=== PATIENT | male | born 1950 | race Caucasian/White ===

== ENCOUNTER 2019-07-31 14:29 | Inpatient (IN) | payer MEDICARE ==
--- NOTE | 2019-07-31 15:10 | ED ---
General Adult HPI - General Chief complaint: Shortness of Breath Stated complaint: Diff Breathing Source: patient Mode of arrival: wheelchair Limitations: no limitations - History of Present Illness Initial comments: patient is 69-year-old morbidly obese male with history of diabetes and prostate cancer presenting to emergency Department with chief complaint of shortness of breath. Patient reports intermittent shortness of breath for approximately one month but states it has significantly increased over the past 2 weeks. Patient reports dyspnea on exertion. Patient reports the SOB is also increased when laying flat. Patient does use a BiPAP for sleep apnea. Patient denies any chest pain but does report chest tightness. Patient denies history of asthma or COPD. Patient smoked for 8 years approximately 30 years ago. Patient does report a mild, intermittent productive cough. Patient denies night sweats fevers or chills. Patient denies lightheadedness, dizziness, nausea, vomiting, back pain, abdominal pain. Patient is unaware of any recent weight gain. Pat faviola wears compression stockings daily and denies recent changes in lower extremity edema. - Related Data Home Medications Medication Instructions Recorded Confirmed Allopurinol [Zyloprim] 300 mg PO DAILY 07/31/19 07/31/19 Aspirin EC [Ecotrin Low Dose] 81 mg PO DAILY 07/31/19 07/31/19 Enalapril [Vasotec] 20 mg PO BID 07/31/19 07/31/19 Ergocalciferol (Vitamin D2) 50,000 unit PO Q7D 07/31/19 07/31/19 [Vitamin D2] Ferrous Sulfate [Feosol] 325 mg PO DAILY 07/31/19 07/31/19 Hydrochlorothiazide [Hydrodiuril] 25 mg PO DAILY 07/31/19 07/31/19 Indomethacin [Indocin ER] 75 mg PO BID 07/31/19 07/31/19 Levothyroxine Sodium [Synthroid] 350 mcg PO DAILY 07/31/19 07/31/19 PARoxetine [Paxil] 20 mg PO DAILY 07/31/19 07/31/19 Simvastatin [Zocor] 40 mg PO HS 07/31/19 07/31/19 metFORMIN HCL [metFORMIN HCL ER 500 mg PO BID 07/31/19 07/31/19 Osmotic] Allergies Allergy/AdvReac Type Severity Reaction Status Date / Time No Known Allergies Allergy Verified 09/04/19 16:04 Review of Systems ROS Statement: Those systems with pertinent positive or pertinent negative responses have been documented in the HPI. ROS Other: All systems not noted in ROS Statement are negative. Past Medical History Past Medical History: Cancer, Prostate Disorder, Thyroid Disorder History of Any Multi-Drug Resistant Organisms: None Reported Past Surgical History: Orthopedic Surgery Additional Past Surgical History / Comment(s): betty knee partial replacement, thyroidectomy Past Psychological History: Panic Disorder Smoking Status: Former smoker Past Alcohol Use History: None Reported Past Drug Use History: None Reported General Exam Limitations: no limitations Course Vital Signs 07/31/19 07/31/19 07/31/19 14:31 14:39 14:45 Temperature 97.3 F L Pulse Rate 113 H 100 Respiratory 24 24 24 Rate Blood Pressure 178/82 161/98 O2 Sat by Pulse 92 L 96 Oximetry 07/31/19 15:50 Temperature Pulse Rate 100 Respiratory 20 Rate Blood Pressure 161/98 O2 Sat by Pulse 95 Oximetry EKG Findings - EKG Comments: EKG Findings:: A. fib with SVT. Ventricular rate 92, DE interval unknown, QRS duration 102, QT/QTC 396/496, P-r-t aces * 52 30 Medical Decision Making - Medical Decision Making Patient is 69-year-old male presenting to emergency room with a chief complaint of shortness of breath. Patient reports intermittent shortness of breath or past month that has been exacerbated over the past 2 weeks. Patient reports increased dyspnea on exertion. Patient denies any chest pain or chest tightn ess. Patient reports a mild intermittent cough with clear sputum production. Patient denies night sweats or chills. Patient was worked up for shortness of breath and chest pain. CBC, CMP unremarkable. Troponins are within normal limits. D-dimer is elevated. CTA is negative for a PE but patient does appear to have cardiomegaly along with bilateral pleural effusions. Mild loculation noted on the left lung base. It is my suspect the pleural effusion is secondary to heart failure which is causing the dyspnea on exertion. Patient was given Lasix. Patient will be admitted for further medical management. Case discussed with Dr. Bowman. Admitting physician is Dr. Nicholas. Cardiology consulted. - Lab Data Result diagrams: 07/31/19 15:40 07/31/19 15:40 Lab Results 09/04/19 09/04/19 09/04/19 Range/Units 15:40 15:40 15:40 WBC 7.0 (3.8-10.6) k/uL RBC 4.97 (4.30-5.90) m/uL Hgb 13.8 (13.0-17.5) gm/dL Hct 43.5 (39.0-53.0) % MCV 87.5 (80.0-100.0) fL MCH 27.8 (25.0-35.0) pg MCHC 31.8 (31.0-37.0) g/dL RDW 17.0 H (11.5-15.5) % Plt Count 156 (150-450) k/uL Neutrophils % 81 % Lymphocytes % 11 % Monocytes % 4 % Eosinophils % 2 % Basophils % 1 % Neutrophils # 5.6 (1.3-7.7) k/uL Lymphocytes # 0.8 L (1.0-4.8) k/uL Monocytes # 0.3 (0-1.0) k/uL Eosinophils # 0.2 (0-0.7) k/uL Basophils # 0.0 (0-0.2) k/uL Hypochromasia Slight Anisocytosis Slight PT 12.4 H (9.0-12.0) sec INR 1.2 H (<1.2) APTT 26.2 (22.0-30.0) sec D-Dimer 1.92 H (<0.60) mg/L FEU Sodium 138 (137-145) mmol/L Potassium 4.8 (3.5-5.1) mmol/L Chloride 100 (98-107) mmol/L Carbon Dioxide 28 (22-30) mmol/L Anion Gap 10 mmol/L BUN 23 H (9-20) mg/dL Creatinine 0.87 (0.66-1.25) mg/dL Est GFR (CKD-EPI)AfAm >90 (>60 ml/min/1.73 sqM) Est GFR (CKD-EPI)NonAf 87 (>60 ml/min/1.73 sqM) Glucose 142 H (74-99) mg/dL Calcium 9.4 (8.4-10.2) mg/dL Total Bilirubin 0.5 (0.2-1.3) mg/dL AST 36 (17-59) U/L ALT 62 (21-72) U/L Alkaline Phosphatase 64 (38-126) U/L Troponin I (0.000-0.034) ng/mL NT-Pro-B Natriuret Pep pg/mL Total Protein 6.7 (6.3-8.2) g/dL Albumin 4.2 (3.5-5.0) g/dL 07/31/19 07/31/19 Range/Units 15:40 15:40 WBC (3.8-10.6) k/uL RBC (4.30-5.90) m/uL Hgb (13.0-17.5) gm/dL Hct (39.0-53.0) % MCV (80.0-100.0) fL MCH (25.0-35.0) pg MCHC (31.0-37.0) g/dL RDW (11.5-15.5) % Plt Count (150-450) k/uL Neutrophils % % Lymphocytes % % Monocytes % % Eosinophils % % Basophils % % Neutrophils # (1.3-7.7) k/uL Lymphocytes # (1.0-4.8) k/uL Monocytes # (0-1.0) k/uL Eosinophils # (0-0.7) k/uL Basophils # (0-0.2) k/uL Hypochromasia Anisocytosis PT (9.0-12.0) sec INR (<1.2) APTT (22.0-30.0) sec D-Dimer (<0.60) mg/L FEU Sodium (137-145) mmol/L Potassium (3.5-5.1) mmol/L Chloride (98-107) mmol/L Carbon Dioxide (22-30) mmol/L Anion Gap mmol/L BUN (9-20) mg/dL Creatinine (0.66-1.25) mg/dL Est GFR (CKD-EPI)AfAm (>60 ml/min/1.73 sqM) Est GFR (CKD-EPI)NonAf (>60 ml/min/1.73 sqM) Glucose (74-99) mg/dL Calcium (8.4-10.2) mg/dL Total Bilirubin (0.2-1.3) mg/dL AST (17-59) U/L ALT (21-72) U/L Alkaline Phosphatase (38-126) U/L Troponin I 0.012 (0.000-0.034) ng/mL NT-Pro-B Natriuret Pep 1620 pg/mL Total Protein (6.3-8.2) g/dL Albumin (3.5-5.0) g/dL Disposition Clinical Impression: Shortness of breath, Dyspnea on exertion Disposition: ADMITTED IP TO THIS [facility] Condition: Stable Is patient prescribed a controlled substance at d/c from ED?: No Time of Disposition: 19:01
--- NOTE | 2019-07-31 15:47 | XR ---
EXAMINATION TYPE: XR chest 2V DATE OF EXAM: 07/31/2019 COMPARISON: NONE HISTORY: Difficulty breathing TECHNIQUE: Frontal and lateral views of the chest are obtained. FINDINGS: Exam is markedly suboptimal secondary to patient body habitus. There is a mildly enlarged cardiomediastinal silhouette and mild pulmonary vascular congestion with suspected trace pleural effu sions. Bilateral hilar enlargement is seen. IMPRESSION: Markedly limited exam secondary to patient body habitus. Prominence of the perihilar bassam ons bilaterally are seen, left greater than right. Central pulmonary vascular congestion is the leadi ng differential diagnosis mild pulmonary vascular congestion throughout. This could also be attributa ble to hilar adenopathy or pulmonary arterial hypertension. Trace pleural effusions are also suspecte d.
[2019-07-31 15:48] LABS: Anisocytosis Slight; Basophils % (A) 1 %; Eosinophils # (A) 0.2 k/uL (0-0.7); Eosinophils % (A) 2 %; HCT 43.5 % (39.0-53.0); HGB 13.8 gm/dL (13.0-17.5); Hypochromasia Slight; Lymphocytes # (A) 0.8 k/uL (1.0-4.8); Lymphocytes % (A) 11 %; MCH 27.8 pg (25.0-35.0); MCHC 31.8 g/dL (31.0-37.0); MCV 87.5 fL (80.0-100.0); Mean Platelet Volume 6.7; Monocytes # (A) 0.3 k/uL (0-1.0); Monocytes % (A) 4 %; Neutrophils # (A) 5.6 k/uL (1.3-7.7); Neutrophils % (A) 81 %; Platelet Count 156 k/uL (150-450); RBC 4.97 m/uL (4.30-5.90)
[2019-07-31 15:59] LABS: ALT 62 U/L (21-72); AST 36 U/L (17-59); African American GFR (CKD) >90 (>60 ml/min/1.73 sqM); Albumin 4.2 g/dL (3.5-5.0); Alkaline Phosphatase 64 U/L (38-126); Anion Gap 10 mmol/L; Blood Urea Nitrogen 23 mg/dL (9-20); Calcium 9.4 mg/dL (8.4-10.2); Carbon Dioxide 28 mmol/L (22-30); Chloride 100 mmol/L (98-107); Glucose 142 mg/dL (74-99); Potassium 4.8 mmol/L (3.5-5.1); Sodium 138 mmol/L (137-145); Total Bilirubin 0.5 mg/dL (0.2-1.3); Total Protein 6.7 g/dL (6.3-8.2)
[2019-07-31 16:06] LABS: INR 1.2 (<1.2); Prothrombin Time 12.4 sec (9.0-12.0)
[2019-07-31 16:07] LABS: Partial Thromboplastin Time 26.2 sec (22.0-30.0)
[2019-07-31 16:19] LABS: D-Dimer 1.92 mg/L FEU (<0.60)
--- NOTE | 2019-07-31 17:05 | CT ---
EXAMINATION TYPE: CT chest angio for PE DATE OF EXAM: 07/31/2019 COMPARISON: None HISTORY: SOB x1 week CT DLP: 1499.8 mGycm Automated exposure control for dose reduction was used. CONTRAST: CT Chest for pulmonary embolism performed with with IV Contrast, patient injected with 100 mL of Isov ue 370. FINDINGS: There are 3-D post processed images. There are bilateral pleural effusions. Heart is enlarged. There is no pericardial effusion. There is basilar pulmonary atelectasis. Exam is limited by patient's size. I see no filling defects in the pul monary arteries. There are no hilar masses. There is no mediastinal adenopathy. There is hypertrophic spurring in the thoracic spine. I see no focal bone destruction. IMPRESSION: No evidence of pulmonary embolism. Bilateral pleural effusions and cardiomegaly probably due to congestive heart failure. There is some loculation of pleural fluid on the left side.
[2019-07-31] MEDS ORDERED: NALOXONE 0.4 MG/ML 1 ML VIAL IV PRN (18:33)
[2019-07-31] MEDS ORDERED: KETOROLAC 30 MG/ML 1 ML VIAL IVP PRN (18:33)
[2019-07-31] MEDS ORDERED: MORPHINE SULFATE 4 MG/ML SYRINGE IV PRN (18:33)
[2019-07-31] MEDS ORDERED: ACETAMINOPHEN TAB 325 MG TAB PO PRN (18:33)
[2019-07-31] MEDS ORDERED: IBUPROFEN 400 MG TAB PO PRN (18:33)
[2019-07-31] MEDS ORDERED: FUROSEMIDE 10 MG/ML 2 ML VIAL IV STA (18:40)
[2019-08-01 02:10] VITALS: BMI 69.3
[2019-08-01 06:02] LABS: Glucose,Whole Blood 114 mg/dL (75-99)
[2019-08-01 06:30] LABS: Anisocytosis Slight; Basophils % (A) 1 %; Eosinophils # (A) 0.2 k/uL (0-0.7); Eosinophils % (A) 4 %; HCT 40.1 % (39.0-53.0); HGB 12.3 gm/dL (13.0-17.5); Hypochromasia Slight; Lymphocytes # (A) 1.1 k/uL (1.0-4.8); Lymphocytes % (A) 18 %; MCH 27.4 pg (25.0-35.0); MCHC 30.8 g/dL (31.0-37.0); MCV 88.8 fL (80.0-100.0); Mean Platelet Volume 7.2; Monocytes # (A) 0.4 k/uL (0-1.0); Monocytes % (A) 7 %; Neutrophils # (A) 4.2 k/uL (1.3-7.7); Neutrophils % (A) 70 %; Platelet Count 158 k/uL (150-450); RBC 4.51 m/uL (4.30-5.90); RDW 17.6 % (11.5-15.5)
[2019-08-01 06:55] LABS: Potassium 4.4 mmol/L (3.5-5.1)
[2019-08-01] MEDS ORDERED: HEPARIN SODIUM,PORCINE 5,000 UNIT/ML 1 ML VIAL IV PRN (09:02)
[2019-08-01] MEDS ORDERED: HEPARIN SODIUM,PORCINE 5,000 UNIT/ML 1 ML VIAL IV ONE (09:02)
[2019-08-01] MEDS ORDERED: HEPARIN SOD,PORK IN 0.45% NACL 25,000 UNIT in 0.45% NACL 1 250ML.BAG IV SCH (09:15)
[2019-08-01 09:20] LABS: Anisocytosis Slight; Basophils % (A) 1 %; Eosinophils # (A) 0.2 k/uL (0-0.7); Eosinophils % (A) 4 %; HCT 39.9 % (39.0-53.0); HGB 12.7 gm/dL (13.0-17.5); Hypochromasia Slight; Lymphocytes # (A) 0.8 k/uL (1.0-4.8); Lymphocytes % (A) 16 %; MCH 27.9 pg (25.0-35.0); MCHC 31.8 g/dL (31.0-37.0); MCV 87.9 fL (80.0-100.0); Mean Platelet Volume 7.1; Monocytes # (A) 0.3 k/uL (0-1.0); Monocytes % (A) 6 %; Neutrophils # (A) 3.8 k/uL (1.3-7.7); Neutrophils % (A) 73 %; Platelet Count 136 k/uL (150-450); RBC 4.54 m/uL (4.30-5.90); RDW 16.8 % (11.5-15.5); WBC 5.2 k/uL (3.8-10.6)
[2019-08-01 09:29] LABS: INR 1.3 (<1.2); Partial Thromboplastin Time 27.3 sec (22.0-30.0); Prothrombin Time 13.1 sec (9.0-12.0)
--- NOTE | 2019-08-01 10:41 | P.CRDCN ---
History of Present Illness Consult date: 08/01/19 Requesting physician: Aftab Nicholas Reason for Consult (text): CHF Chief complaint: Shortness of breath History of present illness: This is a 69-year-old gentleman with history of morbid obesity, diabetes, hypertension, hyperlipidemia, history of thyroid cancer with prior thyroidectomy, prostate cancer, sleep apnea with consistent BiPAP use, who presents to hospital with symptoms of progressively worsening shortness of breath. According to the patient, he's been dealing with an upper respiratory infection for the past 2-3 weeks, productive sputum of lebron color, in spite of his cold improving, patient continued to feel quite short of breath. He does have bilateral peripheral edema but states that he has not noticed more swelling than his usual. He quit smoking approximately 30 years ago. He denies any fever or chills at home. Chest x-ray on presentation here showed central pulmonary vascular congestion and trace pleural effusions. CTA of the chest did not reveal any evidence of pulmonary embolism, it did show bilateral pleural effusions and cardiomegaly. Some loculated pleural fluid on the left side. EKG on presentation here showed atrial fibrillation with moderately rapid ventricular response, occasional PVC. According to the patient, he has no prior documented history of atrial fibrillation. Blood pressure 116/80 with a heart rate in the 90s, 94% on BiPAP. White blood cell count 5.2, hemoglobin 12.7, platelet count 136. Sodium 139, potassium 4.4, BUN 25 and creatinine 1.0. D- dimer 1.9. Troponin 0.012, 0.0-4, 0.033. BNP level 1620. Past Medical History Past Medical History: Cancer, Diabetes Mellitus, Hyperlipidemia, Hypertension, Prostate Disorder, Rheumatoid Arthritis (RA), Thyroid Disorder Additional Past Medical History / Comment(s): thyroid and prostate CA History of Any Multi-Drug Resistant Organisms: None Reported Past Surgical History: Orthopedic Surgery Additional Past Surgical History / Comment(s): betty knee partial replacement, thyroidectomy Smoking Status: Former smoker - Past Family History Father Family Medical History: Hyperlipidemia Additional Family Medical History / Comment(s): parkinsons Medications and Allergies Home Medications Medication Instructions Recorded Confirmed Type Allopurinol [Zyloprim] 300 mg PO DAILY 07/31/19 07/31/19 History Aspirin EC [Ecotrin Low Dose] 81 mg PO DAILY 07/31/19 07/31/19 History Enalapril [Vasotec] 20 mg PO BID 07/31/19 07/31/19 History Ergocalciferol (Vitamin D2) 50,000 unit PO Q7D 07/31/19 07/31/19 History [Vitamin D2] Ferrous Sulfate [Feosol] 325 mg PO DAILY 07/31/19 07/31/19 History Hydrochlorothiazide [Hydrodiuril] 25 mg PO DAILY 07/31/19 07/31/19 History Indomethacin [Indocin ER] 75 mg PO BID 07/31/19 07/31/19 History Levothyroxine Sodium [Synthroid] 350 mcg PO DAILY 07/31/19 07/31/19 History PARoxetine [Paxil] 20 mg PO DAILY 07/31/19 07/31/19 History Simvastatin [Zocor] 40 mg PO HS 07/31/19 07/31/19 History metFORMIN HCL [metFORMIN HCL ER 500 mg PO BID 07/31/19 07/31/19 History Osmotic] Allergies Allergy/AdvReac Type Severity Reaction Status Date / Time No Known Allergies Allergy Verified 07/31/19 16:04 Physical Exam Vitals: Vital Signs Temp Pulse Pulse Resp BP BP Pulse Ox 08/01/19 04:00 98.2 F 95 20 116/85 94 L 08/01/19 02:30 160/90 08/01/19 02:06 98.8 F 95 23 150/100 94 L 07/31/19 23:00 82 20 139/97 96 07/31/19 20:21 90 19 152/82 97 07/31/19 15:50 100 20 161/98 95 07/31/19 14:45 100 24 161/98 96 07/31/19 14:39 24 07/31/19 14:31 97.3 F L 113 H 24 178/82 92 L Intake and Output 07/31/19 08/01/19 08/01/19 22:59 06:59 14:59 Intake Total 400 Balance 400 Intake: Oral 400 Other: Weight 190.6 kg PHYSICAL EXAMINATION: GENERAL: 69-year-old gentleman in no acute distress at the time of my examination HEENT: Head is atraumatic, normocephalic. Pupils equal, round. Sclera anic teric. Conjunctiva are clear. Mucous membranes of the mouth are moist. Neck is supple. Unable to assess for elevated jugular venous pressure. no carotid bruit is heard. HEART EXAMINATION: [Heart S1, S2 normal. No murmur or gallop heard.] CHEST EXAMINATION: Lungs reveal diminished air entry to bilateral bases ABDOMEN: [ Soft, obese , nontender. Bowel sounds are heard. No organomegaly note d]. EXTREMITIES:[ 2+ peripheral pulses with trace to 1+ evidence of peripheral edema and no calf tenderness noted]. NEUROLOGIC [patient is awake, alert and oriented 3 .] . Results 08/01/19 09:07 08/01/19 06:02 Cardiac Enzymes 07/31/19 07/31/19 07/31/19 Range/Units 15:40 15:40 23:06 AST 36 (17-59) U/L Troponin I 0.012 0.024 (0.000-0.034) ng/mL 08/01/19 Range/Units 03:21 AST (17-59) U/L Troponin I 0.033 (0.000-0.034) ng/mL Coagulation 07/31/19 08/01/19 Range/Units 15:40 09:07 PT 12.4 H 13.1 H (9.0-12.0) sec APTT 26.2 27.3 (22.0-30.0) sec CBC 07/31/19 08/01/19 08/01/19 Range/Units 15:40 06:02 09:07 WBC 7.0 6.0 5.2 (3.8-10.6) k/uL RBC 4.97 4.51 4.54 (4.30-5.90) m/uL Hgb 13.8 12.3 L 12.7 L (13.0-17.5) gm/dL Hct 43.5 40.1 39.9 (39.0-53.0) % Plt Count 156 158 136 L (150-450) k/uL Comprehensive Metabolic Panel 07/31/19 08/01/19 Range/Units 15:40 06:02 Sodium 138 139 (137-145) mmol/L Potassium 4.8 4.4 (3.5-5.1) mmol/L Chloride 100 100 (98-107) mmol/L Carbon Dioxide 28 32 H (22-30) mmol/L BUN 23 H 25 H (9-20) mg/dL Creatinine 0.87 1.05 (0.66-1.25) mg/dL Glucose 142 H 105 H (74-99) mg/dL Calcium 9.4 9.0 (8.4-10.2) mg/dL AST 36 (17-59) U/L ALT 62 (21-72) U/L Alkaline Phosphatase 64 (38-126) U/L Total Protein 6.7 (6.3-8.2) g/dL Albumin 4.2 (3.5-5.0) g/dL Current Medications Generic Name Dose Route Start Last Admin Trade Name Freq PRN Reason Stop Dose Admin Acetaminophen 650 mg 07/31/19 18:33 Tylenol Tab PO Q6HR PRN Mild Pain or Fever > 100.5 Heparin Sodium (Porcine) 0 unit 08/01/19 09:02 Heparin IV PER PROTOCOL PRN Low PTT Protocol Heparin Sodium/Sodium Chloride 250 mls @ 10.007 mls/hr 08/01/19 09:15 25,000 unit/ Sodium Chloride IV .Q24H NASRIN Protocol 5.25 UNITS/KG/HR Ibuprofen 400 mg 07/31/19 18:33 Motrin PO Q6HR PRN Mild Pain or Fever > 100.5 Ketorolac Tromethamine 30 mg 07/31/19 18:33 Toradol IVP 08/04/19 18:34 ONCE PRN Moderate Pain Morphine Sulfate 4 mg 07/31/19 18:33 Morphine Sulfate (Inj) IV Q4HR PRN Severe Pain Naloxone HCl 0.2 mg 07/31/19 18:33 Narcan IV Q2M PRN Opioid Reversal Intake and Output 07/31/19 08/01/19 08/01/19 22:59 06:59 14:59 Intake Total 400 Balance 400 Intake: Oral 400 Other: Weight 190.6 kg 08/01/19 09:07 08/01/19 06:02 EKG Interpretations (text) EKG shows atrial fibrillation with moderately rapid ventricular response Assessment and Plan Plan: Assessment and plan #1 congestive cardiac failure, LV function unknown #2 recent upper respiratory infection #3 diabetes #4 atrial fibrillation with moderately rapid ventricular response, appears to be of new onset for the patient. #5 hypertension #6 hyperlipidemia #7 obstructive sleep apnea #8 history of thyroid cancer with prior thyroidectomy, on Synthroid #9 prostate cancer Plan We will obtain an echocardiogram with Doppler study. Discontinue heparin and start the patient on Eliquis. Start the patient on IV Lasix, monitor the intake and output along with daily weights and daily lytes BUN and creatinine. Discontinue Motrin. Resume the statin, and Vasotec, and initiate a low-dose beta alicia. Further recommendations to follow. DNP note has been reviewed, I agree with a documented findings and plan of care. Patient was seen and examined.
[2019-08-01] MEDS: METOPROLOL SUCCINATE (ER) 25 MG TAB.ER.24H PO SCH (11:13)
[2019-08-01] MEDS: FUROSEMIDE 10 MG/ML 4 ML VIAL IV SCH ×2 (11:13→23:01)
[2019-08-01] MEDS: LISINOPRIL 20 MG TAB PO SCH ×2 (11:13→23:01)
[2019-08-01] MEDS: ASPIRIN 81 MG PO SCH (11:13)
[2019-08-01] MEDS: APIXABAN 5 MG TAB PO SCH ×2 (11:13→23:00)
[2019-08-01 11:52] LABS: Glucose,Whole Blood 129 mg/dL (75-99)
[2019-08-01 16:41] LABS: Glucose,Whole Blood 104 mg/dL (75-99)
[2019-08-01 20:50] LABS: Glucose,Whole Blood 136 mg/dL (75-99)
[2019-08-01] MEDS ORDERED: APIXABAN 5 MG TAB PO SCH (21:00)
[2019-08-01] MEDS: ATORVASTATIN 20 MG TAB PO SCH (23:00)
[2019-08-02 05:57] LABS: Glucose,Whole Blood 131 mg/dL (75-99)
[2019-08-02 06:45] LABS: Anisocytosis Slight; Basophils % (A) 1 %; Eosinophils # (A) 0.3 k/uL (0-0.7); Eosinophils % (A) 4 %; HCT 40.6 % (39.0-53.0); HGB 12.7 gm/dL (13.0-17.5); Hypochromasia Slight; Lymphocytes % (A) 17 %; MCH 27.5 pg (25.0-35.0); MCHC 31.3 g/dL (31.0-37.0); MCV 87.8 fL (80.0-100.0); Mean Platelet Volume 7.2; Monocytes # (A) 0.4 k/uL (0-1.0); Monocytes % (A) 7 %; Neutrophils # (A) 4.2 k/uL (1.3-7.7); Neutrophils % (A) 70 %; Platelet Count 144 k/uL (150-450); RBC 4.63 m/uL (4.30-5.90); RDW 16.8 % (11.5-15.5)
[2019-08-02] MEDS: FUROSEMIDE 10 MG/ML 4 ML VIAL IV SCH ×2 (08:50→21:02)
[2019-08-02] MEDS: ASPIRIN 81 MG PO SCH (08:51)
[2019-08-02] MEDS: LISINOPRIL 20 MG TAB PO SCH ×2 (08:51→21:02)
[2019-08-02] MEDS: APIXABAN 5 MG TAB PO SCH ×2 (08:52→21:02)
[2019-08-02] MEDS: METOPROLOL SUCCINATE (ER) 25 MG TAB.ER.24H PO SCH (08:52)
[2019-08-02] MEDS ORDERED: IPRATROPIUM-ALBUTEROL 3 ML NEB INHALATION PRN (09:45)
[2019-08-02] MEDS ORDERED: LEVOTHYROXINE SODIUM 350 MCG PO SCH (09:45)
--- NOTE | 2019-08-02 09:57 | P.HPIM ---
History of Present Illness H&P Date: 08/01/19 This is a 69-year-old gentleman history of obstructive sleep apnea -uses BiPAP cancer, diabetes mellitus, hyperlipidemia, hypertension, rheumatoid arthritis, thyroid cancer with prior thyroidectomy, prostate disorder, former nicotine dependence, panic disorder and multiple other medical issues presented to the ER with shortness of breath 1 month, worsening over the last 2 weeks with occasional productive cough-lebron colored sputum. Shortness of breath increases upon exertion and laying flat. Denies increase in his ongoing extremity edema. Reports recent upper respiratory infection, went to an urgent care 1 week ago and placed on antibiotics for sinus infection. Last seen in PCPs office 1 year ago. Denies prior history of COPD. Denies chest pain, palpitations. Denies lightheadedness dizziness or focal deficits. Denies syncope. Denies fever or chills. Denies night sweats. Denies nausea vomiting, diarrhea, abdominal pain. Denies recent weight gain. Chest x-ray reporting prominent perihilar regions left greater than right, central pulmonary vascular congestion, mild pulmonary vascular congestion throughout, possible hilar adenopathy versus pulmonary arterial hypertension. Trace pleural effusions. EKG reporting A. fib with PVCs, possible inferior/anterior infarct -age undetermined. Denies prior history of atrial fibrillation. Troponins 0.012, 0.024, 0.033. INR 1.2, d-dimer 1.92. CTA reported no evidence of PE, bibasilar atelectasis, bilateral pleural effusions, loculation of left sided pleural fluid, cardiomegaly. On admission, afebrile, hypertensive 178/82, heart rate 113, maintaining O2 sats of 92% on room air. Received Lasix IV push. Cardiology consulted. Review of Systems ROS Statement: Those systems with pertinent positive or pertinent negative responses have been documented in the HPI. ROS Other: All systems not noted in ROS Statement are negative. Past Medical History Past Medical History: Cancer, Diabetes Mellitus, Hyperlipidemia, Hypertension, Prostate Disorder, Rheumatoid Arthritis (RA), Thyroid Disorder Additional Past Medical History / Comment(s): thyroid and prostate CA History of Any Multi-Drug Resistant Organisms: None Reported Past Surgical History: Orthopedic Surgery Additional Past Surgical History / Comment(s): betty knee partial replacement, thyroidectomy Smoking Status: Former smoker - Past Family History Father Family Medical History: Hyperlipidemia Additional Family Medical History / Comment(s): parkinsons Medications and Allergies Home Medications Medication Instructions Recorded Confirmed Type Allopurinol [Zyloprim] 300 mg PO DAILY 07/31/19 07/31/19 History Aspirin EC [Ecotrin Low Dose] 81 mg PO DAILY 07/31/19 07/31/19 History Enalapril [Vasotec] 20 mg PO BID 07/31/19 07/31/19 History Ergocalciferol (Vitamin D2) 50,000 unit PO Q7D 07/31/19 07/31/19 History [Vitamin D2] Ferrous Sulfate [Feosol] 325 mg PO DAILY 07/31/19 07/31/19 History Hydrochlorothiazide [Hydrodiuril] 25 mg PO DAILY 07/31/19 07/31/19 History Indomethacin [Indocin ER] 75 mg PO BID 07/31/19 07/31/19 History Levothyroxine Sodium [Synthroid] 350 mcg PO DAILY 07/31/19 07/31/19 History PARoxetine [Paxil] 20 mg PO DAILY 07/31/19 07/31/19 History Simvastatin [Zocor] 40 mg PO HS 07/31/19 07/31/19 History metFORMIN HCL [metFORMIN HCL ER 500 mg PO BID 07/31/19 07/31/19 History Osmotic] Allergies Allergy/AdvReac Type Severity Reaction Status Date / Time No Known Allergies Allergy Verified 07/31/19 16:04 Physical Exam Vitals: Vital Signs Temp Pulse Pulse Resp BP BP Pulse Ox 08/01/19 08:00 98.5 F 65 20 116/64 96 08/01/19 04:00 98.2 F 95 20 116/85 94 L 08/01/19 02:30 160/90 08/01/19 02:06 98.8 F 95 23 150/100 94 L 07/31/19 23:00 82 20 139/97 96 07/31/19 20:21 90 19 152/82 97 07/31/19 15:50 100 20 161/98 95 07/31/19 14:45 100 24 161/98 96 07/31/19 14:39 24 07/31/19 14:31 97.3 F L 113 H 24 178/82 92 L Intake and Output 07/31/19 08/01/19 08/01/19 22:59 06:59 14:59 Intake Total 400 Balance 400 Intake: Oral 400 Other: Weight 190.6 kg PHYSICAL EXAM: VITAL SIGNS: As above GENERAL: Sitting up in bed, no acute distress, respiratory effort mildly increased HEENT: Conjunctivae normal. eyes normal. NECK: Supple, short neck-unable to assess for JVD. No thyroid enlargement. No LNs CARDIOVASCULAR: S1, S2 regular.. No murmur RESPIRATION: Breath sounds diminished in the bases. No rhonchi or crackles. No bronchial breathing. ABDOMEN: Obese, Soft, nontender . No guarding. no masses palpable. No ascites, No hepatosplenomegaly.Bowel sounds heard. LEGS: Positive edema, nontender, PSYCHIATRY: Alert and oriented X3, mood and affect normal. NERVOUS SYSTEM: Cranial N 2-12 grossly normal. Moves all 4 limbs. Diffuse weakness, No focal deficits. Strength and sensation grossly intact.. Skin: no lesions, no rash Lymphatic system. No LN neck axilla or groin. Results CBC & Chem 7: 08/02/19 06:22 08/01/19 06:02 Labs: Abnormal Lab Results - Last 24 Hours (Table) 07/31/19 07/31/19 07/31/19 Range/Units 15:40 15:40 15:40 Hgb (13.0-17.5) gm/dL MCHC (31.0-37.0) g/dL RDW 17.0 H (11.5-15.5) % Plt Count (150-450) k/uL Lymphocytes # 0.8 L (1.0-4.8) k/uL PT 12.4 H (9.0-12.0) sec INR 1.2 H (<1.2) D-Dimer 1.92 H (<0.60) mg/L FEU Carbon Dioxide (22-30) mmol/L BUN 23 H (9-20) mg/dL Glucose 142 H (74-99) mg/dL POC Glucose (mg/dL) (75-99) mg/dL 08/01/19 08/01/19 08/01/19 Range/Units 06:00 06:02 06:02 Hgb 12.3 L (13.0-17.5) gm/dL MCHC 30.8 L (31.0-37.0) g/dL RDW 17.6 H (11.5-15.5) % Plt Count (150-450) k/uL Lymphocytes # (1.0-4.8) k/uL PT (9.0-12.0) sec INR (<1.2) D-Dimer (<0.60) mg/L FEU Carbon Dioxide 32 H (22-30) mmol/L BUN 25 H (9-20) mg/dL Glucose 105 H (74-99) mg/dL POC Glucose (mg/dL) 114 H (75-99) mg/dL 08/01/19 08/01/19 08/01/19 Range/Units 09:07 09:07 11:44 Hgb 12.7 L (13.0-17.5) gm/dL MCHC (31.0-37.0) g/dL RDW 16.8 H (11.5-15.5) % Plt Count 136 L (150-450) k/uL Lymphocytes # 0.8 L (1.0-4.8) k/uL PT 13.1 H (9.0-12.0) sec INR 1.3 H (<1.2) D-Dimer (<0.60) mg/L FEU Carbon Dioxide (22-30) mmol/L BUN (9-20) mg/dL Glucose (74-99) mg/dL POC Glucose (mg/dL) 129 H (75-99) mg/dL Thrombosis Risk Factor Assmnt - Choose All That Apply Each Factor Represents 1 point: Heart failure (<1month), Obesity (BMI >25) Each Risk Factor Represents 2 Points: Age 61-74 years Thrombosis Risk Factor Assessment Total Risk Factor Score: 4 Thrombosis Risk Factor Assessment Level: Moderate Risk Assessment and Plan Assessment: -Dyspnea, multifactorial, acute CHF, EF currently unknown -Acute hypoxic respiratory failure secondary to the above -Bilateral pleural effusions, loculation of pleural fluid on the left side -Atelectasis, bibasilar -Obstructive sleep apnea wears BiPAP at home -New onset with atrial fibrillation -Diabetes mellitus -Hypertension -Hyperlipidemia -History of panic disorder -History of thyroid cancer, thyroidectomy -Prostate disorder -Morbid Obesity, BMI 67.9 Plan: Continue on current medication regime ,monitoring and symptomatic treatment. Cardiology consulted. Echo ordered. Currently maintained on heparin drip. Continue on scheduled IV push Lasix with strict I&O's, beta alicia. Home meds have been reviewed and resumed accordingly. Prognosis guarded given multiple complex medical issues. The impression and plan of care has been dictated as directed. : I performed a history and examination of this patient, discussed the same with the dictator. I agree with the dictator's note ,documented as a scribe. Any additional findings or plans will be noted. Time taken: 35 minutes
[2019-08-02] MEDS: PANTOPRAZOLE 40 MG/10 ML VIAL IVP SCH (10:48)
[2019-08-02 10:53] LABS: Calcium 9.3 mg/dL (8.4-10.2); Potassium 4.4 mmol/L (3.5-5.1)
[2019-08-02] MEDS: PARoxetine 20 MG TAB PO SCH (10:56)
[2019-08-02] MEDS: LEVOTHYROXINE 100 MCG TAB PO SCH (10:56)
[2019-08-02] MEDS: LEVOTHYROXINE 125 MCG TAB PO SCH (10:56)
[2019-08-02] MEDS: metFORMIN 500 MG TAB PO SCH ×2 (10:56→21:02)
[2019-08-02] MEDS: FERROUS SULFATE 325 MG TAB PO SCH (10:56)
[2019-08-02] MEDS: ALLOPURINOL 300 MG TAB PO SCH (10:56)
[2019-08-02] MEDS: IPRATROPIUM-ALBUTEROL 3 ML NEB INHALATION SCH ×3 (11:51→19:24)
[2019-08-02 11:53] LABS: Glucose,Whole Blood 127 mg/dL (75-99)
[2019-08-02] MEDS ORDERED: PNEUMOCOCCAL VACC-PNEUMOVAX 23 25 MCG/0.5 ML VIAL IM ONE (13:07)
[2019-08-02] MEDS: INSULIN ASPART (NovoLOG) 100 UNIT/ML VIAL SQ SCH ×3 (13:08→21:02)
--- NOTE | 2019-08-02 15:51 | P.PN ---
Subjective Progress Note Date: 08/02/19 This is a 69-year-old gentleman with history of morbid obesity, diabetes, hypertension, hyperlipidemia, history of thyroid cancer with prior thyroidectomy, prostate cancer, sleep apnea with consistent BiPAP use, who presents to hospital with symptoms of progressively worsening shortness of breat h. According to the patient, he's been dealing with an upper respiratory infection for the past 2-3 weeks, productive sputum of lebron color, in spite of his cold improving, patient continued to feel quite short of breath. He does have bilateral peripheral edema but states that he has not noticed more swelling than his usual. He quit smoking approximately 30 years ago. He denies any fever or chills at home. Chest x-ray on presentation here showed central pulmonary vascular congestion and trace pleural effusions. CTA of the chest did not reveal any evidence of pulmonary embolism, it did show bilateral pleural effusions and cardiomegaly. Some loculated pleural fluid on the left side. EKG on presentation here showed atrial fibrillation with moderately rapid ventricular response, occasional PVC. According to the patient, he has no prior documented history of atrial fibrillation. Blood pressure 116/80 with a heart rate in the 90s, 94% on BiPAP. White blood cell count 5.2, hemoglobin 12.7, platelet count 136. Sodium 139, potassium 4.4, BUN 25 and creatinine 1.0. D- dimer 1.9. Troponin 0.012, 0.0-4, 0.033. BNP level 1620. 08/02/2019 Patient seen and examined this morning, breathing overall is improving. Continues to have peripheral edema however significantly improved as well. Blood pressure 134/60 with a heart rate in the 80s, 97% on 2 L of oxygen. Blood cell count 6.0, hemoglobin 12.7, platelet count 144. Sodium 139, potassium 4.4, BUN 30 and creatinine 1.1. Objective - Vital Signs Vital signs: Vital Signs Temp 98.1 F 08/02/19 14:59 Pulse 82 08/02/19 14:59 Resp 18 08/02/19 14:59 BP 134/62 08/02/19 14:59 Pulse Ox 97 08/02/19 14:59 Intake & Output 08/01/19 08/02/19 08/02/19 18:59 06:59 18:59 Intake Total 220 240 Output Total 650 1345 860 Balance -430 -1345 -769 Weight 190.8 kg Intake: IV 20 Invasive Line 2 20 Oral 200 240 Output: Urine 650 4809 860 Other: # Voids 2 - Exam PHYSICAL EXAMINATION: GENERAL: 69-year-old gentleman in no acute distress at the time of my examination HEENT: Head is atraumatic, normocephalic. Pupils equal, round. Sclera anicter ic. Conjunctiva are clear. Mucous membranes of the mouth are moist. Neck is supple. Unable to assess for elevated jugular venous pressure. no carotid bruit is heard. HEART EXAMINATION: [Heart S1, S2 normal. No murmur or gallop heard.] CHEST EXAMINATION: Lungs reveal diminished air entry to bilateral bases ABDOMEN: [ Soft, obese , nontender. Bowel sounds are heard. No organomegaly noted]. EXTREMITIES:[ 2+ peripheral pulses with trace to 1+ evidence of peripheral edema and no calf tenderness noted]. NEUROLOGIC [patient is awake, alert and oriented 3 .] . - Labs CBC & Chem 7: 08/02/19 06:22 08/02/19 06:22 Labs: Abnormal Lab Results - Last 24 Hours (Table) 08/01/19 08/01/19 08/02/19 Range/Units 16:39 20:48 05:55 Hgb (13.0-17.5) gm/dL RDW (11.5-15.5) % Plt Count (150-450) k/uL Chloride (98-107) mmol/L Carbon Dioxide (22-30) mmol/L BUN (9-20) mg/dL Glucose (74-99) mg/dL POC Glucose (mg/dL) 104 H 136 H 131 H (75-99) mg/dL 08/02/19 08/02/19 08/02/19 Range/Units 06:22 06:22 11:51 Hgb 12.7 L (13.0-17.5) gm/dL RDW 16.8 H (11.5-15.5) % Plt Count 144 L (150-450) k/uL Chloride 97 L (98-107) mmol/L Carbon Dioxide 32 H (22-30) mmol/L BUN 30 H (9-20) mg/dL Glucose 117 H (74-99) mg/dL POC Glucose (mg/dL) 127 H (75-99) mg/dL Assessment and Plan Plan: Assessment and plan #1 congestive cardiac failure, LV function unknown #2 recent upper respiratory infection #3 diabetes #4 atrial fibrillation with moderately rapid ventricular response, appears to be of new onset for the patient. #5 hypertension #6 hyperlipidemia #7 obstructive sleep apnea #8 history of thyroid cancer with prior thyroidectomy, on Synthroid #9 prostate cancer Plan Echocardiogram with Doppler study remains pending. We will continue the patient on his current dose of IV Lasix. Continue to monitor his intake and output along with daily weights and daily lytes BUN and creatinine. DNP note has been reviewed, I agree with a documented findings and plan of care. Patient was seen and examined.
--- NOTE | 2019-08-02 16:20 | P.PN ---
Subjective Progress Note Date: 08/02/19 This is a 69-year-old gentleman history of obstructive sleep apnea -uses BiPAP cancer, diabetes mellitus, hyperlipidemia, hypertension, rheumatoid arthritis, thyroid cancer with prior thyroidectomy, prostate disorder, former nicotine dependence, panic disorder and multiple other medical issues presented to the ER with shortness of breath 1 month, worsening over the last 2 weeks with occasional productive cough-lebron colored sputum. Shortness of breath increases upon exertion and laying flat. Denies increase in his ongoing extremity edema. Reports recent upper respiratory infection, went to an urgent care 1 week ago and placed on antibiotics for sinus infection. Last seen in PCPs office 1 year ago. Denies prior history of COPD. Denies chest pain, palpitations. Denies lightheadedness dizziness or focal deficits. Denies syncope. Denies fever or chills. Denies night sweats. Denies nausea vomiting, diarrhea, abdominal pain. Denies recent weight gain. Chest x-ray reporting prominent perihilar regions left greater than right, central pulmonary vascular congestion, mild pulmonary vascular congestion throughout, possible hilar adenopathy versus pulmonary arterial hypertension. Trace pleural effusions. EKG reporting A. fib with PVCs, possible inferior/anterior infarct -age undetermined. Denies prior history of atrial fibrillation. Troponins 0.012, 0.024, 0.033. INR 1.2, d-dimer 1.92. CTA reported no evidence of PE, bibasilar atelectasis, bilateral pleural effusions, loculation of left sided pleural fluid, cardiomegaly. On admission, afebrile, hypertensive 178/82, heart rate 113, maintaining O2 sats of 92% on room air. Received Lasix IV push. Cardiology consulted. 08/02/2019 Anticoagulated on Eliquis. Diuresing well on Lasix IV push with 24- hour I&O reflecting a negative fluid balance. BMP pending. Maintaining O2 sats in the 90s on 2 L nasal cannula. Telemetry atrial fibrillation with controlled ventricular rate, on Toprol. Continues on Zestril with blood pressure improved. Afebrile, normal WBC. Denies chest pain, palpitations or increased shortness of breath. Echo pending. Objective - Vital Signs Vital signs: Vital Signs Temp 97.3 F L 08/02/19 08:34 Pulse 79 08/02/19 09:18 Resp 16 08/02/19 09:18 BP 115/69 08/02/19 08:40 Pulse Ox 98 08/02/19 09:22 Intake & Output 08/01/19 08/02/19 08/02/19 18:59 06:59 18:59 Intake Total 220 240 Output Total 650 1345 Balance -430 -1345 240 Weight 190.8 kg Intake: IV 20 Invasive Line 2 20 Oral 200 240 Output: Urine 650 1345 - Exam VITAL SIGNS: As above GENERAL: Sitting up in bed, no acute distress, respiratory effort mildly increased HEENT: Conjunctivae normal. eyes normal. NECK: Supple, short neck-unable to assess for JVD. No thyroid enlargement. No LNs CARDIOVASCULAR: S1, S2 regular.. No murmur RESPIRATION: Breath sounds diminished in the bases. No rhonchi or crackles. No wheezing. ABDOMEN: Obese, Soft, nontender . No guarding. no masses palpable. No ascites, No hepatosplenomegaly.Bowel sounds heard. LEGS: Positive edema, nontender, PSYCHIATRY: Alert and oriented X3, mood and affect normal. NERVOUS SYSTEM: Cranial N 2-12 grossly normal. Moves all 4 limbs. Diffuse weakness, No focal deficits. Strength and sensation grossly intact.. Skin: no lesions, no rash Lymphatic system. No LN neck axilla or groin. - Labs CBC & Chem 7: 08/02/19 06:22 08/02/19 06:22 Labs: Abnormal Lab Results - Last 24 Hours (Table) 08/01/19 08/01/19 08/01/19 Range/Units 11:44 16:39 20:48 Hgb (13.0-17.5) gm/dL RDW (11.5-15.5) % Plt Count (150-450) k/uL POC Glucose (mg/dL) 129 H 104 H 136 H (75-99) mg/dL 08/02/19 08/02/19 Range/Units 05:55 06:22 Hgb 12.7 L (13.0-17.5) gm/dL RDW 16.8 H (11.5-15.5) % Plt Count 144 L (150-450) k/uL POC Glucose (mg/dL) 131 H (75-99) mg/dL Assessment and Plan Assessment: -Dyspnea, multifactorial, acute CHF, echo pending. -Acute hypoxic respiratory failure secondary to the above -Bilateral pleural effusions, loculation of pleural fluid on the left side -Atelectasis, bibasilar -Obstructive sleep apnea wears BiPAP at home -New onset with atrial fibrillation -Diabetes mellitus -Hypertension -Hyperlipidemia -History of panic disorder -History of thyroid cancer, thyroidectomy -Prostate disorder -Morbid Obesity, BMI 67.9 Plan: Continue on current medication regime ,monitoring and symptomatic treatment. Pulmonary consulted. Echo pending. Anticoagulated on Eliquis. Continue diuresing on IV push Lasix, close monitoring of renal function, BMP pending/repeat labs ordered for a.m. continue on nebulized bronchodilators. GI and DVT prophylaxis in place. Increase ambulation as tolerated. The impression and plan of care has been dictated as directed. : I performed a history and examination of this patient, discussed the same with the dictator. I agree with the dictator's note ,documented as a scribe. Any additional findings or plans will be noted. Time taken: 35 minutes
[2019-08-02 17:03] LABS: Glucose,Whole Blood 127 mg/dL (75-99)
[2019-08-02 17:46] LABS: Hemoglobin A1C 6.1 % (4.0-6.0)
--- NOTE | 2019-08-02 18:32 | P.CNPUL ---
History of Present Illness Consult date: 08/02/19 Reason for consult: dyspnea Chief complaint: Shortness of breath History of present illness: A 69-year-old morbidly obese male patient with known history of obstructive sleep apnea was demented on a BiPAP at a pressure of 20/50 cm of water in addition to history of diabetes and hypertension and hyperlipidemia and chronic atrial fibrillation, who presented to the hospital because of worsening shortness of breath. He denied having any chest pain. He was having more limitation basis capacity above and beyond his baseline. Note that the patient already has some chronic shortness of breath at baseline. His BMI is 67.9. He denies having any pleurisy. No sputum production. No hemoptysis. CT angiogram was done and showed no evidence of any pulmonary embolism and there was bilateral pleural effusion. There was some loculated pleural fluid on the left lung base which is a benign finding. The patient was subjected to diuretics. The patient is currently receiving IV Lasix. He has diuresed significantly over the past 24 hours and clinically is feeling better. Is still on 2 L about 2 by nasal cannula and his pulse ox is 97%. He has previous history of prostate cancer and he also has history of thyroid cancer with a previous thyroidectomy. No smoking. Review of Systems Constitutional: Reports daytime sleepiness, Reports weight gain Eyes: denies as per HPI, denies blurred vision, denies bulging eye, denies decreased vision, denies diplopia, denies discharge, denies dry eye, denies irritation, denies itching, denies pain, denies photophobia, denies loss of peripheral vision, denies loss of vision, denies tunnel vision/blind spots Ears: deny: decreased hearing, ear discharge, earache, tinnitus Ears, nose, mouth and throat: Reports as per HPI Breasts: absent: as per HPI, gynecomastia Cardiovascular: Reports decreased exercise tolerance, Reports dyspnea on exertion, Reports leg edema, Reports orthopnea, Reports shortness of breath Respiratory: Reports dyspnea, Reports sleep apnea, Reports snoring Gastrointestinal: Denies abdominal pain, Denies diarrhea, Denies nausea, Denies vomiting Genitourinary: Reports as per HPI Musculoskeletal: Reports as per HPI, Reports limitation of motion Musculoskeletal: bilateral: ankle swelling, absent: ankle pain, ankle stiffness Integumentary: Denies pruritus, Denies rash Neurological: Reports weakness Psychiatric: Reports as per HPI Endocrine: Reports as per HPI, Reports fatigue Hematologic/Lymphatic: Reports as per HPI Allergic/Immunologic: Reports as per HPI Past Medical History Past Medical History: Cancer, Diabetes Mellitus, Hyperlipidemia, Hypertension, Prostate Disorder, Rheumatoid Arthritis (RA), Thyroid Disorder Additional Past Medical History / Comment(s): Thyroid cancer with a previous thyroidectomy, prostate cancer, morbid obesity with a BMI of 67.9, obstructive sleep apnea, hypertension, hyperlipidemia, diabetes mellitus, History of Any Multi-Drug Resistant Organisms: None Reported Past Surgical History: Orthopedic Surgery Additional Past Surgical History / Comment(s): betty knee partial replacement, thyroidectomy Smoking Status: Former smoker - Past Family History Father Family Medical History: Hyperlipidemia Additional Family Medical History / Comment(s): parkinsons Medications and Allergies Home Medications Medication Instructions Recorded Confirmed Type Allopurinol [Zyloprim] 300 mg PO DAILY 07/31/19 07/31/19 History Aspirin EC [Ecotrin Low Dose] 81 mg PO DAILY 07/31/19 07/31/19 History Enalapril [Vasotec] 20 mg PO BID 07/31/19 07/31/19 History Ergocalciferol (Vitamin D2) 50,000 unit PO Q7D 07/31/19 07/31/19 History [Vitamin D2] Ferrous Sulfate [Feosol] 325 mg PO DAILY 07/31/19 07/31/19 History Hydrochlorothiazide [Hydrodiuril] 25 mg PO DAILY 07/31/19 07/31/19 History Indomethacin [Indocin ER] 75 mg PO BID 07/31/19 07/31/19 History Levothyroxine Sodium [Synthroid] 350 mcg PO DAILY 07/31/19 07/31/19 History PARoxetine [Paxil] 20 mg PO DAILY 07/31/19 07/31/19 History Simvastatin [Zocor] 40 mg PO HS 07/31/19 07/31/19 History metFORMIN HCL [metFORMIN HCL ER 500 mg PO BID 07/31/19 07/31/19 History Osmotic] Allergies Allergy/AdvReac Type Severity Reaction Status Date / Time No Known Allergies Allergy Verified 07/31/19 16:04 Physical Exam Vitals: Vital Signs Temp Pulse Pulse Resp BP BP Pulse Ox 08/02/19 16:00 84 08/02/19 15:52 82 08/02/19 15:50 82 18 08/02/19 14:59 98.1 F 82 18 134/62 97 08/02/19 12:08 84 08/02/19 12:00 97.5 F L 84 80 18 118/70 96 08/02/19 09:22 98 08/02/19 09:18 79 16 08/02/19 08:40 115/69 08/02/19 08:34 97.3 F L 79 16 98 08/02/19 04:00 98.3 F 80 20 118/76 98 08/02/19 00:00 97.2 F L 69 18 151/95 94 L 08/01/19 20:00 98.2 F 91 18 132/99 96 Intake and Output 08/02/19 08/02/19 08/02/19 06:59 14:59 22:59 Intake Total 240 Output Total 1220 860 Balance -1220 -620 Intake: Oral 240 Output: Urine 1220 860 Other: # Voids 2 Weight 190.8 kg Gen. appearance morbidly obese, comfortable lying acute distress. BMI of 67.9 Head exam was generally normal. There was no scleral icterus or corneal arcus. Mucous membranes were moist. Neck was supple and without jugular venous distension, thyromegaly, or carotid bruits. Carotids were easily palpable bilaterally. There was no adenopathy. The patient is a Mallampati class IV with significant crowding of posterior oropharynx. Lungs sounds are diminished in lung bases bilaterally. No crackles or wheezes. Overall lung sounds are quite diminished due to his morbid obesity. Heart sounds are distant, regular, positive stress and there is no significant murmurs appreciated. Abdomen is morbidly obese and orders cannot be accurately palpated. There is no direct tenderness amount tensile guarding. Extremities revealed +1 pitting edema and there is no cyanosis or clubbing. Neurologically the patient is awake and alert and there is no focal neurological deficit. Cranial nerves are grossly intact. Examination of the skin revealed no evidence of significant rashes, suspicious appearing nevi or other concerning lesions. Psychiatric examination reveals no anxiety or depression. Results - Laboratory Findings CBC and BMP: 08/02/19 06:22 08/02/19 06:22 PT/INR, D-dimer PT 13.1 sec (9.0-12.0) H 08/01/19 09:07 INR 1.3 (<1.2) H 08/01/19 09:07 D-Dimer 1.92 mg/L FEU (<0.60) H 07/31/19 15:40 Abnormal lab findings: Abnormal Labs 07/31/19 07/31/19 07/31/19 15:40 15:40 15:40 Hgb MCHC RDW 17.0 H Plt Count Lymphocytes # 0.8 L PT 12.4 H INR 1.2 H D-Dimer 1.92 H Chloride Carbon Dioxide BUN 23 H Glucose 142 H POC Glucose (mg/dL) Hemoglobin A1c 08/01/19 08/01/19 08/01/19 06:00 06:02 06:02 Hgb 12.3 L MCHC 30.8 L RDW 17.6 H Plt Count Lymphocytes # PT INR D-Dimer Chloride Carbon Dioxide 32 H BUN 25 H Glucose 105 H POC Glucose (mg/dL) 114 H Hemoglobin A1c 08/01/19 08/01/19 08/01/19 09:07 09:07 11:44 Hgb 12.7 L MCHC RDW 16.8 H Plt Count 136 L Lymphocytes # 0.8 L PT 13.1 H INR 1.3 H D-Dimer Chloride Carbon Dioxide BUN Glucose POC Glucose (mg/dL) 129 H Hemoglobin A1c 08/01/19 08/01/19 08/02/19 16:39 20:48 05:55 Hgb MCHC RDW Plt Count Lymphocytes # PT INR D-Dimer Chloride Carbon Dioxide BUN Glucose POC Glucose (mg/dL) 104 H 136 H 131 H Hemoglobin A1c 08/02/19 08/02/19 08/02/19 06:22 06:22 06:22 Hgb 12.7 L MCHC RDW 16.8 H Plt Count 144 L Lymphocytes # PT INR D-Dimer Chloride 97 L Carbon Dioxide 32 H BUN 30 H Glucose 117 H POC Glucose (mg/dL) Hemoglobin A1c 6.1 H 08/02/19 08/02/19 11:51 17:02 Hgb MCHC RDW Plt Count Lymphocytes # PT INR D-Dimer Chloride Carbon Dioxide BUN Glucose POC Glucose (mg/dL) 127 H 127 H Hemoglobin A1c - Diagnostic Findings CT scan - chest: image reviewed Assessment and Plan Plan: 1 acute on chronic dyspnea. The patient shortness of breath is multifactorial and recurrent decompensating fact that is probably related to CHF/fluid overload. CT angiogram of the chest shows no evidence of any pulmonary embolism or pneumonia. There is bilateral pleural effusion with a small loculated pocket in left lung base. This is consistent with CHF/fluid overload. It is possible that the patient developed atrial fibrillation which is of a new onset and currently attributed to his decompensated heart failure also. 2 morbid obesity BMI of 67.9 3 obstructive sleep apnea maintained on a BiPAP at a pressure of 20/15 cm of water utilizing a nose pillow 4 acute hypoxic respiratory failure secondary to above 5 new onset atrial fibrillation 6 diabetes mellitus 7 hypertension 8 hyperlipidemia 9 history of thyroid cancer with previous thyroidectomy 10 history of prostate cancer Plan Continue IV Lasix 40 mg every 12 hours. The patient has diuresed adequately. Awaiting results of the echocardiogram. Long-term and to coagulation has been i nitiated with Eliquis. Continue DuoNeb nebulized treatments around the clock. Metoprolol for rate control at a dose of 25 mg twice a day. Outpatient medications of been ordered resume. Continue BiPAP at the same pressure of 20/15 cm of water. We'll continue to follow.
[2019-08-02 20:39] LABS: Glucose,Whole Blood 123 mg/dL (75-99)
[2019-08-02] MEDS: ATORVASTATIN 20 MG TAB PO SCH (21:02)
[2019-08-03 06:28] LABS: Glucose,Whole Blood 168 mg/dL (75-99)
[2019-08-03 06:43] LABS: Anisocytosis Slight; Basophils # (A) 0.1 k/uL (0-0.2); Basophils % (A) 1 %; Eosinophils # (A) 0.3 k/uL (0-0.7); Eosinophils % (A) 4 %; HCT 41.8 % (39.0-53.0); HGB 12.9 gm/dL (13.0-17.5); Hypochromasia Slight; Lymphocytes % (A) 14 %; MCH 27.3 pg (25.0-35.0); MCHC 30.9 g/dL (31.0-37.0); MCV 88.2 fL (80.0-100.0); Mean Platelet Volume 6.7; Monocytes # (A) 0.4 k/uL (0-1.0); Monocytes % (A) 6 %; Neutrophils # (A) 5.6 k/uL (1.3-7.7); Neutrophils % (A) 75 %; Platelet Count 155 k/uL (150-450); RBC 4.74 m/uL (4.30-5.90); RDW 16.7 % (11.5-15.5); WBC 7.5 k/uL (3.8-10.6)
[2019-08-03] MEDS: LEVOTHYROXINE 125 MCG TAB PO SCH (06:49)
[2019-08-03] MEDS: LEVOTHYROXINE 100 MCG TAB PO SCH (06:50)
[2019-08-03] MEDS: INSULIN ASPART (NovoLOG) 100 UNIT/ML VIAL SQ SCH ×4 (06:50→21:43)
[2019-08-03 07:37] LABS: Calcium 9.2 mg/dL (8.4-10.2)
[2019-08-03] MEDS: IPRATROPIUM-ALBUTEROL 3 ML NEB INHALATION SCH ×4 (08:29→19:41)
[2019-08-03] MEDS: FERROUS SULFATE 325 MG TAB PO SCH (10:09)
[2019-08-03] MEDS: ASPIRIN 81 MG PO SCH (10:09)
[2019-08-03] MEDS: ALLOPURINOL 300 MG TAB PO SCH (10:09)
[2019-08-03] MEDS: FUROSEMIDE 10 MG/ML 4 ML VIAL IV SCH ×2 (10:09→20:20)
[2019-08-03] MEDS: APIXABAN 5 MG TAB PO SCH ×2 (10:09→20:20)
[2019-08-03] MEDS: LISINOPRIL 20 MG TAB PO SCH ×2 (10:09→20:20)
[2019-08-03] MEDS: METOPROLOL SUCCINATE (ER) 25 MG TAB.ER.24H PO SCH (10:10)
[2019-08-03] MEDS: metFORMIN 500 MG TAB PO SCH ×2 (10:10→20:20)
[2019-08-03] MEDS: PARoxetine 20 MG TAB PO SCH (10:10)
[2019-08-03] MEDS: PANTOPRAZOLE 40 MG/10 ML VIAL IVP SCH (10:10)
[2019-08-03 12:06] LABS: Glucose,Whole Blood 132 mg/dL (75-99)
--- NOTE | 2019-08-03 13:03 | P.PN ---
Subjective Progress Note Date: 08/03/19 This is a 69-year-old gentleman with history of morbid obesity, diabetes, hypertension, hyperlipidemia, history of thyroid cancer with prior thyroidectomy, prostate cancer, sleep apnea with consistent BiPAP use, who presents to hospital with symptoms of progressively worsening shortness of breat h. According to the patient, he's been dealing with an upper respiratory infection for the past 2-3 weeks, productive sputum of lebron color, in spite of his cold improving, patient continued to feel quite short of breath. He does have bilateral peripheral edema but states that he has not noticed more swelling than his usual. He quit smoking approximately 30 years ago. He denies any fever or chills at home. Chest x-ray on presentation here showed central pulmonary vascular congestion and trace pleural effusions. CTA of the chest did not reveal any evidence of pulmonary embolism, it did show bilateral pleural effusions and cardiomegaly. Some loculated pleural fluid on the left side. EKG on presentation here showed atrial fibrillation with moderately rapid ventricular response, occasional PVC. According to the patient, he has no prior documented history of atrial fibrillation. Blood pressure 116/80 with a heart rate in the 90s, 94% on BiPAP. White blood cell count 5.2, hemoglobin 12.7, platelet count 136. Sodium 139, potassium 4.4, BUN 25 and creatinine 1.0. D- dimer 1.9. Troponin 0.012, 0.0-4, 0.033. BNP level 1620. 08/02/2019 Patient seen and examined this morning, breathing overall is improving. Continues to have peripheral edema however significantly improved as well. Blood pressure 134/60 with a heart rate in the 80s, 97% on 2 L of oxygen. Blood cell count 6.0, hemoglobin 12.7, platelet count 144. Sodium 139, potassium 4.4, BUN 30 and creatinine 1.1. 08/03/2019 Patient seen and examined today, continues to do well, echo showed normal left ventricular systolic function. In atrial fibrillation and his rate is under adequate control. We will stop his aspirin today, continue IV Lasix for 24 hours. Blood pressure 126/76 heart rate in the 80s, 94% on room air. Hemoglobin 12.9, sodium 139, potassium 4.0, BUN 33 and creatinine 1.1. We will get a repeat chest x-ray today. Objective - Vital Signs Vital signs: Vital Signs Temp 97.8 F 08/03/19 08:00 Pulse 80 08/03/19 12:52 Resp 16 08/03/19 12:00 BP 126/76 08/03/19 12:00 Pulse Ox 94 L 08/03/19 12:00 Intake & Output 08/02/19 08/03/19 08/03/19 18:59 06:59 18:59 Intake Total 720 480 240 Output Total 860 1335 Balance -140 -855 240 Weight 185.8 kg Intake: Oral 720 480 240 Output: Urine 860 1335 Other: # Voids 2 - Exam PHYSICAL EXAMINATION: GENERAL: 69-year-old gentleman in no acute distress at the time of my examination HEENT: Head is atraumatic, normocephalic. Pupils equal, round. Sclera anicteric. Conjunctiva are clear. Mucous membranes of the mouth are moist. Neck is supple. Unable to assess for elevated jugular venous pressure. no carotid bruit is heard. HEART EXAMINATION: [Heart S1, S2 normal. No murmur or gallop heard.] CHEST EXAMINATION: Lungs reveal improvement in air entry to bilateral bases ABDOMEN: [ Soft, obese , nontender. Bowel sounds are heard. No organomegaly noted]. EXTREMITIES:[ 2+ peripheral pulses with trace evidence of peripheral edema and no calf tenderness noted]. NEUROLOGIC [patient is awake, alert and oriented 3 .] . - Labs CBC & Chem 7: 08/03/19 05:59 08/03/19 05:59 Labs: Abnormal Lab Results - Last 24 Hours (Table) 08/02/19 08/02/19 08/02/19 Range/Units 06:22 17:02 20:38 Hgb (13.0-17.5) gm/dL MCHC (31.0-37.0) g/dL RDW (11.5-15.5) % Chloride (98-107) mmol/L BUN (9-20) mg/dL Glucose (74-99) mg/dL POC Glucose (mg/dL) 127 H 123 H (75-99) mg/dL Hemoglobin A1c 6.1 H (4.0-6.0) % 08/03/19 08/03/19 08/03/19 Range/Units 05:59 05:59 06:26 Hgb 12.9 L (13.0-17.5) gm/dL MCHC 30.9 L (31.0-37.0) g/dL RDW 16.7 H (11.5-15.5) % Chloride 96 L (98-107) mmol/L BUN 33 H (9-20) mg/dL Glucose 154 H (74-99) mg/dL POC Glucose (mg/dL) 168 H (75-99) mg/dL Hemoglobin A1c (4.0-6.0) % 08/03/19 Range/Units 12:05 Hgb (13.0-17.5) gm/dL MCHC (31.0-37.0) g/dL RDW (11.5-15.5) % Chloride (98-107) mmol/L BUN (9-20) mg/dL Glucose (74-99) mg/dL POC Glucose (mg/dL) 132 H (75-99) mg/dL Hemoglobin A1c (4.0-6.0) % Assessment and Plan Plan: Assessment and plan #1 congestive cardiac failure, LV function unknown #2 recent upper respiratory infection #3 diabetes #4 atrial fibrillation with moderately rapid ventricular response, appears to be of new onset for the patient. #5 hypertension #6 hyperlipidemia #7 obstructive sleep apnea #8 history of thyroid cancer with prior thyroidectomy, on Synthroid #9 prostate cancer Plan Echo cardiac gram was reviewed which revealed a normal left ventricular systolic function. We will continue current dose of IV Lasix for 24 hours, repeat a [facility] st x-ray today. DNP note has been reviewed, I agree with a documented findings and plan of care. Patient was seen and examined.
--- NOTE | 2019-08-03 13:45 | P.PN ---
Subjective Progress Note Date: 08/03/19 Principal diagnosis: Acute on chronic dyspnea multifactorial secondary to fluid volume overload/congestive heart failure with bilateral pleural effusion. A 69-year-old morbidly obese male patient with known history of obstructive sleep apnea was demented on a BiPAP at a pressure of 20/50 cm of water in addition to history of diabetes and hypertension and hyperlipidemia and chronic atrial fibrillation, who presented to the hospital because of worsening shortness of breath. He denied having any chest pain. He was having more limitation basis capacity above and beyond his baseline. Note that the patient already has some chronic shortness of breath at baseline. His BMI is 67.9. He denies having any pleurisy. No sputum production. No hemoptysis. CT angiogram was done and showed no evidence of any pulmonary embolism and there was bilateral pleural effusion. There was some loculated pleural fluid on the left lung base which is a benign finding. The patient was subjected to diuretics. The patient is currently receiving IV Lasix. He has diuresed significantly over the past 24 hours and clinically is feeling better. Is still on 2 L about 2 by nasal cannula and his pulse ox is 97%. He has previous history of prostate cancer and he also has history of thyroid cancer with a previous thyroidectomy. No smoking. The patient was seen today 08/03/2019 in follow-up on the selective care unit. He is currently sitting up in a chair at the bedside. Awake and alert in no acute distress. He is currently maintaining O2 saturations in the 90s on room air at rest. Afebrile. White count 7.5. Hemoglobin 12.9. Creatinine 1.13. Remains in a negative balance. Down 5 kg. Continues on Lasix 40 mg IV every 12 hours. He is on bronchodilators. Objective - Vital Signs Vital signs: Vital Signs Temp 97.8 F 08/03/19 08:00 Pulse 80 08/03/19 12:52 Resp 16 08/03/19 12:00 BP 126/76 08/03/19 12:00 Pulse Ox 94 L 08/03/19 12:00 Intake & Output 08/02/19 08/03/19 08/03/19 18:59 06:59 18:59 Intake Total 720 480 240 Output Total 860 1335 Balance -140 -855 240 Weight 185.8 kg Intake: Oral 720 480 240 Output: Urine 860 1335 Other: # Voids 2 - Exam Gen. appearance morbidly obese, comfortable no acute distress. BMI of 46.1 Head exam was generally normal. There was no scleral icterus or corneal arcus. Mucous membranes were moist. Neck was supple and without jugular venous distension, thyromegaly, or carotid bruits. Carotids were easily palpable bilaterally. There was no adenopathy. The patient is a Mallampati class IV with significant crowding of posterior oropharynx. Lungs sounds are diminished in lung bases bilaterally. No crackles or wheezes. Overall lung sounds are quite diminished due to his morbid obesity. Heart sounds are distant, regular, positive stress and there is no significant murmurs appreciated. Abdomen is morbidly obese and orders cannot be accurately palpated. There is no direct tenderness amount tensile guarding. Extremities revealed +1 pitting edema and there is no cyanosis or clubbing. Neurologically the patient is awake and alert and there is no focal neurological deficit. Cranial nerves are grossly intact. Examination of the skin revealed no evidence of significant rashes, suspicious appearing nevi or other concerning lesions. Psychiatric examination reveals no anxiety or depression. - Labs CBC & Chem 7: 08/03/19 05:59 08/03/19 05:59 Labs: Abnormal Lab Results - Last 24 Hours (Table) 08/02/19 08/02/19 08/02/19 Range/Units 06:22 17:02 20:38 Hgb (13.0-17.5) gm/dL MCHC (31.0-37.0) g/dL RDW (11.5-15.5) % Chloride (98-107) mmol/L BUN (9-20) mg/dL Glucose (74-99) mg/dL POC Glucose (mg/dL) 127 H 123 H (75-99) mg/dL Hemoglobin A1c 6.1 H (4.0-6.0) % 08/03/19 08/03/19 08/03/19 Range/Units 05:59 05:59 06:26 Hgb 12.9 L (13.0-17.5) gm/dL MCHC 30.9 L (31.0-37.0) g/dL RDW 16.7 H (11.5-15.5) % Chloride 96 L (98-107) mmol/L BUN 33 H (9-20) mg/dL Glucose 154 H (74-99) mg/dL POC Glucose (mg/dL) 168 H (75-99) mg/dL Hemoglobin A1c (4.0-6.0) % 08/03/19 Range/Units 12:05 Hgb (13.0-17.5) gm/dL MCHC (31.0-37.0) g/dL RDW (11.5-15.5) % Chloride (98-107) mmol/L BUN (9-20) mg/dL Glucose (74-99) mg/dL POC Glucose (mg/dL) 132 H (75-99) mg/dL Hemoglobin A1c (4.0-6.0) % Assessment and Plan Assessment: Impression 1 acute on chronic dyspnea. The patient shortness of breath is multifactorial and recurrent decompensating fact that is probably related to CHF/fluid overload. CT angiogram of the chest shows no evidence of any pulmonary embolism or pneumonia. There is bilateral pleural effusion with a small loculated pocket in left lung base. This is consistent with CHF/fluid overload. It is possible that the patient developed atrial fibrillation which is of a new onset and currently attributed to his decompensated heart failure also. 2 morbid obesity BMI of 67.9 3 obstructive sleep apnea maintained on a BiPAP at a pressure of 20/15 cm of water utilizing a nose pillow 4 acute hypoxic respiratory failure secondary to above 5 new onset atrial fibrillation 6 diabetes mellitus 7 hypertension 8 hyperlipidemia 9 history of thyroid cancer with previous thyroidectomy 10 history of prostate cancer Plan: The patient was seen and evaluated by Dr. Stanton. He is improved today as compared to yesterday. He has lost approximately 8 pounds. He is maintaining good O2 saturations in the 90s on room air. We'll continue with the current treatment plan. We will increase his activity as tolerated. We'll continue to follow. I, the cosigning physician, performed a history & physical examination of the patient. Lungs sounds crackles in the posterior bases. Maintaining good O2 saturations in the 90s on room air. I discussed the assessment and plan of care with my nurse practitioner, Andreina Aguila. I attest to the above note as dictated by her.
--- NOTE | 2019-08-03 13:58 | XR ---
EXAMINATION TYPE: XR chest 2V DATE OF EXAM: 08/03/2019 COMPARISON: 07/31/2019 INDICATION: CHF TECHNIQUE: Frontal and lateral views of the chest are obtained. FINDINGS: The heart size is moderately enlarged. The pulmonary vasculature is normal. Posterior lung infiltrate is stable.. Left perihilar infiltrate is increasing over the interval. Rig ht perihilar infiltrate is not identified at this time. IMPRESSION: 1. Clinical correlation recommended for left perihilar infiltrate. 2. Moderate cardiomegaly
[2019-08-03 16:51] LABS: Glucose,Whole Blood 180 mg/dL (75-99)
[2019-08-03] MEDS: ATORVASTATIN 20 MG TAB PO SCH (20:20)
--- NOTE | 2019-08-03 20:58 | PN ---
PROGRESS NOTE DATE OF SERVICE: 08/03/2019 I am covering for Dr. Nicholas. This 69-year-old gentleman admitted with CHF acute exacerbation is being closely monitored. Patient is on IV diuretics. The patient also has acute hypoxic respiratory failure. Patient also has bilateral pleural effusion with some loculation fluid on the left side also. Otherwise, the patient being closely monitored. Multiple consultants following the patient including Cardiology and pulmonology. PAST MEDICAL HISTORY: Reviewed. REVIEW OF SYSTEMS: CARDIOVASCULAR SYSTEM: No angina or palpitations. RESPIRATIONS: As mentioned earlier. GI: As mentioned earlier. GENITOURINARY: No dysuria. CENTRAL NERVOUS SYSTEM: No numbness or weakness. CURRENT MEDICATIONS ARE: Reviewed and include: 1. Tylenol 650 q.6h p.r.n. 2. DuoNeb q.i.d. and p.r.n. 3. Zyloprim 300 mg p.o. daily. 4. Eliquis 5 mg p.o. b.i.d. 5. Lipitor 20 mg q.h.s. 6. Iron sulfate 320 mg p.o. daily. 7. Lasix 40 mg IV b.i.d. 8. NovoLog scale. 9. Toradol 30 mg IV. 10.Synthroid 50 mcg p.o. daily. 11.Synthroid 100 mcg p.o. daily. 12.Zestril 40 mg p.o. b.i.d. 13.Glucophage 500 mg p.o. b.i.d. 14.Toprol-XL 25 mg p.o. daily. 15.Narcan. 16.Protonix 40 mg daily. 17.Paxil 20 mg p.o. daily. PHYSICAL EXAM: Patient is alert, oriented x3. Pulse is 114, blood pressure 126/76, respirations 16, temperature normal, pulse ox 94% on room air. HEENT: Conjunctivae normal. NECK: No JVD. CARDIOVASCULAR: S1, S2 muffled. RESPIRATORY: Breath sounds diminished in the bases. Bilateral scattered rhonchi and crackles. ABDOMEN: Soft, nontender. No mass palpable. LEGS: No edema. No swelling. NERVOUS SYSTEM: Higher functions as mentioned earlier, moves all four limbs. No focal deficits. LYMPHATICS: No lymph nodes palpable in the neck, axillae or groin. SKIN: No ulcer, no rashes and no bleeding. JOINTS: No active deforming arthropathy. LABS: WBC 7.2, hemoglobin 12.9, sodium 138, potassium 4, glucose 154. ASSESSMENT: 1. Congestive heart failure, acute exacerbation with acute hypoxic respiratory failure. Ejection fraction unknown. 2. Bilateral pleural effusion with loculation in the left side. 3. Bibasilar atelectasis. 4. Obstructive sleep apnea on BiPAP. 5. Anemia, normocytic, multifactorial. 6. History of diabetes. 7. Hypertension. 8. Hyperlipidemia. 9. History of rheumatoid arthritis. 10.History of thyroid cancer with thyroidectomy. 11.History of prostate cancer. 12.Morbid obesity BMI of 66.1. 13.History of degenerative joint disease. 14.History of panic disorder. 15.Remote history of nicotine dependence. 16.FULL CODE. RECOMMENDATIONS AND DISCUSSION: In this 69-year-old gentleman who presented with multiple complex medical issues, we will monitor the patient closely. Continue the current management. Symptomatic treatment. Continue with diuretics. Otherwise continue the rest of medications. Bronchodilators also being recommended. I would recommend closely monitor the intake/output chart. Fluid restriction 20 mL per 24 hours. Continue to monitor. Further recommendations to follow. Prognosis guarded. MMODL / IJN: [id number] /
[2019-08-03 21:37] LABS: Glucose,Whole Blood 163 mg/dL (75-99)
[2019-08-04] MEDS ORDERED: KETOROLAC 30 MG/ML 1 ML VIAL IVP PRN (04:30)
[2019-08-04 06:20] LABS: Glucose,Whole Blood 133 mg/dL (75-99)
[2019-08-04] MEDS: INSULIN ASPART (NovoLOG) 100 UNIT/ML VIAL SQ SCH ×4 (06:38→22:04)
[2019-08-04] MEDS: LEVOTHYROXINE 125 MCG TAB PO SCH (06:39)
[2019-08-04] MEDS: PANTOPRAZOLE 40 MG TABLET PO SCH (06:39)
[2019-08-04] MEDS: LEVOTHYROXINE 100 MCG TAB PO SCH (06:39)
[2019-08-04 06:59] LABS: Anisocytosis Slight; Basophils % (A) 0 %; Eosinophils # (A) 0.3 k/uL (0-0.7); Eosinophils % (A) 4 %; HCT 41.8 % (39.0-53.0); HGB 12.8 gm/dL (13.0-17.5); Hypochromasia Slight; Lymphocytes # (A) 0.8 k/uL (1.0-4.8); Lymphocytes % (A) 9 %; MCH 26.9 pg (25.0-35.0); MCHC 30.7 g/dL (31.0-37.0); MCV 87.4 fL (80.0-100.0); Mean Platelet Volume 6.7; Monocytes # (A) 0.5 k/uL (0-1.0); Monocytes % (A) 6 %; Neutrophils % (A) 80 %; Platelet Count 175 k/uL (150-450); RBC 4.78 m/uL (4.30-5.90); RDW 16.8 % (11.5-15.5); WBC 8.7 k/uL (3.8-10.6)
[2019-08-04] MEDS: IPRATROPIUM-ALBUTEROL 3 ML NEB INHALATION SCH ×4 (07:49→20:33)
[2019-08-04] MEDS: FUROSEMIDE 10 MG/ML 4 ML VIAL IV SCH (10:47)
[2019-08-04] MEDS: FERROUS SULFATE 325 MG TAB PO SCH (10:47)
[2019-08-04] MEDS: LISINOPRIL 20 MG TAB PO SCH ×2 (10:47→22:06)
[2019-08-04] MEDS: ALLOPURINOL 300 MG TAB PO SCH (10:47)
[2019-08-04] MEDS: metFORMIN 500 MG TAB PO SCH ×2 (10:47→22:06)
[2019-08-04] MEDS: APIXABAN 5 MG TAB PO SCH ×2 (10:47→22:06)
[2019-08-04] MEDS: METOPROLOL SUCCINATE (ER) 25 MG TAB.ER.24H PO SCH (10:47)
[2019-08-04] MEDS: PARoxetine 20 MG TAB PO SCH (10:48)
[2019-08-04 11:59] LABS: Glucose,Whole Blood 131 mg/dL (75-99)
--- NOTE | 2019-08-04 12:58 | P.PN ---
Subjective Progress Note Date: 08/04/19 A 69-year-old morbidly obese male patient with known history of obstructive sleep apnea was demented on a BiPAP at a pressure of 20/15 cm of water in addition to history of diabetes and hypertension and hyperlipidemia and chronic atrial fibrillation, who presented to the hospital because of worsening tigre rtness of breath. He denied having any chest pain. He was having more limitation basis capacity above and beyond his baseline. Note that the patient already has some chronic shortness of breath at baseline. His BMI is 67.9. He denies having any pleurisy. No sputum production. No hemoptysis. CT angiogram was done and showed no evidence of any pulmonary embolism and there was bilateral pleural effusion. There was some loculated pleural fluid on the left lung base which is a benign finding. The patient was subjected to diuretics. The patient is currently receiving IV Lasix. He has diuresed significantly over the past 24 hours and clinically is feeling better. Is still on 2 L about 2 by nasal cannula and his pulse ox is 97%. He has previous history of prostate cancer and he also has history of thyroid cancer with a previous thyroidectomy. No smoking. The patient was seen today 08/03/2019 in follow-up on the selective care unit. He is currently sitting up in a chair at the bedside. Awake and alert in no acute distress. He is currently maintaining O2 saturations in the 90s on room air at rest. Afebrile. White count 7.5. Hemoglobin 12.9. Creatinine 1.13. Remains in a negative balance. Down 5 kg. Continues on Lasix 40 mg IV every 12 hours. He is on bronchodilators. On 08/04/2019, the patient is still diuresing well. On room air oxygen and maintained a pulse is above 90% however he desaturated activity. Lower extremity edema is also improving. Echo shows a preserved LV function. He remains in atrial fibrillation. He was started on long-term anticoagulation. He is currently on Eliquis. No other new complaints otherwise for now. He is utilizing a bedside BiPAP with a set at a pressure of 20/15 cm of water. No chest pain. No cough. No sputum production. No hemoptysis. Objective - Vital Signs Vital signs: Vital Signs Temp 98.8 F 08/04/19 08:00 Pulse 88 08/04/19 11:37 Resp 18 08/04/19 11:13 BP 121/89 08/04/19 11:13 Pulse Ox 93 L 08/04/19 11:13 Intake & Output 08/03/19 08/04/19 08/04/19 18:59 06:59 18:59 Intake Total 480 360 Output Total 1655 Balance 480 -1655 360 Weight 190.1 kg Intake: Oral 480 360 Output: Urine 1655 Other: Voiding Method Urinal # Voids 2 1 - Exam Gen. appearance morbidly obese, comfortable no acute distress. BMI of 46.1 Head exam was generally normal. There was no scleral icterus or corneal arcus. Mucous membranes were moist. Neck was supple and without jugular venous distension, thyromegaly, or carotid bruits. Carotids were easily palpable bilaterally. There was no adenopathy. The patient is a Mallampati class IV with significant crowding of posterior oropharynx. Lungs sounds are diminished in lung bases bilaterally. No crackles or wheezes. Overall lung sounds are quite diminished due to his morbid obesity. Heart sounds are distant, regular, positive stress and there is no significant murmurs appreciated. Abdomen is morbidly obese and orders cannot be accurately palpated. There is no direct tenderness amount tensile guarding. Extremities revealed +1 pitting edema and there is no cyanosis or clubbing. Neurologically the patient is awake and alert and there is no focal neurological deficit. Cranial nerves are grossly intact. Examination of the skin revealed no evidence of significant rashes, suspicious appearing nevi or other concerning lesions. Psychiatric examination reveals no anxiety or depression. - Labs CBC & Chem 7: 08/04/19 06:11 08/03/19 05:59 Labs: Abnormal Lab Results - Last 24 Hours (Table) 08/03/19 08/03/19 08/04/19 Range/Units 16:50 21:35 06:11 Hgb 12.8 L (13.0-17.5) gm/dL MCHC 30.7 L (31.0-37.0) g/dL RDW 16.8 H (11.5-15.5) % Lymphocytes # 0.8 L (1.0-4.8) k/uL POC Glucose (mg/dL) 180 H 163 H (75-99) mg/dL 08/04/19 08/04/19 Range/Units 06:19 11:57 Hgb (13.0-17.5) gm/dL MCHC (31.0-37.0) g/dL RDW (11.5-15.5) % Lymphocytes # (1.0-4.8) k/uL POC Glucose (mg/dL) 133 H 131 H (75-99) mg/dL Assessment and Plan Plan: 1 acute on chronic dyspnea. The patient shortness of breath is multifactorial and recurrent decompensating fact that is probably related to CHF/fluid overload. CT angiogram of the chest shows no evidence of any pulmonary embolism or pneumonia. There is bilateral pleural effusion with a small loculated pocket in left lung base. This is consistent with CHF/fluid overload. It is possible that the patient developed atrial fibrillation which is of a new onset and currently attributed to his decompensated heart failure also. 2 morbid obesity BMI of 67.9 3 obstructive sleep apnea maintained on a BiPAP at a pressure of 20/15 cm of water utilizing a nose pillow 4 acute hypoxic respiratory failure secondary to above 5 new onset atrial fibrillation 6 diabetes mellitus 7 hypertension 8 hyperlipidemia 9 history of thyroid cancer with previous thyroidectomy 10 history of prostate cancer Plan Continue same treatment. Continue diuresis. Even with this patient oxygenation at rest and with activity. Arrange home O2 if he continues to show desaturation. Will take care of him on outpatient basis regarding his BiPAP as the patient would benefit from anywhere machine and new or mask interface. In terms of his cardiac issue, the patient on long-term and to coagulation. The patient is also having a good rate control with a preserved LV function.
--- NOTE | 2019-08-04 13:35 | P.PN ---
Subjective Progress Note Date: 08/04/19 This is a 69-year-old gentleman with history of morbid obesity, diabetes, hypertension, hyperlipidemia, history of thyroid cancer with prior thyroidectomy, prostate cancer, sleep apnea with consistent BiPAP use, who presents to hospital with symptoms of progressively worsening shortness of breat h. According to the patient, he's been dealing with an upper respiratory infection for the past 2-3 weeks, productive sputum of [place] color, in spite of his cold improving, patient continued to feel quite short of breath. He does have bilateral peripheral edema but states that he has not noticed more swelling than his usual. He quit smoking approximately 30 years ago. He denies any fever or chills at home. Chest x-ray on presentation here showed central pulmonary vascular congestion and trace pleural effusions. CTA of the chest did not reveal any evidence of pulmonary embolism, it did show bilateral pleural effusions and cardiomegaly. Some loculated pleural fluid on the left side. EKG on presentation here showed atrial fibrillation with moderately rapid ventricular response, occasional PVC. According to the patient, he has no prior documented history of atrial fibrillation. Blood pressure 116/80 with a heart rate in the 90s, 94% on BiPAP. White blood cell count 5.2, hemoglobin 12.7, platelet count 136. Sodium 139, potassium 4.4, BUN 25 and creatinine 1.0. D- dimer 1.9. Troponin 0.012, 0.0-4, 0.033. BNP level 1620. 08/02/2019 Patient seen and examined this morning, breathing overall is improving. Continues to have peripheral edema however significantly improved as well. Blood pressure 134/60 with a heart rate in the 80s, 97% on 2 L of oxygen. Blood cell count 6.0, hemoglobin 12.7, platelet count 144. Sodium 139, potassium 4.4, BUN 30 and creatinine 1.1. 08/03/2019 Patient seen and examined today, continues to do well, echo showed normal left ventricular systolic function. In atrial fibrillation and his rate is under adequate control. We will stop his aspirin today, continue IV Lasix for 24 hours. Blood pressure 126/76 heart rate in the 80s, 94% on room air. Hemoglobin 12.9, sodium 139, potassium 4.0, BUN 33 and creatinine 1.1. We will get a repeat chest x-ray today. 08/04/2019 Patient seen and examined this morning, continues to diurese well. Continues to be in atrial fibrillation with a controlled ventricular response. His repeat chest x-ray of yesterday did show significant improvement. Patient overall feels well, breathing is stable, lower extremity edema improving. Objective - Vital Signs Vital signs: Vital Signs Temp 98.8 F 08/04/19 08:00 Pulse 88 08/04/19 11:37 Resp 18 08/04/19 11:13 BP 121/89 08/04/19 11:13 Pulse Ox 93 L 08/04/19 11:13 Intake & Output 08/03/19 08/04/19 08/04/19 18:59 06:59 18:59 Intake Total 480 360 Output Total 1655 Balance 480 -1655 360 Weight 190.1 kg Intake: Oral 480 360 Output: Urine 1655 Other: Voiding Method Urinal # Voids 2 1 - Exam PHYSICAL EXAMINATION: GENERAL: 69-year-old gentleman in no acute distress at the time of my examination HEENT: Head is atraumatic, normocephalic. Pupils equal, round. Sclera anicteric. Conjunctiva are clear. Mucous membranes of the mouth are moist. Neck is supple. Unable to assess for elevated jugular venous pressure. no carotid bruit is heard. HEART EXAMINATION: [Heart S1, S2 normal. No murmur or gallop heard.] CHEST EXAMINATION: Lungs reveal improvement in air entry to bilateral bases ABDOMEN: [ Soft, obese , nontender. Bowel sounds are heard. No organomegaly noted]. EXTREMITIES:[ 2+ peripheral pulses with trace evidence of peripheral edema and no calf tenderness noted]. NEUROLOGIC [patient is awake, alert and oriented 3 .] . - Labs CBC & Chem 7: 08/04/19 06:11 08/03/19 05:59 Labs: Abnormal Lab Results - Last 24 Hours (Table) 08/03/19 08/03/19 08/04/19 Range/Units 16:50 21:35 06:11 Hgb 12.8 L (13.0-17.5) gm/dL MCHC 30.7 L (31.0-37.0) g/dL RDW 16.8 H (11.5-15.5) % Lymphocytes # 0.8 L (1.0-4.8) k/uL POC Glucose (mg/dL) 180 H 163 H (75-99) mg/dL 08/04/19 08/04/19 Range/Units 06:19 11:57 Hgb (13.0-17.5) gm/dL MCHC (31.0-37.0) g/dL RDW (11.5-15.5) % Lymphocytes # (1.0-4.8) k/uL POC Glucose (mg/dL) 133 H 131 H (75-99) mg/dL Assessment and Plan Plan: Assessment and plan #1 congestive cardiac failure, LV function unknown #2 recent upper respiratory infection #3 diabetes #4 atrial fibrillation with moderately rapid ventricular response, appears to be of new onset for the patient. #5 hypertension #6 hyperlipidemia #7 obstructive sleep apnea #8 history of thyroid cancer with prior thyroidectomy, on Synthroid #9 prostate cancer Plan We will continue current dose of IV Lasix. Plan for possible discharge home in 24-48 hours if stable. DNP note has been reviewed, I agree with a documented findings and plan of care. Patient was seen and examined.
[2019-08-04 16:47] LABS: Glucose,Whole Blood 129 mg/dL (75-99)
[2019-08-04] MEDS: FUROSEMIDE 40 MG TAB PO SCH (17:09)
--- NOTE | 2019-08-04 20:21 | PN ---
PROGRESS NOTE DATE OF SERVICE: 08/04/2019 I am covering for Dr. Nicholas. This 69-year-old gentleman who was admitted with CHF acute exacerbation is closely monitored at this time. The 2D echo reports are not available yet. No chest pain. No palpitations. No fever. EXAM: Alert and oriented x3. Pulse is 71, blood pressure 127/70, respiration 16, temperature 97.2, pulse ox 100 percent on 2 L. HEENT: Conjunctivae normal. Oral mucosa moist. NECK: No jugular venous distention. No lymph node enlargement. CARDIOVASCULAR: S1, S2. RESPIRATORY: Diminished breath sounds at the bases. Bilateral scattered rhonchi, no crackles. ABDOMEN: Soft, nontender. LEGS: No swelling. NERVOUS SYSTEM: No focal deficits. LAB STUDIES: Hemoglobin 12.8. Otherwise, glucose 113. ASSESSMENT: 1. Congestive heart failure acute exacerbation with acute hypoxic respiratory failure present on admission. Ejection fraction unknown. 2. Bilateral pleural effusion with loculation on the left side. 3. Bibasilar atelectasis. 4. Obstructive sleep apnea on BiPAP. 5. Anemia normocytic, multifactorial. 6. History of diabetes mellitus type 2. 7. Hypertension. 8. Hyperlipidemia. 9. History of rheumatoid arthritis. 10.History of thyroid cancer with thyroidectomy. 11.History of prostate cancer. 12.Morbid obesity with BMI of 66.1. 13.History of degenerative joint disease. 14.History of panic disorder. 15.History of nicotine dependence. 16.FULL CODE. RECOMMENDATIONS AND DISCUSSION: I recommend to continue current medications, continue to monitor, continue symptomatic treatment. Otherwise, at this time we will monitor the patient closely. Other than that, I would recommend continue with diuretics. Dr. Nicholas will follow. MMODL / IJN: [id number] / [facility]
[2019-08-04 21:20] LABS: Glucose,Whole Blood 131 mg/dL (75-99)
[2019-08-04] MEDS: ATORVASTATIN 20 MG TAB PO SCH (22:07)
[2019-08-05 00:36] VITALS: TEMP 97
[2019-08-05 06:29] LABS: Glucose,Whole Blood 114 mg/dL (75-99)
[2019-08-05] MEDS: INSULIN ASPART (NovoLOG) 100 UNIT/ML VIAL SQ SCH ×2 (06:39→12:53)
[2019-08-05] MEDS: LEVOTHYROXINE 100 MCG TAB PO SCH (06:42)
[2019-08-05] MEDS: PANTOPRAZOLE 40 MG TABLET PO SCH (06:43)
[2019-08-05] MEDS: LEVOTHYROXINE 125 MCG TAB PO SCH (06:43)
[2019-08-05] MEDS: IPRATROPIUM-ALBUTEROL 3 ML NEB INHALATION SCH ×3 (07:49→15:30)
[2019-08-05] MEDS: PARoxetine 20 MG TAB PO SCH (09:08)
[2019-08-05] MEDS: metFORMIN 500 MG TAB PO SCH (09:08)
[2019-08-05] MEDS: METOPROLOL SUCCINATE (ER) 25 MG TAB.ER.24H PO SCH (09:08)
[2019-08-05] MEDS: FERROUS SULFATE 325 MG TAB PO SCH (09:08)
[2019-08-05] MEDS: FUROSEMIDE 40 MG TAB PO SCH (09:08)
[2019-08-05] MEDS: LISINOPRIL 20 MG TAB PO SCH (09:08)
[2019-08-05] MEDS: ALLOPURINOL 300 MG TAB PO SCH (09:08)
[2019-08-05] MEDS: APIXABAN 5 MG TAB PO SCH (09:08)
[2019-08-05 09:13] VITALS: RESP 16
[2019-08-05 12:19] LABS: Glucose,Whole Blood 101 mg/dL (75-99)
[2019-08-05 12:50] LABS: Calcium 9.4 mg/dL (8.4-10.2); Potassium 4.4 mmol/L (3.5-5.1)
[2019-08-05 12:58] VITALS: BP 123/70
--- NOTE | 2019-08-05 13:21 | P.PN ---
Subjective Progress Note Date: 08/05/19 This is a 69-year-old gentleman with history of morbid obesity, diabetes, hypertension, hyperlipidemia, history of thyroid cancer with prior thyroidectomy, prostate cancer, sleep apnea with consistent BiPAP use, who presents to hospital with symptoms of progressively worsening shortness of breat h. According to the patient, he's been dealing with an upper respiratory infection for the past 2-3 weeks, productive sputum of [place] color, in spite of his cold improving, patient continued to feel quite short of breath. He does have bilateral peripheral edema but states that he has not noticed more swelling than his usual. He quit smoking approximately 30 years ago. He denies any fever or chills at home. Chest x-ray on presentation here showed central pulmonary vascular congestion and trace pleural effusions. CTA of the chest did not reveal any evidence of pulmonary embolism, it did show bilateral pleural effusions and cardiomegaly. Some loculated pleural fluid on the left side. EKG on presentation here showed atrial fibrillation with moderately rapid ventricular response, occasional PVC. According to the patient, he has no prior documented history of atrial fibrillation. Blood pressure 116/80 with a heart rate in the 90s, 94% on BiPAP. White blood cell count 5.2, hemoglobin 12.7, platelet count 136. Sodium 139, potassium 4.4, BUN 25 and creatinine 1.0. D- dimer 1.9. Troponin 0.012, 0.0-4, 0.033. BNP level 1620. 08/02/2019 Patient seen and examined this morning, breathing overall is improving. Continues to have peripheral edema however significantly improved as well. Blood pressure 134/60 with a heart rate in the 80s, 97% on 2 L of oxygen. Blood cell count 6.0, hemoglobin 12.7, platelet count 144. Sodium 139, potassium 4.4, BUN 30 and creatinine 1.1. 08/03/2019 Patient seen and examined today, continues to do well, echo showed normal left ventricular systolic function. In atrial fibrillation and his rate is under adequate control. We will stop his aspirin today, continue IV Lasix for 24 hours. Blood pressure 126/76 heart rate in the 80s, 94% on room air. Hemoglobin 12.9, sodium 139, potassium 4.0, BUN 33 and creatinine 1.1. We will get a repeat chest x-ray today. 08/04/2019 Patient seen and examined this morning, continues to diurese well. Continues to be in atrial fibrillation with a controlled ventricular response. His repeat chest x-ray of yesterday did show significant improvement. Patient overall feels well, breathing is stable, lower extremity edema improving. 08/05/2019 Shunt seen and examined this morning, he feels well, didn't sleep so well through the night last night but his breathing is stable. He is currently on oral diuretics. Hemodynamically stable Objective - Vital Signs Vital signs: Vital Signs Temp 97 F L 08/05/19 00:00 Pulse 81 08/05/19 12:28 Resp 16 08/05/19 12:00 BP 123/70 08/05/19 12:00 Pulse Ox 98 08/05/19 12:28 Intake & Output 08/04/19 08/05/19 08/05/19 18:59 06:59 18:59 Intake Total 1080 Balance 1080 Weight 185.4 kg Intake: Oral 1080 Other: Voiding Method Urinal Urinal # Voids 1 1 - Exam PHYSICAL EXAMINATION: GENERAL: 69-year-old gentleman in no acute distress at the time of my examination HEENT: Head is atraumatic, normocephalic. Pupils equal, round. Sclera anicteric. Conjunctiva are clear. Mucous membranes of the mouth are moist. Neck is supple. Unable to assess for elevated jugular venous pressure. no carotid bruit is heard. HEART EXAMINATION: [Heart S1, S2 normal. No murmur or gallop heard.] CHEST EXAMINATION: Lungs reveal improvement in air entry to bilateral bases ABDOMEN: [ Soft, obese , nontender. Bowel sounds are heard. No organomegaly noted]. EXTREMITIES:[ 2+ peripheral pulses with trace evidence of peripheral edema and no calf tenderness noted]. NEUROLOGIC [patient is awake, alert and oriented 3 .] . - Labs CBC & Chem 7: 08/04/19 06:11 08/05/19 12:02 Labs: Abnormal Lab Results - Last 24 Hours (Table) 08/04/19 08/04/19 08/05/19 Range/Units 16:45 20:56 06:10 Sodium (137-145) mmol/L Chloride (98-107) mmol/L BUN (9-20) mg/dL Glucose (74-99) mg/dL POC Glucose (mg/dL) 129 H 131 H 114 H (75-99) mg/dL 08/05/19 08/05/19 Range/Units 12:02 12:04 Sodium 136 L (137-145) mmol/L Chloride 93 L (98-107) mmol/L BUN 33 H (9-20) mg/dL Glucose 106 H (74-99) mg/dL POC Glucose (mg/dL) 101 H (75-99) mg/dL Assessment and Plan Plan: Assessment and plan #1 congestive cardiac failure, LV function unknown #2 recent upper respiratory infection #3 diabetes #4 atrial fibrillation with moderately rapid ventricular response, appears to be of new onset for the patient. #5 hypertension #6 hyperlipidemia #7 obstructive sleep apnea #8 history of thyroid cancer with prior thyroidectomy, on Synthroid #9 prostate cancer Plan From cardiology's perspective, patient may be able to be discharged home today, we'll make him a follow-up appointment in the office post discharge. DNP note has been reviewed, I agree with a documented findings and plan of care. Patient was seen and examined.
--- NOTE | 2019-08-05 14:13 | P.PN ---
Subjective Progress Note Date: 08/05/19 Principal diagnosis: Acute on chronic dyspnea related to CHF/fluid overload A 69-year-old morbidly obese male patient with known history of obstructive sleep apnea was demented on a BiPAP at a pressure of 20/15 cm of water in addition to history of diabetes and hypertension and hyperlipidemia and chronic atrial fibrillation, who presented to the hospital because of worsening sh ortness of breath. He denied having any chest pain. He was having more limitation basis capacity above and beyond his baseline. Note that the patient already has some chronic shortness of breath at baseline. His BMI is 67.9. He denies having any pleurisy. No sputum production. No hemoptysis. CT angiogram was done and showed no evidence of any pulmonary embolism and there was bilateral pleural effusion. There was some loculated pleural fluid on the left lung base which is a benign finding. The patient was subjected to diuretics. The patient is currently receiving IV Lasix. He has diuresed significantly over the past 24 hours and clinically is feeling better. Is still on 2 L about 2 by nasal cannula and his pulse ox is 97%. He has previous history of prostate cancer and he also has history of thyroid cancer with a previous thyroidectomy. No smoking. The patient was seen today 08/03/2019 in follow-up on the selective care unit. He is currently sitting up in a chair at the bedside. Awake and alert in no acute distress. He is currently maintaining O2 saturations in the 90s on room air at rest. Afebrile. White count 7.5. Hemoglobin 12.9. Creatinine 1.13. Remains in a negative balance. Down 5 kg. Continues on Lasix 40 mg IV every 12 hours. He is on bronchodilators. On 08/04/2019, the patient is still diuresing well. On room air oxygen and maintained a pulse is above 90% however he desaturated activity. Lower extremity edema is also improving. Echo shows a preserved LV function. He remains in atrial fibrillation. He was started on long-term anticoagulation. He is currently on Eliquis. No other new complaints otherwise for now. He is utilizing a bedside BiPAP with a set at a pressure of 20/15 cm of water. No chest pain. No cough. No sputum production. No hemoptysis. On 08/05/2019 patient seen in follow-up on selective care unit, he states his breathing much improved since admission. Lung sounds are clear diminished at the bases. Complaints of chest pain, patient has been diuresed, his fluid volume status has improved, although patient still has significant lower extremity edema. He is down 5.2 kg since admission. His labs have been reviewed, showing serum sodium of 136, potassium is 4.4, chloride is 93, BUN of 33, creatinine is 1.10. No new chest x-rays today. he is wearing his CPAP unit from home. No chest pain, no palpitations, no fever. 2-D echo results pending. Objective - Vital Signs Vital signs: Vital Signs Temp 97 F L 08/05/19 00:00 Pulse 81 08/05/19 12:28 Resp 16 08/05/19 12:00 BP 123/70 08/05/19 12:00 Pulse Ox 98 08/05/19 12:28 Intake & Output 08/04/19 08/05/19 08/05/19 18:59 06:59 18:59 Intake Total 1080 Output Total 455 Balance 1080 -455 Weight 185.4 kg Intake: Oral 1080 Output: Urine 455 Other: Voiding Method Urinal Urinal # Voids 1 1 1 - Exam GENERAL EXAM: Alert, pleasant, morbidly obese 69-year-old white male on 2 L of oxygen comfortable in no apparent distress. HEAD: Normocephalic/atraumatic. EYES: Normal reaction of pupils, equal size. Conjunctiva pink, sclera white. NOSE: Clear with pink turbinates. THROAT: No erythema or exudates. NECK: No masses, no JVD, no thyroid enlargement, no adenopathy. CHEST: No chest wall deformity. Symmetrical expansion. LUNGS: Equal air entry with no crackles, wheeze, rhonchi or dullness. CVS: Regular rate and rhythm, normal S1 and S2, no gallops, no murmurs, no rubs ABDOMEN: Soft, nontender. No hepatosplenomegaly, normal bowel sounds, no guarding or rigidity. EXTREMITIES: No clubbing, 2+ lower extremity edema no cyanosis, 2+ pulses and upper and lower extremities. MUSCULOSKELETAL: Muscle strength and tone normal. SPINE: No scoliosis or deformity SKIN: No rashes CENTRAL NERVOUS SYSTEM: Alert and oriented -3. No focal deficits, tone is normal in all 4 extremities. PSYCHIATRIC: Alert and oriented -3. Appropriate affect. Intact judgment and insight. - Labs CBC & Chem 7: 08/04/19 06:11 08/05/19 12:02 Labs: Abnormal Lab Results - Last 24 Hours (Table) 08/04/19 08/04/19 08/05/19 Range/Units 16:45 20:56 06:10 Sodium (137-145) mmol/L Chloride (98-107) mmol/L BUN (9-20) mg/dL Glucose (74-99) mg/dL POC Glucose (mg/dL) 129 H 131 H 114 H (75-99) mg/dL 08/05/19 08/05/19 Range/Units 12:02 12:04 Sodium 136 L (137-145) mmol/L Chloride 93 L (98-107) mmol/L BUN 33 H (9-20) mg/dL Glucose 106 H (74-99) mg/dL POC Glucose (mg/dL) 101 H (75-99) mg/dL Assessment and Plan Plan: 1 acute on chronic dyspnea. The patient shortness of breath is multifactorial and recurrent decompensating fact that is probably related to CHF/fluid overload. CT angiogram of the chest shows no evidence of any pulmonary embolism or pneumonia. There is bilateral pleural effusion with a small loculated pocket in left lung base. This is consistent with CHF/fluid overload. It is possible that the patient developed atrial fibrillation which is of a new onset and currently attributed to his decompensated heart failure also. 2 morbid obesity BMI of 67.9 3 obstructive sleep apnea maintained on a BiPAP at a pressure of 20/15 cm of water utilizing a nose pillow 4 acute hypoxic respiratory failure secondary to above 5 new onset atrial fibrillation 6 diabetes mellitus 7 hypertension 8 hyperlipidemia 9 history of thyroid cancer with previous thyroidectomy 10 history of prostate cancer Plan: Continue diuretics, oral anticoagulation, See inhibitors, and beta blockers, cardiology is following, patient is breathing easier, obtain home oxygen assessment, patient may need home oxygen at 2 L if his pulse ox goes below 88% with ambulation. Oral he is doing better, breathing is stable, improving, no complaints of chest pain, no fever chills, vital signs are stable, from pulmonary perspective patient could be considered for discharge home, 2-D echo results are pending. Patient will need outpatient follow-up with Dr. Stanton, for polysomnography, and a new CPAP device and a new mask. I performed a history & physical examination of the patient and discussed their management with my nurse practitioner, Kim Hdz. I reviewed the nurse practitioner's note and agree with the documented findings and plan of care. Lung sounds are positive for clear diminished at the bases. The findings and the impression was discussed with the patient. I attest to the documentation by the nurse practitioner. Time with Patient: Less than 30
[2019-08-05 15:45] VITALS: PULSE 88
--- NOTE | 2019-08-05 22:59 | P.DS ---
Providers Date of admission: 08/03/19 14:41 Expected date of discharge: 08/05/19 Attending physician: Aftab Nicholas Consults: 07/31/19 18:33 Consult Physician Stat Consulting Provider: Phil Alexander Consult Reason/Comments: Shortness of breath, heart failure. Do you want consulting provider notified?: Yes 08/02/19 09:44 Consult Physician Routine Consulting Provider: Esme Stanton Consult Reason/Comments: Hypoxia, CHF, bilateral pleural effusions, loculated left-sided pleural flu Do you want consulting provider notified?: Yes Primary care physician: Aftab Nicholas - Discharge Diagnosis(es) (1) Shortness of breath Status: Acute (2) Heart failure with acute decompensation, type unknown Patient 69-year-old white male admitted to the hospital with decompensation and bilateral lungs which is deemed multifactoral including obstructive sleep apnea in new onset atrial fibrillation with pleural effusion and component of congestive heart failure. His seen by pulmonary as well as cardiology. He was initially diuresed placed on medical management including anticoagulation and was deemed cleared for discharge. Patient was adamant about going home. He'll be discharged with the following medications in plan intact for follow-ups. Status: Acute (3) Chronic intermittent hypoxia with obstructive sleep apnea Status: Acute (4) Morbid obesity Status: Acute (5) New onset atrial fibrillation Status: Acute (6) Diabetes 1.5, managed as type 2 Status: Acute Patient Condition at Discharge: Stable Plan - Discharge Summary Discharge Rx Participant: Yes New Discharge Prescriptions: New Apixaban [Eliquis] 5 mg PO BID #60 tab Furosemide [Lasix] 40 mg PO BID@0900,1600 #60 tab Metoprolol Succinate (ER) [Toprol XL] 25 mg PO DAILY #30 tab.er.24h Continue Ergocalciferol (Vitamin D2) [Vitamin D2] 50,000 unit PO Q7D PARoxetine [Paxil] 20 mg PO DAILY Hydrochlorothiazide [Hydrodiuril] 25 mg PO DAILY Ferrous Sulfate [Feosol] 325 mg PO DAILY Enalapril [Vasotec] 20 mg PO BID Allopurinol [Zyloprim] 300 mg PO DAILY metFORMIN HCL [metFORMIN HCL ER Osmotic] 500 mg PO BID Levothyroxine Sodium [Synthroid] 350 mcg PO DAILY Indomethacin [Indocin ER] 75 mg PO BID Simvastatin [Zocor] 40 mg PO HS Discontinued Aspirin EC [Ecotrin Low Dose] 81 mg PO DAILY Discharge Medication List Allopurinol [Zyloprim] 300 mg PO DAILY 07/31/19 [History] Enalapril [Vasotec] 20 mg PO BID 07/31/19 [History] Ergocalciferol (Vitamin D2) [Vitamin D2] 50,000 unit PO Q7D 07/31/19 [History] Ferrous Sulfate [Feosol] 325 mg PO DAILY 07/31/19 [History] Hydrochlorothiazide [Hydrodiuril] 25 mg PO DAILY 07/31/19 [History] Indomethacin [Indocin ER] 75 mg PO BID 07/31/19 [History] Levothyroxine Sodium [Synthroid] 350 mcg PO DAILY 07/31/19 [History] PARoxetine [Paxil] 20 mg PO DAILY 07/31/19 [History] Simvastatin [Zocor] 40 mg PO HS 07/31/19 [History] metFORMIN HCL [metFORMIN HCL ER Osmotic] 500 mg PO BID 07/31/19 [History] Apixaban [Eliquis] 5 mg PO BID #60 tab 08/05/19 [Rx] Furosemide [Lasix] 40 mg PO BID@0900,1600 #60 tab 08/05/19 [Rx] Metoprolol Succinate (ER) [Toprol XL] 25 mg PO DAILY #30 tab.er.24h 08/05/19 [Rx] Follow up Appointment(s)/Referral(s): Aftab Nicholas DO [Primary Care Provider] - 08/12/19 11:10 am (Monday) Yuriy Gibbs MD [STAFF PHYSICIAN] - 1 Week (Spoke to entry level receptionist. Office to call with appointment time) Activity/Diet/Wound Care/Special Instructions: pts copay for 30 day supply of Eliquis is $43.50-filled in [email or web address] Discharge Disposition: HOME SELF-CARE
--- NOTE | 2019-08-08 09:53 | ECHOF ---
Referral Reason:chf MEASUREMENTS -------- HEIGHT: 167.6 cm WEIGHT: 190.5 kg BP: 116/85 FINDINGS -------- Sinus rhythm. Morbid Obesity Limited Study Unable to comment on EF. The RV was not well visualized. The left atrium was not well visualized. The right atrium was not well visualized. Lumason used The aortic valve was not well visualized. The mitral valve was not well visualized. The tricuspid valve was not well visualized. The pulmonic valve was not well visualized. CONCLUSIONS -------- 1. Sinus rhythm. 2. Morbid Obesity 3. Limited Study 4. Unable to comment on EF. 5. The RV was not well visualized. 6. The left atrium was not well visualized. 7. The right atrium was not well visualized. 8. Lumason used 9. The aortic valve was not well visualized. 10. The mitral valve was not well visualized. 11. The tricuspid valve was not well visualized. 12. The pulmonic valve was not well visualized. AUTOMATIC LATHE OPERATOR: Eugenia Mcclelland RDCS
== END 2019-08-05 17:34 | disposition home health service (06) | DRG 291 ==
LOC: EC 14:29 → 3SCARD 18:10 → OBSVTOIN 08-03 14:41
PROVIDERS: ADMIT Family Medicine; ATTEND Family Medicine
PROC: 5A09557 Assistance with Respiratory Ventilation, Greater than 96 Consecutive Hours, Continuous Positive Airway Pressure (ICD-10-PCS; principal; 2019-08-01)
PROC: 3E0234Z Introduction of Serum, Toxoid and Vaccine into Muscle, Percutaneous Approach (ICD-10-PCS; 2019-08-02)
DX: I11.0 Hypertensive heart disease with heart failure (principal); J96.01 Acute respiratory failure with hypoxia; Z68.44 Body mass index [BMI] 60.0-69.9, adult; J91.8 Pleural effusion in other conditions classified elsewhere; J98.11 Atelectasis; I50.9 Heart failure, unspecified; E66.01 Morbid (severe) obesity due to excess calories; E13.9 Other specified diabetes mellitus without complications; D64.9 Anemia, unspecified; I48.2 Chronic atrial fibrillation; M06.9 Rheumatoid arthritis, unspecified; I49.3 Ventricular premature depolarization; J06.9 Acute upper respiratory infection, unspecified; E89.0 Postprocedural hypothyroidism; M19.90 Unspecified osteoarthritis, unspecified site; G47.33 Obstructive sleep apnea (adult) (pediatric); E78.5 Hyperlipidemia, unspecified; Z23 Encounter for immunization; Z87.891 Personal history of nicotine dependence; Z79.82 Long term (current) use of aspirin; Z79.84 Long term (current) use of oral hypoglycemic drugs; Z79.01 Long term (current) use of anticoagulants; Z79.890 Hormone replacement therapy; Z79.899 Other long term (current) drug therapy; Z96.653 Presence of artificial knee joint, bilateral; Z85.46 Personal history of malignant neoplasm of prostate; Z85.850 Personal history of malignant neoplasm of thyroid; Z82.0 Family history of epilepsy and other diseases of the nervous system; Z83.49 Family history of other endocrine, nutritional and metabolic diseases; Z86.59 Personal history of other mental and behavioral disorders
CPT/HCPCS: 36415; 71046; 71275; 80048; 80053; 83036; 83735; 83880; 84484; 85025; 85379; 85610; 85730; 90732; 93005; 93306; 94640; 94760; 96374; 99285

== ENCOUNTER 2021-03-11 10:51 | Observation (INO) | payer MEDICARE ==
[2021-03-11] MEDS ORDERED: ACETAMINOPHEN TAB 500 MG TAB PO PRN (11:26)
[2021-03-11] MEDS ORDERED: ALBUTEROL HFA INHALER INHALATION STA (11:26)
[2021-03-11] MEDS ORDERED: ALBUTEROL HFA INHALER INHALATION PRN (11:26)
--- NOTE | 2021-03-11 11:29 | ED ---
General Adult HPI - General Chief complaint: Shortness of Breath Stated complaint: SOB Time Seen by Provider: 03/11/21 11:15 Source: patient, RN notes reviewed Mode of arrival: wheelchair Limitations: physical limitation - History of Present Illness Initial comments: Patient is a pleasant 71-year-old male presenting to the emergency department complaints of dyspnea. Onset of symptoms was a few days ago. Patient states symptoms have somewhat worsened. No fevers. Patient does have occasional cough with occasional productive sputum. Patient has history of CHF. No leg swelling. No calf pain. Patient is on Eliquis secondary to history as a 2 fi brillation and has been taking this as directed. No chest pain. Patient does have some mild discomfort of his lower back. - Related Data Home Medications Medication Instructions Recorded Confirmed Enalapril [Vasotec] 20 mg PO BID 07/31/19 03/11/21 Ergocalciferol (Vitamin D2) 50,000 unit PO GALARZA 07/31/19 03/11/21 [Vitamin D2] Ferrous Sulfate [Feosol] 325 mg PO DAILY 07/31/19 03/11/21 Levothyroxine Sodium [Synthroid] 350 mcg PO DAILY 07/31/19 03/11/21 PARoxetine [Paxil] 20 mg PO DAILY 07/31/19 03/11/21 Simvastatin [Zocor] 40 mg PO HS 07/31/19 03/11/21 allopurinoL [Zyloprim] 300 mg PO DAILY 07/31/19 03/11/21 Carbidopa-Levodopa 10-100 mg 1 tab PO TID 03/11/21 03/11/21 [Sinemet 10-100] Liraglutide [Victoza 2-Kodak] 1.2 mg SQ DAILY 03/11/21 03/11/21 Metoprolol Succinate [Toprol XL] 25 mg PO DAILY 03/11/21 03/11/21 metFORMIN HCL [Glucophage] 500 mg PO BID 03/11/21 03/11/21 Previous Rx's Medication Instructions Recorded Apixaban [Eliquis] 5 mg PO BID #60 tab 08/05/19 Furosemide [Lasix] 40 mg PO BID@0900,1600 #60 tab 08/05/19 Allergies Allergy/AdvReac Type Severity Reaction Status Date / Time No Known Allergies Allergy Verified 03/11/21 11:12 Review of Systems ROS Statement: Those systems with pertinent positive or pertinent negative responses have been documented in the HPI. ROS Other: All systems not noted in ROS Statement are negative. Constitutional: Denies: fever Eyes: Denies: eye pain ENT: Denies: ear pain Respiratory: Reports: cough, dyspnea Cardiovascular: Denies: chest pain Endocrine: Denies: fatigue Gastrointestinal: Denies: abdominal pain Genitourinary: Denies: dysuria Musculoskeletal: Reports: as per HPI Skin: Denies: rash Neurological: Denies: weakness Past Medical History Past Medical History: Cancer, Diabetes Mellitus, Hyperlipidemia, Hypertension, Prostate Disorder, Rheumatoid Arthritis (RA), Thyroid Disorder Additional Past Medical History / Comment(s): Thyroid cancer with a previous thyroidectomy, prostate cancer, morbid obesity, obstructive sleep apnea, hypertension, hyperlipidemia, diabetes mellitus, History of Any Multi-Drug Resistant Organisms: None Reported Past Surgical History: Orthopedic Surgery Additional Past Surgical History / Comment(s): betty knee partial replacement, thyroidectomy Past Psychological History: Panic Disorder Smoking Status: Former smoker Past Alcohol Use History: None Reported Past Drug Use History: None Reported - Past Family History Father Family Medical History: Hyperlipidemia Additional Family Medical History / Comment(s): parkinsons General Exam Limitations: physical limitation General appearance: alert, in no apparent distress, obese Head exam: Present: normocephalic Eye exam: Present: normal appearance Neck exam: Present: normal inspection Respiratory exam: Present: decreased breath sounds Cardiovascular Exam: Present: irregular rhythm GI/Abdominal exam: Present: soft. Absent: tenderness Extremities exam: Present: pedal edema (Trace bilateral). Absent: calf ten derness Back exam: Present: normal inspection Neurological exam: Present: alert Psychiatric exam: Present: normal affect, normal mood Skin exam: Present: normal color Course Vital Signs 03/11/21 03/11/21 11:10 13:12 Temperature 97.9 F Pulse Rate 89 77 Respiratory 22 18 Rate Blood Pressure 152/81 108/68 O2 Sat by Pulse 100 95 Oximetry EKG Findings - EKG Comments: EKG Findings:: H a fibrillation with a rate of 81. QRS 114. QT 428. QTC 497. Left axis. Right bundle branch block. No acute ST change. Medical Decision Making - Medical Decision Making Patient reevaluated and updated. Case was discussed in detail with Dr. Nicholas, who will admit his patient. Cardiology with placed on consult. - Lab Data Result diagrams: 03/11/21 11:41 03/11/21 11:41 Lab Results 03/11/21 03/11/21 03/11/21 Range/Units 11:41 11:41 11:41 WBC 7.7 (3.8-10.6) k/uL RBC 5.35 (4.30-5.90) m/uL Hgb 13.8 (13.0-17.5) gm/dL Hct 46.6 (39.0-53.0) % MCV 87.2 (80.0-100.0) fL MCH 25.8 (25.0-35.0) pg MCHC 29.6 L (31.0-37.0) g/dL RDW 16.3 H (11.5-15.5) % Plt Count 149 L (150-450) k/uL MPV 7.6 Neutrophils % 72 % Lymphocytes % 17 % Monocytes % 4 % Eosinophils % 5 % Basophils % 1 % Neutrophils # 5.5 (1.3-7.7) k/uL Lymphocytes # 1.3 (1.0-4.8) k/uL Monocytes # 0.3 (0-1.0) k/uL Eosinophils # 0.4 (0-0.7) k/uL Basophils # 0.0 (0-0.2) k/uL Hypochromasia Moderate Anisocytosis Slight PT 12.9 H (9.0-12.0) sec INR 1.3 H (<1.2) APTT 27.2 (22.0-30.0) sec Sodium 136 L (137-145) mmol/L Potassium 5.6 H (3.5-5.1) mmol/L Chloride 101 (98-107) mmol/L Carbon Dioxide 25 (22-30) mmol/L Anion Gap 10 mmol/L BUN 29 H (9-20) mg/dL Creatinine 1.16 (0.66-1.25) mg/dL Est GFR (CKD-EPI)AfAm 72 (>60 ml/min/1.73 sqM) Est GFR (CKD-EPI)NonAf 63 (>60 ml/min/1.73 sqM) Glucose 114 H (74-99) mg/dL Plasma Lactic Acid Karthikeyan (0.7-2.0) mmol/L Calcium 9.4 (8.4-10.2) mg/dL Magnesium 1.8 (1.6-2.3) mg/dL Total Bilirubin 0.9 (0.2-1.3) mg/dL AST 35 (17-59) U/L ALT 9 (4-49) U/L Alkaline Phosphatase 74 (38-126) U/L Lactate Dehydrogenase 756 H (313-618) U/L Troponin I (0.000-0.034) ng/mL C-Reactive Protein 15.8 H (<10.0) mg/L NT-Pro-B Natriuret Pep pg/mL Total Protein 7.0 (6.3-8.2) g/dL Albumin 4.4 (3.5-5.0) g/dL Coronavirus (PCR) (Not Detectd) 03/11/21 03/11/21 03/11/21 Range/Units 11:41 11:41 11:41 WBC (3.8-10.6) k/uL RBC (4.30-5.90) m/uL Hgb (13.0-17.5) gm/dL Hct (39.0-53.0) % MCV (80.0-100.0) fL MCH (25.0-35.0) pg MCHC (31.0-37.0) g/dL RDW (11.5-15.5) % Plt Count (150-450) k/uL MPV Neutrophils % % Lymphocytes % % Monocytes % % Eosinophils % % Basophils % % Neutrophils # (1.3-7.7) k/uL Lymphocytes # (1.0-4.8) k/uL Monocytes # (0-1.0) k/uL Eosinophils # (0-0.7) k/uL Basophils # (0-0.2) k/uL Hypochromasia Anisocytosis PT (9.0-12.0) sec INR (<1.2) APTT (22.0-30.0) sec Sodium (137-145) mmol/L Potassium (3.5-5.1) mmol/L Chloride (98-107) mmol/L Carbon Dioxide (22-30) mmol/L Anion Gap mmol/L BUN (9-20) mg/dL Creatinine (0.66-1.25) mg/dL Est GFR (CKD-EPI)AfAm (>60 ml/min/1.73 sqM) Est GFR (CKD-EPI)NonAf (>60 ml/min/1.73 sqM) Glucose (74-99) mg/dL Plasma Lactic Acid Karthikeyan 2.6 H* (0.7-2.0) mmol/L Calcium (8.4-10.2) mg/dL Magnesium (1.6-2.3) mg/dL Total Bilirubin (0.2-1.3) mg/dL AST (17-59) U/L ALT (4-49) U/L Alkaline Phosphatase (38-126) U/L Lactate Dehydrogenase (313-618) U/L Troponin I <0.012 (0.000-0.034) ng/mL C-Reactive Protein (<10.0) mg/L NT-Pro-B Natriuret Pep 3220 pg/mL Total Protein (6.3-8.2) g/dL Albumin (3.5-5.0) g/dL Coronavirus (PCR) (Not Detectd) 03/11/21 Range/Units 11:46 WBC (3.8-10.6) k/uL RBC (4.30-5.90) m/uL Hgb (13.0-17.5) gm/dL Hct (39.0-53.0) % MCV (80.0-100.0) fL MCH (25.0-35.0) pg MCHC (31.0-37.0) g/dL RDW (11.5-15.5) % Plt Count (150-450) k/uL MPV Neutrophils % % Lymphocytes % % Monocytes % % Eosinophils % % Basophils % % Neutrophils # (1.3-7.7) k/uL Lymphocytes # (1.0-4.8) k/uL Monocytes # (0-1.0) k/uL Eosinophils # (0-0.7) k/uL Basophils # (0-0.2) k/uL Hypochromasia Anisocytosis PT (9.0-12.0) sec INR (<1.2) APTT (22.0-30.0) sec Sodium (137-145) mmol/L Potassium (3.5-5.1) mmol/L Chloride (98-107) mmol/L Carbon Dioxide (22-30) mmol/L Anion Gap mmol/L BUN (9-20) mg/dL Creatinine (0.66-1.25) mg/dL Est GFR (CKD-EPI)AfAm (>60 ml/min/1.73 sqM) Est GFR (CKD-EPI)NonAf (>60 ml/min/1.73 sqM) Glucose (74-99) mg/dL Plasma Lactic Acid Karthikeyan (0.7-2.0) mmol/L Calcium (8.4-10.2) mg/dL Magnesium (1.6-2.3) mg/dL Total Bilirubin (0.2-1.3) mg/dL AST (17-59) U/L ALT (4-49) U/L Alkaline Phosphatase (38-126) U/L Lactate Dehydrogenase (313-618) U/L Troponin I (0.000-0.034) ng/mL C-Reactive Protein (<10.0) mg/L NT-Pro-B Natriuret Pep pg/mL Total Protein (6.3-8.2) g/dL Albumin (3.5-5.0) g/dL Coronavirus (PCR) Not Detected (Not Detectd) - Radiology Data Radiology results: image reviewed (Chest x-ray shows some interstitial prominence, concerning for CHF) Disposition Clinical Impression: Congestive heart failure Disposition: ADMITTED IP TO THIS HOSP Is patient prescribed a controlled substance at d/c from ED?: No Referrals: Aftab Nicholas DO [Primary Care Provider] - 1-2 days Decision Time: 14:07
[2021-03-11 12:13] LABS: Anisocytosis Slight; Basophils % (A) 1 %; Eosinophils # (A) 0.4 k/uL (0-0.7); Eosinophils % (A) 5 %; HCT 46.6 % (39.0-53.0); HGB 13.8 gm/dL (13.0-17.5); Hypochromasia Moderate; Lymphocytes # (A) 1.3 k/uL (1.0-4.8); Lymphocytes % (A) 17 %; MCH 25.8 pg (25.0-35.0); MCHC 29.6 g/dL (31.0-37.0); MCV 87.2 fL (80.0-100.0); Mean Platelet Volume 7.6; Monocytes # (A) 0.3 k/uL (0-1.0); Monocytes % (A) 4 %; Neutrophils # (A) 5.5 k/uL (1.3-7.7); Neutrophils % (A) 72 %; Platelet Count 149 k/uL (150-450); RBC 5.35 m/uL (4.30-5.90); RDW 16.3 % (11.5-15.5); WBC 7.7 k/uL (3.8-10.6)
--- NOTE | 2021-03-11 12:40 | XR ---
EXAMINATION TYPE: XR chest 1V portable DATE OF EXAM: 03/11/2021 COMPARISON: Chest x-ray 08/03/2019, CT 07/31/2019 HISTORY: Suspected Covid 19 pneumonia, shortness of breath TECHNIQUE: Single frontal view of the chest is obtained. FINDINGS: Patchy bilateral density present within the lungs. Heart is enlarged. There is thickening of the minor fissure. No evident pneumothorax or pleural effusion. Marked arthropathy noted within th e right shoulder. Mediastinum appears widened. Aorta is dense. IMPRESSION: Correlate for pneumonia, edema and congestive heart failure
[2021-03-11 12:52] LABS: Albumin 4.4 g/dL (3.5-5.0); C Reactive Protein 15.8 mg/L (<10.0); Calcium 9.4 mg/dL (8.4-10.2); Total Bilirubin 0.9 mg/dL (0.2-1.3)
[2021-03-11 13:05] LABS: INR 1.3 (<1.2); Partial Thromboplastin Time 27.2 sec (22.0-30.0); Prothrombin Time 12.9 sec (9.0-12.0)
[2021-03-11 13:06] LABS: Magnesium 1.8 mg/dL (1.6-2.3); Potassium 5.6 mmol/L (3.5-5.1)
[2021-03-11] MEDS ORDERED: ASPIRIN 325 MG TAB PO STA (14:07)
[2021-03-11] MEDS ORDERED: NITROGLYCERIN OINT 1 INCH/GM PACKET TOPICAL SCH (14:15)
[2021-03-11] MEDS: PANTOPRAZOLE 40 MG/10 ML VIAL IVP SCH (15:38)
[2021-03-11] MEDS: FUROSEMIDE 10 MG/ML 4 ML VIAL IV SCH ×2 (15:39→23:11)
[2021-03-11] MEDS: CARBIDOPA-LEVODOPA 10-100 MG 1 EACH TAB PO SCH ×2 (15:43→21:39)
[2021-03-11] MEDS: ALBUTEROL HFA INHALER INHALATION SCH ×2 (15:55→19:57)
[2021-03-11 17:06] LABS: Glucose,Whole Blood 107 mg/dL (75-99)
[2021-03-11] MEDS: INSULIN ASPART (NovoLOG) 100 UNIT/ML VIAL SQ SCH ×2 (17:15→21:09)
[2021-03-11 20:16] LABS: Ferritin 241.9 ng/mL (22.0-322.0)
[2021-03-11 20:29] LABS: Glucose,Whole Blood 107 mg/dL (75-99)
[2021-03-11] MEDS: ATORVASTATIN 20 MG TAB PO SCH (21:37)
[2021-03-11] MEDS: APIXABAN 5 MG TAB PO SCH (21:37)
[2021-03-11] MEDS: lisinopriL 20 MG TAB PO SCH (21:37)
[2021-03-12] MEDS: ALBUTEROL HFA INHALER INHALATION SCH ×4 (03:48→19:47)
[2021-03-12] MEDS: LEVOTHYROXINE 100 MCG TAB PO SCH (05:43)
[2021-03-12] MEDS: LEVOTHYROXINE 125 MCG TAB PO SCH (05:43)
[2021-03-12 07:19] LABS: Glucose,Whole Blood 94 mg/dL (75-99)
[2021-03-12] MEDS: INSULIN ASPART (NovoLOG) 100 UNIT/ML VIAL SQ SCH ×4 (07:30→20:30)
[2021-03-12] MEDS: PANTOPRAZOLE 40 MG/10 ML VIAL IVP SCH (07:41)
[2021-03-12] MEDS: FUROSEMIDE 10 MG/ML 4 ML VIAL IV SCH ×3 (07:41→23:30)
[2021-03-12] MEDS: METOPROLOL SUCCINATE (ER) 25 MG TAB.ER.24H PO SCH (07:46)
[2021-03-12] MEDS: lisinopriL 20 MG TAB PO SCH ×2 (07:46→20:26)
[2021-03-12] MEDS: FERROUS SULFATE 325 MG TAB PO SCH (07:46)
[2021-03-12] MEDS: PARoxetine 20 MG TAB PO SCH (07:46)
[2021-03-12] MEDS: CARBIDOPA-LEVODOPA 10-100 MG 1 EACH TAB PO SCH ×3 (07:46→20:28)
[2021-03-12] MEDS: APIXABAN 5 MG TAB PO SCH ×2 (07:46→20:26)
[2021-03-12] MEDS: NON FORMULARY DRUG (Liraglutide [Victoza 2-Pak] 0.6 MG/0.1 ML Pen.Injctr) SQ SCH (07:47)
--- NOTE | 2021-03-12 08:44 | ECHOF ---
Referral Reason:LV function, CHF MEASUREMENTS -------- HEIGHT: 167.6 cm WEIGHT: 160.1 kg BP: Ao Diam: 3.7 cm (2.0 - 3.7) LA Diam: 3.7 cm (2.7 - 3.8) MV E Mike: 0.64 m/s MV DecT: 177 ms MV A Mike: 0.35 m/s MV E/A Ratio: 1.82 RAP: 5.00 mmHg RVSP: 49.11 mmHg FINDINGS -------- This was a technically difficult study with suboptimal views. Morbid Obesity Limited Study Very difficult images. Unable to comment on LV function. The RV was not well visualized. The left atrium was not well visualized. The right atrium was not well visualized. 5.0mg of Lumason was utilized for enhancement of images The aortic valve was not well visualized. The mitral valve was not well visualized. Mild tricuspid regurgitation present. There is mild pulmonary hypertension. The right ventricular systolic pressure, as measured by Doppler, is 49.11mmHg. The pulmonic valve was not well visualized. The aortic root size is normal. IVC Not well visulized. CONCLUSIONS -------- 1. Very difficult images. grossly lv fx arrears preserved 2. Mild tricuspid regurgitation present. 3. There is mild pulmonary hypertension. 4. The right ventricular systolic pressure, as measured by Doppler, is 49.11mmHg. DAM ATTENDANT: Eugenia Mcclelland [facility]
--- NOTE | 2021-03-12 09:30 | P.CRDCN ---
History of Present Illness Consult date: 03/11/21 History of present illness: HISTORY OF PRESENT ILLNESS: This is a 71-year-old male with a past medical history significant for hypertension, hyperlipidemia, paroxysmal atrial fibrillation, congestive heart failure hypothyroidism, and diabetes. Patient used to follow in the office with Dr. Gibbs, but his last visit to the office was in August 2019. We have been asked to see the patient in consultation for congestive heart failure. Patient examined at the bedside. Patient states that he has not left his house in the past year because he is afraid of Covid. He states he has been receiving his cardiac medications from Dr. Nicholas. He reports compliance with all his medications but feels like some days the lasix works and other days it does not. Patient presented to the ER with shortness of breath. He was started on IV lasix. This morning, his shortness of breath has improved. He denies chest pain or pressure. EKG reveals atrial fibrillation with controlled ventricular rate. PVC noted. Right bundle-branch block. Chest xray correlate for pneumonia, edema, and congestive heart failure Laboratory data: WBC 7.7. Hemoglobin 13.8. Platelet count 149. Sodium 136. Potassium 5.6. BUN 29. Creatinine 1.16. Lactic acid 2.6. Troponin negative 1. BNP 3220. Current home cardiac medications include Zocor 40 mg daily, metoprolol succinate 25 mg daily, Lasix 40 mg twice a day, Vasotec 20 mg twice a day, and Eliquis 5 mg twice a day Echocardiogram was performed however per the general technician is very difficult to obtain images. Grossly LV function appeared preserved. Mild tricuspid regurgitation. Mild pulmonary hypertension. REVIEW OF SYSTEMS: At the time of my exam: CONSTITUTIONAL: Denies fever or chills. HEENT: Denies blurred vision, vision changes, or eye pain. Denies hemoptysis CARDIOVASCULAR: Denies chest pain. Denies orthopnea. Denies PND. Denies palpitations RESPIRATORY: Denies shortness of breath. GASTROINTESTINAL: Denies abdominal pain. Denies nausea or vomiting. HEMATOLOGIC: Denies bleeding disorders. GENITOURINARY: Denies any blood in urine. SKIN: Denies pruitis. Denies rash. PHYSICAL EXAM: VITAL SIGNS: Reviewed. GENERAL: Well-developed in no acute distress. HEENT: Head is normocephalic. Pupils are equal, round. Sclerae anicteric. Mucous membranes of the mouth are moist. Neck supple. No JVD or thyromegaly LUNGS: Respirations even and unlabored. Lungs diminished bilaterally. HEART: Irregular rate and rhythm. S1 and S2 heard. ABDOMEN: Soft. Nondistended. Nontender. EXTREMITIES: Normal range of motion. No clubbing or cyanosis. Peripheral p ulses intact. Trace lower extremity edema NEUROLOGIC: Awake and alert. Oriented x 3. ASSESSMENT: Acute exacerbation of chronic diastolic congestive heart failure Paroxysmal atrial fibrillation, on anticoagulation with Eliquis Hypertension Hyperlipidemia Diabetes mellitus Hypothyroidism Morbid obesity: BMI 57.0 PLAN: Resume home cardiac medications Resume Eliquis for anticoagulation Continue IV Lasix Accurate I&O Daily weights Monitor kidney function Further recommendations pending patient's course Nurse practitioner note has been reviewed by physician. Signing provider agrees with the documented findings, assessment, and plan of care. Past Medical History Past Medical History: Cancer, Diabetes Mellitus, Hyperlipidemia, Hypertension, Prostate Disorder, Rheumatoid Arthritis (RA), Thyroid Disorder Additional Past Medical History / Comment(s): Thyroid cancer with a previous thyroidectomy, prostate cancer, morbid obesity, obstructive sleep apnea, hype rtension, hyperlipidemia, diabetes mellitus, History of Any Multi-Drug Resistant Organisms: None Reported Past Surgical History: Orthopedic Surgery Additional Past Surgical History / Comment(s): betty knee partial replacement, thyroidectomy Past Psychological History: Panic Disorder Smoking Status: Former smoker Past Alcohol Use History: None Reported Past Drug Use History: None Reported - Past Family History Father Family Medical History: Hyperlipidemia Additional Family Medical History / Comment(s): parkinsons Mother Family Medical History: Dementia Medications and Allergies Home Medications Medication Instructions Recorded Confirmed Type Enalapril [Vasotec] 20 mg PO BID 07/31/19 03/11/21 History Ergocalciferol (Vitamin D2) 50,000 unit PO GALARZA 07/31/19 03/11/21 History [Vitamin D2] Ferrous Sulfate [Feosol] 325 mg PO DAILY 07/31/19 03/11/21 History Levothyroxine Sodium [Synthroid] 350 mcg PO DAILY 07/31/19 03/11/21 History PARoxetine [Paxil] 20 mg PO DAILY 07/31/19 03/11/21 History Simvastatin [Zocor] 40 mg PO HS 07/31/19 03/11/21 History allopurinoL [Zyloprim] 300 mg PO DAILY 07/31/19 03/11/21 History Apixaban [Eliquis] 5 mg PO BID #60 tab 08/05/19 03/11/21 Rx Furosemide [Lasix] 40 mg PO BID@0900,1600 #60 tab 08/05/19 03/11/21 Rx Carbidopa-Levodopa 10-100 mg 1 tab PO TID 03/11/21 03/11/21 History [Sinemet 10-100] Liraglutide [Victoza 2-Kodak] 1.2 mg SQ DAILY 03/11/21 03/11/21 History Metoprolol Succinate [Toprol XL] 25 mg PO DAILY 03/11/21 03/11/21 History metFORMIN HCL [Glucophage] 500 mg PO BID 03/11/21 03/11/21 History Allergies Allergy/AdvReac Type Severity Reaction Status Date / Time No Known Allergies Allergy Verified 03/11/21 11:12 Physical Exam Vitals: Vital Signs Temp Pulse Resp BP Pulse Ox 03/11/21 13:12 77 18 108/68 95 03/11/21 11:10 97.9 F 89 22 152/81 100 Intake and Output 03/10/21 03/11/21 03/11/21 22:59 06:59 14:59 Other: Weight 160.118 kg Results 03/11/21 11:41 03/11/21 11:41 Cardiac Enzymes 03/11/21 03/11/21 Range/Units 11:41 11:41 AST 35 (17-59) U/L Lactate Dehydrogenase 756 H (313-618) U/L Troponin I <0.012 (0.000-0.034) ng/mL Coagulation 03/11/21 Range/Units 11:41 PT 12.9 H (9.0-12.0) sec APTT 27.2 (22.0-30.0) sec CBC 03/11/21 Range/Units 11:41 WBC 7.7 (3.8-10.6) k/uL RBC 5.35 (4.30-5.90) m/uL Hgb 13.8 (13.0-17.5) gm/dL Hct 46.6 (39.0-53.0) % Plt Count 149 L (150-450) k/uL Comprehensive Metabolic Panel 03/11/21 Range/Units 11:41 Sodium 136 L (137-145) mmol/L Potassium 5.6 H (3.5-5.1) mmol/L Chloride 101 (98-107) mmol/L Carbon Dioxide 25 (22-30) mmol/L BUN 29 H (9-20) mg/dL Creatinine 1.16 (0.66-1.25) mg/dL Glucose 114 H (74-99) mg/dL Calcium 9.4 (8.4-10.2) mg/dL AST 35 (17-59) U/L ALT 9 (4-49) U/L Alkaline Phosphatase 74 (38-126) U/L Total Protein 7.0 (6.3-8.2) g/dL Albumin 4.4 (3.5-5.0) g/dL Current Medications Generic Name Dose Route Start Last Admin Trade Name Freq PRN Reason Stop Dose Admin Acetaminophen 1,000 mg 03/11/21 11:26 Acetaminophen Tab 500 Mg Tab PO Q6HR PRN Fever>101 Albuterol Sulfate 2 puff 03/11/21 14:00 Albuterol Hfa Inhaler INHALATION RT-Q6H NASRIN Albuterol Sulfate 2 puff 03/11/21 11:26 Albuterol Hfa Inhaler INHALATION RT-Q6H PRN Shortness Of Breath Or Wheezing Apixaban 5 mg 03/11/21 21:00 Apixaban 5 Mg Tab PO BID [facility] Aspirin 325 mg 03/12/21 12:00 Aspirin 325 Mg Tab PO DAILY [facility] Furosemide 40 mg 03/11/21 15:00 Furosemide 10 Mg/Ml 4 Ml Vial IV Q8H [facility] Lisinopril 40 mg 03/11/21 21:00 Lisinopril 20 Mg Tab PO BID [facility] Metoprolol Succinate 25 mg 03/12/21 09:00 Metoprolol Succinate (Er) 25 Mg Tab.Er.24h PO DAILY NASRIN Nitroglycerin 1 inch 03/11/21 14:15 Nitroglycerin Oint 1 Inch/Gm Packet TOPICAL QID [facility] Non-Formulary Medication 40 mg 03/11/21 21:00 Simvastatin [Zocor] PO HS NASRIN Sodium Chloride 10 ml 03/11/21 21:00 Sodium Chloride 0.9% Flush 10 Ml Syringe IV BID NASRIN Intake and Output 03/10/21 03/11/21 03/11/21 22:59 06:59 14:59 Other: Weight 160.118 kg Patient Weight 03/12/21 06:59 Weight 160.118 kg 03/11/21 11:41 03/11/21 11:41
[2021-03-12 10:25] LABS: African American GFR (CKD) 69.1 (60.0-200.0); Anion Gap 11.9 mmol/L (4.00-12.00); BUN/Creat Ratio 24.17 Ratio (12.00-20.00); Calcium 9.4 mg/dL (8.7-10.3); Carbon Dioxide 31.1 mmol/L (21.6-31.8); Magnesium 1.8 mg/dL (1.5-2.4); Non-African American GFR(CKD) 59.6 (60.0-200.0); Potassium 4.6 mmol/L (3.5-5.5)
[2021-03-12 11:00] LABS: T4, Free (Free Thyroxine) 1.7 ng/dL (0.80-1.80)
[2021-03-12 11:58] LABS: Glucose,Whole Blood 109 mg/dL (75-99)
[2021-03-12] MEDS ORDERED: ASPIRIN 325 MG TAB PO SCH (12:00)
[2021-03-12 13:32] VITALS: BMI 56.9
--- NOTE | 2021-03-12 13:52 | P.HPIM ---
History of Present Illness H&P Date: 03/12/21 Chief Complaint: Worsening shortness of breath This is a 71-year-old gentleman with past medical history of CHF, obstructive sleep apnea -uses BiPAP, thyroid cancer with thyroidectomy, prostate cancer, morbid obesity-has lost 70 pounds over 1 year, diabetes mellitus, hyperlip idemia, hypertension, rheumatoid arthritis, thyroid cancer with prior thyroidectomy, prostate disorder, former nicotine dependence, panic disorder and multiple other medical issues presented to the ER with complaints of worsening shortness of breath times a few days, accompanied by occasional productive cough. Denies chest pain, palpitations. EKG reporting atrial fibrillation,CVR with right bundle branch block, PVCs. Chest x-ray reporting patchy bilateral density within the lungs, enlarged heart, thickening of the minor fissure, mediastinum appears widened. Echo reported suboptimal study, mild pulmonary hypertension. Afebrile, normal WBC. Hemoglobin 13.8, platelets 149, INR 1.3. Mild hyponatremic on admission, resolved. Hyperkalemic on admission, K5.6, resolved. BUN 29, creatinine 1.16. Watch sugars controlled. Lactic acid 2.3 on admission, down to 1.7. Magnesium 1.8. Ferritin 241.9, LDH 756, CRP 15.8, BNP 3220. Troponin less than 0.012. Thyroid panel pending. IV push Lasix initiated in the ER, diuresed well with 24-hour I&O reflecting a negative fluid balance. Currently requiring 2-3 L nasal cannula O2 to maintain O2 sats in the mid 90s. Review of Systems ROS Statement: Those systems with pertinent positive or pertinent negative responses have been documented in the HPI. ROS Other: All systems not noted in ROS Statement are negative. Past Medical History Past Medical History: Cancer, Diabetes Mellitus, Hyperlipidemia, Hypertension, Prostate Disorder, Rheumatoid Arthritis (RA), Thyroid Disorder Additional Past Medical History / Comment(s): Thyroid cancer with a previous thyroidectomy, prostate cancer, morbid obesity, obstructive sleep apnea, hypertension, hyperlipidemia, diabetes mellitus, History of Any Multi-Drug Resistant Organisms: None Reported Past Surgical History: Orthopedic Surgery Additional Past Surgical History / Comment(s): betty knee partial replacement, thyroidectomy Past Anesthesia/Blood Transfusion Reactions: No Reported Reaction Past Psychological History: Panic Disorder Smoking Status: Former smoker Past Alcohol Use History: None Reported Past Drug Use History: None Reported - Past Family History Father Family Medical History: Hyperlipidemia Additional Family Medical History / Comment(s): parkinsons Mother Family Medical History: Dementia Medications and Allergies Home Medications Medication Instructions Recorded Confirmed Type Enalapril [Vasotec] 20 mg PO BID 07/31/19 03/11/21 History Ergocalciferol (Vitamin D2) 50,000 unit PO GALARZA 07/31/19 03/11/21 History [Vitamin D2] Ferrous Sulfate [Feosol] 325 mg PO DAILY 07/31/19 03/11/21 History Levothyroxine Sodium [Synthroid] 350 mcg PO DAILY 07/31/19 03/11/21 History PARoxetine [Paxil] 20 mg PO DAILY 07/31/19 03/11/21 History Simvastatin [Zocor] 40 mg PO HS 07/31/19 03/11/21 History allopurinoL [Zyloprim] 300 mg PO DAILY 07/31/19 03/11/21 History Apixaban [Eliquis] 5 mg PO BID #60 tab 08/05/19 03/11/21 Rx Furosemide [Lasix] 40 mg PO BID@0900,1600 #60 tab 08/05/19 03/11/21 Rx Carbidopa-Levodopa 10-100 mg 1 tab PO TID 03/11/21 03/11/21 History [Sinemet 10-100] Liraglutide [Victoza 2-Kodak] 1.2 mg SQ DAILY 03/11/21 03/11/21 History Metoprolol Succinate [Toprol XL] 25 mg PO DAILY 03/11/21 03/11/21 History metFORMIN HCL [Glucophage] 500 mg PO BID 03/11/21 03/11/21 History Allergies Allergy/AdvReac Type Severity Reaction Status Date / Time No Known Allergies Allergy Verified 03/11/21 11:12 Physical Exam Vitals: Vital Signs Temp Pulse Pulse Resp BP BP Pulse Ox 03/12/21 08:58 94 L 03/12/21 07:00 97.9 F 84 20 113/73 98 03/12/21 01:50 98.9 F 69 18 97/65 96 03/11/21 19:20 97.0 F L 65 20 116/78 97 03/11/21 15:56 97 03/11/21 15:48 97.6 F 70 20 128/71 97 03/11/21 14:53 74 18 104/67 95 03/11/21 13:12 77 18 108/68 95 Intake and Output 03/11/21 03/12/21 03/12/21 22:59 06:59 14:59 Output Total 150 1400 Balance -150 -1400 Output: Urine 150 1400 Other: Voiding Method Urinal # Voids 1 Weight 160.118 kg PHYSICAL EXAM: VITAL SIGNS: As above GENERAL: Sitting up in bed, no acute distress, HEENT: Normocephalic ,Conjunctivae normal. eyes normal. Oral mucosa moist NECK: Supple, short neck-unable to assess for JVD. No thyroid enlargement. No LNs CARDIOVASCULAR: S1, S2, irregular. No murmur RESPIRATION: Unlabored, Breath sounds diminished in the bases. No rhonchi or crackles. No bronchial breathing. ABDOMEN: Obese, Soft, nontender . Umbilical hernia No guarding. no masses palpable. No ascites, No hepatosplenomegaly.Bowel sounds heard. LEGS: Trace pedal edema, nontender, wearing lower extremity compression stockings PSYCHIATRY: Alert and oriented X3, mood and affect normal. NERVOUS SYSTEM: Cranial N 2-12 grossly normal. Moves all 4 limbs. Diffuse weakness, No focal deficits. Strength and sensation grossly intact. Skin: Warm and dry, no rash Results CBC & Chem 7: 03/11/21 11:41 03/12/21 06:17 Labs: Abnormal Lab Results - Last 24 Hours (Table) 03/11/21 03/11/21 03/11/21 Range/Units 11:41 11:41 11:41 PT 12.9 H (9.0-12.0) sec INR 1.3 H (<1.2) Sodium 136 L (137-145) mmol/L Potassium 5.6 H (3.5-5.1) mmol/L BUN 29 H (9-20) mg/dL Est GFR (CKD-EPI)NonAf (60.0-200.0) BUN/Creatinine Ratio (12.00-20.00) Ratio Glucose 114 H (74-99) mg/dL POC Glucose (mg/dL) (75-99) mg/dL Plasma Lactic Acid Karthikeyan 2.6 H* (0.7-2.0) mmol/L Lactate Dehydrogenase 756 H (313-618) U/L C-Reactive Protein 15.8 H (<10.0) mg/L 03/11/21 03/11/21 03/11/21 Range/Units 15:20 17:04 18:33 PT (9.0-12.0) sec INR (<1.2) Sodium (137-145) mmol/L Potassium (3.5-5.1) mmol/L BUN (9-20) mg/dL Est GFR (CKD-EPI)NonAf (60.0-200.0) BUN/Creatinine Ratio (12.00-20.00) Ratio Glucose (74-99) mg/dL POC Glucose (mg/dL) 107 H (75-99) mg/dL Plasma Lactic Acid Karthikeyan 5.1 H* 2.7 H* (0.7-2.0) mmol/L Lactate Dehydrogenase (313-618) U/L C-Reactive Protein (<10.0) mg/L 03/11/21 03/11/21 03/12/21 Range/Units 20:28 21:53 06:17 PT (9.0-12.0) sec INR (<1.2) Sodium (137-145) mmol/L Potassium (3.5-5.1) mmol/L BUN 29.0 H (9-20) mg/dL Est GFR (CKD-EPI)NonAf 59.6 L (60.0-200.0) BUN/Creatinine Ratio 24.17 H (12.00-20.00) Ratio Glucose (74-99) mg/dL POC Glucose (mg/dL) 107 H (75-99) mg/dL Plasma Lactic Acid Karthikeyan 2.3 H* (0.7-2.0) mmol/L Lactate Dehydrogenase (313-618) U/L C-Reactive Protein (<10.0) mg/L 03/12/21 Range/Units 11:56 PT (9.0-12.0) sec INR (<1.2) Sodium (137-145) mmol/L Potassium (3.5-5.1) mmol/L BUN (9-20) mg/dL Est GFR (CKD-EPI)NonAf (60.0-200.0) BUN/Creatinine Ratio (12.00-20.00) Ratio Glucose (74-99) mg/dL POC Glucose (mg/dL) 109 H (75-99) mg/dL Plasma Lactic Acid Karthikeyan (0.7-2.0) mmol/L Lactate Dehydrogenase (313-618) U/L C-Reactive Protein (<10.0) mg/L Thrombosis Risk Factor Assmnt - Choose All That Apply Any of the Below Risk Factors Present?: Yes Each Factor Represents 1 point: Heart failure (<1month), Obesity (BMI >25) Other Risk Factors: Yes Each Risk Factor Represents 2 Points: Age 61-74 years, Malignancy Other congenital or acquired thrombophilia - If yes, enter type in comment: No Thrombosis Risk Factor Assessment Total Risk Factor Score: 6 Thrombosis Risk Factor Assessment Level: High Risk Assessment and Plan Assessment: -Acute on chronic diastolic CHF exacerbation -Dyspnea, multifactorial, acute CHF, EF currently unknown -Acute hypoxic respiratory failure secondary to the above -Bilateral pleural effusions, loculation of pleural fluid on the left side -Obstructive sleep apnea wears BiPAP at home -Anemia of chronic disease -Chronic paroxysmal atrial fibrillation -Diabetes mellitus -Diabetic neuropathy, bilateral feet -Hypertension -Hyperlipidemia -History of panic disorder -History of thyroid cancer, thyroidectomy, thyroid panel pending -Prostate disorder -Morbid Obesity, BMI 57, has lost 70 pounds over the last year. -Gait dysfunction, chronic right ankle injury years ago, uses walker for any lengthy distance Plan: Continue on current medication regime ,monitoring and symptomatic treatment. Continue diuresing with close monitoring of renal function, electrolytes. Repeat labs ordered for a.m. cardiology consult in place with recommendations pending. GI and DVT prophylaxis in place. Home meds reviewed accordingly. The impression and plan of care has been dictated as directed. : I performed a history and examination of this patient, discussed the same with the dictator. I agree with the dictator's note ,documented as a scribe. Any additional findings or plans will be noted.
[2021-03-12 16:03] LABS: Hemoglobin A1C 5.8 % (4.0-6.0)
[2021-03-12 16:48] LABS: Glucose,Whole Blood 104 mg/dL (75-99)
[2021-03-12] MEDS: ATORVASTATIN 20 MG TAB PO SCH (20:26)
[2021-03-12 20:28] LABS: Glucose,Whole Blood 144 mg/dL (75-99)
[2021-03-13] MEDS: LEVOTHYROXINE 100 MCG TAB PO SCH (06:13)
[2021-03-13] MEDS: LEVOTHYROXINE 125 MCG TAB PO SCH (06:13)
[2021-03-13 07:13] LABS: Glucose,Whole Blood 96 mg/dL (75-99)
[2021-03-13] MEDS: INSULIN ASPART (NovoLOG) 100 UNIT/ML VIAL SQ SCH ×2 (07:24→12:04)
[2021-03-13] MEDS: ALBUTEROL HFA INHALER INHALATION SCH ×2 (07:30→11:08)
[2021-03-13] MEDS: METOPROLOL SUCCINATE (ER) 25 MG TAB.ER.24H PO SCH (08:52)
[2021-03-13] MEDS: APIXABAN 5 MG TAB PO SCH (08:52)
[2021-03-13] MEDS: PANTOPRAZOLE 40 MG/10 ML VIAL IVP SCH (08:52)
[2021-03-13] MEDS: CARBIDOPA-LEVODOPA 10-100 MG 1 EACH TAB PO SCH (08:52)
[2021-03-13] MEDS: FERROUS SULFATE 325 MG TAB PO SCH (08:52)
[2021-03-13] MEDS: PARoxetine 20 MG TAB PO SCH (08:52)
[2021-03-13] MEDS: FUROSEMIDE 10 MG/ML 4 ML VIAL IV SCH (08:52)
[2021-03-13] MEDS: lisinopriL 20 MG TAB PO SCH (08:52)
[2021-03-13] MEDS: NON FORMULARY DRUG (Liraglutide [Victoza 2-Pak] 0.6 MG/0.1 ML Pen.Injctr) SQ SCH (09:00)
[2021-03-13 09:38] LABS: African American GFR (CKD) 69.1 (60.0-200.0); Anion Gap 9.8 mmol/L (4.00-12.00); BUN/Creat Ratio 23.33 Ratio (12.00-20.00); Basophils # (A) 0.04 X 10*3/uL (0.00-0.10); Basophils % (A) 0.6 %; Calcium 9.3 mg/dL (8.7-10.3); Carbon Dioxide 31.2 mmol/L (21.6-31.8); Eosinophils # (A) 0.45 X 10*3/uL (0.04-0.35); Eosinophils % (A) 6.9 %; HCT 39.4 % (39.6-50.0); HGB 11.7 g/dL (13.0-17.0); Lymphocytes # (A) 1.31 X 10*3/uL (0.90-5.00); Lymphocytes % (A) 20.1 %; MCH 26.2 pg (27.0-32.0); MCHC 29.7 g/dL (32.0-37.0); MCV 88.1 fL (80.0-97.0); Mean Platelet Volume 10.2 fL (9.5-12.2); Monocytes # (A) 0.51 X 10*3/uL (0.20-1.00); Monocytes % (A) 7.8 %; Neutrophils # (A) 4.18 X 10*3/uL (1.80-7.70); Neutrophils % (A) 64.3 %; Non-African American GFR(CKD) 59.6 (60.0-200.0); Platelet Count 141 X 10*3/uL (140-440); Potassium 3.8 mmol/L (3.5-5.5); RBC 4.47 X 10*6/uL (4.40-5.60); RDW 16.4 % (11.5-14.5); WBC 6.51 X 10*3/uL (4.50-10.00)
--- NOTE | 2021-03-13 11:22 | P.PN ---
Subjective This is a pleasant 71-year-old male past medical history significant for hypertension, dyslipidemia, paroxysmal atrial fibrillation, chronic diastolic heart failure and diabetes mellitus. He is seen and examined sitting up in the chair in no acute distress. He states since admission he has been urinating significantly and feels as though his breathing has improved. He is concerned that at home his dose of Lasix didn't seem to be working anymore. He states he used to be he would take his medication and he would start urinating almost immediately however it has not been the case for the previous few weeks. He denies chest pain, dizziness or palpitations. Telemetry tracings reveal persistent atrial fibrillation. Blood pressure 103/70 heart rate 71 afebrile maintaining oxygen saturation on nasal cannula. Laboratory data reviewed, WBC 6.5, hemoglobin 11.7, platelets 141, sodium 140, potassium 3.8, creatinine 1.2. 24-hour urine output is 900 mL is maintaining a negative fluid balance. Currently maintained on Lasix 40 mg IV every 8 hours, Eliquis 5 mg twice a day, atorvastatin 20 mg daily, lisinopril 40 mg twice a day and Toprol 25 mg daily. GENERAL: Well-appearing, well-nourished and in no acute distress. Obese. NECK: Supple without JVD or thyromegaly. LUNGS: Breath sounds clear to auscultation bilaterally. Respiration equal and unlabored. No wheezes, rales or rhonchi. Diminished bilaterally. HEART: Irregular rate and rhythm without murmurs, rubs or gallops. S1 and S2 heard. EXTREMITIES: Normal range of motion, trace edema on the right, no edema on the left. Bilateral AGUSTIN hose in place. No clubbing or cyanosis. Peripheral pulses intact. ASSESSMENT Acute on chronic diastolic heart failure Paroxysmal atrial fibrillation on long-term anticoagulation Hypertension Dyslipidemia Diabetes mellitus Morbid obesity, BMI 57 PLAN Transitioned to oral diuretics, 60 mg twice a day. Follow up with Dr. Carreon upon discharge. Nurse Practitioner note has been reviewed, I agree with a documented findings and plan of care. Patient was seen and examined. Objective - Vital Signs Vital signs: Vital Signs Temp 97.5 F L 03/13/21 06:54 Pulse 71 03/13/21 06:54 Resp 20 03/13/21 06:54 BP 103/70 03/13/21 06:54 Pulse Ox 100 03/13/21 06:54 Intake & Output 03/12/21 03/13/21 03/13/21 18:59 06:59 18:59 Intake Total 240 Output Total 900 Balance 240 -900 Weight 160.481 kg Intake: Oral 240 Output: Urine 900 Other: Voiding Method Urinal - Labs CBC & Chem 7: 03/13/21 05:27 03/13/21 05:27 Labs: Abnormal Lab Results - Last 24 Hours (Table) 03/12/21 03/12/21 03/12/21 Range/Units 06:17 06:17 11:56 Hgb (13.0-17.0) g/dL Hct (39.6-50.0) % MCH (27.0-32.0) pg MCHC (32.0-37.0) g/dL RDW (11.5-14.5) % Eosinophils # (0.04-0.35) X 10*3/uL BUN 29.0 H (9.0-27.0) mg/dL Est GFR (CKD-EPI)NonAf 59.6 L (60.0-200.0) BUN/Creatinine Ratio 24.17 H (12.00-20.00) Ratio POC Glucose (mg/dL) 109 H (75-99) mg/dL Free T3 pg/mL 2.2 L (2.3-4.2) pg/mL 03/12/21 03/12/21 03/13/21 Range/Units 16:46 20:27 05:27 Hgb 11.7 L (13.0-17.0) g/dL Hct 39.4 L (39.6-50.0) % MCH 26.2 L (27.0-32.0) pg MCHC 29.7 L (32.0-37.0) g/dL RDW 16.4 H (11.5-14.5) % Eosinophils # 0.45 H (0.04-0.35) X 10*3/uL BUN (9.0-27.0) mg/dL Est GFR (CKD-EPI)NonAf (60.0-200.0) BUN/Creatinine Ratio (12.00-20.00) Ratio POC Glucose (mg/dL) 104 H 144 H (75-99) mg/dL Free T3 pg/mL (2.3-4.2) pg/mL 03/13/21 Range/Units 05:27 Hgb (13.0-17.0) g/dL Hct (39.6-50.0) % MCH (27.0-32.0) pg MCHC (32.0-37.0) g/dL RDW (11.5-14.5) % Eosinophils # (0.04-0.35) X 10*3/uL BUN 28.0 H (9.0-27.0) mg/dL Est GFR (CKD-EPI)NonAf 59.6 L (60.0-200.0) BUN/Creatinine Ratio 23.33 H (12.00-20.00) Ratio POC Glucose (mg/dL) (75-99) mg/dL Free T3 pg/mL (2.3-4.2) pg/mL Microbiology - Last 24 Hours (Table) 03/11/21 11:35 Blood Culture - Preliminary Blood No Growth after 24 hours 03/11/21 11:41 Blood Culture - Preliminary Blood No Growth after 24 hours
[2021-03-13 11:54] LABS: Glucose,Whole Blood 77 mg/dL (75-99)
[2021-03-13 14:38] VITALS: BP 115/82; PULSE 85; RESP 18; TEMP 98.7
[2021-03-13] MEDS ORDERED: FUROSEMIDE 20 MG TAB PO SCH (16:00)
[2021-03-14] MEDS ORDERED: ERGOCALCIFEROL 1,250 MCG (50,000 IU) CAPSULE PO SCH ×2 (09:00→14:59)
== END 2021-03-13 14:41 | disposition home or self-care (01) ==
LOC: EC 10:51 → 6NMEDSUR 14:15
PROVIDERS: ADMIT Family Medicine; ATTEND Family Medicine
DX: I11.0 Hypertensive heart disease with heart failure (principal); I50.33 Acute on chronic diastolic (congestive) heart failure; J96.01 Acute respiratory failure with hypoxia; G47.33 Obstructive sleep apnea (adult) (pediatric); D63.8 Anemia in other chronic diseases classified elsewhere; I48.0 Paroxysmal atrial fibrillation; E11.40 Type 2 diabetes mellitus with diabetic neuropathy, unspecified; E78.5 Hyperlipidemia, unspecified; E87.5 Hyperkalemia; I27.20 Pulmonary hypertension, unspecified; E87.1 Hypo-osmolality and hyponatremia; I45.10 Unspecified right bundle-branch block; N42.9 Disorder of prostate, unspecified; R26.9 Unspecified abnormalities of gait and mobility; E66.01 Morbid (severe) obesity due to excess calories; Z68.43 Body mass index [BMI] 50.0-59.9, adult; M06.9 Rheumatoid arthritis, unspecified; F41.0 Panic disorder [episodic paroxysmal anxiety]; Z79.899 Other long term (current) drug therapy; Z79.01 Long term (current) use of anticoagulants; Z79.4 Long term (current) use of insulin; Z79.890 Hormone replacement therapy; Z87.891 Personal history of nicotine dependence; Z85.46 Personal history of malignant neoplasm of prostate; Z85.850 Personal history of malignant neoplasm of thyroid; E89.0 Postprocedural hypothyroidism; Z20.822 Contact with and (suspected) exposure to COVID-19; Z82.0 Family history of epilepsy and other diseases of the nervous system
CPT/HCPCS: 96376 ×3; 96375; 96374; 99285; 36415; 94640 ×6; 94760 ×2; 93005; 84439; 84481; 83880; 80053; 80048 ×2; 82728; 83605 ×2; 83615; 83735 ×2; 84443; 84484; 85025 ×2; 85610; 85730; 86140; 87040; 83036; 84145; 87635; 71045; G0378 ×3; C8929; J1940 ×3; C9113 ×3; Q9950; 93306

== ENCOUNTER → 2022-06-30 | Outpatient (CLI) | payer MEDICARE ==
--- NOTE | 2022-06-30 15:41 | NM ---
EXAMINATION TYPE: NM bone scan whole body DATE OF EXAM: 06/30/2022 COMPARISON: NONE HISTORY: Prostate cancer Delayed whole-body scanning was performed following the injection of 25.7 mCi Tc 99m MDP. Images acq uired 3 hours post injection. FINDINGS: Uptake within the right ankle, bilateral knees, shoulders is likely degenerative. Soft tissue uptake is normal. No areas of abnormal increased or decreased uptake to suggest metastatic disease. IMPRESSION: Metastatic disease to bone is not evident
== END | disposition home or self-care (01) ==
LOC: RADNMMAIN 11:06
PROVIDERS: ATTEND Urology
DX: C61 Malignant neoplasm of prostate (principal)
CPT/HCPCS: 78306; A9503

== ENCOUNTER → 2022-07-07 | Outpatient (CLI) | payer MEDICARE ==
--- NOTE | 2022-07-07 15:52 | CT ---
EXAMINATION TYPE: CT ChestAbdPelvis w con CT DLP: 4320.5 mGycm, Automated exposure control for dose reduction was used. DATE OF EXAM: 07/07/2022 3:14 PM COMPARISON: CT chest 07/31/2019 CLINICAL INDICATION:Male, 72 years old with history of C61 Prostate cancer;Prostate cancer Technique: Multiple axial images of the chest, abdomen, and pelvis were obtained. Two-dimensional cor onal and sagittal reconstructions were obtained. Contrast used:70 mL of Isovue 300 with IV Contrast, Oral contrast used: with Oral Contrast Findings: CHEST: LUNGS/ PLEURA: Trace bilateral pleural effusions present. Fatty changes to the left major fissure pos teriorly. AIRWAY: Patent and unremarkable. HEART: Is enlarged for size with moderate to severe coronary artery atherosclerosis. Aortic leaflet c alcifications are present. MEDIASTINUM: Extensive conglomerate soft tissue/adenopathy seen within the mediastinum example includ es: prevascular space on the left measuring 8.8 x 6.8 x 6.6 cm, right paratracheal measuring 3.0 x 2. 8 x 3.7 cm at the thoracic inlet, right low paratracheal conglomerate mass measuring 4.3 x 4.4 x 4.9 cm. VASCULATURE: No aortic aneurysm. Pulmonary trunk is enlarged measuring up to 4.4 cm. No evidence for pulmonary embolus. MUSCULOSKELETAL: There is end-stage osteoarthrosis changes to the shoulders bilaterally. Left supraclavicular lymph nodes are partially visualized measuring up to 2.5 x 3.5 cm. SOFT TISSUES/LYMPH NODES: Left axillary lymph node is enlarged measuring up to 1.6 cm in short axis. LOWER NECK: No significant findings. ABDOMEN: ABDOMEN LIVER: Unremarkable GALLBLADDER AND BILE DUCTS: Unremarkable. PANCREAS: Unremarkable. SPLEEN: Unremarkable. ADRENAL GLANDS: Unremarkable. KIDNEYS AND URETERS: No evidence of hydronephrosis or renal calculus. The ureters are unremarkable. PELVIS BLADDER: Unremarkable REPRODUCTIVE: Calcifications within the prostate gland No evidence for pelvic adenopathy. ABDOMEN & PELVIS STOMACH AND BOWEL: No evidence of bowel obstruction. PERITONEUM: No evidence of pneumoperitoneum. There is small to moderate pleural effusion present. VASCULATURE: No evidence of aortic aneurysm. MUSCULOSKELETAL: No acute osseous abnormalities, extensive disc degeneration changes throughout the s pine with endplate sclerosis and osteophyte formation and vacuum disc phenomenon. LYMPH NODES: Enlarged lymph nodes are seen along the aorta on the right measuring up to 1.9 cm in tigre rt axis and near the aortic bifurcation measuring up to 1.7 cm. SOFT TISSUE/ABDOMINAL WALL: Diffuse anasarca of the soft tissues. There is a small fat-containing umb ilical hernia. IMPRESSION: 1. Conglomerate lymphadenopathy within the mediastinum along with enlarged left supraclavicular and left axillary lymph nodes concerning for neoplastic process such as a lymphoma or metastatic disease. Periaortic lymphadenopathy is also present. Further workup is with tissue sampling and clinical anabell elation. 2. Cardiomegaly, bilateral pleural effusions and dilated pulmonary trunk correlate for congestive he art failure pulmonary hypertension. 3. Moderate to severe coronary artery atherosclerosis. 4. Small ascites. 5. Colonic diverticulosis. 6. End-stage shoulder osteoporosis changes with [id number] articulation bilaterally.
== END | disposition home or self-care (01) ==
LOC: RADCTMAIN 13:00
PROVIDERS: ATTEND Urology
DX: C61 Malignant neoplasm of prostate (principal); J90 Pleural effusion, not elsewhere classified; K57.30 Diverticulosis of large intestine without perforation or abscess without bleeding
CPT/HCPCS: 82565; 84520; 71260; 74177; 36415; Q9967 ×2

== ENCOUNTER 2022-07-27 11:43 | Inpatient (IN) | payer MEDICARE ==
[2022-07-27] MEDS ORDERED: VANCOMYCIN 1,000 MG in SODIUM CHLORIDE 0.9% 250 ML IVPB STA (12:58)
[2022-07-27] MEDS ORDERED: VANCOMYCIN 2,000 MG in SODIUM CHLORIDE 0.9% 500 ML 500 ML IVPB STA (13:05)
--- NOTE | 2022-07-27 14:12 | ED ---
General Adult HPI - General Chief complaint: Shortness of Breath Stated complaint: sob Time Seen by Provider: 07/27/22 12:45 Source: patient, family, RN notes reviewed, old records reviewed Mode of arrival: wheelchair Limitations: no limitations - History of Present Illness Initial comments: Patient is a 72-year-old male with past medical history remarkable for prostate cancer currently on immunotherapy, hypertension, diabetes, heart failure, on elliquis, on home 2 L nasal cannula oxygen, who presents emergency Department complaining of increased dyspnea, increased somewhat leg swelling, as well as fatigue over the last few days. Today was slightly worse when leaving his urologist appointment and was brought here for further evaluation. Denies any chest pain. Endorses some mild exertional shortness of breath. Denies any cough or fevers. Denies abdominal pain, nausea, vomiting. Denies any fevers. Denies any sick contacts. Denies any urinary complaints, however he does have a hard time controlling his urine. Does have a history of a fungal dermatitis located under his pannus as well as near his groin. Patient's family who is with him and has noticed that there may be an open wound now near his groin. He does have some mild discharge as well. No other acute complaints at this time. Presents for further evaluation. - Related Data Home Medications Medication Instructions Recorded Confirmed Enalapril [Vasotec] 20 mg PO BID 07/31/19 07/27/22 Ergocalciferol (Vitamin D2) 50,000 unit PO GALARZA 07/31/19 07/27/22 [Vitamin D2] Ferrous Sulfate [Feosol] 325 mg PO DAILY 07/31/19 07/27/22 PARoxetine [Paxil] 20 mg PO DAILY 07/31/19 07/27/22 Simvastatin [Zocor] 40 mg PO HS 07/31/19 07/27/22 allopurinoL [Zyloprim] 300 mg PO DAILY 07/31/19 07/27/22 Carbidopa-Levodopa 10-100 mg 1 tab PO TID 03/11/21 07/27/22 [Sinemet 10-100 mg] Liraglutide [Victoza 2-Kodak] 1.2 mg SQ DAILY 03/11/21 07/27/22 Metoprolol Succinate [Toprol XL] 25 mg PO DAILY 03/11/21 07/27/22 metFORMIN HCL [Glucophage] 500 mg PO BID 03/11/21 07/27/22 Ascorbic Acid [Vitamin C] 500 mg PO DAILY 07/27/22 07/27/22 Cranberry Supplement 8,400 mg PO DAILY 07/27/22 07/27/22 Enzalutamide [Xtandi] 160 mg PO DAILY 07/27/22 07/27/22 Furosemide [Lasix] 40 mg PO TID 07/27/22 07/27/22 Indomethacin [Indocin ER] 75 mg PO DAILY 07/27/22 07/27/22 Levothyroxine Sodium [Synthroid] 300 mcg PO DAILY 07/27/22 07/27/22 Potassium Chloride ER [K-Dur 20] 20 meq PO BID 07/27/22 07/27/22 Previous Rx's Medication Instructions Recorded Apixaban [Eliquis] 5 mg PO BID #60 tab 08/05/19 Allergies Allergy/AdvReac Type Severity Reaction Status Date / Time No Known Allergies Allergy Verified 07/27/22 15:54 Review of Systems ROS Statement: Those systems with pertinent positive or pertinent negative responses have been documented in the HPI. Review of Systems: CONST: Denies fever EYES: Denies blurry vision ENT: Denies nasal congestion C/V: Denies Chest pain RESP: Endorses exertional shortness of breath GI: Denies abdominal pain : Denies dysuria SKIN: Endorses chronic rash MSK: Denies joint pain. NEURO: Endorses weakness ROS Other: All systems not noted in ROS Statement are negative. Past Medical History Past Medical History: Cancer, Diabetes Mellitus, Hyperlipidemia, Hypertension, Prostate Disorder, Rheumatoid Arthritis (RA), Thyroid Disorder Additional Past Medical History / Comment(s): Thyroid cancer with a previous thyroidectomy, prostate cancer, morbid obesity, obstructive sleep apnea, hypertension, hyperlipidemia, diabetes mellitus, History of Any Multi-Drug Resistant Organisms: None Reported Past Surgical History: Orthopedic Surgery Additional Past Surgical History / Comment(s): betty knee partial replacement, thyroidectomy Past Anesthesia/Blood Transfusion Reactions: No Reported Reaction Past Psychological History: Panic Disorder Smoking Status: Former smoker Past Alcohol Use History: None Reported Past Drug Use History: None Reported - Past Family History Father Family Medical History: Hyperlipidemia Additional Family Medical History / Comment(s): parkinsons Mother Family Medical History: Dementia General Exam - General Exam Comments Initial Comments: General: Appears in no acute distress. Has an elevated BMI, uses a power chair at baseline. HEAD: Normal with no signs of head trauma. EYES: PERRLA, EOMI, conjunctiva normal, no discharge. ENT: Hearing grossly intact, normal oropharynx. Lips are not blue, but pink at this time. RESPIRATORY: Clear breath sounds bilaterally. No wheezes, rales, or rhonchi. No hypoxia. No increased work of breathing. C/V: Regular rate and rhythm. S1 and S2 auscultated, 1+ pitting edema bilateral lower extremities. Currently wearing compression stockings., peripheral pulses 2+ and intact throughout ABD: Abd is soft, nontender, nondistended EXT: Normal range of motion, no obvious deformity SKIN: Contact dermatitis located under the pannus, is where it is in the perineum. No crepitance, no induration. Patient does have an open wound located on the anterior aspect just superior to the base of the penis. It is clear discharge, with maybe a mild amount of purulence present. No fluctuance. NEURO: Alert and oriented x 4. Cranial nerves II-XII intact. No focal sensory or strength deficits. Limitations: no limitations Course Vital Signs 07/27/22 07/27/22 12:24 18:46 Temperature 98.3 F Pulse Rate 95 105 H Respiratory 20 18 Rate Blood Pressure 96/70 103/61 O2 Sat by Pulse 97 97 Oximetry Medical Decision Making - Medical Decision Making Based on the patient's presentation and physical exam, I'm concerned for possible cardiopulmonary etiology for his current symptoms and CHF exacerbation. Cannot rule out possible infection, particularly with the skin findings. Patient will be given a dose of vancomycin we will obtain blood cultures and blood cultures. Cardiac labs will be obtained. He will be placed on his normal 2 L nasal cannula oxygen. Covid fluids also be obtained. He was in agreement this plan. He'll be given a dose of vancomycin here in the department. There was a long delay in obtaining laboratory studies as well as imaging due to the patient coming in with multiple critical patients in a short period of time. EKG shows no signs of acute ischemia. No acute changes. Chest x-ray shows a chronically widened a distended seen on prior chest x-rays. There is also pulmonary vascular congestion concerning for CHF. Laboratory studies are remarkable for a chronic normocytic anemia with a hemoglobin of 11.0 which is stable. Patient has hyperkalemia with a potassium of 6.4 in the setting of AK I with an elevated be when a 51 and creatinine of 1.98. GFR is 32. This seems acute. Patient is mildly acidotic down CO2 of 19 likely secondary to FINA. Troponin is indeterminate. BNP is elevated to 9000. Urine is still pending at this time. I discussed with the patient that it appears he is having an AK I, CHF exacerbation, as well as hyperkalemia. He does require admission to the hospital. He was in agreement this plan. Will be given a single dose of IV Lasix at this time. I consulted nephrology over concern for the hyperkalemia. Patient was administered a hyperkalemia cocktail and Dr. Chowdary recommended additional 2 A of bicarb, as well as a dose of Lokelma.. We'll repeat potassium later today. Vital signs remain within acceptable limits.Patient had 200 mL in his bladder. He was straight cathed for collection. Urinalysis is still pending at this time. Covid and Flu were negative. Patient is on potassium pills at home, which could be the cause for his acute hyperkalemia in addition to the AK I. We'll hold these at this time. I spoke with the patient's admitting physician, Dr. Nicholas he was in agreement with the plan. Cardiology will be consulted. Echo will be ordered. We'll try on the troponin. Patient will be admitted to cardiac stepdown at this time. - Lab Data Result diagrams: 07/27/22 14:50 07/27/22 14:50 Lab Results 07/27/22 07/27/22 07/27/22 Range/Units 14:50 14:50 14:50 WBC 6.1 (3.8-10.6) k/uL RBC 3.73 L (4.30-5.90) m/uL Hgb 11.0 L (13.0-17.5) gm/dL Hct 36.3 L (39.0-53.0) % MCV 97.2 (80.0-100.0) fL MCH 29.5 (25.0-35.0) pg MCHC 30.3 L (31.0-37.0) g/dL RDW 18.7 H (11.5-15.5) % Plt Count 195 (150-450) k/uL MPV 8.3 Neutrophils % 78 % Lymphocytes % 12 % Monocytes % 7 % Eosinophils % 2 % Basophils % 1 % Neutrophils # 4.8 (1.3-7.7) k/uL Lymphocytes # 0.7 L (1.0-4.8) k/uL Monocytes # 0.4 (0-1.0) k/uL Eosinophils # 0.1 (0-0.7) k/uL Basophils # 0.0 (0-0.2) k/uL Hypochromasia Marked Anisocytosis Slight Macrocytosis Slight PT 15.2 H (9.0-12.0) sec INR 1.5 H (<1.2) APTT 30.0 (22.0-30.0) sec Sodium 137 (137-145) mmol/L Potassium 6.4 H* (3.5-5.1) mmol/L Chloride 103 (98-107) mmol/L Carbon Dioxide 19 L (22-30) mmol/L Anion Gap 15 mmol/L BUN 51 H (9-20) mg/dL Creatinine 1.98 H (0.66-1.25) mg/dL Est GFR (CKD-EPI)AfAm 37 (>60 ml/min/1.73 sqM) Est GFR (CKD-EPI)NonAf 32 (>60 ml/min/1.73 sqM) Glucose 101 H (74-99) mg/dL POC Glucose (mg/dL) (70-110) mg/dL POC Glu Pot Puller ID Plasma Lactic Acid Karthikeyan (0.7-2.0) mmol/L Calcium 9.5 (8.4-10.2) mg/dL Magnesium 2.2 (1.6-2.3) mg/dL Total Bilirubin 0.8 (0.2-1.3) mg/dL AST 23 (17-59) U/L ALT 11 (4-49) U/L Alkaline Phosphatase 88 (38-126) U/L Troponin I (0.000-0.034) ng/mL NT-Pro-B Natriuret Pep pg/mL Total Protein 6.0 L (6.3-8.2) g/dL Albumin 3.7 (3.5-5.0) g/dL Coronavirus (PCR) (Not Detectd) Influenza Type A RNA (Not Detectd) Influenza Type B (PCR) (Not Detectd) 07/27/22 07/27/22 07/27/22 Range/Units 14:50 14:50 15:55 WBC (3.8-10.6) k/uL RBC (4.30-5.90) m/uL Hgb (13.0-17.5) gm/dL Hct (39.0-53.0) % MCV (80.0-100.0) fL MCH (25.0-35.0) pg MCHC (31.0-37.0) g/dL RDW (11.5-15.5) % Plt Count (150-450) k/uL MPV Neutrophils % % Lymphocytes % % Monocytes % % Eosinophils % % Basophils % % Neutrophils # (1.3-7.7) k/uL Lymphocytes # (1.0-4.8) k/uL Monocytes # (0-1.0) k/uL Eosinophils # (0-0.7) k/uL Basophils # (0-0.2) k/uL Hypochromasia Anisocytosis Macrocytosis PT (9.0-12.0) sec INR (<1.2) APTT (22.0-30.0) sec Sodium (137-145) mmol/L Potassium (3.5-5.1) mmol/L Chloride (98-107) mmol/L Carbon Dioxide (22-30) mmol/L Anion Gap mmol/L BUN (9-20) mg/dL Creatinine (0.66-1.25) mg/dL Est GFR (CKD-EPI)AfAm (>60 ml/min/1.73 sqM) Est GFR (CKD-EPI)NonAf (>60 ml/min/1.73 sqM) Glucose (74-99) mg/dL POC Glucose (mg/dL) 117 H (70-110) mg/dL POC Glu Pot Puller ID Abbie Soliman Plasma Lactic Acid Karthikeyan 2.0 (0.7-2.0) mmol/L Calcium (8.4-10.2) mg/dL Magnesium (1.6-2.3) mg/dL Total Bilirubin (0.2-1.3) mg/dL AST (17-59) U/L ALT (4-49) U/L Alkaline Phosphatase (38-126) U/L Troponin I 0.015 (0.000-0.034) ng/mL NT-Pro-B Natriuret Pep pg/mL Total Protein (6.3-8.2) g/dL Albumin (3.5-5.0) g/dL Coronavirus (PCR) (Not Detectd) Influenza Type A RNA (Not Detectd) Influenza Type B (PCR) (Not Detectd) 07/27/22 07/27/22 07/27/22 Range/Units 16:04 16:32 16:32 WBC (3.8-10.6) k/uL RBC (4.30-5.90) m/uL Hgb (13.0-17.5) gm/dL Hct (39.0-53.0) % MCV (80.0-100.0) fL MCH (25.0-35.0) pg MCHC (31.0-37.0) g/dL RDW (11.5-15.5) % Plt Count (150-450) k/uL MPV Neutrophils % % Lymphocytes % % Monocytes % % Eosinophils % % Basophils % % Neutrophils # (1.3-7.7) k/uL Lymphocytes # (1.0-4.8) k/uL Monocytes # (0-1.0) k/uL Eosinophils # (0-0.7) k/uL Basophils # (0-0.2) k/uL Hypochromasia Anisocytosis Macrocytosis PT (9.0-12.0) sec INR (<1.2) APTT (22.0-30.0) sec Sodium (137-145) mmol/L Potassium (3.5-5.1) mmol/L Chloride (98-107) mmol/L Carbon Dioxide (22-30) mmol/L Anion Gap mmol/L BUN (9-20) mg/dL Creatinine (0.66-1.25) mg/dL Est GFR (CKD-EPI)AfAm (>60 ml/min/1.73 sqM) Est GFR (CKD-EPI)NonAf (>60 ml/min/1.73 sqM) Glucose (74-99) mg/dL POC Glucose (mg/dL) (70-110) mg/dL POC Glu Pot Puller ID Plasma Lactic Acid Karthikeyan (0.7-2.0) mmol/L Calcium (8.4-10.2) mg/dL Magnesium (1.6-2.3) mg/dL Total Bilirubin (0.2-1.3) mg/dL AST (17-59) U/L ALT (4-49) U/L Alkaline Phosphatase (38-126) U/L Troponin I (0.000-0.034) ng/mL NT-Pro-B Natriuret Pep 9290 pg/mL Total Protein (6.3-8.2) g/dL Albumin (3.5-5.0) g/dL Coronavirus (PCR) Not Detected (Not Detectd) Influenza Type A RNA Not Detected (Not Detectd) Influenza Type B (PCR) Not Detected (Not Detectd) - EKG Data -: EKG Interpreted by Me EKG Comments: 12-lead Electrocardiogram Interpretation Note EKG was reviewed and interpreted by myself. 12-lead ECG performed at 1319 is interpreted by me as revealing atrial fibrillation at a rate of 90 beats per minute. Indeterminate axis. QRS duration is 140 ms, QTc is 448 ms.. There were no ST or T wave abnormalities to suggest myocardial ischemia or injury. R wave progression across the precordium was satisfactory. By my interpretation this EKG is non-diagnostic for acute ischemia. Critical Care Time Critical Care Time: Yes Total Critical Care Time: 35 Critical Care Time: Upon my evaluation, this patient had a high probability of imminent or life- threatening deterioration due to CHF, cellulitis, FINA, hyperkalemia, which required my direct attention, intervention, and personal management. I have personally provided 35 minutes of critical care time exclusive of time spent on separately billable procedures. Time includes review of laboratory data, radiology results, discussion with consultants, and monitoring for potential decompensation. Interventions were performed as documented in my note. Disposition Clinical Impression: Hyperkalemia, FINA (acute kidney injury), CHF (congestive heart failure), Cellulitis, Chronic respiratory failure with hypoxia Disposition: ADMITTED IP TO THIS HOSP Condition: Serious Time of Disposition: 16:30
[2022-07-27 15:09] LABS: Anisocytosis Slight; Basophils % (A) 1 %; Eosinophils # (A) 0.1 k/uL (0-0.7); Eosinophils % (A) 2 %; HCT 36.3 % (39.0-53.0); Hypochromasia Marked; Lymphocytes # (A) 0.7 k/uL (1.0-4.8); Lymphocytes % (A) 12 %; MCH 29.5 pg (25.0-35.0); MCHC 30.3 g/dL (31.0-37.0); MCV 97.2 fL (80.0-100.0); Macrocytosis Slight; Mean Platelet Volume 8.3; Monocytes # (A) 0.4 k/uL (0-1.0); Monocytes % (A) 7 %; Neutrophils # (A) 4.8 k/uL (1.3-7.7); Neutrophils % (A) 78 %; Platelet Count 195 k/uL (150-450); RBC 3.73 m/uL (4.30-5.90); RDW 18.7 % (11.5-15.5); WBC 6.1 k/uL (3.8-10.6)
[2022-07-27 15:18] LABS: Albumin 3.7 g/dL (3.5-5.0); Calcium 9.5 mg/dL (8.4-10.2); Magnesium 2.2 mg/dL (1.6-2.3); Total Bilirubin 0.8 mg/dL (0.2-1.3)
[2022-07-27 15:19] LABS: Potassium 6.4 mmol/L (3.5-5.1)
[2022-07-27 15:20] LABS: INR 1.5 (<1.2); Prothrombin Time 15.2 sec (9.0-12.0)
[2022-07-27] MEDS ORDERED: SODIUM BICARB 8.4% 50 ML SYR (1 MEQ/ML) IV ONE (15:26)
[2022-07-27] MEDS ORDERED: SODIUM POLYSTYRENE SULFONATE 15 GM/60 ML BOTTLE PO ONE (15:26)
[2022-07-27] MEDS ORDERED: ALBUTEROL NEB (CONC) 2.5 MG/0.5 ML INHALATION ONE (15:26)
[2022-07-27] MEDS ORDERED: INSULIN REGULAR 100 UNIT/ML VIAL (IV) IV ONE (15:26)
[2022-07-27] MEDS ORDERED: DEXTROSE 50% SYRINGE 50 ML IVP ONE (15:26)
[2022-07-27] MEDS ORDERED: CALCIUM GLUCONATE IN NACL 1 GM in SALINE 1 100ML.BAG IVPB ONE (15:45)
--- NOTE | 2022-07-27 15:46 | XR ---
EXAMINATION TYPE: XR chest 2V DATE OF EXAM: 07/27/2022 COMPARISON: 03/11/2021 TECHNIQUE: PA and lateral views submitted. HISTORY: Difficulty breathing FINDINGS: The heart is enlarged. There is subsegmental changes at both lung bases. Coarsened interstitium. Arth ropathy of the shoulders. Limited inspiration. No obvious pneumothorax. Prominence of the mediastinum . IMPRESSION: 1. Cardiomegaly. Mediastinum is prominent which could be technical correlate with scan as clinically warranted. 2. Coarsened interstitium could be associated with mild interstitial pneumonitis or early venous tavares estion.
[2022-07-27] MEDS ORDERED: VANCOMYCIN IV PER PHARMACY 1 EACH MISC MISCELLANE PRN (15:48)
[2022-07-27 16:07] LABS: Glucose,Whole Blood 117 mg/dL (70-110)
[2022-07-27] MEDS ORDERED: FUROSEMIDE 10 MG/ML 4 ML VIAL IV STA (16:27)
[2022-07-27] MEDS ORDERED: SODIUM BICARB 8.4% 50 ML SYR (1 MEQ/ML) IV STA ×2 (16:45)
[2022-07-27] MEDS ORDERED: SODIUM ZIRCONIUM CYCLOSILICATE 10 GM PACKET PO ONE (17:00)
[2022-07-27] MEDS ORDERED: NALOXONE 0.4 MG/ML 1 ML VIAL IV PRN (17:01)
[2022-07-27 20:18] LABS: Appearance,Urine Clear (Clear); Bilirubin,Urine Negative (Negative); Blood,Urine Negative (Negative); Color,Urine Yellow; Glucose,Urine (UA) Negative (Negative); Ketones,Urine Negative (Negative); Leukocyte Esterase,Urine Negative (Negative); Nitrite,Urine Negative (Negative); Protein,Urine Trace (Negative); Specific Gravity,Urine 1.018 (1.001-1.035); Urobilinogen,Urine <2.0 mg/dL (<2.0)
[2022-07-27] MEDS ORDERED: lisinopriL 20 MG TAB PO SCH (21:00)
[2022-07-27] MEDS ORDERED: metFORMIN 500 MG TAB PO SCH (21:00)
[2022-07-27 21:11] LABS: Glucose,Whole Blood 92 mg/dL (70-110)
[2022-07-27] MEDS: APIXABAN 5 MG TAB PO SCH (21:46)
[2022-07-27] MEDS: ATORVASTATIN 20 MG TAB PO SCH (21:46)
[2022-07-28] MEDS ORDERED: SODIUM ZIRCONIUM CYCLOSILICATE 10 GM PACKET PO ONE
--- NOTE | 2022-07-28 01:19 | US ---
EXAMINATION TYPE: US kidneys/renal and bladder DATE OF EXAM: 07/27/2022 COMPARISON: CT: 07/07/22 CLINICAL HISTORY: demetria. demetria Limited due to patient body habitus EXAM MEASUREMENTS: Right Kidney: 11.4 x 6.3 x 6.0 cm Left Kidney: 10.9 x 4.9 x 5.9 cm Right Kidney: Limited visualization, but no hydronephrosis or masses seen Left Kidney: Limited visualization, but no hydronephrosis or masses seen Bladder: Not vis. Bilateral Jets seen: No IMPRESSION: No evidence of renal mass. No hydronephrosis. Limited exam. Urinary bladder not evaluated.
[2022-07-28 05:17] LABS: Anisocytosis Slight; Basophils % (A) 1 %; Eosinophils # (A) 0.2 k/uL (0-0.7); Eosinophils % (A) 3 %; HCT 34.4 % (39.0-53.0); HGB 10.1 gm/dL (13.0-17.5); Hypochromasia Marked; Lymphocytes # (A) 0.7 k/uL (1.0-4.8); Lymphocytes % (A) 14 %; MCH 28.9 pg (25.0-35.0); MCHC 29.2 g/dL (31.0-37.0); MCV 98.8 fL (80.0-100.0); Macrocytosis Slight; Mean Platelet Volume 8.8; Monocytes # (A) 0.3 k/uL (0-1.0); Monocytes % (A) 7 %; Neutrophils # (A) 3.8 k/uL (1.3-7.7); Neutrophils % (A) 74 %; Platelet Count 159 k/uL (150-450); RBC 3.48 m/uL (4.30-5.90); RDW 18.7 % (11.5-15.5); WBC 5.2 k/uL (3.8-10.6)
[2022-07-28 05:31] LABS: Calcium 9.3 mg/dL (8.4-10.2); Magnesium 2.1 mg/dL (1.6-2.3); Potassium 4.9 mmol/L (3.5-5.1)
[2022-07-28 06:18] LABS: Glucose,Whole Blood 78 mg/dL (70-110)
[2022-07-28] MEDS: LEVOTHYROXINE 100 MCG TAB PO SCH (06:25)
[2022-07-28] MEDS ORDERED: DEXTROSE 50% SYRINGE 50 ML IVP PRN ×2 (07:54)
[2022-07-28] MEDS: APIXABAN 5 MG TAB PO SCH ×2 (08:41→22:28)
[2022-07-28] MEDS: METOPROLOL SUCCINATE (ER) 25 MG TAB.ER.24H PO SCH (08:41)
[2022-07-28] MEDS: PARoxetine 20 MG TAB PO SCH (08:41)
[2022-07-28] MEDS: allopurinoL 300 MG TAB PO SCH (08:41)
[2022-07-28] MEDS ORDERED: VANCOMYCIN 2,000 MG in SODIUM CHLORIDE 0.9% 500 ML 500 ML IVPB SCH (09:00)
[2022-07-28] MEDS ORDERED: NON FORMULARY DRUG (Liraglutide [Victoza 2-Pak] 0.6 MG/0.1 ML Pen.Injctr) SQ SCH (09:00)
--- NOTE | 2022-07-28 09:52 | P.NPCON ---
History of Present Illness - Reason for Consult acute renal failure, chronic renal failure - History of Present Illness Reason for consultation: Acute kidney injury on chronic kidney disease History of present illness: Patient is a 72-year-old male seen in renal consultation for acute kidney injury on chronic kidney disease. Patient has chronic kidney disease stage III AV baseline creatinine the range of 1.2-1.4 secondary to nephrosclerosis and diabetic kidney disease. Patient presented to the hospital due to shortness of breath. Chest x-ray was suggestive of vascular congestion. He did receive a dose of IV Lasix yesterday. He is currently on room air and feels better. Renal function is stable this admission with creatinine at 1.96 today. Patient states the last few days his oral intake has been poor and he also noticed decreased urine output. He does meet to taking oral Lasix at home. Patient states it did straight cath him in the ER but a Antunez catheter was not placed. Potassium was high at 6.4. Treat medically treated and is down to 4.9 this morning. He denies use of nonsteroidals but I do see indomethacin and his home medication list. He was also taking potassium supplementation as well as Vasotec which are both currently held. Patient does have long-standing history of diabetes. He has been started on IV Lasix 40 mg twice daily. Vital signs are stable. General: Awake. No acute distress. HEENT: Head exam is unremarkable. LUNGS: Breath sounds decreased. HEART: Rate and Rhythm are regular. ABDOMEN: Soft, obese. EXTREMITITES: 1+ edema. Past Medical History Past Medical History: Cancer, Diabetes Mellitus, Hyperlipidemia, Hypertension, Prostate Disorder, Rheumatoid Arthritis (RA), Thyroid Disorder Additional Past Medical History / Comment(s): Thyroid cancer with a previous thyroidectomy, prostate cancer, morbid obesity, obstructive sleep apnea, hypertension, hyperlipidemia, diabetes mellitus, History of Any Multi-Drug Resistant Organisms: None Reported Past Surgical History: Orthopedic Surgery Additional Past Surgical History / Comment(s): betty knee partial replacement, thyroidectomy Past Anesthesia/Blood Transfusion Reactions: No Reported Reaction Past Psychological History: Panic Disorder Smoking Status: Former smoker Past Alcohol Use History: None Reported Past Drug Use History: None Reported - Past Family History Father Family Medical History: Hyperlipidemia Additional Family Medical History / Comment(s): parkinsons Mother Family Medical History: Dementia Medications and Allergies Home Medications Medication Instructions Recorded Confirmed Type Enalapril [Vasotec] 20 mg PO BID 07/31/19 07/27/22 History Ergocalciferol (Vitamin D2) 50,000 unit PO GALARZA 07/31/19 07/27/22 History [Vitamin D2] Ferrous Sulfate [Feosol] 325 mg PO DAILY 07/31/19 07/27/22 History PARoxetine [Paxil] 20 mg PO DAILY 07/31/19 07/27/22 History Simvastatin [Zocor] 40 mg PO HS 07/31/19 07/27/22 History allopurinoL [Zyloprim] 300 mg PO DAILY 07/31/19 07/27/22 History Apixaban [Eliquis] 5 mg PO BID #60 tab 08/05/19 07/27/22 Rx Carbidopa-Levodopa 10-100 mg 1 tab PO TID 03/11/21 07/27/22 History [Sinemet 10-100 mg] Liraglutide [Victoza 2-Kodak] 1.2 mg SQ DAILY 03/11/21 07/27/22 History Metoprolol Succinate [Toprol XL] 25 mg PO DAILY 03/11/21 07/27/22 History metFORMIN HCL [Glucophage] 500 mg PO BID 03/11/21 07/27/22 History Ascorbic Acid [Vitamin C] 500 mg PO DAILY 07/27/22 07/27/22 History Cranberry Supplement 8,400 mg PO DAILY 07/27/22 07/27/22 History Enzalutamide [Xtandi] 160 mg PO DAILY 07/27/22 07/27/22 History Furosemide [Lasix] 40 mg PO TID 07/27/22 07/27/22 History Indomethacin [Indocin ER] 75 mg PO DAILY 07/27/22 07/27/22 History Levothyroxine Sodium [Synthroid] 300 mcg PO DAILY 07/27/22 07/27/22 History Potassium Chloride ER [K-Dur 20] 20 meq PO BID 07/27/22 07/27/22 History Allergies Allergy/AdvReac Type Severity Reaction Status Date / Time No Known Allergies Allergy Verified 07/27/22 15:54 Physical Exam Vitals: Vital Signs Temp Pulse Pulse Resp BP BP Pulse Ox 07/28/22 04:00 98.0 F 63 20 112/66 96 07/28/22 00:00 98.2 F 88 22 92/54 99 07/27/22 20:33 101 H 15 91/68 98 07/27/22 19:51 88 07/27/22 19:41 87 07/27/22 18:46 105 H 18 103/61 97 07/27/22 17:36 98.2 F 88 19 97/63 99 07/27/22 12:24 98.3 F 95 20 96/70 97 Intake and Output 07/27/22 07/28/22 07/28/22 22:59 06:59 14:59 Intake Total 180 Output Total 350 150 Balance -350 -150 180 Intake: Oral 180 Output: Urine 150 150 Post Void Residual 200 Other: Voiding Method Urinal # Voids 1 Weight 134.263 kg 148.5 kg Results - Lab Results Most recent lab results Calcium 9.3 mg/dL (8.4-10.2) 07/28/22 04:42 Magnesium 2.1 mg/dL (1.6-2.3) 07/28/22 04:42 07/28/22 04:42 07/28/22 04:42 Assessment and Plan Plan: Assessment: 1. Acute kidney injury mostly prerenal secondary to cardiorenal syndrome. Creatinine stable at 1.96 today. UA fairly benign. No hydronephrosis noted on kidney ultrasound. 2. Hyperkalemia secondary to acute kidney injury, metabolic acidosis, potassium supplementation and Vasotec. Improved with medical management. 3. Metabolic acidosis secondary to acute kidney injury and metformin. Improved. 4. Volume overload. 5. Diabetes mellitus. 6. Acute on chronic CHF. Unknown ejection fraction. Plan: Maintain IV Lasix. Low-salt diet. 1500 mL fluid restriction. Follow-up echocardiogram. Avoid nephrotoxins. Continue to monitor renal function and urine output. Thank you for the consultation. I will continue to follow the patient with you during his hospital stay.
[2022-07-28 11:41] LABS: Glucose,Whole Blood 119 mg/dL (70-110)
--- NOTE | 2022-07-28 11:51 | P.CRDCN ---
History of Present Illness History of present illness: This is a 72-year-old male with a past medical history significant for prostate cancer currently on immunotherapy, hypertension, hyperlipidemia, permanent atrial fibrillation, congestive heart failure, hypothyroidism, and diabetes. Patient follows with Dr. Carreon. We have been asked to see the patient in consultation for congestive heart failure. Patient presents emergency department complaining of weakness in bilateral LE extremities. He states he was leaving his doctors office and was having a difficult time getting his legs up on to the ledge to get into the car, he states that he continuously tried and was feeling more short of breath and weak in his legs. He was brought to the emergency department. He states over the past 2 days he has been having increased shortness of breath, bilateral leg edema and generalized fatigue. He states that over the past couple weeks he has more short of breath. He denies any chest pain, syncope, near syncope, orthopnea or PND. He also endorses a abdominal yeast infection. He denies any cough, fever, chills. No history of CAD, [place], or stroke. On admission patient was found to be hyperkalemic and acute kidney injury. He was also hypotensive. DIAGNOSTICS * EKG atrial fibrillation, heart rate 90, right bundle branch block. * Chest xray cardiomegaly, coarsened interstitium * Laboratory data: WBC 5.2, hemoglobin 10.1, platelets 159, sodium 139, potassium 4.9, BUN 50, serum creatinine 1.96, troponin negative 3, proBNP 9290 * Echocardiogram was performed 09/2021 however per the mechanical maintenance technician is very difficult to obtain images. Grossly LV function appeared preserved. Mild tricuspid regurgitation. Mild pulmonary hypertension. * Current home cardiac medications include simvastatin 40 mg nightly, Synthroid, potassium chloride, metoprolol succinate 25 mg daily, Lasix 40 mg 3 times a day, Eliquis 5 mg twice a day, enalapril 20 mg twice a day REVIEW OF SYSTEMS: At the time of my exam: CONSTITUTIONAL: Denies fever or chills. +Generalized weakness +BLE weakness HEENT: Denies blurred vision, vision changes, or eye pain. Denies hemoptysis CARDIOVASCULAR: Denies chest pain. Denies orthopnea. Denies PND. Denies palpitations RESPIRATORY: + shortness of breath. GASTROINTESTINAL: Denies abdominal pain. Denies nausea or vomiting. HEMATOLOGIC: Denies bleeding disorders. GENITOURINARY: Denies any blood in urine. SKIN: Denies pruitis. +abdominal rash. PHYSICAL EXAM: VITAL SIGNS: Reviewed. GENERAL: Well-developed in no acute distress. HEENT: Head is normocephalic. Pupils are equal, round. Sclerae anicteric. Mucous membranes of the mouth are moist. Neck supple. No JVD or thyromegaly LUNGS: Respirations even and unlabored. Lungs diminished bilaterally. HEART: Irregular rate and rhythm. S1 and S2 heard. ABDOMEN: Soft. Nondistended. Nontender. EXTREMITIES: Normal range of motion. No clubbing or cyanosis. Peripheral pulse s intact. Trace lower extremity edema NEUROLOGIC: Awake and alert. Oriented x 3. ASSESSMENT: Acute exacerbation of chronic heart failure with preserved EF Hypotension Bilateral lower extremity weakness Acute kidney injury Hyperkalemia Abdominal cellulitis Permanent atrial fibrillation, on anticoagulation with Eliquis Hypertension Hyperlipidemia Diabetes mellitus Hypothyroidism Morbid obesity: BMI 57.0 PLAN: Hold Enalapril IV Lasix Resume home beta alicia Resume Eliquis for anticoagulation Continue IV Lasix Accurate I&O Daily weights Monitor kidney function Further recommendations pending patient's course Nurse practitioner note has been reviewed by physician. Signing provider agrees with the documented findings, assessment, and plan of care. Past Medical History Past Medical History: Cancer, Diabetes Mellitus, Hyperlipidemia, Hypertension, Prostate Disorder, Rheumatoid Arthritis (RA), Thyroid Disorder Additional Past Medical History / Comment(s): Thyroid cancer with a previous thyroidectomy, prostate cancer, morbid obesity, obstructive sleep apnea, hypertension, hyperlipidemia, diabetes mellitus, History of Any Multi-Drug Resistant Organisms: None Reported Past Surgical History: Orthopedic Surgery Additional Past Surgical History / Comment(s): betty knee partial replacement, thyroidectomy Past Anesthesia/Blood Transfusion Reactions: No Reported Reaction Past Psychological History: Panic Disorder Smoking Status: Former smoker Past Alcohol Use History: None Reported Past Drug Use History: None Reported - Past Family History Father Family Medical History: Hyperlipidemia Additional Family Medical History / Comment(s): parkinsons Mother Family Medical History: Dementia Medications and Allergies Home Medications Medication Instructions Recorded Confirmed Type Enalapril [Vasotec] 20 mg PO BID 07/31/19 07/27/22 History Ergocalciferol (Vitamin D2) 50,000 unit PO GALARZA 07/31/19 07/27/22 History [Vitamin D2] Ferrous Sulfate [Feosol] 325 mg PO DAILY 07/31/19 07/27/22 History PARoxetine [Paxil] 20 mg PO DAILY 07/31/19 07/27/22 History Simvastatin [Zocor] 40 mg PO HS 07/31/19 07/27/22 History allopurinoL [Zyloprim] 300 mg PO DAILY 07/31/19 07/27/22 History Apixaban [Eliquis] 5 mg PO BID #60 tab 08/05/19 07/27/22 Rx Carbidopa-Levodopa 10-100 mg 1 tab PO TID 03/11/21 07/27/22 History [Sinemet 10-100 mg] Liraglutide [Victoza 2-Kodak] 1.2 mg SQ DAILY 03/11/21 07/27/22 History Metoprolol Succinate [Toprol XL] 25 mg PO DAILY 03/11/21 07/27/22 History metFORMIN HCL [Glucophage] 500 mg PO BID 03/11/21 07/27/22 History Ascorbic Acid [Vitamin C] 500 mg PO DAILY 07/27/22 07/27/22 History Cranberry Supplement 8,400 mg PO DAILY 07/27/22 07/27/22 History Enzalutamide [Xtandi] 160 mg PO DAILY 07/27/22 07/27/22 History Furosemide [Lasix] 40 mg PO TID 07/27/22 07/27/22 History Indomethacin [Indocin ER] 75 mg PO DAILY 07/27/22 07/27/22 History Levothyroxine Sodium [Synthroid] 300 mcg PO DAILY 07/27/22 07/27/22 History Potassium Chloride ER [K-Dur 20] 20 meq PO BID 07/27/22 07/27/22 History Allergies Allergy/AdvReac Type Severity Reaction Status Date / Time No Known Allergies Allergy Verified 07/27/22 15:54 Physical Exam Vitals: Vital Signs Temp Pulse Pulse Resp BP BP Pulse Ox 07/28/22 04:00 98.0 F 63 20 112/66 96 07/28/22 00:00 98.2 F 88 22 92/54 99 07/27/22 20:33 101 H 15 91/68 98 07/27/22 19:51 88 07/27/22 19:41 87 07/27/22 18:46 105 H 18 103/61 97 07/27/22 17:36 98.2 F 88 19 97/63 99 07/27/22 12:24 98.3 F 95 20 96/70 97 Intake and Output 07/27/22 07/28/22 07/28/22 22:59 06:59 14:59 Output Total 350 150 Balance -350 -150 Output: Urine 150 150 Post Void Residual 200 Other: Voiding Method Urinal # Voids 1 Weight 134.263 kg 148.5 kg Results 07/28/22 04:42 07/28/22 04:42 Cardiac Enzymes 07/27/22 07/27/22 07/27/22 Range/Units 14:50 14:50 19:34 AST 23 (17-59) U/L Troponin I 0.015 0.020 (0.000-0.034) ng/mL 07/27/22 Range/Units 21:38 AST (17-59) U/L Troponin I 0.023 (0.000-0.034) ng/mL Coagulation 07/27/22 Range/Units 14:50 PT 15.2 H (9.0-12.0) sec APTT 30.0 (22.0-30.0) sec CBC 07/27/22 07/28/22 Range/Units 14:50 04:42 WBC 6.1 5.2 (3.8-10.6) k/uL RBC 3.73 L 3.48 L (4.30-5.90) m/uL Hgb 11.0 L 10.1 L (13.0-17.5) gm/dL Hct 36.3 L 34.4 L (39.0-53.0) % Plt Count 195 159 (150-450) k/uL Comprehensive Metabolic Panel 07/27/22 07/27/22 07/28/22 Range/Units 14:50 19:34 04:42 Sodium 137 139 (137-145) mmol/L Potassium 6.4 H* 5.5 H 4.9 (3.5-5.1) mmol/L Chloride 103 102 (98-107) mmol/L Carbon Dioxide 19 L 24 (22-30) mmol/L BUN 51 H 50 H (9-20) mg/dL Creatinine 1.98 H 1.96 H (0.66-1.25) mg/dL Glucose 101 H 77 (74-99) mg/dL Calcium 9.5 9.3 (8.4-10.2) mg/dL AST 23 (17-59) U/L ALT 11 (4-49) U/L Alkaline Phosphatase 88 (38-126) U/L Total Protein 6.0 L (6.3-8.2) g/dL Albumin 3.7 (3.5-5.0) g/dL Current Medications Generic Name Dose Route Start Last Admin Trade Name Freq PRN Reason Stop Dose Admin Allopurinol 300 mg 07/28/22 09:00 Allopurinol 300 Mg Tab PO DAILY NASRIN Apixaban 5 mg 07/27/22 21:00 07/27/22 21:46 Apixaban 5 Mg Tab PO 5 mg BID NASRIN Administration Protocol Atorvastatin Calcium 20 mg 07/27/22 21:00 07/27/22 21:46 Atorvastatin 20 Mg Tab PO 20 mg HS NASRIN Administration Vancomycin HCl 2,000 mg/ 500 mls @ 167 mls/hr 07/28/22 09:00 Sodium Chloride IVPB Q48H NASRIN Levothyroxine Sodium 300 mcg 07/28/22 06:30 07/28/22 06:25 Levothyroxine 100 Mcg Tab PO 300 mcg DAILY@0630 NASRIN Administration Metformin HCl 500 mg 07/27/22 21:00 07/27/22 21:46 Metformin 500 Mg Tab PO 500 mg BID NASRIN Administration Metoprolol Succinate 25 mg 07/28/22 09:00 Metoprolol Succinate (Er) 25 Mg Tab.Er.24h PO DAILY [facility] Miscellaneous Information 1 each 07/27/22 15:48 Vancomycin Iv Per Pharmacy 1 Each Mis MISCELLANE DIRECTED PRN Per Protocol Naloxone HCl 0.2 mg 07/27/22 17:01 Naloxone 0.4 Mg/Ml 1 Ml Vial IV Q2M PRN Opioid Reversal Enzalutamide [Xtandi 160 mg 07/28/22 09:00 ] 40 Mg Tablet PO DAILY NASRIN Paroxetine HCl 20 mg 07/28/22 09:00 Paroxetine 20 Mg Tab PO DAILY NASRIN Intake and Output 07/27/22 07/28/22 07/28/22 22:59 06:59 14:59 Output Total 350 150 Balance -350 -150 Output: Urine 150 150 Post Void Residual 200 Other: Voiding Method Urinal # Voids 1 Weight 134.263 kg 148.5 kg 07/28/22 04:42 07/28/22 04:42
--- NOTE | 2022-07-28 12:36 | CA ---
Transthoracic Echo Report Name: Fabian Drummond Age: 72 Gender: M : 1950 Exam Date: 07/28/2022 09:46 Exam Location: [place] [facility] Ht (in): 66 Wt (lb): 327 Ordering Physician: Robert Bettencourt MD Attending/Referring Phys: Cotton Inspector Soledad Russell RDCS Procedure CPT: Indications: chf Cardiac Hx: Technical Quality: Very technically difficult study Contrast 1: Lumason Total Dose (mL): 4 Contrast 2: Total Dose (mL): MEASUREMENTS (Male / Female) Normal Values 2D ECHO LV Diastolic Diameter PLAX 6.0 cm 4.2 - 5.9 / 3.9 - 5.3 cm LV Systolic Diameter PLAX 4.7 cm IVS Diastolic Thickness 1.2 cm 0.6 - 1.0 / 0.6 - 0.9 cm LVPW Diastolic Thickness 1.4 cm 0.6 - 1.0 / 0.6 - 0.9 cm LV Relative Wall Thickness 0.4 LA Volume 148.5 cm??? 18 - 58 / 22 - 52 cm??? M-MODE Aortic Root Diameter MM 3.4 cm LA Systolic Diameter MM 6.2 cm LA Ao Ratio MM 1.8 AV Cusp Separation MM 2.1 cm DOPPLER AV Peak Velocity 192.9 cm/s AV Peak Gradient 14.9 mmHg LVOT Peak Velocity 66.2 cm/s LVOT Peak Gradient 1.8 mmHg MV E' Velocity 6.8 cm/s TR Peak Velocity 294.8 cm/s TR Peak Gradient 34.8 mmHg Right Ventricular Systolic Press 38.2 mmHg FINDINGS Left Ventricle Left ventricle not well visualized. Left ventricular ejection fraction is estimated at 45-50 %. Mildly increased left ventricular wall thickness. Mildly increased left ventricular diastolic diameter. Right Ventricle Right ventricle not well visualized however appears to be mild to moderately dilated. RVSP 38 Right Atrium Moderate right atrial dilatation. Left Atrium Severely increased left atrial volume. Moderately increased left atrial area. Mobile atrial septem. Mitral Valve No mitral stenosis. Mitral valve thickened. Mild mitral annular calcification. Mild mitral regurgitation. Aortic Valve Aortic valve not well visualized. No aortic stenosis. No aortic regurgitation. Thickened aortic valve without stenosis. Tricuspid Valve Tricuspid valve not well visualized. Moderate tricuspid regurgitation. Pulmonic Valve Pulmonic valve not well visualized. Pericardium No pericardial effusion. Aorta Normal size aortic root and proximal ascending aorta. CONCLUSIONS Mild LVH Left ventricular EF 45-50% with global hypokinesis RV mild to moderately dilated Moderate biatrial enlargement Mild mitral regurgitation Moderate tricuspid regurgitation RVSP 34 Previewed by: Dr. Cholo Mathews DO (Electronically Signed) Final Date: 28 July 2022 12:35
[2022-07-28] MEDS: FERROUS SULFATE 325 MG TAB PO SCH (12:38)
[2022-07-28] MEDS: ASCORBIC ACID 500 MG TAB PO SCH (12:38)
[2022-07-28] MEDS: FUROSEMIDE 10 MG/ML 4 ML VIAL IV SCH ×2 (12:38→22:28)
[2022-07-28] MEDS: NYSTATIN 100,000 UNIT/GM POWD 15 GM TOPICAL SCH ×3 (12:39→22:29)
[2022-07-28] MEDS: CARBIDOPA-LEVODOPA 10-100 MG 1 EACH TAB PO SCH ×3 (12:39→22:28)
[2022-07-28] MEDS: PANTOPRAZOLE 40 MG/10 ML VIAL IVP SCH (12:40)
[2022-07-28] MEDS: INSULIN ASPART (NovoLOG) 100 UNIT/ML VIAL SQ SCH ×3 (12:41→22:21)
--- NOTE | 2022-07-28 12:58 | P.HPIM ---
History of Present Illness H&P Date: 07/28/22 Chief Complaint: Worsening shortness of breath, This is a 72-year-old gentleman with past medical history of CHF, obstructive sleep apnea -uses BiPAP, thyroid cancer with thyroidectomy, prostate cancer, morbid obesity-has lost 70 pounds over 1 year, diabetes mellitus, hyperli pidemia, hypertension, rheumatoid arthritis, thyroid cancer with prior thyroidectomy, prostate disorder, former nicotine dependence, panic disorder and multiple other medical issues presented to the ER with complaints of worsening shortness of breath and subsequent increased weakness. 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 Carreon. Reports he was leaving his urology's office ,had difficulty getting his legs into the car, developed increased shortness of breath, fatigue and presented to the ER. Within the last month he reports he had a "cold" that lasted him approximately 2 weeks. Over the last 2 days developed increased bilateral lower extremity edema, fatigue and increased shortness of breath. Al so discloses abdominal/panus yeast infection, suprapubic wound . Reports productive cough with frothy white sputum. Denies congestion. Denies any chills or fevers Denies chest pain, palpitations. Denies lightheadedness, dizziness or focal deficits. Denies syncope. EKG reporting atrial fibrill ation, right bundle branch block. Troponins negative 3, proBNP 9200.Chest x- ray reported cardiomegaly, prominent mediastinum, coarsened interstitium. Creatinine 1.96, baseline 1.4. Hyperkalemic, 6.4, received cocktail currently down to 4.9. Renal ultrasound reported limited exam, no hydronephrosis, no renal mass. Abdominal cultures collected. Afebrile, normal WBC. Lactic acid 2.2 Hemoglobin 10.1, platelets 159. Blood sugars controlled. UA negative. Coronavirus, influenza A/B not detected. Review of Systems ROS Statement: Those systems with pertinent positive or pertinent negative responses have been documented in the HPI. ROS Other: All systems not noted in ROS Statement are negative. Past Medical History Past Medical History: Cancer, Diabetes Mellitus, Hyperlipidemia, Hypertension, Prostate Disorder, Rheumatoid Arthritis (RA), Thyroid Disorder Additional Past Medical History / Comment(s): Thyroid cancer with a previous thyroidectomy, prostate cancer, morbid obesity, obstructive sleep apnea, hypertension, hyperlipidemia, diabetes mellitus, History of Any Multi-Drug Resistant Organisms: None Reported Past Surgical History: Orthopedic Surgery Additional Past Surgical History / Comment(s): betty knee partial replacement, thyroidectomy Past Anesthesia/Blood Transfusion Reactions: No Reported Reaction Past Psychological History: Panic Disorder Smoking Status: Former smoker Past Alcohol Use History: None Reported Past Drug Use History: None Reported - Past Family History Father Family Medical History: Hyperlipidemia Additional Family Medical History / Comment(s): parkinsons Mother Family Medical History: Dementia Medications and Allergies Home Medications Medication Instructions Recorded Confirmed Type Enalapril [Vasotec] 20 mg PO BID 07/31/19 07/27/22 History Ergocalciferol (Vitamin D2) 50,000 unit PO GALARZA 07/31/19 07/27/22 History [Vitamin D2] Ferrous Sulfate [Feosol] 325 mg PO DAILY 07/31/19 07/27/22 History PARoxetine [Paxil] 20 mg PO DAILY 07/31/19 07/27/22 History Simvastatin [Zocor] 40 mg PO HS 07/31/19 07/27/22 History allopurinoL [Zyloprim] 300 mg PO DAILY 07/31/19 07/27/22 History Apixaban [Eliquis] 5 mg PO BID #60 tab 08/05/19 07/27/22 Rx Carbidopa-Levodopa 10-100 mg 1 tab PO TID 03/11/21 07/27/22 History [Sinemet 10-100 mg] Liraglutide [Victoza 2-Kodak] 1.2 mg SQ DAILY 03/11/21 07/27/22 History Metoprolol Succinate [Toprol XL] 25 mg PO DAILY 03/11/21 07/27/22 History metFORMIN HCL [Glucophage] 500 mg PO BID 03/11/21 07/27/22 History Ascorbic Acid [Vitamin C] 500 mg PO DAILY 07/27/22 07/27/22 History Cranberry Supplement 8,400 mg PO DAILY 07/27/22 07/27/22 History Enzalutamide [Xtandi] 160 mg PO DAILY 07/27/22 07/27/22 History Furosemide [Lasix] 40 mg PO TID 07/27/22 07/27/22 History Indomethacin [Indocin ER] 75 mg PO DAILY 07/27/22 07/27/22 History Levothyroxine Sodium [Synthroid] 300 mcg PO DAILY 07/27/22 07/27/22 History Potassium Chloride ER [K-Dur 20] 20 meq PO BID 07/27/22 07/27/22 History Allergies Allergy/AdvReac Type Severity Reaction Status Date / Time No Known Allergies Allergy Verified 07/27/22 15:54 Physical Exam Vitals: Vital Signs Temp Pulse Pulse Resp BP BP Pulse Ox 07/28/22 04:00 98.0 F 63 20 112/66 96 07/28/22 00:00 98.2 F 88 22 92/54 99 07/27/22 20:33 101 H 15 91/68 98 07/27/22 19:51 88 07/27/22 19:41 87 07/27/22 18:46 105 H 18 103/61 97 07/27/22 17:36 98.2 F 88 19 97/63 99 07/27/22 12:24 98.3 F 95 20 96/70 97 Intake and Output 07/27/22 07/28/22 07/28/22 22:59 06:59 14:59 Intake Total 180 Output Total 350 150 Balance -350 -150 180 Intake: Oral 180 Output: Urine 150 150 Post Void Residual 200 Other: Voiding Method Urinal # Voids 1 Weight 134.263 kg 148.5 kg HYSICAL EXAM: VITAL SIGNS: As above GENERAL: Pleasant, obese gentleman sitting up in bed, no acute distress, hard of hearing-left hearing aids at home HEENT: Normocephalic ,Conjunctivae normal. eyes normal. Oral mucosa moist NECK: Supple, short neck-unable to assess for JVD. No thyroid enlargement. No LNs CARDIOVASCULAR: S1, S2, irregular. No murmur RESPIRATION: Unlabored, Breath sounds diminished in the bases. No rhonchi or crackles. No bronchial breathing. ABDOMEN: Obese, Soft, nontender . Umbilical hernia No guarding. no masses palpable. No ascites, No hepatosplenomegaly.Bowel sounds heard. LEGS: Bilateral lower extremity trace pedal edema, nontender, wearing lower ext remity compression stockings PSYCHIATRY: Alert and oriented X3, mood and affect normal. NERVOUS SYSTEM: Cranial N 2-12 grossly normal. Moves all 4 limbs. Diffuse weakness, No focal deficits. Strength and sensation grossly intact. Skin: Warm and dry,chronic suprapubic wound, dry with yellow center, reddened skin folds/panus Results CBC & Chem 7: 07/28/22 04:42 07/28/22 04:42 Labs: Abnormal Lab Results - Last 24 Hours (Table) 07/27/22 07/27/22 07/27/22 Range/Units 14:50 14:50 14:50 RBC 3.73 L (4.30-5.90) m/uL Hgb 11.0 L (13.0-17.5) gm/dL Hct 36.3 L (39.0-53.0) % MCHC 30.3 L (31.0-37.0) g/dL RDW 18.7 H (11.5-15.5) % Lymphocytes # 0.7 L (1.0-4.8) k/uL PT 15.2 H (9.0-12.0) sec INR 1.5 H (<1.2) Potassium 6.4 H* (3.5-5.1) mmol/L Carbon Dioxide 19 L (22-30) mmol/L BUN 51 H (9-20) mg/dL Creatinine 1.98 H (0.66-1.25) mg/dL Glucose 101 H (74-99) mg/dL POC Glucose (mg/dL) (70-110) mg/dL Total Protein 6.0 L (6.3-8.2) g/dL Urine Protein (Negative) 07/27/22 07/27/22 07/27/22 Range/Units 15:55 18:42 19:34 RBC (4.30-5.90) m/uL Hgb (13.0-17.5) gm/dL Hct (39.0-53.0) % MCHC (31.0-37.0) g/dL RDW (11.5-15.5) % Lymphocytes # (1.0-4.8) k/uL PT (9.0-12.0) sec INR (<1.2) Potassium 5.5 H (3.5-5.1) mmol/L Carbon Dioxide (22-30) mmol/L BUN (9-20) mg/dL Creatinine (0.66-1.25) mg/dL Glucose (74-99) mg/dL POC Glucose (mg/dL) 117 H (70-110) mg/dL Total Protein (6.3-8.2) g/dL Urine Protein Trace H (Negative) 07/28/22 07/28/22 Range/Units 04:42 04:42 RBC 3.48 L (4.30-5.90) m/uL Hgb 10.1 L (13.0-17.5) gm/dL Hct 34.4 L (39.0-53.0) % MCHC 29.2 L (31.0-37.0) g/dL RDW 18.7 H (11.5-15.5) % Lymphocytes # 0.7 L (1.0-4.8) k/uL PT (9.0-12.0) sec INR (<1.2) Potassium (3.5-5.1) mmol/L Carbon Dioxide (22-30) mmol/L BUN 50 H (9-20) mg/dL Creatinine 1.96 H (0.66-1.25) mg/dL Glucose (74-99) mg/dL POC Glucose (mg/dL) (70-110) mg/dL Total Protein (6.3-8.2) g/dL Urine Protein (Negative) Microbiology - Last 24 Hours (Table) 07/27/22 19:00 Anaerobic Culture - Preliminary Abdomen Thrombosis Risk Factor Assmnt - Choose All That Apply Any of the Below Risk Factors Present?: Yes Each Factor Represents 1 point: Obesity (BMI >25) Each Risk Factor Represents 2 Points: Age 61-74 years Thrombosis Risk Factor Assessment Total Risk Factor Score: 3 Thrombosis Risk Factor Assessment Level: Moderate Risk Assessment and Plan Assessment: -Acute on chronic diastolic CHF exacerbation, echo pending -Volume Overload - Hypotension -Dyspnea, multifactorial -Chronic hypoxic respiratory failure secondary to the above, wears 2 L nasal cannula O2 at home -Obstructive sleep apnea wears BiPAP at home -Acute renal failure, prerenal, secondary to cardiorenal syndrome. -Hyperkalemia secondary to the above -Metabolic acidosis secondary to acute renal injury, medications- metformin -Abdominal cellulitis with chronic suprapubic wound, refer to nursing documen tation for measurements -Anemia of chronic disease -Chronic paroxysmal atrial fibrillation -Diabetes mellitus -Diabetic neuropathy, bilateral feet -Hypertension -Hyperlipidemia -History of panic disorder -History of thyroid cancer, thyroidectomy -Prostate cancer, currently on immunotherapy -Morbid Obesity, BMI 52.8 -Gait dysfunction, chronic right ankle injury years ago, uses walker for any lengthy distance Plan: Continue on current medication regime ,monitoring and symptomatic treatment. Antibiotics adjusted, vancomycin discontinued, converted over to cefazolin .Diurese with Lasix IV push, fluid restrictions, low-salt diet. Anticoagulation with Eliquis. Cardiology, nephrology consults in place, recommendations pending. Echo pending. Silver to suprapubic wound, nystatin powder to the pannus/folds. Close monitoring of renal function, electrolytes with repeat labs ordered for a.m. The impression and plan of care has been dictated as directed. : I performed a history and examination of this patient, discussed the same with the dictator. I agree with the dictator's note ,documented as a scribe. Any additional findings or plans will be noted.
[2022-07-28 16:29] LABS: Glucose,Whole Blood 145 mg/dL (70-110)
[2022-07-28 20:28] LABS: Glucose,Whole Blood 115 mg/dL (70-110)
[2022-07-28] MEDS: ATORVASTATIN 20 MG TAB PO SCH (22:28)
[2022-07-29 06:35] LABS: Glucose,Whole Blood 90 mg/dL (70-110)
[2022-07-29] MEDS: LEVOTHYROXINE 100 MCG TAB PO SCH (06:47)
[2022-07-29] MEDS: INSULIN ASPART (NovoLOG) 100 UNIT/ML VIAL SQ SCH ×4 (07:00→22:59)
[2022-07-29 08:13] LABS: Anisocytosis Slight; Basophils % (A) 1 %; Eosinophils # (A) 0.3 k/uL (0-0.7); Eosinophils % (A) 7 %; HCT 35.9 % (39.0-53.0); HGB 10.6 gm/dL (13.0-17.5); Hypochromasia Marked; Lymphocytes # (A) 0.7 k/uL (1.0-4.8); Lymphocytes % (A) 15 %; MCH 29.1 pg (25.0-35.0); MCHC 29.5 g/dL (31.0-37.0); MCV 98.5 fL (80.0-100.0); Macrocytosis Slight; Mean Platelet Volume 8.2; Monocytes # (A) 0.4 k/uL (0-1.0); Monocytes % (A) 9 %; Neutrophils % (A) 67 %; Platelet Count 162 k/uL (150-450); RBC 3.64 m/uL (4.30-5.90); RDW 18.6 % (11.5-15.5); WBC 4.5 k/uL (3.8-10.6)
[2022-07-29] MEDS: ASCORBIC ACID 500 MG TAB PO SCH (08:20)
[2022-07-29] MEDS: PANTOPRAZOLE 40 MG/10 ML VIAL IVP SCH (08:20)
[2022-07-29] MEDS: APIXABAN 5 MG TAB PO SCH ×2 (08:20→20:14)
[2022-07-29] MEDS: allopurinoL 300 MG TAB PO SCH (08:20)
[2022-07-29] MEDS: METOPROLOL SUCCINATE (ER) 25 MG TAB.ER.24H PO SCH (08:20)
[2022-07-29] MEDS: PARoxetine 20 MG TAB PO SCH (08:20)
[2022-07-29] MEDS: FUROSEMIDE 10 MG/ML 4 ML VIAL IV SCH ×2 (08:20→20:15)
[2022-07-29] MEDS: FERROUS SULFATE 325 MG TAB PO SCH (08:20)
[2022-07-29] MEDS: NYSTATIN 100,000 UNIT/GM POWD 15 GM TOPICAL SCH ×3 (08:21→20:15)
[2022-07-29] MEDS: CARBIDOPA-LEVODOPA 10-100 MG 1 EACH TAB PO SCH ×3 (08:22→20:15)
[2022-07-29 08:39] LABS: Calcium 9.1 mg/dL (8.4-10.2); Potassium 4.1 mmol/L (3.5-5.1)
--- NOTE | 2022-07-29 09:58 | P.PN ---
Subjective Patient is seen in follow-up for acute kidney injury on chronic kidney disease. Renal function better today. Good urine output. Having breakfast. No vomiting or diarrhea. Hemodynamically stable. On room air. Vital signs are stable. General: Awake. No acute distress. HEENT: Head exam is unremarkable. LUNGS: Breath sounds decreased. HEART: Rate and Rhythm are regular. ABDOMEN: Soft, obese. EXTREMITITES: Trace edema. Objective - Vital Signs Vital signs: Vital Signs Temp 97.8 F 07/29/22 08:00 Pulse 94 07/29/22 08:00 Resp 16 07/29/22 08:00 BP 124/86 07/29/22 08:00 Pulse Ox 100 07/29/22 08:00 FiO2 Intake & Output 07/28/22 07/29/22 07/29/22 18:59 06:59 18:59 Intake Total 1080 Output Total 150 300 Balance 930 -300 Weight 146.8 kg Intake: Oral 1080 Output: Urine 150 300 Other: Voiding Method Urinal Urinal # Voids 1 - Labs CBC & Chem 7: 07/29/22 07:11 07/29/22 07:11 Labs: Abnormal Lab Results - Last 24 Hours (Table) 07/28/22 07/28/22 07/28/22 Range/Units 11:39 16:28 20:27 RBC (4.30-5.90) m/uL Hgb (13.0-17.5) gm/dL Hct (39.0-53.0) % MCHC (31.0-37.0) g/dL RDW (11.5-15.5) % Lymphocytes # (1.0-4.8) k/uL BUN (9-20) mg/dL Creatinine (0.66-1.25) mg/dL POC Glucose (mg/dL) 119 H 145 H 115 H (70-110) mg/dL 07/29/22 07/29/22 Range/Units 07:11 07:11 RBC 3.64 L (4.30-5.90) m/uL Hgb 10.6 L (13.0-17.5) gm/dL Hct 35.9 L (39.0-53.0) % MCHC 29.5 L (31.0-37.0) g/dL RDW 18.6 H (11.5-15.5) % Lymphocytes # 0.7 L (1.0-4.8) k/uL BUN 43 H (9-20) mg/dL Creatinine 1.72 H (0.66-1.25) mg/dL POC Glucose (mg/dL) (70-110) mg/dL Microbiology - Last 24 Hours (Table) 07/27/22 19:00 Wound Culture - Preliminary Abdomen Gram Neg Bacilli 07/27/22 14:47 Blood Culture - Preliminary Blood No Growth after 24 hours 07/27/22 14:57 Blood Culture - Preliminary Blood No Growth after 24 hours Assessment and Plan Plan: Assessment: 1. Acute kidney injury mostly prerenal secondary to cardiorenal syndrome. Renal function is better. Creatinine 1.72 today. UA fairly benign. No hydronephrosis noted on kidney ultrasound. 2. Hyperkalemia secondary to acute kidney injury, metabolic acidosis, potassium supplementation and Vasotec. Improved with medical management. 3. Metabolic acidosis secondary to acute kidney injury and metformin. Improved. 4. Volume overload. Improved with diuresis. 5. Diabetes mellitus. 6. Acute on chronic systolic CHF with ejection fraction of 45-50% with moderate tricuspid regurgitation. Plan: Maintain IV Lasix - transition to oral torsemide to 40 mg once daily upon discharge. Low-salt diet. 1500 mL fluid restriction. Avoid nephrotoxins. Continue to monitor renal function and urine output. Advised patient to follow-up as outpatient 1 week post discharge. Repeat BMP and magnesium level 2-3 days postdischarge
--- NOTE | 2022-07-29 10:48 | P.CONS ---
History of Present Illness - Reason for Consult Consult date: 07/29/22 wound care - History of Present Illness This is a 72-year-old patient being seen on [address] for nonhealing ulceration to the suprapubic region. Patient states he had a fungal infection approximately 6 months ago which was cleared up by a cream. However he does have an ulceration noted to her suprapubic region that measures approximately 2.5 x 1.5 x 0.1 cm, significant amount of slough noted within the wound bed and no granulation noted. The wound edges are attached to the wound base. There is no tunneling or undermining noted. The paranoid shows no erythema or maceration or excoriation. Patient's past medical history significant for diabetes, hyperlipidemia, hypertension, thyroid cancer, prostate cancer, obesity and obstructive sleep apnea. The patient is a former smoker. Review Of Systems: Constitutional: No fever, no chills, no night sweats. No weight change. No weakness, fatigue or lethargy. No daytime sleepiness. Integumentary:reports wounds, no lesions. No rash or pruritus. No unusual bruising. No change in hair or nails. Physical exam: General Appearance: Alert, cooperative, no distress, appears stated age. Skin: See HPI all other Skin color, texture, tugor normal, no rashes or lesions. Neurologic: Alert oriented x3 Assessment: 1. Nonhealing ulceration with fatty layer exposure to the abdomen 2. Diabetes with skin ulceration Plan: 1. Apply honey gel, dry gauze, border foam change Monday. Patient may benefit from continued advance wound care. We will be happy to see him in the wound care center upon discharge. Thank you for the consultation any questions please contact the wound care center DNP note has been reviewed and discussed with Dr. Adame and the impression and plan of care has been directed as dictated. Past Medical History Past Medical History: Cancer, Diabetes Mellitus, Hyperlipidemia, Hypertension, Prostate Disorder, Rheumatoid Arthritis (RA), Thyroid Disorder Additional Past Medical History / Comment(s): Thyroid cancer with a previous thyroidectomy, prostate cancer, morbid obesity, obstructive sleep apnea, hypertension, hyperlipidemia, diabetes mellitus, History of Any Multi-Drug Resistant Organisms: None Reported Past Surgical History: Orthopedic Surgery Additional Past Surgical History / Comment(s): betty knee partial replacement, thyroidectomy Past Anesthesia/Blood Transfusion Reactions: No Reported Reaction Past Psychological History: Panic Disorder Smoking Status: Former smoker Past Alcohol Use History: None Reported Past Drug Use History: None Reported - Past Family History Father Family Medical History: Hyperlipidemia Additional Family Medical History / Comment(s): parkinsons Mother Family Medical History: Dementia Medications and Allergies Home Medications Medication Instructions Recorded Confirmed Type Enalapril [Vasotec] 20 mg PO BID 07/31/19 07/27/22 History Ergocalciferol (Vitamin D2) 50,000 unit PO GALARZA 07/31/19 07/27/22 History [Vitamin D2] Ferrous Sulfate [Feosol] 325 mg PO DAILY 07/31/19 07/27/22 History PARoxetine [Paxil] 20 mg PO DAILY 07/31/19 07/27/22 History Simvastatin [Zocor] 40 mg PO HS 07/31/19 07/27/22 History allopurinoL [Zyloprim] 300 mg PO DAILY 07/31/19 07/27/22 History Apixaban [Eliquis] 5 mg PO BID #60 tab 08/05/19 07/27/22 Rx Carbidopa-Levodopa 10-100 mg 1 tab PO TID 03/11/21 07/27/22 History [Sinemet 10-100 mg] Liraglutide [Victoza 2-Kodak] 1.2 mg SQ DAILY 03/11/21 07/27/22 History Metoprolol Succinate [Toprol XL] 25 mg PO DAILY 03/11/21 07/27/22 History metFORMIN HCL [Glucophage] 500 mg PO BID 03/11/21 07/27/22 History Ascorbic Acid [Vitamin C] 500 mg PO DAILY 07/27/22 07/27/22 History Cranberry Supplement 8,400 mg PO DAILY 07/27/22 07/27/22 History Enzalutamide [Xtandi] 160 mg PO DAILY 07/27/22 07/27/22 History Furosemide [Lasix] 40 mg PO TID 07/27/22 07/27/22 History Indomethacin [Indocin ER] 75 mg PO DAILY 07/27/22 07/27/22 History Levothyroxine Sodium [Synthroid] 300 mcg PO DAILY 07/27/22 07/27/22 History Potassium Chloride ER [K-Dur 20] 20 meq PO BID 07/27/22 07/27/22 History Allergies Allergy/AdvReac Type Severity Reaction Status Date / Time No Known Allergies Allergy Verified 07/27/22 15:54 Physical Exam Vitals: Vital Signs Temp Pulse Resp BP Pulse Ox 07/29/22 08:00 97.8 F 94 16 124/86 100 07/29/22 04:00 97.9 F 90 19 97/68 98 07/29/22 00:00 98.0 F 99 18 101/65 99 07/28/22 20:00 97.7 F 94 19 88/60 99 07/28/22 16:00 97.9 F 96 18 115/69 96 07/28/22 11:49 98.0 F 82 18 99/52 96 Intake and Output 07/28/22 07/29/22 07/29/22 22:59 06:59 14:59 Intake Total 720 Output Total 300 Balance 720 -300 Intake: Oral 720 Output: Urine 300 Other: Voiding Method Urinal Urinal # Voids 1 Weight 146.8 kg Results CBC & Chem 7: 07/29/22 07:11 07/29/22 07:11 Labs: Abnormal Lab Results - Last 24 Hours (Table) 07/28/22 07/28/22 07/28/22 Range/Units 11:39 16:28 20:27 RBC (4.30-5.90) m/uL Hgb (13.0-17.5) gm/dL Hct (39.0-53.0) % MCHC (31.0-37.0) g/dL RDW (11.5-15.5) % Lymphocytes # (1.0-4.8) k/uL BUN (9-20) mg/dL Creatinine (0.66-1.25) mg/dL POC Glucose (mg/dL) 119 H 145 H 115 H (70-110) mg/dL 07/29/22 07/29/22 Range/Units 07:11 07:11 RBC 3.64 L (4.30-5.90) m/uL Hgb 10.6 L (13.0-17.5) gm/dL Hct 35.9 L (39.0-53.0) % MCHC 29.5 L (31.0-37.0) g/dL RDW 18.6 H (11.5-15.5) % Lymphocytes # 0.7 L (1.0-4.8) k/uL BUN 43 H (9-20) mg/dL Creatinine 1.72 H (0.66-1.25) mg/dL POC Glucose (mg/dL) (70-110) mg/dL Microbiology - Last 24 Hours (Table) 07/27/22 19:00 Wound Culture - Preliminary Abdomen Gram Neg Bacilli 07/27/22 14:47 Blood Culture - Preliminary Blood No Growth after 24 hours 07/27/22 14:57 Blood Culture - Preliminary Blood No Growth after 24 hours Assessment and Plan (1) Non-pressure chronic ulcer of skin of other sites with fat layer exposed Current Visit: Yes Status: Acute Code(s): L98.492 - NON-PRS CHRONIC ULCER OF SKIN OF SITES W FAT LAYER EXPOSED SNOMED Code(s): 98797248 (2) Diabetes with skin ulcer Current Visit: Yes Status: Acute Code(s): E11.622 - TYPE 2 DIABETES MELLITUS WITH OTHER SKIN ULCER; L98.499 - NON-PRESSURE CHRONIC ULCER OF SKIN OF SITES W U NSP SEVERITY SNOMED Code(s): 79330619
--- NOTE | 2022-07-29 11:28 | P.PN ---
Subjective This is a 72-year-old male with a past medical history significant for prostate cancer currently on immunotherapy, hypertension, hyperlipidemia, permanent atrial fibrillation, congestive heart failure, hypothyroidism, and diabetes. Patient follows with Dr. Carreon. We have been asked to see the patient in consultation for congestive heart failure. Patient presents emergency department complaining of weakness in bilateral LE extremities. He states he was leaving his doctors office and was having a difficult time getting his legs up on to the ledge to get into the car, he states that he continuously tried and was feeling more short of breath and weak in his legs. He was brought to the emergency department. He states over the past 2 days he has been having increased shortness of breath, bilateral leg edema and generalized fatigue. He states that over the past couple weeks he has more short of breath. He denies any chest pain, syncope, near syncope, orthopnea or PND. He also endorses a abdominal yeast infection. He denies any cough, fever, chills. No history of CAD, WI, or stroke. On admission patient was found to be hyperkalemic and acute kidney injury. He was also hypotensive. 07/29/2022 Patient seen and examined at bedside, up in the bedside chair. No acute distress. His breathing has improved. He continues to be on IV Lasix 40 mg twice a day. Decreased weight noted. -500mL documented. His renal function is improving. BUN 43, serum creatinine 1.72. Magnesium 2.0. Echocardiogram revealed EF 4550 percent, RV is mild to moderately dilated, moderate biatrial enlargement, mild mitral regurgitation, moderate tricuspid regurgitation with RVSP of 34 PHYSICAL EXAM: VITAL SIGNS: Reviewed. GENERAL: Well-developed in no acute distress. HEENT: Neck supple. No JVD LUNGS: Respirations even and unlabored. Lungs diminished bilaterally. HEART: Irregular rate and rhythm. S1 and S2 heard. ABDOMEN: Soft. Nondistended. Nontender. EXTREMITIES: Normal range of motion. No clubbing or cyanosis. Peripheral pulses intact. Trace lower extremity edema NEUROLOGIC: Awake and alert. Oriented x 3. ASSESSMENT: Acute exacerbation of chronic heart failure with preserved EF 50% Hypotension Bilateral lower extremity weakness Acute kidney injury Hyperkalemia Abdominal cellulitis Permanent atrial fibrillation, on anticoagulation with Eliquis Hypertension Hyperlipidemia Diabetes mellitus Hypothyroidism Morbid obesity: BMI 57.0 PLAN: Hold Enalapril IV Lasix dosing per nephrology Continue metoprolol succinate Continue Eliquis for anticoagulation Patient not on ACEI/ARB or spironolactone secondary to renal function. Accurate I&O Daily weights Monitor kidney function Further recommendations pending patient's course Nurse practitioner note has been reviewed by physician. Signing provider agrees with the documented findings, assessment, and plan of care. Objective - Vital Signs Vital signs: Vital Signs Temp 97.8 F 07/29/22 08:00 Pulse 94 07/29/22 08:00 Resp 16 07/29/22 08:00 BP 124/86 07/29/22 08:00 Pulse Ox 100 07/29/22 08:00 FiO2 Intake & Output 07/28/22 07/29/22 07/29/22 18:59 06:59 18:59 Intake Total 1080 Output Total 150 300 Balance 930 -300 Weight 146.8 kg Intake: Oral 1080 Output: Urine 150 300 Other: Voiding Method Urinal Urinal Urinal # Voids 1 - Labs CBC & Chem 7: 07/29/22 07:11 07/29/22 07:11 Labs: Abnormal Lab Results - Last 24 Hours (Table) 07/28/22 07/28/22 07/28/22 Range/Units 11:39 16:28 20:27 RBC (4.30-5.90) m/uL Hgb (13.0-17.5) gm/dL Hct (39.0-53.0) % MCHC (31.0-37.0) g/dL RDW (11.5-15.5) % Lymphocytes # (1.0-4.8) k/uL BUN (9-20) mg/dL Creatinine (0.66-1.25) mg/dL POC Glucose (mg/dL) 119 H 145 H 115 H (70-110) mg/dL 07/29/22 07/29/22 Range/Units 07:11 07:11 RBC 3.64 L (4.30-5.90) m/uL Hgb 10.6 L (13.0-17.5) gm/dL Hct 35.9 L (39.0-53.0) % MCHC 29.5 L (31.0-37.0) g/dL RDW 18.6 H (11.5-15.5) % Lymphocytes # 0.7 L (1.0-4.8) k/uL BUN 43 H (9-20) mg/dL Creatinine 1.72 H (0.66-1.25) mg/dL POC Glucose (mg/dL) (70-110) mg/dL Microbiology - Last 24 Hours (Table) 07/27/22 19:00 Wound Culture - Preliminary Abdomen Gram Neg Bacilli 07/27/22 14:47 Blood Culture - Preliminary Blood No Growth after 24 hours 07/27/22 14:57 Blood Culture - Preliminary Blood No Growth after 24 hours
[2022-07-29 11:37] LABS: Glucose,Whole Blood 129 mg/dL (70-110)
[2022-07-29 16:46] LABS: Glucose,Whole Blood 134 mg/dL (70-110)
--- NOTE | 2022-07-29 17:14 | P.PN ---
Subjective Progress Note Date: 07/29/22 This is a pleasant 72 year old male patient of Dr Nicholas. Patient presents with weakness and shortness of breath found to be in volume overload. He is being followed by cardiology and has been started on IV lasix 40 mg Q12. Cardiology is following, echocardiogram has been completed showing an EF of 45 to 50% with moderate tricuspid regurgitation. Creatinine has improved today to 1.72. He did report that his urine output had decreased outpatient and he was instructed to take an extra lasix. He has also had poor oral intake, which he feels is side effect from his xtandi. Metformin is currently on hold, and blood glucose is fairly stable, we will continue with sliding scale coverage only, A1C 5.8. Pota ssium has improved to 41, sodium 141. Abdominal wound is showing gram negative bacilli. He is on empiric antibiotic coverage with IV cefazolin. Wound care has been consulted recommending honey gel with gauze change MWF and follow up in wound center on discharge. Home with homecare and 24/ supervision versus subacute rehab on discharge. Review of Systems Constitutional: Denied any fatigue denied any fever. Cardio vascular: denied any chest pain, palpitations Gastrointestinal: denied any nausea, vomiting, diarrhea Pulmonary: Denied any shortness of breath cough Neurologic denied any new focal deficits, Reports weakness All inpatient medications were reviewed and appropriate changes in these medications as dictated in the interval history and assessment and plan. PHYSICAL EXAMINATION: GENERAL: The patient is alert and oriented x3, not in any acute distress. Well developed, well nourished. Obese HEENT: Pupils are round and equally reacting to light. EOMI. No scleral icterus. No conjunctival pallor. Normocephalic, atraumatic. No pharyngeal erythema. No thyromegaly. CARDIOVASCULAR: S1 and S2 present. No murmurs, rubs, or gallops. PULMONARY: Chest is clear to auscultation, no wheezing or crackles. ABDOMEN: Soft, nontender, nondistended, normoactive bowel sounds. No palpable o rganomegaly. MUSCULOSKELETAL: No joint swelling or deformity. EXTREMITIES: No cyanosis, clubbing, or pedal edema. NEUROLOGICAL: Gross neurological examination did not reveal any focal deficits. SKIN: No rashes. Ulceration to suprapubic abdominal region with fat layer exposed Assessment and plan Assessment -Acute on chronic Systolic and Diastolic CHF, on IV lasix -Hypotension secondary to volume depletion from poor oral intake -Dyspnea, multifactorial -Chronic hypoxic respiratory failure secondary to the above, wears 2 L nasal cannula O2 at home -Obstructive sleep apnea wears BiPAP at home -Acute renal failure, prerenal, secondary to cardiorenal syndrome. -Hyperkalemia secondary to the above, resolved -Metabolic acidosis secondary to acute renal injury, medications- metformin which is on hold -Abdominal cellulitis with chronic suprapubic wound, refer to nursing documentation for measurements -Anemia of chronic disease -Chronic paroxysmal atrial fibrillation -Diabetes mellitus, A1C 5.8 -Diabetic neuropathy, bilateral feet -Hypertension -Hyperlipidemia -History of panic disorder -History of thyroid cancer, thyroidectomy -Prostate cancer, currently on immunotherapy -Morbid Obesity, BMI 52.8 -Gait dysfunction, chronic right ankle injury years ago, uses walker for any lengthy distance GI Prophylaxis DVT Prophylaxis Anticoagulated with Eliquis Full Code Plan Continue IV lasix 40 mg Q12, Intake and output monitoring, strict Hold metformin, sliding scale novolog coverage Empiric antibiotic coverage Wound culture pending Repeat labs in AM Wound care with therahoney gel and gauze change MWF per wound care orders The impression and plan of care has been dictated by Britt Leonard, Nurse Practitioner as directed. Dr. Jimbo MD I have performed a history and physical examination and medical decision making of this patient, discussed the same with the dictator, and agree with the dictators assessment and plan as written, documented as a scribe. Based on total visit time, I have performed more than 50% of this visit. Objective - Vital Signs Vital signs: Vital Signs Temp 97.8 F 07/29/22 08:00 Pulse 88 07/29/22 12:00 Resp 16 07/29/22 12:00 BP 120/80 07/29/22 12:00 Pulse Ox 97 07/29/22 12:00 FiO2 Intake & Output 07/28/22 07/29/22 07/29/22 18:59 06:59 18:59 Intake Total 1080 Output Total 150 300 Balance 930 -300 Weight 146.8 kg Intake: Oral 1080 Output: Urine 150 300 Other: Voiding Method Urinal Urinal Urinal # Voids 1 - Labs CBC & Chem 7: 07/29/22 07:11 07/29/22 07:11 Labs: Abnormal Lab Results - Last 24 Hours (Table) 07/28/22 07/28/22 07/29/22 Range/Units 16:28 20:27 07:11 RBC 3.64 L (4.30-5.90) m/uL Hgb 10.6 L (13.0-17.5) gm/dL Hct 35.9 L (39.0-53.0) % MCHC 29.5 L (31.0-37.0) g/dL RDW 18.6 H (11.5-15.5) % Lymphocytes # 0.7 L (1.0-4.8) k/uL BUN (9-20) mg/dL Creatinine (0.66-1.25) mg/dL POC Glucose (mg/dL) 145 H 115 H (70-110) mg/dL 07/29/22 07/29/22 Range/Units 07:11 11:35 RBC (4.30-5.90) m/uL Hgb (13.0-17.5) gm/dL Hct (39.0-53.0) % MCHC (31.0-37.0) g/dL RDW (11.5-15.5) % Lymphocytes # (1.0-4.8) k/uL BUN 43 H (9-20) mg/dL Creatinine 1.72 H (0.66-1.25) mg/dL POC Glucose (mg/dL) 129 H (70-110) mg/dL Microbiology - Last 24 Hours (Table) 07/27/22 19:00 Wound Culture - Preliminary Abdomen Gram Neg Bacilli 07/27/22 14:47 Blood Culture - Preliminary Blood No Growth after 24 hours 07/27/22 14:57 Blood Culture - Preliminary Blood No Growth after 24 hours Assessment and Plan Time with Patient: Less than 30
[2022-07-29] MEDS: ATORVASTATIN 20 MG TAB PO SCH (20:14)
[2022-07-29 20:34] LABS: Glucose,Whole Blood 155 mg/dL (70-110)
[2022-07-30 06:18] LABS: Glucose,Whole Blood 103 mg/dL (70-110)
[2022-07-30] MEDS: LEVOTHYROXINE 100 MCG TAB PO SCH (06:50)
[2022-07-30] MEDS: INSULIN ASPART (NovoLOG) 100 UNIT/ML VIAL SQ SCH ×4 (06:51→21:07)
[2022-07-30] MEDS: PANTOPRAZOLE 40 MG TABLET PO SCH (06:51)
[2022-07-30] MEDS: PARoxetine 20 MG TAB PO SCH (09:34)
[2022-07-30] MEDS: FERROUS SULFATE 325 MG TAB PO SCH (09:34)
[2022-07-30] MEDS: allopurinoL 300 MG TAB PO SCH (09:34)
[2022-07-30] MEDS: APIXABAN 5 MG TAB PO SCH ×2 (09:34→21:29)
[2022-07-30] MEDS: FUROSEMIDE 10 MG/ML 4 ML VIAL IV SCH ×2 (09:34→21:29)
[2022-07-30] MEDS: ASCORBIC ACID 500 MG TAB PO SCH (09:34)
[2022-07-30] MEDS: METOPROLOL SUCCINATE (ER) 25 MG TAB.ER.24H PO SCH (09:35)
[2022-07-30] MEDS: CARBIDOPA-LEVODOPA 10-100 MG 1 EACH TAB PO SCH ×2 (09:35→16:58)
[2022-07-30] MEDS: NYSTATIN 100,000 UNIT/GM POWD 15 GM TOPICAL SCH ×3 (09:54→21:29)
[2022-07-30 10:17] LABS: Calcium 9.2 mg/dL (8.4-10.2); Potassium 3.5 mmol/L (3.5-5.1)
--- NOTE | 2022-07-30 11:16 | P.PN ---
Subjective Patient is seen for follow-up for acute kidney injury on top of chronic kidney disease. Renal function has been improving Blood pressure was low today. Creatinine down to 1.28 today. No significant complaints Objective - Vital Signs Vital signs: Vital Signs Temp 98.0 F 07/30/22 08:15 Pulse 74 07/30/22 08:15 Resp 17 07/30/22 08:15 BP 88/63 07/30/22 08:15 Pulse Ox 100 07/30/22 08:15 FiO2 Intake & Output 07/29/22 07/30/22 07/30/22 18:59 06:59 18:59 Output Total 150 500 Balance -150 -500 Weight 144 kg Output: Urine 150 500 Other: Voiding Method Urinal Urinal Urinal - Exam Awake, comfortable, not in any acute distress Morbidly obese Examination of the heart S1 and S2 Examination of the lungs bilateral breath sounds are heard Abdomen is soft nontender Examination of the lower extremities shows 1+ edema bilaterally with chronic skin changes BLACK PICKLER exam grossly intact - Labs CBC & Chem 7: 07/29/22 07:11 07/30/22 09:30 Labs: Abnormal Lab Results - Last 24 Hours (Table) 07/29/22 07/29/22 07/29/22 Range/Units 11:35 16:44 20:32 BUN (9-20) mg/dL Creatinine (0.66-1.25) mg/dL Glucose (74-99) mg/dL POC Glucose (mg/dL) 129 H 134 H 155 H (70-110) mg/dL 07/30/22 Range/Units 09:30 BUN 35 H (9-20) mg/dL Creatinine 1.28 H (0.66-1.25) mg/dL Glucose 110 H (74-99) mg/dL POC Glucose (mg/dL) (70-110) mg/dL Microbiology - Last 24 Hours (Table) 07/27/22 19:00 Wound Culture - Preliminary Abdomen Escherichia coli 07/27/22 14:47 Blood Culture - Preliminary Blood No Growth after 48 hours 07/27/22 14:57 Blood Culture - Preliminary Blood No Growth after 48 hours Assessment and Plan Assessment: 1. Acute kidney injury mostly cardiorenal syndrome. Currently improving. Blood pressure was low today 2. Hyperkalemia associated with acute kidney injury, metabolic acidosis and potassium supplementation and GRAZYNA inhibitor's. Currently improved 3. Metabolic acidosis associated with acute kidney injury and metformin currently improved 4. Volume overload improved with diuresis 5. Acute on chronic systolic CHF with ejection fraction 45-50% with moderate tricuspid regurgitation Plan: Continue with IV Lasix for now Add midodrine Hold metoprolol for now.
--- NOTE | 2022-07-30 11:18 | P.PN ---
Progress Note - Text Patient is resting comfortably in bed He does not appear short of breath No chest discomfort On examination Breath sounds are reduced bilaterally but there are no rhonchi no crackles Heart sounds systolic murmur audible No S3 gallop Impression Chronic diastolic heart failure with preserved systolic function Low blood pressure Acute kidney injury Permanent atrial fibrillation on ELIQUIS History of hypertension and type 2 diabetes Extremely morbid obesity Continue holding natalia inhibitors for now IV Lasix dosing per nephrology Continue metoprolol succinate for rate control Continue anticoagulation with ELIQUIS From a cardiac standpoint I will continue with current treatment and he may follow with Dr. Hart as an outpatient
[2022-07-30 12:22] LABS: Glucose,Whole Blood 116 mg/dL (70-110)
--- NOTE | 2022-07-30 13:19 | P.PN ---
Subjective Progress Note Date: 07/30/22 This is a pleasant 72 year old male patient of Dr Nicholas. Patient presents with weakness and shortness of breath found to be in volume overload. He is being followed by cardiology and has been started on IV lasix 40 mg Q12. Cardiology is following, echocardiogram has been completed showing an EF of 45 to 50% with moderate tricuspid regurgitation. Creatinine has improved today to 1.72. He did report that his urine output had decreased outpatient and he was instructed to take an extra lasix. He has also had poor oral intake, which he feels is side effect from his xtandi. Metformin is currently on hold, and blood glucose is fairly stable, we will continue with sliding scale coverage only, A1C 5.8. Pota ssium has improved to 41, sodium 141. Abdominal wound is showing gram negative bacilli. He is on empiric antibiotic coverage with IV cefazolin. Wound care has been consulted recommending honey gel with gauze change MWF and follow up in wound center on discharge. Home with homecare and / supervision versus subacute rehab on discharge. 07/30/2022 Patient resting in bed today. No acute events overnight. Cardiology will follow up with patient outpatient, recommending to hold GRAZYNA inhibitor. Patient will continue on IV lasix overnight. His creatinine is improved today to 1.28, blood pressure on the lower side. His beta alicia has been placed on hold and he has been started on midodrine. Nephrology following patient. Will repeat BMP in the morning. Wound culture on abdomen is showing E.Coli and wound care has evaluated the patient with recommendations for honey and gauze MWF. Homecare referral for [facility] visiting nurse in place, discussed with daughter who patient lives with, she provides assistance with his care and is working from home. Plan for discharge tomorrow if cleared by nephrology. Review of Systems Constitutional: Denied any fatigue denied any fever. Cardio vascular: denied any chest pain, palpitations Gastrointestinal: denied any nausea, vomiting, diarrhea Pulmonary: Denied any shortness of breath cough Neurologic denied any new focal deficits, Reports weakness All inpatient medications were reviewed and appropriate changes in these medications as dictated in the interval history and assessment and plan. PHYSICAL EXAMINATION: GENERAL: The patient is alert and oriented x3, not in any acute distress. Well developed, well nourished. Obese HEENT: Pupils are round and equally reacting to light. EOMI. No scleral icterus. No conjunctival pallor. Normocephalic, atraumatic. No pharyngeal erythema. No thyromegaly. CARDIOVASCULAR: S1 and S2 present. No murmurs, rubs, or gallops. PULMONARY: Chest is clear to auscultation, no wheezing or crackles. ABDOMEN: Soft, nontender, nondistended, normoactive bowel sounds. No palpable organomegaly. MUSCULOSKELETAL: No joint swelling or deformity. EXTREMITIES: No cyanosis, clubbing, or pedal edema. NEUROLOGICAL: Gross neurological examination did not reveal any focal deficits. SKIN: No rashes. Ulceration to suprapubic abdominal region with fat layer exposed Assessment and plan Assessment -Acute on chronic Systolic and Diastolic CHF, on IV lasix -Hypotension secondary to volume depletion from poor oral intake -Dyspnea, multifactorial -Chronic hypoxic respiratory failure secondary to the above, wears 2 L nasal cannula O2 at home -Obstructive sleep apnea wears BiPAP at home -Acute renal failure, prerenal, secondary to cardiorenal syndrome. -Hyperkalemia secondary to the above, resolved -Metabolic acidosis secondary to acute renal injury, medications- metformin which is on hold -Abdominal cellulitis with chronic suprapubic wound, refer to nursing documentation for measurements -Anemia of chronic disease -Chronic paroxysmal atrial fibrillation -Diabetes mellitus, A1C 5.8 -Diabetic neuropathy, bilateral feet -Hypertension -Hyperlipidemia -History of panic disorder -History of thyroid cancer, thyroidectomy -Prostate cancer, currently on immunotherapy -Morbid Obesity, BMI 52.8 -Gait dysfunction, chronic right ankle injury years ago, uses walker for any lengthy distance GI Prophylaxis DVT Prophylaxis Anticoagulated with Eliquis Full Code Plan Continue IV lasix 40 mg Q12, Intake and output monitoring, strict Hold metformin, sliding scale novolog coverage Continue antibiotic coverage will transition to oral on discharge for wound culture. Repeat labs in AM Wound care with therahoney gel and gauze change MWF per wound care orders Holding grazyna inhibitor, metoprolol Patient has been started on midodrine Discharge home tomorrow with HC in place pending nephrology clearance. The impression and plan of care has been dictated by Britt Leonard Nurse Practitioner as directed. Dr. Jimbo MD I have performed a history and physical examination and medical decision making of this patient, discussed the same with the dictator, and agree with the dictators assessment and plan as written, documented as a scribe. Based on total visit time, I have performed more than 50% of this visit. Objective - Vital Signs Vital signs: Vital Signs Temp 98.0 F 07/30/22 08:15 Pulse 74 07/30/22 08:15 Resp 17 07/30/22 08:15 BP 88/63 07/30/22 08:15 Pulse Ox 100 07/30/22 08:15 FiO2 Intake & Output 07/29/22 07/30/22 07/30/22 18:59 06:59 18:59 Intake Total 240 Output Total 150 500 Balance -150 -500 240 Weight 144 kg Intake: Oral 240 Output: Urine 150 500 Other: Voiding Method Urinal Urinal Urinal - Labs CBC & Chem 7: 07/29/22 07:11 07/30/22 09:30 Labs: Abnormal Lab Results - Last 24 Hours (Table) 07/29/22 07/29/22 07/30/22 Range/Units 16:44 20:32 09:30 BUN 35 H (9-20) mg/dL Creatinine 1.28 H (0.66-1.25) mg/dL Glucose 110 H (74-99) mg/dL POC Glucose (mg/dL) 134 H 155 H (70-110) mg/dL 07/30/22 Range/Units 12:14 BUN (9-20) mg/dL Creatinine (0.66-1.25) mg/dL Glucose (74-99) mg/dL POC Glucose (mg/dL) 116 H (70-110) mg/dL Microbiology - Last 24 Hours (Table) 07/27/22 19:00 Wound Culture - Preliminary Abdomen Escherichia coli 07/27/22 14:47 Blood Culture - Preliminary Blood No Growth after 48 hours 07/27/22 14:57 Blood Culture - Preliminary Blood No Growth after 48 hours Assessment and Plan Time with Patient: Less than 30
[2022-07-30] MEDS: MIDODRINE 5 MG TAB PO SCH (16:58)
[2022-07-30 17:07] LABS: Glucose,Whole Blood 112 mg/dL (70-110)
[2022-07-30 21:07] LABS: Glucose,Whole Blood 126 mg/dL (70-110)
[2022-07-30] MEDS: ATORVASTATIN 20 MG TAB PO SCH (21:29)
[2022-07-31] MEDS: CARBIDOPA-LEVODOPA 10-100 MG 1 EACH TAB PO SCH ×2 (00:07→10:28)
[2022-07-31 06:09] LABS: Glucose,Whole Blood 101 mg/dL (70-110)
[2022-07-31] MEDS: INSULIN ASPART (NovoLOG) 100 UNIT/ML VIAL SQ SCH (06:20)
[2022-07-31 06:54] LABS: Calcium 8.8 mg/dL (8.4-10.2); Potassium 3.1 mmol/L (3.5-5.1)
[2022-07-31] MEDS: LEVOTHYROXINE 100 MCG TAB PO SCH (06:57)
[2022-07-31] MEDS: PANTOPRAZOLE 40 MG TABLET PO SCH (06:57)
[2022-07-31] MEDS: MIDODRINE 5 MG TAB PO SCH (06:57)
[2022-07-31] MEDS ORDERED: Potassium Replacement Protocol 1 EACH MISC MISCELLANE PRN (07:13)
[2022-07-31] MEDS ORDERED: POTASSIUM CHLORIDE ER 20 MEQ TAB.ER PO SCH (08:00)
[2022-07-31 08:49] VITALS: BP 96/64; PULSE 92; RESP 18; TEMP 98.4
[2022-07-31] MEDS ORDERED: ERGOCALCIFEROL 1,250 MCG (50,000 IU) CAPSULE PO SCH (09:00)
[2022-07-31] MEDS ORDERED: POTASSIUM CHLORIDE ER 10 MEQ TAB.ER.PRT PO SCH (09:00)
[2022-07-31] MEDS ORDERED: FUROSEMIDE 20 MG TAB PO SCH (10:15)
[2022-07-31] MEDS: FERROUS SULFATE 325 MG TAB PO SCH (10:26)
[2022-07-31] MEDS: allopurinoL 300 MG TAB PO SCH (10:26)
[2022-07-31] MEDS: APIXABAN 5 MG TAB PO SCH (10:26)
[2022-07-31] MEDS: POTASSIUM CHLORIDE ER 20 MEQ TAB.ER PO SCH ×2 (10:27→11:50)
[2022-07-31] MEDS: ASCORBIC ACID 500 MG TAB PO SCH (10:27)
[2022-07-31] MEDS: NYSTATIN 100,000 UNIT/GM POWD 15 GM TOPICAL SCH (10:29)
[2022-07-31] MEDS: FUROSEMIDE 10 MG/ML 4 ML VIAL IV SCH (10:46)
--- NOTE | 2022-07-31 10:56 | P.PN ---
Subjective Patient is seen for follow-up for acute kidney injury on top of chronic kidney disease. Renal function has been improving Blood pressure remains on the lower side Creatinine down to 1. 04 today. Potassium was 3.1. No significant complaints Objective - Vital Signs Vital signs: Vital Signs Temp 98.4 F 07/31/22 08:00 Pulse 92 07/31/22 08:00 Resp 18 07/31/22 08:00 BP 96/64 07/31/22 08:00 Pulse Ox 96 07/31/22 08:00 FiO2 28 07/30/22 23:55 Intake & Output 07/30/22 07/31/22 07/31/22 18:59 06:59 18:59 Intake Total 240 Output Total 300 1500 Balance -60 -1500 Weight 141.8 kg Intake: Oral 240 Output: Urine 300 1500 Other: Voiding Method External Catheter Urinal - Exam Awake, comfortable, not in any acute distress Morbidly obese Examination of the heart S1 and S2 Examination of the lungs bilateral breath sounds are heard Abdomen is soft nontender Examination of the lower extremities shows 1+ edema bilaterally with chronic skin changes [employer] exam grossly intact - Labs CBC & Chem 7: 07/29/22 07:11 07/31/22 05:44 Labs: Abnormal Lab Results - Last 24 Hours (Table) 07/30/22 07/30/22 07/30/22 Range/Units 12:14 16:29 21:06 Potassium (3.5-5.1) mmol/L Carbon Dioxide (22-30) mmol/L BUN (9-20) mg/dL POC Glucose (mg/dL) 116 H 112 H 126 H (70-110) mg/dL 07/31/22 Range/Units 05:44 Potassium 3.1 L (3.5-5.1) mmol/L Carbon Dioxide 32 H (22-30) mmol/L BUN 28 H (9-20) mg/dL POC Glucose (mg/dL) (70-110) mg/dL Microbiology - Last 24 Hours (Table) 07/27/22 14:57 Blood Culture - Preliminary Blood No Growth after 72 hours 07/27/22 14:47 Blood Culture - Preliminary Blood No Growth after 72 hours Assessment and Plan Assessment: 1. Acute kidney injury mostly cardiorenal syndrome. Currently improving. Blood pressure remains on the lower side. Patient is maintained on midodrine 2. Hyperkalemia associated with acute kidney injury, metabolic acidosis and potassium supplementation and GRAZYNA inhibitor's. Currently improved 3. Metabolic acidosis associated with acute kidney injury and metformin currently improved 4. Volume overload improved with diuresis 5. Acute on chronic systolic CHF with ejection fraction 45-50% with moderate tricuspid regurgitation Plan: Hold metoprolol for now. Can switch to oral Lasix and patient is stable for discharge from nephrology standpoint. He can continue with Lasix 60 mg twice a day for 1 week and then decrease to 40 mg twice a day. Replace potassium
[2022-07-31] MEDS: PARoxetine 20 MG TAB PO SCH (11:49)
[2022-08-01] MEDS ORDERED: POTASSIUM CHLORIDE ER 10 MEQ TAB.ER.PRT PO SCH (09:00)
--- NOTE | 2022-08-01 18:06 | P.DS ---
Providers Date of admission: 07/27/22 17:01 Attending physician: Aftab Nicholas Consults: 07/27/22 17:01 Consult Physician Routine Consulting Provider: [facility] Consult Reason/Comments: chf Do you want consulting provider notified?: Yes, Notify in am Consult Physician Routine Consulting Provider: Jamie Chowdary Consult Reason/Comments: demetria, hyperkalemia Do you want consulting provider notified?: Already Contacted Primary care physician: Aftab Nicholas Hospital Course: Diagnosis -Acute on chronic Systolic and Diastolic CHF, treated with IV Lasix -Hypotension secondary to volume depletion from poor oral intake -Dyspnea, multifactorial -Chronic hypoxic respiratory failure secondary to the above, wears 2 L nasal cannula O2 at home -Obstructive sleep apnea wears BiPAP at home -Acute renal failure, prerenal, secondary to cardiorenal syndrome. -Hyperkalemia secondary to the above, resolved -Metabolic acidosis secondary to acute renal injury, medications- metformin which is on hold -Abdominal cellulitis with chronic suprapubic wound, refer to nursing documentation for measurements -Anemia of chronic disease -Chronic paroxysmal atrial fibrillation anticoagulated with eliquis -Diabetes mellitus, A1C 5.8 -Diabetic neuropathy, bilateral feet -Hypertension -Hyperlipidemia -History of panic disorder -History of thyroid cancer, thyroidectomy -Prostate cancer, currently on immunotherapy -Morbid Obesity, BMI 52.8 -Gait dysfunction, chronic right ankle injury years ago, uses walker for any lengthy distance Full Code Discharge Disposition Patient is stable for discharge, guarded overall prognosis due to multiple comorbidities. He requires close follow up with his medical care team. He will discharge on short course of oral antibiotics and also with local wound care to suprapubic wound with metahoney gel and to change MWF. Recommended to follow up with wound care. Creatinine has normalized. Patients antihypertensive medications are on hold and he has been started on midodrine. Follow up with cardiology, nephrology and primary care on discharge. Patient also has homecare referral set up and discussed with patient and daughter to notify company they are being discharge to set up first homecare visit. Patient lives with daughter and she assists with all ADLs. Hospital Course This is a pleasant 72 year old male patient of Dr Nicholas. Patient presents with weakness and shortness of breath found to be in volume overload. ProBNP level found to be 9290 on admission. He is being followed by cardiology and has been started on IV lasix 40 mg Q12. He also present with acute renal injury cretinine of 1.98. States he noticed decreased urine output at home, and had increasing lower extremity edema with shortness of breath, states he was told to take an extra lasix tablet. He experiene significant weakness leaving the doctors office the day of discharge and came to the hospital. Cardiology and nephrology were consulted for evaluation. Patient had an echocardiogram completed showing an EF of 45 to 50% with moderate tricuspid regurgitation. He has also had poor oral intake, which he feels is side effect from his xtandi. Metformin is currently on hold, and blood glucose is fairly stable, we will continue with sliding scale coverage only, A1C 5.8. He also reports noticing an wound on his abdomen which is in the suprapubic region. There is no drainage however wound bed has significant amount of slough with no granulation of the wound bed. He was evaluated by wound care services who hae recommended honey gel, dry gauze with border foam to change MWF and he can follow upw ith the wound care center on discharge. Abdominal wound is showing E.Coli he did complete empiric antibiotic coverage with IV cefazolin and discharged on short course of oral Keflex. He was monitored closely while on IV lasix and his creatinine has continued to improve, down to 1.04. He is recommended by nephrology to take lasix 60 mg bid for one week and transition to 40 mg po bid. He will follow up with nephrology in the office. Repeat BMP and Mag in 2 to 3 days. He also experienced hypotension blood pressure in the mid 90s systolic range, no dizziness or lightheadedness noted. He was started on midorine TID and his blood pressure medications are on hold. PT/OT evaluation is recommended subacute rehab versus home with home care services. On discussion with patient's daughter who does live with patient and states that she assists with all activities of daily living. Patient to return home with home care and physical therapy in the house. Home with homecare and 19/06 supervision and this was communicated with patients daughter who verbalizes understanding. 07/31/2022 Patient is evaluated today resting in bed. No acute events overnight. Denies shortness of breath, denies chest pain. Lower extremity peripheral edema is improving. He will be transitioned to oral Lasix on discharge. Labs today showing a sodium of 140, potassium 3.1, patient did receive electrolyte r eplacement and also will discharge on oral potassium. His penis 28, creatinine 1.04, blood glucose in the 100s. Urinalysis is negative, Covid negative, influenza negative. His most recent blood count showing a white count 4.5, hemoglobin 10.6, platelet count of 162. He is afebrile, heart rate 82, blood pressure 96/64, 96% on room air. He is alert 3, focal neurological exam is negative. Lungs are clear, S1-S2 auscultated, abdomen is soft and nontender, obese, bowel sounds moving. Denies any dysuria. Urine is clear yellow. He is continued local wound care to the suprapubic abdominal wound which is growing E. coli. Discharge and oral antibiotics in place and wound care recommendations follow-up with the wound care center outpatient. Patient will discharge with home care and PT in house. Vasotec, Toprol, on hold. Patient is started on Midodrine 5 mg twice a day, he can continue with nystatin powder to his groin and abdominal folds. Total time taken in discharge planning greater than 35 minutes. Please see medication reconciliation for a list of current medication. Thank you for allowing us to participate in the care of this patient. The impression and plan of care has been dictated by Britt Leonard, Nurse Practitioner as directed. Dr. Jimbo MD I have performed a history and physical examination and medical decision making of this patient, discussed the same with the dictator, and agree with the dictators assessment and plan as written, documented as a scribe. Based on total visit time, I have performed more than 50% of this visit. Patient Condition at Discharge: Fair Plan - Discharge Summary Discharge Rx Participant: No New Discharge Prescriptions: New Midodrine [ProAmatine] 5 mg PO AC-BID #60 tab Famotidine [Pepcid] 20 mg PO DAILY #30 tablet Furosemide [Lasix] 60 mg PO BID 7 Days #14 tab Furosemide [Lasix] 40 mg PO BID@0900,1600 tab Nystatin 100,000 Unit/gm Powd [Mycostatin Powder] 1 applic TOPICAL TID #1 each Cephalexin [Keflex] 500 mg PO Q6HR 6 Days #12 cap Continue Ergocalciferol (Vitamin D2) [Vitamin D2] 50,000 unit PO GALARZA PARoxetine [Paxil] 20 mg PO DAILY Ferrous Sulfate [Feosol] 325 mg PO DAILY allopurinoL [Zyloprim] 300 mg PO DAILY Simvastatin [Zocor] 40 mg PO HS Apixaban [Eliquis] 5 mg PO BID #60 tab Carbidopa-Levodopa 10-100 mg [Sinemet 10-100 mg] 1 tab PO TID Liraglutide [Victoza 2-Kodak] 1.2 mg SQ DAILY metFORMIN HCL [Glucophage] 500 mg PO BID Ascorbic Acid [Vitamin C] 500 mg PO DAILY Levothyroxine Sodium [Synthroid] 300 mcg PO DAILY Cranberry Supplement 8,400 mg PO DAILY Enzalutamide [Xtandi] 160 mg PO DAILY Changed Potassium Chloride ER [K-Dur 20] 20 meq PO DAILY #0 Discontinued Enalapril [Vasotec] 20 mg PO BID Metoprolol Succinate [Toprol XL] 25 mg PO DAILY Indomethacin [Indocin ER] 75 mg PO DAILY Furosemide [Lasix] 40 mg PO TID Discharge Medication List Ergocalciferol (Vitamin D2) [Vitamin D2] 50,000 unit PO GALARZA 07/31/19 [History] Ferrous Sulfate [Feosol] 325 mg PO DAILY 07/31/19 [History] PARoxetine [Paxil] 20 mg PO DAILY 07/31/19 [History] Simvastatin [Zocor] 40 mg PO HS 07/31/19 [History] allopurinoL [Zyloprim] 300 mg PO DAILY 07/31/19 [History] Apixaban [Eliquis] 5 mg PO BID #60 tab 08/05/19 [Rx] Carbidopa-Levodopa 10-100 mg [Sinemet 10-100 mg] 1 tab PO TID 03/11/21 [History] Liraglutide [Victoza 2-Kodak] 1.2 mg SQ DAILY 03/11/21 [History] metFORMIN HCL [Glucophage] 500 mg PO BID 03/11/21 [History] Ascorbic Acid [Vitamin C] 500 mg PO DAILY 07/27/22 [History] Cranberry Supplement 8,400 mg PO DAILY 07/27/22 [History] Enzalutamide [Xtandi] 160 mg PO DAILY 07/27/22 [History] Levothyroxine Sodium [Synthroid] 300 mcg PO DAILY 07/27/22 [History] Cephalexin [Keflex] 500 mg PO Q6HR 6 Days #12 cap 07/31/22 [Rx] Famotidine [Pepcid] 20 mg PO DAILY #30 tablet 07/31/22 [Rx] Furosemide [Lasix] 40 mg PO BID@0900,1600 tab 07/31/22 [Rx] Furosemide [Lasix] 60 mg PO BID 7 Days #14 tab 07/31/22 [Rx] Midodrine [ProAmatine] 5 mg PO AC-BID #60 tab 07/31/22 [Rx] Nystatin 100,000 Unit/gm Powd [Mycostatin Powder] 1 applic TOPICAL TID #1 each 07/31/22 [Rx] Potassium Chloride ER [K-Dur 20] 20 meq PO DAILY #0 07/31/22 [Rx] Follow up Appointment(s)/Referral(s): Harsh Valverde MD [STAFF PHYSICIAN] - 1 Week (office is closed. Please call to schedule appointment) Aftab Nicholas DO [Primary Care Provider] - 1-2 days (Office is closed. Please call to schedule appointment) [facility], [NON-STAFF] - W[facility] [NON-STAFF] - As Needed (Office is closed. Please call to schedule appointment) Jamie Chowdary DO [STAFF PHYSICIAN] - 1 Week (office is closed. please call to schedule appointment) Ambulatory/Diagnostic Orders: Basic Metabolic Panel [LAB.AMB] Time Frame: 3 Days, Location: None Selected Patient Instructions/Handouts: Heart Failure (DC), Acute Kidney Injury (DC), Cellulitis (GEN) Activity/Diet/Wound Care/Special Instructions: Continue with local wound care with meta honey gel cover with gauze and change Monday, Monday, Monday Follow up at [facility] [place] Discontinue blood pressure medications Continue on midodrine 5 mg TID Begin lasix 60 mg twice a day for 1 week, than begin lasix 40 mg twice a day. Repeat labs in 3 days outpatient Recommend supervision 19/06 with all acitivites Homecare with physical therapy has been set up Please call company when arriving home and they will arrange for visit Discharge Disposition: HOME WITH HOME HEALTH SERVICES
== END 2022-07-31 12:40 | disposition home health service (06) | DRG 291 ==
LOC: EC 11:43 → 3SCARD 17:01
PROVIDERS: ADMIT Family Medicine; ATTEND Family Medicine
DX: I13.0 Hypertensive heart and chronic kidney disease with heart failure and stage 1 through stage 4 chronic kidney disease, or unspecified chronic kidney disease (principal); I50.43 Acute on chronic combined systolic (congestive) and diastolic (congestive) heart failure; E87.2 Acidosis; I48.21 Permanent atrial fibrillation; J96.11 Chronic respiratory failure with hypoxia; L03.311 Cellulitis of abdominal wall; N17.9 Acute kidney failure, unspecified; Z68.43 Body mass index [BMI] 50.0-59.9, adult; E89.0 Postprocedural hypothyroidism; G47.33 Obstructive sleep apnea (adult) (pediatric); I45.10 Unspecified right bundle-branch block; I08.1 Rheumatic disorders of both mitral and tricuspid valves; B37.2 Candidiasis of skin and nail; E66.01 Morbid (severe) obesity due to excess calories; C61 Malignant neoplasm of prostate; E11.22 Type 2 diabetes mellitus with diabetic chronic kidney disease; N18.30 Chronic kidney disease, stage 3 unspecified; D63.1 Anemia in chronic kidney disease; M06.9 Rheumatoid arthritis, unspecified; Z79.4 Long term (current) use of insulin; E11.40 Type 2 diabetes mellitus with diabetic neuropathy, unspecified; Z79.01 Long term (current) use of anticoagulants; E11.622 Type 2 diabetes mellitus with other skin ulcer; E86.9 Volume depletion, unspecified; Z20.822 Contact with and (suspected) exposure to COVID-19; E78.5 Hyperlipidemia, unspecified; R26.9 Unspecified abnormalities of gait and mobility; E87.5 Hyperkalemia; F41.0 Panic disorder [episodic paroxysmal anxiety]; L98.492 Non-pressure chronic ulcer of skin of other sites with fat layer exposed; Z79.84 Long term (current) use of oral hypoglycemic drugs; Z79.890 Hormone replacement therapy; Z79.899 Other long term (current) drug therapy; Z82.0 Family history of epilepsy and other diseases of the nervous system; Z85.850 Personal history of malignant neoplasm of thyroid; Z87.891 Personal history of nicotine dependence; Z81.8 Family history of other mental and behavioral disorders
CPT/HCPCS: 36415; 51798; 71046; 76770; 80048; 80053; 81003; 83036; 83605; 83735; 83880; 84132; 84484; 85025; 85610; 85730; 87040; 87070; 87075; 87077; 87186; 87205; 87502; 87635; 93005; 93306; 96365; 96375; 99291

== ENCOUNTER 2022-08-10 15:34 | Inpatient (IN) | payer MEDICARE ==
--- NOTE | 2022-08-10 15:52 | ED ---
General Adult HPI - General Chief complaint: Fall Stated complaint: weakness Time Seen by Provider: 08/10/22 15:40 Source: EMS, RN notes reviewed, old records reviewed Mode of arrival: ambulatory Limitations: no limitations - History of Present Illness Initial comments: This a 72-year-old male who presents emergency Department complaining of feeling weak for the last week. Patient states today he did fall he hurt his right ankle little bit. Patient denies hitting his head or neck. Patient denies hitting his back or chest. Patient states he is just becoming weaker and weaker to the point he cannot even stand without worrying about falling over. Patient denies any recent fever chills or cough. Patient denies any abdominal pain patient denies nausea vomiting diarrhea. Patient denies any dysuria or urinary frequency. Patient states he has a urinary tract infections in the past. Patient denies headache patient denies any numbness or weakness. Patient denies chest pain or any difficulty breathing. Patient's main complaint is just over all weakness getting worse and is not having any desire to eat or drink. - Related Data Home Medications Medication Instructions Recorded Confirmed Ferrous Sulfate [Feosol] 325 mg PO DAILY 07/31/19 08/10/22 PARoxetine [Paxil] 20 mg PO DAILY 07/31/19 08/10/22 Simvastatin [Zocor] 40 mg PO HS 07/31/19 08/10/22 allopurinoL [Zyloprim] 300 mg PO DAILY 07/31/19 08/10/22 Carbidopa-Levodopa 10-100 mg 1 tab PO TID@0900,1600,2100 03/11/21 08/10/22 [Sinemet 10-100 mg] Liraglutide [Victoza 2-Kodak] 1.2 mg SQ DAILY 03/11/21 08/10/22 metFORMIN HCL [Glucophage] 500 mg PO BID@0900,1900 03/11/21 08/10/22 Ascorbic Acid [Vitamin C] 500 mg PO DAILY 07/27/22 08/10/22 Cranberry Supplement 8,400 mg PO DAILY 07/27/22 08/10/22 Enzalutamide [Xtandi] 160 mg PO HS 07/27/22 08/10/22 Levothyroxine Sodium [Synthroid] 300 mcg PO DAILY 07/27/22 08/10/22 Ergocalciferol [Vitamin D2 (1250 1,250 mcg PO GALARZA 08/10/22 08/10/22 Mcg = 26006 Iu)] Furosemide [Lasix] See Taper PO BID@1400,1900 08/10/22 08/10/22 Midodrine [ProAmatine] 5 mg PO AC-BID@0900,1900 08/10/22 08/10/22 Nystatin 100,000 Unit/gm Powd 1 applic TOPICAL TID@0900,1600,2100 08/10/22 08/10/22 [Mycostatin Powder] Previous Rx's Medication Instructions Recorded Apixaban [Eliquis] 5 mg PO BID #60 tab 08/05/19 Famotidine [Pepcid] 20 mg PO DAILY #30 tablet 07/31/22 Potassium Chloride ER [K-Dur 20] 20 meq PO DAILY #0 07/31/22 Allergies Allergy/AdvReac Type Severity Reaction Status Date / Time No Known Allergies Allergy Verified 08/10/22 17:10 Review of Systems ROS Statement: Those systems with pertinent positive or pertinent negative responses have been documented in the HPI. ROS Other: All systems not noted in ROS Statement are negative. Past Medical History Past Medical History: Cancer, Diabetes Mellitus, Hyperlipidemia, Hypertension, Prostate Disorder, Rheumatoid Arthritis (RA), Thyroid Disorder Additional Past Medical History / Comment(s): Thyroid cancer with a previous thyroidectomy, prostate cancer, morbid obesity, obstructive sleep apnea, hypertension, hyperlipidemia, diabetes mellitus, History of Any Multi-Drug Resistant Organisms: None Reported Past Surgical History: Orthopedic Surgery Additional Past Surgical History / Comment(s): betty knee partial replacement, thyroidectomy Past Anesthesia/Blood Transfusion Reactions: No Reported Reaction Past Psychological History: Panic Disorder Smoking Status: Former smoker Past Alcohol Use History: None Reported Past Drug Use History: None Reported - Past Family History Father Family Medical History: Hyperlipidemia Additional Family Medical History / Comment(s): parkinsons Mother Family Medical History: Dementia General Exam - General Exam Comments Initial Comments: GENERAL: Patient is well-developed and well-nourished. Patient is nontoxic and well- hydrated and is in mild distress. ENT: Neck is soft and supple. No significant lymphadenopathy is noted. Oropharynx is clear. Moist mucous membranes. Neck has full range of motion without eliciting any pain. EYES: The sclera were anicteric and conjunctiva were pink and moist. Extraocular movements were intact and pupils were equal round and reactive to light. Eyeli ds were unremarkable. PULMONARY: Unlabored respirations. Good breath sounds bilaterally. No audible rales rhonchi or wheezing was noted. CARDIOVASCULAR Patient is tachycardic at about 120 beats a minute. ABDOMEN: Soft and nontender with normal bowel sounds. SKIN: Skin is clear with no lesions or rashes and otherwise unremarkable. NEUROLOGIC: Patient is alert and oriented x3. Cranial nerves II through XII are grossly intact. Motor and sensory are also intact. Normal speech, volume and content. Symmetrical smile. MUSCULOSKELETAL: Normal extremities with adequate strength and full range of motion. Lateral aspect of the right ankle is mildly tender LYMPHATICS: No significant lymphadenopathy is noted PSYCHIATRIC: Normal psychiatric evaluation. Limitations: no limitations Course Vital Signs 08/10/22 08/10/22 08/10/22 15:40 17:09 19:07 Temperature 97.6 F Pulse Rate 125 H 105 H 100 Respiratory 18 18 18 Rate Blood Pressure 108/48 112/83 111/62 O2 Sat by Pulse 100 98 100 Oximetry Medical Decision Making - Medical Decision Making EKG shows atrial fibrillation with rapid ventricular response at 1 30 bpm QRS is under 36 QT interval is 371 QTC is 448. Patient's EKG shows no ST segment elevation or depression. Patient does occasionally have a PVC.p Chest x-ray shows a mediastinal mass that appears to be unchanged. It also shows increased oral effusions. Patient's lactic acid was elevated I believe this is secondary to poor perfusion and slight dehydration. Patient has a history of congestive heart failure increased pleural effusions I did not give the patient any fluid boluses and was source of infection. I spoke with Dr. Nicholas he agreed to admit the patient admitted the patient I consulted cardiology. - Lab Data Result diagrams: 08/10/22 16:45 08/10/22 16:49 Lab Results 08/10/22 08/10/22 08/10/22 Range/Units 16:45 16:45 16:49 WBC 11.0 H (3.8-10.6) k/uL RBC 4.10 L (4.30-5.90) m/uL Hgb 11.2 L (13.0-17.5) gm/dL Hct 38.8 L (39.0-53.0) % MCV 94.6 (80.0-100.0) fL MCH 27.3 (25.0-35.0) pg MCHC 28.9 L (31.0-37.0) g/dL RDW 18.1 H (11.5-15.5) % Plt Count 168 (150-450) k/uL MPV 10.3 Neutrophils % 83 % Lymphocytes % 8 % Monocytes % 6 % Eosinophils % 1 % Basophils % 0 % Neutrophils # 9.1 H (1.3-7.7) k/uL Lymphocytes # 0.9 L (1.0-4.8) k/uL Monocytes # 0.7 (0-1.0) k/uL Eosinophils # 0.1 (0-0.7) k/uL Basophils # 0.0 (0-0.2) k/uL Hypochromasia Marked Anisocytosis Slight Macrocytosis Slight PT (9.0-12.0) sec INR (<1.2) APTT (22.0-30.0) sec Sodium 135 L (137-145) mmol/L Potassium 4.5 (3.5-5.1) mmol/L Chloride 94 L (98-107) mmol/L Carbon Dioxide 20 L (22-30) mmol/L Anion Gap 21 mmol/L BUN 49 H (9-20) mg/dL Creatinine 1.53 H (0.66-1.25) mg/dL Est GFR (CKD-EPI)AfAm 51 (>60 ml/min/1.73 sqM) Est GFR (CKD-EPI)NonAf 44 (>60 ml/min/1.73 sqM) Glucose 118 H (74-99) mg/dL Lactic Ac Sepsis Rflx Plasma Lactic Acid Karthikeyan (0.7-2.0) mmol/L Calcium 9.4 (8.4-10.2) mg/dL Magnesium 1.7 (1.6-2.3) mg/dL Total Bilirubin 1.9 H (0.2-1.3) mg/dL AST 301 H (17-59) U/L ALT 132 H (4-49) U/L Alkaline Phosphatase 100 (38-126) U/L Troponin I (0.000-0.034) ng/mL NT-Pro-B Natriuret Pep 93468 pg/mL Total Protein 6.3 (6.3-8.2) g/dL Albumin 3.9 (3.5-5.0) g/dL Urine Color Urine Appearance (Clear) Urine pH (5.0-8.0) Ur Specific [place] (1.001-1.035) Urine Protein (Negative) Urine Glucose (UA) (Negative) Urine Ketones (Negative) Urine Blood (Negative) Urine Nitrite (Negative) Urine Bilirubin (Negative) Urine Urobilinogen (<2.0) mg/dL Ur Leukocyte Esterase (Negative) Urine RBC (0-5) /hpf Urine WBC (0-5) /hpf Ur Squamous Epith Cells (0-4) /hpf Amorphous Sediment (None) /hpf Urine Bacteria (None) /hpf Hyaline Casts (0-2) /lpf Granular Casts (0) /lpf Urine Mucus (None) /hpf 08/10/22 08/10/22 08/10/22 Range/Units 16:49 16:49 17:06 WBC (3.8-10.6) k/uL RBC (4.30-5.90) m/uL Hgb (13.0-17.5) gm/dL Hct (39.0-53.0) % MCV (80.0-100.0) fL MCH (25.0-35.0) pg MCHC (31.0-37.0) g/dL RDW (11.5-15.5) % Plt Count (150-450) k/uL MPV Neutrophils % % Lymphocytes % % Monocytes % % Eosinophils % % Basophils % % Neutrophils # (1.3-7.7) k/uL Lymphocytes # (1.0-4.8) k/uL Monocytes # (0-1.0) k/uL Eosinophils # (0-0.7) k/uL Basophils # (0-0.2) k/uL Hypochromasia Anisocytosis Macrocytosis PT 24.8 H (9.0-12.0) sec INR 2.5 H (<1.2) APTT 34.1 H (22.0-30.0) sec Sodium (137-145) mmol/L Potassium (3.5-5.1) mmol/L Chloride (98-107) mmol/L Carbon Dioxide (22-30) mmol/L Anion Gap mmol/L BUN (9-20) mg/dL Creatinine (0.66-1.25) mg/dL Est GFR (CKD-EPI)AfAm (>60 ml/min/1.73 sqM) Est GFR (CKD-EPI)NonAf (>60 ml/min/1.73 sqM) Glucose (74-99) mg/dL Lactic Ac Sepsis Rflx Plasma Lactic Acid Karthikeyan 4.8 H* (0.7-2.0) mmol/L Calcium (8.4-10.2) mg/dL Magnesium (1.6-2.3) mg/dL Total Bilirubin (0.2-1.3) mg/dL AST (17-59) U/L ALT (4-49) U/L Alkaline Phosphatase (38-126) U/L Troponin I 0.157 H* (0.000-0.034) ng/mL NT-Pro-B Natriuret Pep pg/mL Total Protein (6.3-8.2) g/dL Albumin (3.5-5.0) g/dL Urine Color Urine Appearance (Clear) Urine pH (5.0-8.0) Ur Specific [place] (1.001-1.035) Urine Protein (Negative) Urine Glucose (UA) (Negative) Urine Ketones (Negative) Urine Blood (Negative) Urine Nitrite (Negative) Urine Bilirubin (Negative) Urine Urobilinogen (<2.0) mg/dL Ur Leukocyte Esterase (Negative) Urine RBC (0-5) /hpf Urine WBC (0-5) /hpf Ur Squamous Epith Cells (0-4) /hpf Amorphous Sediment (None) /hpf Urine Bacteria (None) /hpf Hyaline Casts (0-2) /lpf Granular Casts (0) /lpf Urine Mucus (None) /hpf 08/10/22 08/10/22 Range/Units 17:33 18:55 WBC (3.8-10.6) k/uL RBC (4.30-5.90) m/uL Hgb (13.0-17.5) gm/dL Hct (39.0-53.0) % MCV (80.0-100.0) fL MCH (25.0-35.0) pg MCHC (31.0-37.0) g/dL RDW (11.5-15.5) % Plt Count (150-450) k/uL MPV Neutrophils % % Lymphocytes % % Monocytes % % Eosinophils % % Basophils % % Neutrophils # (1.3-7.7) k/uL Lymphocytes # (1.0-4.8) k/uL Monocytes # (0-1.0) k/uL Eosinophils # (0-0.7) k/uL Basophils # (0-0.2) k/uL Hypochromasia Anisocytosis Macrocytosis PT (9.0-12.0) sec INR (<1.2) APTT (22.0-30.0) sec Sodium (137-145) mmol/L Potassium (3.5-5.1) mmol/L Chloride (98-107) mmol/L Carbon Dioxide (22-30) mmol/L Anion Gap mmol/L BUN (9-20) mg/dL Creatinine (0.66-1.25) mg/dL Est GFR (CKD-EPI)AfAm (>60 ml/min/1.73 sqM) Est GFR (CKD-EPI)NonAf (>60 ml/min/1.73 sqM) Glucose (74-99) mg/dL Lactic Ac Sepsis Rflx Y Plasma Lactic Acid Karthikeyan (0.7-2.0) mmol/L Calcium (8.4-10.2) mg/dL Magnesium (1.6-2.3) mg/dL Total Bilirubin (0.2-1.3) mg/dL AST (17-59) U/L ALT (4-49) U/L Alkaline Phosphatase (38-126) U/L Troponin I (0.000-0.034) ng/mL NT-Pro-B Natriuret Pep pg/mL Total Protein (6.3-8.2) g/dL Albumin (3.5-5.0) g/dL Urine Color Yellow Urine Appearance Cloudy (Clear) Urine pH 5.0 (5.0-8.0) Ur Specific [place] 1.015 (1.001-1.035) Urine Protein 1+ H (Negative) Urine Glucose (UA) Negative (Negative) Urine Ketones Negative (Negative) Urine Blood Negative (Negative) Urine Nitrite Negative (Negative) Urine Bilirubin Negative (Negative) Urine Urobilinogen 2.0 (<2.0) mg/dL Ur Leukocyte Esterase Trace H (Negative) Urine RBC 1 (0-5) /hpf Urine WBC 18 H (0-5) /hpf Ur Squamous Epith Cells 2 (0-4) /hpf Amorphous Sediment Rare H (None) /hpf Urine Bacteria Rare H (None) /hpf Hyaline Casts 227 H (0-2) /lpf Granular Casts 135 (0) /lpf Urine Mucus Rare H (None) /hpf Critical Care Time Critical Care Time: Yes Total Critical Care Time: 35 Disposition Clinical Impression: Fall, Generalized weakness, Elevated troponin, Atrial fibrillation with rapid ventricular response Disposition: ADMITTED IP TO THIS HOSP Referrals: Aftab Nicholas DO [Primary Care Provider] - 1-2 days Time of Disposition: 20:19
[2022-08-10] MEDS ORDERED: DILTIAZEM 125 MG in SODIUM CHLORIDE 0.9% 100 ML IV SCH (16:30)
[2022-08-10 17:14] LABS: Anisocytosis Slight; Basophils % (A) 0 %; Eosinophils # (A) 0.1 k/uL (0-0.7); Eosinophils % (A) 1 %; HCT 38.8 % (39.0-53.0); HGB 11.2 gm/dL (13.0-17.5); Hypochromasia Marked; Lymphocytes # (A) 0.9 k/uL (1.0-4.8); Lymphocytes % (A) 8 %; MCH 27.3 pg (25.0-35.0); MCHC 28.9 g/dL (31.0-37.0); MCV 94.6 fL (80.0-100.0); Macrocytosis Slight; Mean Platelet Volume 10.3; Monocytes # (A) 0.7 k/uL (0-1.0); Monocytes % (A) 6 %; Neutrophils # (A) 9.1 k/uL (1.3-7.7); Neutrophils % (A) 83 %; Platelet Count 168 k/uL (150-450); RDW 18.1 % (11.5-15.5)
[2022-08-10 17:24] LABS: INR 2.5 (<1.2); Partial Thromboplastin Time 34.1 sec (22.0-30.0); Prothrombin Time 24.8 sec (9.0-12.0)
[2022-08-10 17:41] LABS: Albumin 3.9 g/dL (3.5-5.0); Calcium 9.4 mg/dL (8.4-10.2); Magnesium 1.7 mg/dL (1.6-2.3); Potassium 4.5 mmol/L (3.5-5.1); Total Bilirubin 1.9 mg/dL (0.2-1.3); Total Protein 6.3 g/dL (6.3-8.2)
--- NOTE | 2022-08-10 18:56 | XR ---
EXAMINATION TYPE: XR chest 2V DATE OF EXAM: 08/10/2022 COMPARISON: 07/27/2022 HISTORY: Short of breath TECHNIQUE: FINDINGS: Heart appears enlarged. There is widening of the mediastinum. Exam limited by patient's siz e. There appears to be some bilateral pleural fluid and probably infiltrate at the posterior lung bas es. IMPRESSION: There is mediastinal mass or adenopathy similar to recent exam. There is increasing bilat eral pleural effusions compared to old exam.
--- NOTE | 2022-08-10 18:57 | XR ---
EXAMINATION TYPE: XR ankle complete RT DATE OF EXAM: 08/10/2022 COMPARISON: NONE HISTORY: Weakness TECHNIQUE: 3 views FINDINGS: There is severe narrowing of the ankle joint space with spurring and sclerosis. I see no ac picayune fracture nor dislocation. There is Achilles calcaneal spurring. Ankle mortise is anatomic. 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 No fracture.
[2022-08-10 19:51] LABS: Amorphous Sediment,Urine Rare /hpf; Appearance,Urine Cloudy (Clear); Bacteria,Urine Rare /hpf; Bilirubin,Urine Negative (Negative); Blood,Urine Negative (Negative); Color,Urine Yellow; Glucose,Urine (UA) Negative (Negative); Granular Casts,Urine 135 /lpf (0); Hyaline Casts,Urine 227 /lpf (0-2); Ketones,Urine Negative (Negative); Leukocyte Esterase,Urine Trace (Negative); Mucus,Urine Rare /hpf; Nitrite,Urine Negative (Negative); Protein,Urine 1+ (Negative); RBC,Urine 1 /hpf (0-5); Specific Gravity,Urine 1.015 (1.001-1.035); Squamous Epithelial Cell,Urine 2 /hpf (0-4); WBC,Urine 18 /hpf (0-5)
[2022-08-10 22:48] LABS: Glucose,Whole Blood 121 mg/dL (70-110)
[2022-08-10] MEDS: SODIUM CHLORIDE 0.9% 1,000 ML IV SCH (23:14)
[2022-08-10] MEDS: APIXABAN 5 MG TAB PO SCH (23:14)
[2022-08-11 05:58] LABS: Glucose,Whole Blood 115 mg/dL (70-110)
[2022-08-11] MEDS: APIXABAN 5 MG TAB PO SCH ×2 (09:02→22:45)
[2022-08-11] MEDS ORDERED: FUROSEMIDE 20 MG TAB PO SCH (09:23)
[2022-08-11] MEDS ORDERED: METOPROLOL SUCCINATE (ER) 25 MG TAB.ER.24H PO SCH (09:30)
[2022-08-11 09:32] LABS: Calcium 8.9 mg/dL (8.4-10.2); Magnesium 1.7 mg/dL (1.6-2.3); Potassium 4.9 mmol/L (3.5-5.1)
--- NOTE | 2022-08-11 10:08 | P.CONS ---
History of Present Illness - Reason for Consult Consult date: 08/11/22 wound care - History of Present Illness This is a 72 year old male being seen on for nonhealing ulceration to the suprapubic scoring area. Patient states that the ulceration has been there for about a month. He is unsure how it started. Patient states that it does drain a lot. No treatment has been to the site until he was in the hospital. At this time they're applying honey gel to the site with a border foam. Ulceration measures approximately 1.5 x 1 x 0.1 cm with significant amount of slough throughout the wound bed. Serous drainage noted to the site. Review Of Systems: Constitutional: No fever, no chills, no night sweats. No weight change. No weakness, fatigue or lethargy. No daytime sleepiness. Integumentary:reports wounds, no lesions. No rash or pruritus. No unusual bruising. No change in hair or nails. Physical exam: General Appearance: Alert, cooperative, no distress, appears stated age. Skin: See HPI all other Skin color, texture, tugor normal, no rashes or lesions. Neurologic: Alert oriented x3 Assessment: 1. Nonhealing ulceration to other site with fat layer exposure 2. Diabetes with skin ulceration 3. Obesity Plan: 1.Suprapubis: Apply honey gel and border foam. Change Monday, and Monday. Patient may benefit from continued advance wound care. We will happy to see him in the wound care center upon discharge. Thank you for the consultation any questions please contact the wound care center DNP note has been reviewed and discussed with Dr. Adame and the impression and plan of care has been directed as dictated. Past Medical History Past Medical History: Cancer, Diabetes Mellitus, Hyperlipidemia, Hypertension, Prostate Disorder, Rheumatoid Arthritis (RA), Thyroid Disorder Additional Past Medical History / Comment(s): Thyroid cancer with a previous thyroidectomy, prostate cancer, morbid obesity, obstructive sleep apnea, hypertension, hyperlipidemia, diabetes mellitus, History of Any Multi-Drug Resistant Organisms: None Reported Past Surgical History: Orthopedic Surgery Additional Past Surgical History / Comment(s): betty knee partial replacement, thyroidectomy Past Anesthesia/Blood Transfusion Reactions: No Reported Reaction Past Psychological History: Panic Disorder Additional Psychological History / Comment(s): Pt resides with his yuriIveth. His son lives next door. He has home oxygen and a walker and whee lchair. Smoking Status: Former smoker Past Alcohol Use History: None Reported Past Drug Use History: None Reported - Past Family History Father Family Medical History: Hyperlipidemia Additional Family Medical History / Comment(s): parkinsons Mother Family Medical History: Dementia Medications and Allergies Home Medications Medication Instructions Recorded Confirmed Type RX: Ferrous Sulfate [Feosol] 325 mg PO DAILY 07/31/19 08/10/22 History RX: PARoxetine [Paxil] 20 mg PO DAILY 07/31/19 08/10/22 History RX: Simvastatin [Zocor] 40 mg PO HS 07/31/19 08/10/22 History RX: allopurinoL [Zyloprim] 300 mg PO DAILY 07/31/19 08/10/22 History RX: Apixaban [Eliquis] 5 mg PO BID #60 tab 08/05/19 08/10/22 Rx RX: Carbidopa-Levodopa 10-100 mg 1 tab PO TID@0900,1600,2100 03/11/21 08/10/22 History [Sinemet 10-100 mg] RX: Liraglutide [Victoza 2-Kodak] 1.2 mg SQ DAILY 03/11/21 08/10/22 History RX: metFORMIN HCL [Glucophage] 500 mg PO BID@0900,1900 03/11/21 08/10/22 History Cranberry Supplement 8,400 mg PO DAILY 07/27/22 08/10/22 History RX: Ascorbic Acid [Vitamin C] 500 mg PO DAILY 07/27/22 08/10/22 History RX: Enzalutamide [Xtandi] 160 mg PO HS 07/27/22 08/10/22 History RX: Levothyroxine Sodium 300 mcg PO DAILY 07/27/22 08/10/22 History [Synthroid] Famotidine [Pepcid] 20 mg PO DAILY #30 tablet 07/31/22 08/10/22 Rx RX: Potassium Chloride ER [K-Dur 20 meq PO DAILY #0 07/31/22 08/10/22 Rx 20] Ergocalciferol [Vitamin D2 (1250 1,250 mcg PO GALARZA 08/10/22 08/10/22 History Mcg = 46451 Iu)] Furosemide [Lasix] See Taper PO BID@1400,1900 08/10/22 08/10/22 History RX: Midodrine [ProAmatine] 5 mg PO AC-BID@0900,1900 08/10/22 08/10/22 History RX: Nystatin 100,000 Unit/gm Powd 1 applic TOPICAL TID@0900,1600,2100 08/10/22 08/10/22 History [Mycostatin Powder] Allergies Allergy/AdvReac Type Severity Reaction Status Date / Time No Known Allergies Allergy Verified 08/10/22 17:10 Physical Exam Vitals: Vital Signs Temp Pulse Pulse Resp BP BP Pulse Ox 08/11/22 08:45 98.1 F 104 H 18 105/64 98 08/11/22 04:00 97.6 F 95 20 105/70 96 08/11/22 00:00 98.3 F 108 H 22 109/86 98 08/10/22 21:15 107 H 20 112/80 100 08/10/22 19:07 100 18 111/62 100 08/10/22 17:09 105 H 18 112/83 98 08/10/22 15:40 97.6 F 125 H 18 108/48 100 Intake and Output 08/10/22 08/11/22 08/11/22 22:59 06:59 14:59 Intake Total 240 Output Total 200 Balance 40 Intake: Oral 240 Output: Urine 200 Other: Voiding Method Indwelling Catheter Indwelling Catheter Weight 131.995 kg Results CBC & Chem 7: 08/10/22 16:45 08/11/22 07:52 Labs: Abnormal Lab Results - Last 24 Hours (Table) 08/10/22 08/10/22 08/10/22 Range/Units 16:45 16:49 16:49 WBC 11.0 H (3.8-10.6) k/uL RBC 4.10 L (4.30-5.90) m/uL Hgb 11.2 L (13.0-17.5) gm/dL Hct 38.8 L (39.0-53.0) % MCHC 28.9 L (31.0-37.0) g/dL RDW 18.1 H (11.5-15.5) % Neutrophils # 9.1 H (1.3-7.7) k/uL Lymphocytes # 0.9 L (1.0-4.8) k/uL PT (9.0-12.0) sec INR (<1.2) APTT (22.0-30.0) sec Sodium 135 L (137-145) mmol/L Chloride 94 L (98-107) mmol/L Carbon Dioxide 20 L (22-30) mmol/L BUN 49 H (9-20) mg/dL Creatinine 1.53 H (0.66-1.25) mg/dL Glucose 118 H (74-99) mg/dL POC Glucose (mg/dL) (70-110) mg/dL Plasma Lactic Acid Karthikeyan 4.8 H* (0.7-2.0) mmol/L Total Bilirubin 1.9 H (0.2-1.3) mg/dL AST 301 H (17-59) U/L ALT 132 H (4-49) U/L Troponin I (0.000-0.034) ng/mL Urine Protein (Negative) Ur Leukocyte Esterase (Negative) Urine WBC (0-5) /hpf Amorphous Sediment (None) /hpf Urine Bacteria (None) /hpf Hyaline Casts (0-2) /lpf Urine Mucus (None) /hpf 08/10/22 08/10/22 08/10/22 Range/Units 16:49 17:06 18:55 WBC (3.8-10.6) k/uL RBC (4.30-5.90) m/uL Hgb (13.0-17.5) gm/dL Hct (39.0-53.0) % MCHC (31.0-37.0) g/dL RDW (11.5-15.5) % Neutrophils # (1.3-7.7) k/uL Lymphocytes # (1.0-4.8) k/uL PT 24.8 H (9.0-12.0) sec INR 2.5 H (<1.2) APTT 34.1 H (22.0-30.0) sec Sodium (137-145) mmol/L Chloride (98-107) mmol/L Carbon Dioxide (22-30) mmol/L BUN (9-20) mg/dL Creatinine (0.66-1.25) mg/dL Glucose (74-99) mg/dL POC Glucose (mg/dL) (70-110) mg/dL Plasma Lactic Acid Karthikeyan (0.7-2.0) mmol/L Total Bilirubin (0.2-1.3) mg/dL AST (17-59) U/L ALT (4-49) U/L Troponin I 0.157 H* (0.000-0.034) ng/mL Urine Protein 1+ H (Negative) Ur Leukocyte Esterase Trace H (Negative) Urine WBC 18 H (0-5) /hpf Amorphous Sediment Rare H (None) /hpf Urine Bacteria Rare H (None) /hpf Hyaline Casts 227 H (0-2) /lpf Urine Mucus Rare H (None) /hpf 08/10/22 08/10/22 08/10/22 Range/Units 20:30 22:47 23:26 WBC (3.8-10.6) k/uL RBC (4.30-5.90) m/uL Hgb (13.0-17.5) gm/dL Hct (39.0-53.0) % MCHC (31.0-37.0) g/dL RDW (11.5-15.5) % Neutrophils # (1.3-7.7) k/uL Lymphocytes # (1.0-4.8) k/uL PT (9.0-12.0) sec INR (<1.2) APTT (22.0-30.0) sec Sodium (137-145) mmol/L Chloride (98-107) mmol/L Carbon Dioxide (22-30) mmol/L BUN (9-20) mg/dL Creatinine (0.66-1.25) mg/dL Glucose (74-99) mg/dL POC Glucose (mg/dL) 121 H (70-110) mg/dL Plasma Lactic Acid Karthikeyan 3.7 H* 4.7 H* (0.7-2.0) mmol/L Total Bilirubin (0.2-1.3) mg/dL AST (17-59) U/L ALT (4-49) U/L Troponin I (0.000-0.034) ng/mL Urine Protein (Negative) Ur Leukocyte Esterase (Negative) Urine WBC (0-5) /hpf Amorphous Sediment (None) /hpf Urine Bacteria (None) /hpf Hyaline Casts (0-2) /lpf Urine Mucus (None) /hpf 08/11/22 08/11/22 08/11/22 Range/Units 04:10 05:57 07:52 WBC (3.8-10.6) k/uL RBC (4.30-5.90) m/uL Hgb (13.0-17.5) gm/dL Hct (39.0-53.0) % MCHC (31.0-37.0) g/dL RDW (11.5-15.5) % Neutrophils # (1.3-7.7) k/uL Lymphocytes # (1.0-4.8) k/uL PT (9.0-12.0) sec INR (<1.2) APTT (22.0-30.0) sec Sodium 135 L (137-145) mmol/L Chloride 96 L (98-107) mmol/L Carbon Dioxide 20 L (22-30) mmol/L BUN 55 H (9-20) mg/dL Creatinine 1.84 H (0.66-1.25) mg/dL Glucose 106 H (74-99) mg/dL POC Glucose (mg/dL) 115 H (70-110) mg/dL Plasma Lactic Acid Karthikeyan 4.6 H* (0.7-2.0) mmol/L Total Bilirubin (0.2-1.3) mg/dL AST (17-59) U/L ALT (4-49) U/L Troponin I (0.000-0.034) ng/mL Urine Protein (Negative) Ur Leukocyte Esterase (Negative) Urine WBC (0-5) /hpf Amorphous Sediment (None) /hpf Urine Bacteria (None) /hpf Hyaline Casts (0-2) /lpf Urine Mucus (None) /hpf 08/11/22 Range/Units 07:52 WBC (3.8-10.6) k/uL RBC (4.30-5.90) m/uL Hgb (13.0-17.5) gm/dL Hct (39.0-53.0) % MCHC (31.0-37.0) g/dL RDW (11.5-15.5) % Neutrophils # (1.3-7.7) k/uL Lymphocytes # (1.0-4.8) k/uL PT (9.0-12.0) sec INR (<1.2) APTT (22.0-30.0) sec Sodium (137-145) mmol/L Chloride (98-107) mmol/L Carbon Dioxide (22-30) mmol/L BUN (9-20) mg/dL Creatinine (0.66-1.25) mg/dL Glucose (74-99) mg/dL POC Glucose (mg/dL) (70-110) mg/dL Plasma Lactic Acid Karthikeyan 4.7 H* (0.7-2.0) mmol/L Total Bilirubin (0.2-1.3) mg/dL AST (17-59) U/L ALT (4-49) U/L Troponin I (0.000-0.034) ng/mL Urine Protein (Negative) Ur Leukocyte Esterase (Negative) Urine WBC (0-5) /hpf Amorphous Sediment (None) /hpf Urine Bacteria (None) /hpf Hyaline Casts (0-2) /lpf Urine Mucus (None) /hpf Microbiology - Last 24 Hours (Table) 08/10/22 18:55 Urine Culture - Preliminary Urine,Voided Assessment and Plan (1) Non-pressure chronic ulcer of skin of other sites with fat layer exposed Current Visit: No Status: Acute Code(s): L98.492 - NON-PRS CHRONIC ULCER OF SKIN OF SITES W FAT LAYER EXPOSED SNOMED Code(s): 10745412 (2) Diabetes with skin ulcer Current Visit: No Status: Acute Code(s): E11.622 - TYPE 2 DIABETES MELLITUS WITH OTHER SKIN ULCER; L98.499 - NON-PRESSURE CHRONIC ULCER OF SKIN OF SITES W UNSP SEVERITY SNOMED Code(s): 48462234 (3) Obesity Current Visit: Yes Status: Acute Code(s): E66.9 - OBESITY, UNSPECIFIED SNOMED Code(s): 974634832
[2022-08-11] MEDS ORDERED: PANTOPRAZOLE 40 MG/10 ML VIAL IVP SCH (10:45)
[2022-08-11] MEDS: SODIUM CHLORIDE 0.9% 1,000 ML IV SCH (10:55)
[2022-08-11] MEDS ORDERED: AMIODARONE 360 MG in DEXTROSE 5% IN WATER 200 ML IV ONE ×2 (10:57)
[2022-08-11] MEDS ORDERED: DEXTROSE 5% IN WATER 100 ML with AMIODARONE 150 MG IV ONE (10:57)
[2022-08-11] MEDS ORDERED: PARoxetine 20 MG TAB PO SCH (11:00)
[2022-08-11] MEDS ORDERED: DEXTROSE 50% SYRINGE 50 ML IVP PRN ×2 (11:02)
--- NOTE | 2022-08-11 11:37 | P.NPCON ---
History of Present Illness - Reason for Consult acute renal failure, chronic renal failure - History of Present Illness Reason for consultation: Acute kidney injury on chronic kidney disease History of present illness: Patient is a 74-year-old male seen in renal consultation for acute kidney injury on chronic kidney disease. Patient has chronic kidney disease stage III with baseline creatinine near 1.5 secondary to diabetic kidney disease. Patient presented to the hospital due to generalized weakness. Patient states he was undergoing home physical therapy and did hit his toe on a cabinet. Patient states he felt weak and also fell but denies any syncopal episodes. His oral intake has been poor the last couple of weeks. He is also noted to be in A. fib with RVR and has been maintained on Cardizem drip. He's been changed to amiodarone drip by cardiology this morning. Patient denies any significant edema in his lower extremities. Chest x-ray shows mediastinal mass versus adenopathy as well as pleural fluid. No fracture noted in the ankle. He's currently receiving IV fluids as well as oral Lasix 60 mg twice daily which she takes at home. Blood pressure is stable but on the lower side. Patient is afebrile. He does have a white count of 11 and also high lactic acid level. ID has been consulted. Denies vomiting or diarrhea. Urine output less than 200 mL. He currently has a Antunez catheter. Vital signs are stable. General: Awake. No acute distress. HEENT: Head exam is unremarkable. On nasal cannula. LUNGS: Breath sounds decreased. HEART: Irregular rate and rhythm. ABDOMEN: Soft, obese. EXTREMITITES: Trace edema. Past Medical History Past Medical History: Cancer, Diabetes Mellitus, Hyperlipidemia, Hypertension, Prostate Disorder, Rheumatoid Arthritis (RA), Thyroid Disorder Additional Past Medical History / Comment(s): Thyroid cancer with a previous thyroidectomy, prostate cancer, morbid obesity, obstructive sleep apnea, hypertension, hyperlipidemia, diabetes mellitus, History of Any Multi-Drug Resistant Organisms: None Reported Past Surgical History: Orthopedic Surgery Additional Past Surgical History / Comment(s): betty knee partial replacement, thyroidectomy Past Anesthesia/Blood Transfusion Reactions: No Reported Reaction Past Psychological History: Panic Disorder Additional Psychological History / Comment(s): Pt resides with his yuri, Chr istina. His son lives next door. He has home oxygen and a walker and wheelchair. Smoking Status: Former smoker Past Alcohol Use History: None Reported Past Drug Use History: None Reported - Past Family History Father Family Medical History: Hyperlipidemia Additional Family Medical History / Comment(s): parkinsons Mother Family Medical History: Dementia Medications and Allergies Home Medications Medication Instructions Recorded Confirmed Type Ferrous Sulfate [Feosol] 325 mg PO DAILY 07/31/19 08/10/22 History PARoxetine [Paxil] 20 mg PO DAILY 07/31/19 08/10/22 History Simvastatin [Zocor] 40 mg PO HS 07/31/19 08/10/22 History allopurinoL [Zyloprim] 300 mg PO DAILY 07/31/19 08/10/22 History Apixaban [Eliquis] 5 mg PO BID #60 tab 08/05/19 08/10/22 Rx Carbidopa-Levodopa 10-100 mg 1 tab PO TID@0900,1600,2100 03/11/21 08/10/22 History [Sinemet 10-100 mg] Liraglutide [Victoza 2-Kodak] 1.2 mg SQ DAILY 03/11/21 08/10/22 History metFORMIN HCL [Glucophage] 500 mg PO BID@0900,1900 03/11/21 08/10/22 History Ascorbic Acid [Vitamin C] 500 mg PO DAILY 07/27/22 08/10/22 History Cranberry Supplement 8,400 mg PO DAILY 07/27/22 08/10/22 History Enzalutamide [Xtandi] 160 mg PO HS 07/27/22 08/10/22 History Levothyroxine Sodium [Synthroid] 300 mcg PO DAILY 07/27/22 08/10/22 History Famotidine [Pepcid] 20 mg PO DAILY #30 tablet 07/31/22 08/10/22 Rx Potassium Chloride ER [K-Dur 20] 20 meq PO DAILY #0 07/31/22 08/10/22 Rx Ergocalciferol [Vitamin D2 (1250 1,250 mcg PO GALARZA 08/10/22 08/10/22 History Mcg = [id number] Iu)] Furosemide [Lasix] See Taper PO BID@1400,1900 08/10/22 08/10/22 History Midodrine [ProAmatine] 5 mg PO AC-BID@0900,1900 08/10/22 08/10/22 History Nystatin 100,000 Unit/gm Powd 1 applic TOPICAL TID@0900,1600,2100 08/10/22 08/10/22 History [Mycostatin Powder] Allergies Allergy/AdvReac Type Severity Reaction Status Date / Time No Known Allergies Allergy Verified 08/10/22 17:10 Physical Exam Vitals: Vital Signs Temp Pulse Pulse Resp BP BP Pulse Ox 08/11/22 08:45 98.1 F 104 H 18 105/64 98 08/11/22 04:00 97.6 F 95 20 105/70 96 08/11/22 00:00 98.3 F 108 H 22 109/86 98 08/10/22 21:15 107 H 20 112/80 100 08/10/22 19:07 100 18 111/62 100 08/10/22 17:09 105 H 18 112/83 98 08/10/22 15:40 97.6 F 125 H 18 108/48 100 Intake and Output 08/10/22 08/11/22 08/11/22 22:59 06:59 14:59 Intake Total 240 Output Total 200 Balance 40 Intake: Oral 240 Output: Urine 200 Other: Voiding Method Indwelling Catheter Indwelling Catheter Weight 131.995 kg Results - Lab Results Most recent lab results Calcium 8.9 mg/dL (8.4-10.2) 08/11/22 07:52 Magnesium 1.7 mg/dL (1.6-2.3) 08/11/22 07:52 08/10/22 16:45 08/11/22 07:52 Assessment and Plan Plan: Assessment: 1. Acute kidney injury secondary to hemodynamic ATN. Creatinine was 1.53 on admission and is 1.84 today. No hydronephrosis noted on kidney ultrasound done June 2022. 2. 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 3. A. fib with RVR maintained on amiodarone drip. Was on Cardizem drip earlier. Cardiology following. 4. Metabolic acidosis secondary to acute kidney injury and lactic acidosis. 5. Chronic systolic CHF with ejection fraction of 45-50% with moderate tricuspid regurgitation. 6. Diabetes mellitus. Plan: Hold Lasix. Patient did receive 60 mg orally this morning. Maintain IV fluids. Check CT of the chest. Check urinalysis. Maintain Antunez. Strict is and os. Add oral bicarb. Avoid nephrotoxins. Continue to monitor renal function and urine output. Thank you for the consultation. I will continue to follow the patient with you during his hospital stay.
--- NOTE | 2022-08-11 11:43 | P.CRDCN ---
History of Present Illness History of present illness: This is a 72-year-old male with a past medical history significant for prostate cancer currently on immunotherapy, hypertension, hyperlipidemia, permanent atrial fibrillation on Eliquis, congestive heart failure, hypothyroidism, and diabetes. Patient follows with Dr. Carreon. We have been asked to see the patient in consultation for atrial fibrillation with RVR. Patient presents emergency department complaining of generalized bilateral lower extremity weakness. He states that yesterday he was walking on the bus and tripped and fell. It was difficult to get up and EMS was called and patient was brought to the ER. He states he recently saw Dr. Carreon on 08/09, his Lasix was increased to 60mg BID for 7 days, then 60mg daily. He denies any shortness of breath or chest pain. His lower extremity edema has improved. He denies any nausea, vomiting, cough, fever, chills. He did endorse some abdominal pain yesterday. He denies any diarrhea. He denies any symptoms of orthopnea or PND. He was recently admitted on 07/27 treated for CHF, he was hypotensive, his enalapril was discontinued, ho wever at discharge his metoprolol succinate was also discontinued. DIAGNOSTICS * EKG atrial fibrillation with rapid ventricular response, heart rate 130, right bundle-branch block. 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 * Laboratory data: Sodium 134, potassium 4.9, BUN 55, serum creatinine 1.8, magnesium 1.7, troponin 0.15, proBNP 20,200 * Echocardiogram was performed 07/28/2022- EF 45-50%, mild LVH, RV mild to moderately dilatered RVSP 38, moderate biaterial enlargement mild mitral regurgitation, moderate tricuspid regurgitation * Current home cardiac medications include simvastatin 40 mg nightly, Synthroid, potassium chloride, metoprolol succinate 25 mg daily, Lasix 40 mg 3 times a day, Eliquis 5 mg twice a day, enalapril 20 mg twice a day REVIEW OF SYSTEMS: At the time of my exam: CONSTITUTIONAL: Denies fever or chills. +Generalized weakness +BLE weakness HEENT: Denies blurred vision, vision changes, or eye pain. Denies hemoptysis CARDIOVASCULAR: Denies chest pain. Denies orthopnea. Denies PND. Denies palpitations RESPIRATORY: Denies shortness of breath. GASTROINTESTINAL: Denies abdominal pain. Denies nausea or vomiting. HEMATOLOGIC: Denies bleeding disorders. GENITOURINARY: Denies any blood in urine. SKIN: Denies pruitis. PHYSICAL EXAM: VITAL SIGNS: Reviewed. GENERAL: Well-developed in no acute distress. HEENT: Head is normocephalic. Pupils are equal, round. Sclerae anicteric. Mucous membranes of the mouth are moist. Neck supple. No JVD LUNGS: Respirations even and unlabored. Lungs clear bilaterally HEART: Irregular rate and rhythm. S1 and S2 heard. ABDOMEN: Soft. Nondistended. Nontender. EXTREMITIES: Normal range of motion. No clubbing or cyanosis. Peripheral pulses intact. Trace lower extremity edema NEUROLOGIC: Awake and alert. Oriented x 3. ASSESSMENT: Permanent atrial fibrillation with RVR on anticoagulation with ELiquis Chronic heart failure with preserved ejection fraction, appears euvolemic on exam Bilateral lower extremity weakness Acute kidney injury Hyperkalemia Abdominal cellulitis Permanent atrial fibrillation, on anticoagulation with Eliquis Cardiomyopathy, mild EF 45-50%, ischemic vs. non-ischemic Hypertension Hyperlipidemia Diabetes mellitus Hypothyroidism Morbid obesity: BMI 47 PLAN: Restart metoprolol succinate 25mg daily IV Amiodarone Bolus and drip Stop IV Cardizem Resume Eliquis for anticoagulation Nephrology following, holding Lasix Accurate I&O Daily weights Monitor kidney function Further recommendations pending patient's course Nurse practitioner note has been reviewed by physician. Signing provider agrees with the documented findings, assessment, and plan of care. Past Medical History Past Medical History: Cancer, Diabetes Mellitus, Hyperlipidemia, Hypertension, Prostate Disorder, Rheumatoid Arthritis (RA), Thyroid Disorder Additional Past Medical History / Comment(s): Thyroid cancer with a previous thyroidectomy, prostate cancer, morbid obesity, obstructive sleep apnea, hypertension, hyperlipidemia, diabetes mellitus, History of Any Multi-Drug Resistant Organisms: None Reported Past Surgical History: Orthopedic Surgery Additional Past Surgical History / Comment(s): betty knee partial replacement, thyroidectomy Past Anesthesia/Blood Transfusion Reactions: No Reported Reaction Past Psychological History: Panic Disorder Additional Psychological History / Comment(s): Pt resides with his yuriIveth. His son lives next door. He has home oxygen and a walker and wheelchair. Smoking Status: Former smoker Past Alcohol Use History: None Reported Past Drug Use History: None Reported - Past Family History Father Family Medical History: Hyperlipidemia Additional Family Medical History / Comment(s): parkinsons Mother Family Medical History: Dementia Medications and Allergies Home Medications Medication Instructions Recorded Confirmed Type Ferrous Sulfate [Feosol] 325 mg PO DAILY 07/31/19 08/10/22 History PARoxetine [Paxil] 20 mg PO DAILY 07/31/19 08/10/22 History Simvastatin [Zocor] 40 mg PO HS 07/31/19 08/10/22 History allopurinoL [Zyloprim] 300 mg PO DAILY 07/31/19 08/10/22 History Apixaban [Eliquis] 5 mg PO BID #60 tab 08/05/19 08/10/22 Rx Carbidopa-Levodopa 10-100 mg 1 tab PO TID@0900,1600,2100 03/11/21 08/10/22 History [Sinemet 10-100 mg] Liraglutide [Victoza 2-Kodak] 1.2 mg SQ DAILY 03/11/21 08/10/22 History metFORMIN HCL [Glucophage] 500 mg PO BID@0900,1900 03/11/21 08/10/22 History Ascorbic Acid [Vitamin C] 500 mg PO DAILY 07/27/22 08/10/22 History Cranberry Supplement 8,400 mg PO DAILY 07/27/22 08/10/22 History Enzalutamide [Xtandi] 160 mg PO HS 07/27/22 08/10/22 History Levothyroxine Sodium [Synthroid] 300 mcg PO DAILY 07/27/22 08/10/22 History Famotidine [Pepcid] 20 mg PO DAILY #30 tablet 07/31/22 08/10/22 Rx Potassium Chloride ER [K-Dur 20] 20 meq PO DAILY #0 07/31/22 08/10/22 Rx Ergocalciferol [Vitamin D2 (1250 1,250 mcg PO GALARZA 08/10/22 08/10/22 History Mcg = 53583 Iu)] Furosemide [Lasix] See Taper PO BID@1400,1900 08/10/22 08/10/22 History Midodrine [ProAmatine] 5 mg PO AC-BID@0900,1900 08/10/22 08/10/22 History Nystatin 100,000 Unit/gm Powd 1 applic TOPICAL TID@0900,1600,2100 08/10/22 08/10/22 History [Mycostatin Powder] Allergies Allergy/AdvReac Type Severity Reaction Status Date / Time No Known Allergies Allergy Verified 08/10/22 17:10 Physical Exam Vitals: Vital Signs Temp Pulse Pulse Resp BP BP Pulse Ox 08/11/22 04:00 97.6 F 95 20 105/70 96 08/11/22 00:00 98.3 F 108 H 22 109/86 98 08/10/22 21:15 107 H 20 112/80 100 08/10/22 19:07 100 18 111/62 100 08/10/22 17:09 105 H 18 112/83 98 08/10/22 15:40 97.6 F 125 H 18 108/48 100 Intake and Output 08/10/22 08/11/22 08/11/22 22:59 06:59 14:59 Intake Total 240 Output Total 200 Balance 40 Intake: Oral 240 Output: Urine 200 Other: Voiding Method Indwelling Catheter Weight 131.995 kg Results 08/10/22 16:45 08/11/22 07:52 Cardiac Enzymes 08/10/22 08/10/22 Range/Units 16:49 16:49 AST 301 H (17-59) U/L Troponin I 0.157 H* (0.000-0.034) ng/mL Coagulation 08/10/22 Range/Units 17:06 PT 24.8 H (9.0-12.0) sec APTT 34.1 H (22.0-30.0) sec CBC 08/10/22 Range/Units 16:45 WBC 11.0 H (3.8-10.6) k/uL RBC 4.10 L (4.30-5.90) m/uL Hgb 11.2 L (13.0-17.5) gm/dL Hct 38.8 L (39.0-53.0) % Plt Count 168 (150-450) k/uL Comprehensive Metabolic Panel 08/10/22 Range/Units 16:49 Sodium 135 L (137-145) mmol/L Potassium 4.5 (3.5-5.1) mmol/L Chloride 94 L (98-107) mmol/L Carbon Dioxide 20 L (22-30) mmol/L BUN 49 H (9-20) mg/dL Creatinine 1.53 H (0.66-1.25) mg/dL Glucose 118 H (74-99) mg/dL Calcium 9.4 (8.4-10.2) mg/dL AST 301 H (17-59) U/L ALT 132 H (4-49) U/L Alkaline Phosphatase 100 (38-126) U/L Total Protein 6.3 (6.3-8.2) g/dL Albumin 3.9 (3.5-5.0) g/dL Current Medications Generic Name Dose Route Start Last Admin Trade Name Freq PRN Reason Stop Dose Admin Apixaban 5 mg 08/10/22 23:00 08/10/22 23:14 Apixaban 5 Mg Tab PO 5 mg BID NASRIN Administration Protocol Diltiazem HCl 125 mg/ Sodium 125 mls @ 5 mls/hr 08/10/22 16:30 08/10/22 17:08 Chloride IV 5 mg/hr .Q24H NASRIN 5 mls/hr Administration 5 MG/HR Sodium Chloride 1,000 mls @ 75 mls/hr 08/10/22 21:00 08/10/22 23:14 Saline 0.9% IV 75 mls/hr .[id number] NASRIN Administration Intake and Output 08/10/22 08/11/22 08/11/22 22:59 06:59 14:59 Intake Total 240 Output Total 200 Balance 40 Intake: Oral 240 Output: Urine 200 Other: Voiding Method Indwelling Catheter Weight 131.995 kg 08/10/22 16:45 08/10/22 16:49
[2022-08-11 11:53] LABS: Glucose,Whole Blood 135 mg/dL (70-110)
[2022-08-11] MEDS: CARBIDOPA-LEVODOPA 10-100 MG 1 EACH TAB PO SCH ×3 (12:20→23:11)
[2022-08-11] MEDS: INSULIN ASPART (NovoLOG) 100 UNIT/ML VIAL SQ SCH ×3 (12:21→22:46)
[2022-08-11] MEDS: SODIUM BICARBONATE TAB 650 MG TAB PO SCH ×2 (12:23→22:46)
[2022-08-11] MEDS: LEVOTHYROXINE 100 MCG TAB PO SCH (12:24)
--- NOTE | 2022-08-11 14:19 | P.HPIM ---
History of Present Illness H&P Date: 08/11/22 This is a 72-year-old gentleman past medical history of CHF, obstructive sleep apnea -uses BiPAP, thyroid cancer with thyroidectomy, prostate cancer, morbid obesity-has lost 70 pounds over 1 year, diabetes mellitus, hyperlipidemia, hypertension, rheumatoid arthritis, thyroid cancer with prior thyroidectomy, prostate disorder, former nicotine dependence, panic disorder and multiple other medical issues presented to the ER with complaints of worsening shortness of breath, increased weakness and subsequent fall, hurting his right ankle. Denies head trauma. Denies syncope. Denies fever or chills or cough. Denies nausea vomiting or abdominal pain denies urinary frequency, dysuria or hematuria in a patient with history of recurrent UTIs. Denies chest pain, palpitations. Echocardiogram 07/28/2022 reported EF 45-50%, mild LVH, RV mild to moderately dilatered RVSP 38, moderate biaterial enlargement mild mitral regurgitation, moderate tricuspid regurgitation. Troponin 0.157. EKG reported atrial fibrillation with RVR, heart rates up into the 130s, Cardizem drip initiated, converted to amiodarone. ProBNP 20,200 .Chest x-ray reporting biting of the mediastinum, mediastinal mass or adenopathy similar to recent exam, increasing bilateral pleural effusions. Ankle x-ray reported advanced osteoarthritis no fracture. Lactic acid 4.8 on admission, maintained on gentle IV fluid hydration at 75 MLS per hour currently down to 4.7. Afebrile, WBC 11. Hemoglobin 11.2, platelets 168, neutrophils 9.1, INR 2.5, sodium 135, potassium 4.9, magnesium 1.7. BUN/creatinine on admission 49, 1.53, mildly worsened today; 55, 1.84. Total bili 1.9, AST 301, ALT 132. UA reporting rare bacteria 18 WBCs, trace leukocytes, 227 hyaline casts, negative nitrates. Requiring 3 L nasal cannula to maintain O2 sats in the 90, normally wears 2 L at home. Borderline hypotension with systolic blood pressures currently in the 90s. Review of Systems ROS Statement: Those systems with pertinent positive or pertinent negative responses have been documented in the HPI. ROS Other: All systems not noted in ROS Statement are negative. Past Medical History Past Medical History: Cancer, Diabetes Mellitus, Hyperlipidemia, Hypertension, Prostate Disorder, Rheumatoid Arthritis (RA), Thyroid Disorder Additional Past Medical History / Comment(s): Thyroid cancer with a previous thyroidectomy, prostate cancer, morbid obesity, obstructive sleep apnea, hypertension, hyperlipidemia, diabetes mellitus, History of Any Multi-Drug Resistant Organisms: None Reported Past Surgical History: Orthopedic Surgery Additional Past Surgical History / Comment(s): betty knee partial replacement, thyroidectomy Past Anesthesia/Blood Transfusion Reactions: No Reported Reaction Past Psychological History: Panic Disorder Additional Psychological History / Comment(s): Pt resides with his yuriIveth. His son lives next door. He has home oxygen and a walker and wheelchair. Smoking Status: Former smoker Past Alcohol Use History: None Reported Past Drug Use History: None Reported - Past Family History Father Family Medical History: Hyperlipidemia Additional Family Medical History / Comment(s): parkinsons Mother Family Medical History: Dementia Medications and Allergies Home Medications Medication Instructions Recorded Confirmed Type Ferrous Sulfate [Feosol] 325 mg PO DAILY 07/31/19 08/10/22 History PARoxetine [Paxil] 20 mg PO DAILY 07/31/19 08/10/22 History Simvastatin [Zocor] 40 mg PO HS 07/31/19 08/10/22 History allopurinoL [Zyloprim] 300 mg PO DAILY 07/31/19 08/10/22 History Apixaban [Eliquis] 5 mg PO BID #60 tab 08/05/19 08/10/22 Rx Carbidopa-Levodopa 10-100 mg 1 tab PO TID@0900,1600,2100 03/11/21 08/10/22 History [Sinemet 10-100 mg] Liraglutide [Victoza 2-Kodak] 1.2 mg SQ DAILY 03/11/21 08/10/22 History metFORMIN HCL [Glucophage] 500 mg PO BID@0900,1900 03/11/21 08/10/22 History Ascorbic Acid [Vitamin C] 500 mg PO DAILY 07/27/22 08/10/22 History Cranberry Supplement 8,400 mg PO DAILY 07/27/22 08/10/22 History Enzalutamide [Xtandi] 160 mg PO HS 07/27/22 08/10/22 History Levothyroxine Sodium [Synthroid] 300 mcg PO DAILY 07/27/22 08/10/22 History Famotidine [Pepcid] 20 mg PO DAILY #30 tablet 07/31/22 08/10/22 Rx Potassium Chloride ER [K-Dur 20] 20 meq PO DAILY #0 07/31/22 08/10/22 Rx Ergocalciferol [Vitamin D2 (1250 1,250 mcg PO GALARZA 08/10/22 08/10/22 History Mcg = 24767 Iu)] Furosemide [Lasix] See Taper PO BID@1400,1900 08/10/22 08/10/22 History Midodrine [ProAmatine] 5 mg PO AC-BID@0900,1900 08/10/22 08/10/22 History Nystatin 100,000 Unit/gm Powd 1 applic TOPICAL TID@0900,1600,2100 08/10/22 08/10/22 History [Mycostatin Powder] Allergies Allergy/AdvReac Type Severity Reaction Status Date / Time No Known Allergies Allergy Verified 08/10/22 17:10 Physical Exam Vitals: Vital Signs Temp Pulse Pulse Resp BP BP Pulse Ox 08/11/22 12:23 64 93/63 08/11/22 12:16 83 20 93/59 08/11/22 08:45 98.1 F 104 H 18 105/64 98 08/11/22 04:00 97.6 F 95 20 105/70 96 08/11/22 00:00 98.3 F 108 H 22 109/86 98 08/10/22 21:15 107 H 20 112/80 100 08/10/22 19:07 100 18 111/62 100 08/10/22 17:09 105 H 18 112/83 98 08/10/22 15:40 97.6 F 125 H 18 108/48 100 Intake and Output 08/10/22 08/11/22 08/11/22 22:59 06:59 14:59 Intake Total 240 Output Total 200 Balance 40 Intake: Oral 240 Output: Urine 200 Other: Voiding Method Indwelling Catheter Indwelling Catheter Weight 131.995 kg HYSICAL EXAM: VITAL SIGNS: As above GENERAL: Pleasant, obese gentleman sitting up at side of bed, no acute distress, hard of hearing-uses hearing aids, weak. HEENT: Normocephalic ,Conjunctivae normal. eyes normal. Oral mucosa moist NECK: Supple, short neck-unable to assess for JVD. No thyroid enlargement. No LNs CARDIOVASCULAR: S1, S2, irregular. No murmur RESPIRATION:labored, currently wearing BiPAP. Breath sounds diminished in the bases. No rhonchi or crackles. No bronchial breathing. ABDOMEN: Obese, Soft, nontender . Umbilical hernia No guarding. no masses palpable. No ascites, No hepatosplenomegaly.Bowel sounds heard. LEGS: Bilateral lower extremity trace pedal edema, nontender, wearing lower extremity compression stockings PSYCHIATRY: Alert and oriented X3, mood and affect normal. NERVOUS SYSTEM: Cranial N 2-12 grossly normal. Generalized weakness, No focal deficits. Strength and sensation grossly intact. Skin: Warm and dry,chronic suprapubic wound, with yellow center, reddened skin folds/panus Results CBC & Chem 7: 08/10/22 16:45 08/11/22 07:52 Labs: Abnormal Lab Results - Last 24 Hours (Table) 08/10/22 08/10/22 08/10/22 Range/Units 16:45 16:49 16:49 WBC 11.0 H (3.8-10.6) k/uL RBC 4.10 L (4.30-5.90) m/uL Hgb 11.2 L (13.0-17.5) gm/dL Hct 38.8 L (39.0-53.0) % MCHC 28.9 L (31.0-37.0) g/dL RDW 18.1 H (11.5-15.5) % Neutrophils # 9.1 H (1.3-7.7) k/uL Lymphocytes # 0.9 L (1.0-4.8) k/uL PT (9.0-12.0) sec INR (<1.2) APTT (22.0-30.0) sec Sodium 135 L (137-145) mmol/L Chloride 94 L (98-107) mmol/L Carbon Dioxide 20 L (22-30) mmol/L BUN 49 H (9-20) mg/dL Creatinine 1.53 H (0.66-1.25) mg/dL Glucose 118 H (74-99) mg/dL POC Glucose (mg/dL) (70-110) mg/dL Plasma Lactic Acid Karthikeyan 4.8 H* (0.7-2.0) mmol/L Total Bilirubin 1.9 H (0.2-1.3) mg/dL AST 301 H (17-59) U/L ALT 132 H (4-49) U/L Troponin I (0.000-0.034) ng/mL Urine Protein (Negative) Ur Leukocyte Esterase (Negative) Urine WBC (0-5) /hpf Amorphous Sediment (None) /hpf Urine Bacteria (None) /hpf Hyaline Casts (0-2) /lpf Urine Mucus (None) /hpf 08/10/22 08/10/22 08/10/22 Range/Units 16:49 17:06 18:55 WBC (3.8-10.6) k/uL RBC (4.30-5.90) m/uL Hgb (13.0-17.5) gm/dL Hct (39.0-53.0) % MCHC (31.0-37.0) g/dL RDW (11.5-15.5) % Neutrophils # (1.3-7.7) k/uL Lymphocytes # (1.0-4.8) k/uL PT 24.8 H (9.0-12.0) sec INR 2.5 H (<1.2) APTT 34.1 H (22.0-30.0) sec Sodium (137-145) mmol/L Chloride (98-107) mmol/L Carbon Dioxide (22-30) mmol/L BUN (9-20) mg/dL Creatinine (0.66-1.25) mg/dL Glucose (74-99) mg/dL POC Glucose (mg/dL) (70-110) mg/dL Plasma Lactic Acid Karthikeyan (0.7-2.0) mmol/L Total Bilirubin (0.2-1.3) mg/dL AST (17-59) U/L ALT (4-49) U/L Troponin I 0.157 H* (0.000-0.034) ng/mL Urine Protein 1+ H (Negative) Ur Leukocyte Esterase Trace H (Negative) Urine WBC 18 H (0-5) /hpf Amorphous Sediment Rare H (None) /hpf Urine Bacteria Rare H (None) /hpf Hyaline Casts 227 H (0-2) /lpf Urine Mucus Rare H (None) /hpf 08/10/22 08/10/22 08/10/22 Range/Units 20:30 22:47 23:26 WBC (3.8-10.6) k/uL RBC (4.30-5.90) m/uL Hgb (13.0-17.5) gm/dL Hct (39.0-53.0) % MCHC (31.0-37.0) g/dL RDW (11.5-15.5) % Neutrophils # (1.3-7.7) k/uL Lymphocytes # (1.0-4.8) k/uL PT (9.0-12.0) sec INR (<1.2) APTT (22.0-30.0) sec Sodium (137-145) mmol/L Chloride (98-107) mmol/L Carbon Dioxide (22-30) mmol/L BUN (9-20) mg/dL Creatinine (0.66-1.25) mg/dL Glucose (74-99) mg/dL POC Glucose (mg/dL) 121 H (70-110) mg/dL Plasma Lactic Acid Karthikeyan 3.7 H* 4.7 H* (0.7-2.0) mmol/L Total Bilirubin (0.2-1.3) mg/dL AST (17-59) U/L ALT (4-49) U/L Troponin I (0.000-0.034) ng/mL Urine Protein (Negative) Ur Leukocyte Esterase (Negative) Urine WBC (0-5) /hpf Amorphous Sediment (None) /hpf Urine Bacteria (None) /hpf Hyaline Casts (0-2) /lpf Urine Mucus (None) /hpf 08/11/22 08/11/22 08/11/22 Range/Units 04:10 05:57 07:52 WBC (3.8-10.6) k/uL RBC (4.30-5.90) m/uL Hgb (13.0-17.5) gm/dL Hct (39.0-53.0) % MCHC (31.0-37.0) g/dL RDW (11.5-15.5) % Neutrophils # (1.3-7.7) k/uL Lymphocytes # (1.0-4.8) k/uL PT (9.0-12.0) sec INR (<1.2) APTT (22.0-30.0) sec Sodium 135 L (137-145) mmol/L Chloride 96 L (98-107) mmol/L Carbon Dioxide 20 L (22-30) mmol/L BUN 55 H (9-20) mg/dL Creatinine 1.84 H (0.66-1.25) mg/dL Glucose 106 H (74-99) mg/dL POC Glucose (mg/dL) 115 H (70-110) mg/dL Plasma Lactic Acid Karthikeyan 4.6 H* (0.7-2.0) mmol/L Total Bilirubin (0.2-1.3) mg/dL AST (17-59) U/L ALT (4-49) U/L Troponin I (0.000-0.034) ng/mL Urine Protein (Negative) Ur Leukocyte Esterase (Negative) Urine WBC (0-5) /hpf Amorphous Sediment (None) /hpf Urine Bacteria (None) /hpf Hyaline Casts (0-2) /lpf Urine Mucus (None) /hpf 08/11/22 08/11/22 Range/Units 07:52 11:51 WBC (3.8-10.6) k/uL RBC (4.30-5.90) m/uL Hgb (13.0-17.5) gm/dL Hct (39.0-53.0) % MCHC (31.0-37.0) g/dL RDW (11.5-15.5) % Neutrophils # (1.3-7.7) k/uL Lymphocytes # (1.0-4.8) k/uL PT (9.0-12.0) sec INR (<1.2) APTT (22.0-30.0) sec Sodium (137-145) mmol/L Chloride (98-107) mmol/L Carbon Dioxide (22-30) mmol/L BUN (9-20) mg/dL Creatinine (0.66-1.25) mg/dL Glucose (74-99) mg/dL POC Glucose (mg/dL) 135 H (70-110) mg/dL Plasma Lactic Acid Karthikeyan 4.7 H* (0.7-2.0) mmol/L Total Bilirubin (0.2-1.3) mg/dL AST (17-59) U/L ALT (4-49) U/L Troponin I (0.000-0.034) ng/mL Urine Protein (Negative) Ur Leukocyte Esterase (Negative) Urine WBC (0-5) /hpf Amorphous Sediment (None) /hpf Urine Bacteria (None) /hpf Hyaline Casts (0-2) /lpf Urine Mucus (None) /hpf Microbiology - Last 24 Hours (Table) 08/10/22 18:55 Urine Culture - Preliminary Urine,Voided Thrombosis Risk Factor Assmnt - Choose All That Apply Each Factor Represents 1 point: Obesity (BMI >25) Each Risk Factor Represents 2 Points: Age 61-74 years Thrombosis Risk Factor Assessment Total Risk Factor Score: 3 Thrombosis Risk Factor Assessment Level: Moderate Risk Assessment and Plan Assessment: -Chronic atrial fibrillation with RVR, anticoagulated on eliquis -Acute on chronic diastolic CHF exacerbation, EF 45-50% -Acute on Chronic hypoxic respiratory failure secondary to the above, wears 2 L nasal cannula O2 at home, multifactorial.Chest x-ray reporting mediastinal mass, unchanged from prior with increased bilateral pleural effusions, chest CT pending. -Obstructive sleep apnea wears BiPAP at home -Acute renal failure, ATN secondary to cardiorenal syndrome. No hydronephrosis reported per recent renal ultrasound 07/18 -Chronic renal failure stage IIIA, secondary to diabetic renal disease, baseline 1.5 -Lactic acidosis, in a patient with history of chronic wound, possible acute UTI, though current UA does not reflect -Metabolic acidosis secondary to acute renal injury and the above -Elevated LFTs -Abdominal cellulitis with chronic suprapubic wound, E. coli reported per wound culture 07/27/2022, refer to nursing documentation for measurements -Anemia of chronic disease -Diabetes mellitus, A1c 5.8 -Diabetic neuropathy, bilateral feet -Hypertension -Hyperlipidemia -History of panic disorder -History of thyroid cancer, thyroidectomy -Prostate cancer, currently on immunotherapy -Morbid Obesity, BMI 47 -Gait dysfunction, chronic right ankle injury years ago, uses walker for any lengthy distance, status post recent fall prior to this admission. Plan: Continue on current medication regime ,monitoring and symptomatic tr eatment. Oral bicarb. Gentle IV fluid hydration. Diuretics as per nephrology- currently on hold. Chest CT pending. Repeat UA. Infectious disease consulted. Wound care in place .PT/OT consulted, potential subacute rehab at discharge. CODE STATUS to be further addressed. Prognosis guarded given multiple complex medical issues. The impression and plan of care has been dictated as directed. : I performed a history and examination of this patient, discussed the same with the dictator. I agree with the dictator's note ,documented as a scribe. Any additional findings or plans will be noted.
--- NOTE | 2022-08-11 15:56 | CT ---
EXAMINATION TYPE: CT chest wo con DATE OF EXAM: 08/11/2022 COMPARISON: 07/07/2022 HISTORY: 72-year-old male with fluid versus mediastinal mass TECHNIQUE: Contiguous axial scanning of the chest without IV contrast. Coronal and sagittal reconstru ctions performed. CT DLP: 1232.6 mGycm Automated exposure control for dose reduction was used. FINDINGS: Generalized anasarca change in appearance to be increasing compared to 1122. Heart moderately enlarged. No pericardial effusion. Three-vessel coronary artery calcifications are p resent. Mild to moderate aortic valvular calcifications. Ectatic ascending aorta 3.8 cm. Bovine configuration to the aortic arch. Redemonstrated left supraclavicular lymphadenopathy measuring up to 2.8 cm short axis. Right thoracic inlet lymphadenopathy measuring up to 3.2 cm versus 3.0 cm, previously. Left AP window mass measuring up to 9.3 cm, relatively similar to prior exam extending up along the l eft superior mediastinum due to large size. Lower right paratracheal adenopathy measuring up to 6.2 cm versus 6.0 cm, previously. Left axillary adenopathy measuring up to 1.7 cm versus 1.4 cm, previously. Large caliber to the main right and left pulmonary arteries measuring up to 3.5 cm suggesting underly ing pulmonary arterial hypertension. Increasing small bilateral pleural effusions. There appears to be prominent subpleural fat extending into the left posterior midlung measuring up to 6.0 cm, unchanged from prior. Some mild peribronchial vascular groundglass changes could reflect a very vascular congestion. Similar mild to moderate upper abdominal ascites. Bones: Limited detailed assessment of the osseous structures due to excessive nor is from large body habitus. There is dish throughout the mid and lower thoracic spine with moderate to advanced degenera tive disc disease. IMPRESSION: 1. MODERATE CARDIOMEGALY, CAD WITH 3 VESSEL CORONARY ARTERY CALCIFICATIONS, PULMONARY ARTERIAL HYPERT ENSION, WORSENING GENERALIZED ANASARCA, AND ENLARGING SMALL BILATERAL PLEURAL EFFUSIONS. CORRELATE FO R THIRD SPACING/FLUID OVERLOAD STATE AND CHF. 2. PERIBRONCHOVASCULAR GROUNDGLASS CHANGES HAVE INCREASED AND MAY REFLECT EARLY INTERSTITIAL PULMONAR Y EDEMA. 3. JAHAIRA MEDIASTINAL AND LEFT SUPRACLAVICULAR LYMPHADENOPATHY. MILDLY ENLARGED LEFT AXILLARY LYMPH NO JESSIKA ALSO PERSIST. LARGEST TERENCE MASS MEASURES UP TO 9.3 CM AT THE AP WINDOW. THE NODES ARE EITHER STA BLE OR MINIMALLY INCREASED. APPROPRIATE FURTHER WORKUP AND MANAGEMENT FOR LYMPHOMA OR METASTATIC DISE ASE IS ADVISED. 4. MILD TO MODERATE UPPER ABDOMINAL ASCITES IS SIMILAR.
[2022-08-11 16:27] LABS: Appearance,Urine Turbid (Clear); Bacteria,Urine Occasional /hpf; Bilirubin,Urine Negative (Negative); Blood,Urine Large (Negative); Color,Urine Dark Brown; Glucose,Urine (UA) Trace (Negative); Ketones,Urine Negative (Negative); Leukocyte Esterase,Urine Large (Negative); Mucus,Urine Few /hpf; Nitrite,Urine Negative (Negative); PH, Urine 5.5 (5.0-8.0); Protein,Urine 2+ (Negative); RBC,Urine >182 /hpf (0-5); Specific Gravity,Urine 1.018 (1.001-1.035); Squamous Epithelial Cell,Urine 14 /hpf (0-4); Urobilinogen,Urine <2.0 mg/dL (<2.0); WBC,Urine >182 /hpf (0-5)
[2022-08-11 16:52] LABS: Glucose,Whole Blood 111 mg/dL (70-110)
[2022-08-11] MEDS ORDERED: SODIUM CHLORIDE 0.9% 500 ML 500 ML IV ONE (17:01)
[2022-08-11] MEDS ORDERED: FUROSEMIDE 10 MG/ML 10 ML VIAL IV STA (17:05)
[2022-08-11] MEDS: NYSTATIN 100,000 UNIT/GM POWD 15 GM TOPICAL SCH (17:08)
[2022-08-11] MEDS: AMPICILLIN-SULBACTAM 3 GM in SODIUM CHLORIDE 0.9% 100 ML IVPB SCH (18:37)
[2022-08-11] MEDS: AMIODARONE 450 MG in DEXTROSE 5% IN WATER 250 ML IV SCH ×2 (19:00)
[2022-08-11 19:55] LABS: Glucose,Whole Blood 77 mg/dL (70-110)
[2022-08-11] MEDS ORDERED: MIDODRINE 5 MG TAB PO STA (20:23)
[2022-08-11] MEDS ORDERED: NALOXONE 0.4 MG/ML 1 ML VIAL IV PRN (20:46)
[2022-08-11] MEDS ORDERED: NOREPINEPHRIN 4 MG-0.9% NS PMX 4 MG/250 ML ML IV ONE (20:50)
[2022-08-11 20:54] LABS: Glucose,Whole Blood 68 mg/dL (70-110)
[2022-08-11 20:59] LABS: Calcium 8.3 mg/dL (8.4-10.2); Potassium 5.8 mmol/L (3.5-5.1)
[2022-08-11] MEDS ORDERED: ATORVASTATIN 20 MG TAB PO SCH (21:00)
[2022-08-11 21:22] LABS: Glucose,Whole Blood 102 mg/dL (70-110)
[2022-08-11] MEDS: NOREPINEPHRINE 4 MG in SODIUM CHLORIDE 0.9% 250 ML IV SCH (21:45)
--- NOTE | 2022-08-11 22:20 | XR ---
EXAMINATION TYPE: XR chest 1V DATE OF EXAM: 08/11/2022 COMPARISON: 08/10/2022 HISTORY: Short of breath TECHNIQUE: FINDINGS: Heart is enlarged. No obvious heart failure. Increased density at the mediastinum on the le ft and right side consistent with adenopathy. No definite pleural effusion. Bony thorax is intact. Th ere are significant arthritic disease in the right shoulder joint. IMPRESSION: Mediastinal mass without change compared to yesterday. No heart failure.
[2022-08-11 22:23] LABS: Calcium 8.1 mg/dL (8.4-10.2)
[2022-08-11 22:34] LABS: Glucose,Whole Blood 99 mg/dL (70-110)
--- NOTE | 2022-08-11 23:34 | P.CONS ---
History of Present Illness - Reason for Consult Consult date: 08/11/22 lactic acidosis, leukocytosis abdominal wound Requesting physician: Lanny Abreu - Chief Complaint Increased weakness and frequent falls x few days - History of Present Illness Patient is a 72-year-old male with a past medical history significant for CHF, history of obstructive sleep apnea thyroid as well as prostate cancer and morbid obesity presented to the hospital for evaluation of increasing shortness of breath increased weakness and frequent falls apparently hitting his right ankle no syncopal episode though no clear history of any fever or any chil ls patient presented to hospital did have a urine retention requiring Antunez catheter placement currently draining a dark urine patient on presentation of the hospital was afebrile and no fever have been recorded subsequently patient did have white and of 11.0 with a left shift did have elevated BUN and creatinine elevated lactic acid liver enzymes mildly elevated elevated CRP did have a mildly positive UA patient also have a wound on his pubic area patient are very clear for how long he has it and how it started however denies having any pain to the area or any drainage infectious disease was consulted with concern for possible wound infection and sepsis and need for antibiotic therapy Review of Systems Positive point has been mentioned in the HPI rest of the systems are negative Past Medical History Past Medical History: Cancer, Diabetes Mellitus, Hyperlipidemia, Hypertension, Prostate Disorder, Rheumatoid Arthritis (RA), Thyroid Disorder Additional Past Medical History / Comment(s): Thyroid cancer with a previous thyroidectomy, prostate cancer, morbid obesity, obstructive sleep apnea, h ypertension, hyperlipidemia, diabetes mellitus, History of Any Multi-Drug Resistant Organisms: None Reported Past Surgical History: Orthopedic Surgery Additional Past Surgical History / Comment(s): betty knee partial replacement, thyroidectomy Past Anesthesia/Blood Transfusion Reactions: No Reported Reaction Past Psychological History: Panic Disorder Additional Psychological History / Comment(s): Pt resides with his yuriIveth. His son lives next door. He has home oxygen and a walker and wheelchair. Smoking Status: Former smoker Past Alcohol Use History: None Reported Past Drug Use History: None Reported - Past Family History Father Family Medical History: Hyperlipidemia Additional Family Medical History / Comment(s): parkinsons Mother Family Medical History: Dementia Medications and Allergies Home Medications Medication Instructions Recorded Confirmed Type Ferrous Sulfate [Feosol] 325 mg PO DAILY 07/31/19 08/10/22 History PARoxetine [Paxil] 20 mg PO DAILY 07/31/19 08/10/22 History Simvastatin [Zocor] 40 mg PO HS 07/31/19 08/10/22 History allopurinoL [Zyloprim] 300 mg PO DAILY 07/31/19 08/10/22 History Apixaban [Eliquis] 5 mg PO BID #60 tab 08/05/19 08/10/22 Rx Carbidopa-Levodopa 10-100 mg 1 tab PO TID@0900,1600,2100 03/11/21 08/10/22 History [Sinemet 10-100 mg] Liraglutide [Victoza 2-Kodak] 1.2 mg SQ DAILY 03/11/21 08/10/22 History metFORMIN HCL [Glucophage] 500 mg PO BID@0900,1900 03/11/21 08/10/22 History Ascorbic Acid [Vitamin C] 500 mg PO DAILY 07/27/22 08/10/22 History Cranberry Supplement 8,400 mg PO DAILY 07/27/22 08/10/22 History Enzalutamide [Xtandi] 160 mg PO HS 07/27/22 08/10/22 History Levothyroxine Sodium [Synthroid] 300 mcg PO DAILY 07/27/22 08/10/22 History Famotidine [Pepcid] 20 mg PO DAILY #30 tablet 07/31/22 08/10/22 Rx Potassium Chloride ER [K-Dur 20] 20 meq PO DAILY #0 07/31/22 08/10/22 Rx Ergocalciferol [Vitamin D2 (1250 1,250 mcg PO GALARZA 08/10/22 08/10/22 History Mcg = [id number] Iu)] Furosemide [Lasix] See Taper PO BID@1400,0 08/10/22 08/10/22 History Midodrine [ProAmatine] 5 mg PO AC-BID@0900,1900 08/10/22 08/10/22 History Nystatin 100,000 Unit/gm Powd 1 applic TOPICAL TID@0900,1600,2100 08/10/22 08/10/22 History [Mycostatin Powder] Allergies Allergy/AdvReac Type Severity Reaction Status Date / Time No Known Allergies Allergy Verified 08/10/22 17:10 Physical Exam Vitals: Vital Signs Temp Pulse Pulse Resp BP BP Pulse Ox 08/11/22 13:18 95 20 95/64 08/11/22 12:41 87 91/62 08/11/22 12:34 91 91/63 08/11/22 12:23 64 93/63 08/11/22 12:16 83 20 93/59 08/11/22 08:45 98.1 F 104 H 18 105/64 98 08/11/22 04:00 97.6 F 95 20 105/70 96 08/11/22 00:00 98.3 F 108 H 22 109/86 98 08/10/22 21:15 107 H 20 112/80 100 08/10/22 19:07 100 18 111/62 100 08/10/22 17:09 105 H 18 112/83 98 08/10/22 15:40 97.6 F 125 H 18 108/48 100 Intake and Output 08/11/22 08/11/22 08/11/22 06:59 14:59 22:59 Intake Total 240 Output Total 200 Balance 40 Intake: Oral 240 Output: Urine 200 Other: Voiding Method Indwelling Catheter Indwelling Catheter GENERAL DESCRIPTION: elderly male up in the chair, no distress. No tachypnea or accessory muscle of respiration use. HEENT: Shows Pallor , no scleral icterus. Oral mucous membrane is dry. No pharyngeal erythema or thrush NECK: Trachea central, no thyromegaly. LUNGS: Unlabored breathing. decreased breath sound on the base. HEART: S1, S2, regular rate and rhythm. No loud murmur ABDOMEN: Soft, mild distention butno tenderness , guarding or rigidity, pubic area superficial wound with minimal slough tissue no surrounding redness induration or drainage EXTREMITIES: No edema of feet. SKIN: No rash, no masses palpable. NEUROLOGICAL: The patient is awake, alert, oriented x3, mood and affect normal. Results CBC & Chem 7: 08/12/22 05:21 08/12/22 05:21 Labs: Abnormal Lab Results - Last 24 Hours (Table) 08/10/22 08/10/22 08/10/22 Range/Units 16:45 16:49 16:49 WBC 11.0 H (3.8-10.6) k/uL RBC 4.10 L (4.30-5.90) m/uL Hgb 11.2 L (13.0-17.5) gm/dL Hct 38.8 L (39.0-53.0) % MCHC 28.9 L (31.0-37.0) g/dL RDW 18.1 H (11.5-15.5) % Neutrophils # 9.1 H (1.3-7.7) k/uL Lymphocytes # 0.9 L (1.0-4.8) k/uL PT (9.0-12.0) sec INR (<1.2) APTT (22.0-30.0) sec Sodium 135 L (137-145) mmol/L Chloride 94 L (98-107) mmol/L Carbon Dioxide 20 L (22-30) mmol/L BUN 49 H (9-20) mg/dL Creatinine 1.53 H (0.66-1.25) mg/dL Glucose 118 H (74-99) mg/dL POC Glucose (mg/dL) (70-110) mg/dL Plasma Lactic Acid Karthikeyan 4.8 H* (0.7-2.0) mmol/L Total Bilirubin 1.9 H (0.2-1.3) mg/dL AST 301 H (17-59) U/L ALT 132 H (4-49) U/L Troponin I (0.000-0.034) ng/mL Urine Protein (Negative) Ur Leukocyte Esterase (Negative) Urine WBC (0-5) /hpf Amorphous Sediment (None) /hpf Urine Bacteria (None) /hpf Hyaline Casts (0-2) /lpf Urine Mucus (None) /hpf 08/10/22 08/10/22 08/10/22 Range/Units 16:49 17:06 18:55 WBC (3.8-10.6) k/uL RBC (4.30-5.90) m/uL Hgb (13.0-17.5) gm/dL Hct (39.0-53.0) % MCHC (31.0-37.0) g/dL RDW (11.5-15.5) % Neutrophils # (1.3-7.7) k/uL Lymphocytes # (1.0-4.8) k/uL PT 24.8 H (9.0-12.0) sec INR 2.5 H (<1.2) APTT 34.1 H (22.0-30.0) sec Sodium (137-145) mmol/L Chloride (98-107) mmol/L Carbon Dioxide (22-30) mmol/L BUN (9-20) mg/dL Creatinine (0.66-1.25) mg/dL Glucose (74-99) mg/dL POC Glucose (mg/dL) (70-110) mg/dL Plasma Lactic Acid Karthikeyan (0.7-2.0) mmol/L Total Bilirubin (0.2-1.3) mg/dL AST (17-59) U/L ALT (4-49) U/L Troponin I 0.157 H* (0.000-0.034) ng/mL Urine Protein 1+ H (Negative) Ur Leukocyte Esterase Trace H (Negative) Urine WBC 18 H (0-5) /hpf Amorphous Sediment Rare H (None) /hpf Urine Bacteria Rare H (None) /hpf Hyaline Casts 227 H (0-2) /lpf Urine Mucus Rare H (None) /hpf 08/10/22 08/10/22 08/10/22 Range/Units 20:30 22:47 23:26 WBC (3.8-10.6) k/uL RBC (4.30-5.90) m/uL Hgb (13.0-17.5) gm/dL Hct (39.0-53.0) % MCHC (31.0-37.0) g/dL RDW (11.5-15.5) % Neutrophils # (1.3-7.7) k/uL Lymphocytes # (1.0-4.8) k/uL PT (9.0-12.0) sec INR (<1.2) APTT (22.0-30.0) sec Sodium (137-145) mmol/L Chloride (98-107) mmol/L Carbon Dioxide (22-30) mmol/L BUN (9-20) mg/dL Creatinine (0.66-1.25) mg/dL Glucose (74-99) mg/dL POC Glucose (mg/dL) 121 H (70-110) mg/dL Plasma Lactic Acid Kartihkeyan 3.7 H* 4.7 H* (0.7-2.0) mmol/L Total Bilirubin (0.2-1.3) mg/dL AST (17-59) U/L ALT (4-49) U/L Troponin I (0.000-0.034) ng/mL Urine Protein (Negative) Ur Leukocyte Esterase (Negative) Urine WBC (0-5) /hpf Amorphous Sediment (None) /hpf Urine Bacteria (None) /hpf Hyaline Casts (0-2) /lpf Urine Mucus (None) /hpf 08/11/22 08/11/22 08/11/22 Range/Units 04:10 05:57 07:52 WBC (3.8-10.6) k/uL RBC (4.30-5.90) m/uL Hgb (13.0-17.5) gm/dL Hct (39.0-53.0) % MCHC (31.0-37.0) g/dL RDW (11.5-15.5) % Neutrophils # (1.3-7.7) k/uL Lymphocytes # (1.0-4.8) k/uL PT (9.0-12.0) sec INR (<1.2) APTT (22.0-30.0) sec Sodium 135 L (137-145) mmol/L Chloride 96 L (98-107) mmol/L Carbon Dioxide 20 L (22-30) mmol/L BUN 55 H (9-20) mg/dL Creatinine 1.84 H (0.66-1.25) mg/dL Glucose 106 H (74-99) mg/dL POC Glucose (mg/dL) 115 H (70-110) mg/dL Plasma Lactic Acid Karthikeyan 4.6 H* (0.7-2.0) mmol/L Total Bilirubin (0.2-1.3) mg/dL AST (17-59) U/L ALT (4-49) U/L Troponin I (0.000-0.034) ng/mL Urine Protein (Negative) Ur Leukocyte Esterase (Negative) Urine WBC (0-5) /hpf Amorphous Sediment (None) /hpf Urine Bacteria (None) /hpf Hyaline Casts (0-2) /lpf Urine Mucus (None) /hpf 08/11/22 08/11/22 08/11/22 Range/Units 07:52 11:51 12:17 WBC (3.8-10.6) k/uL RBC (4.30-5.90) m/uL Hgb (13.0-17.5) gm/dL Hct (39.0-53.0) % MCHC (31.0-37.0) g/dL RDW (11.5-15.5) % Neutrophils # (1.3-7.7) k/uL Lymphocytes # (1.0-4.8) k/uL PT (9.0-12.0) sec INR (<1.2) APTT (22.0-30.0) sec Sodium (137-145) mmol/L Chloride (98-107) mmol/L Carbon Dioxide (22-30) mmol/L BUN (9-20) mg/dL Creatinine (0.66-1.25) mg/dL Glucose (74-99) mg/dL POC Glucose (mg/dL) 135 H (70-110) mg/dL Plasma Lactic Acid Karthikeyan 4.7 H* 4.2 H* (0.7-2.0) mmol/L Total Bilirubin (0.2-1.3) mg/dL AST (17-59) U/L ALT (4-49) U/L Troponin I (0.000-0.034) ng/mL Urine Protein (Negative) Ur Leukocyte Esterase (Negative) Urine WBC (0-5) /hpf Amorphous Sediment (None) /hpf Urine Bacteria (None) /hpf Hyaline Casts (0-2) /lpf Urine Mucus (None) /hpf Microbiology - Last 24 Hours (Table) 08/10/22 18:55 Urine Culture - Preliminary Urine,Voided Assessment and Plan (1) Leukocytosis Status: Acute Code(s): D72.829 - ELEVATED WHITE BLOOD CELL COUNT, UNSPECIFIED SNOMED Code(s): 215581733 Plan: 1patient presented to hospital with weakness lethargy is likely multifactorial in this patient did have a mildly elevated white count however no fever source likely urinary in this patient with significantly cloudy urine and history of prostate cancer and difficulty urination. 2patient also have elevated liver enzymes underlying gallbladder disease not entirely excluded. 3we will obtain ultrasound of the gallbladder area. 4blood cultures will be obtained and check a CRP and a procalcitonin. 5we will empirically add Unasyn 3 g every 6 hours. We will follow on clinical condition and cultures to further adjust medication if needed Thank you for this consultation will follow this patient along with you Time with Patient: Greater than 30
[2022-08-12] MEDS: AMPICILLIN-SULBACTAM 3 GM in SODIUM CHLORIDE 0.9% 100 ML IVPB SCH ×2 (01:53→08:13)
[2022-08-12] MEDS: SODIUM CHLORIDE 0.9% 1,000 ML IV SCH (01:54)
[2022-08-12] MEDS: NOREPINEPHRINE 4 MG in SODIUM CHLORIDE 0.9% 250 ML IV SCH (03:15)
[2022-08-12 04:34] VITALS: TEMP 97.4
[2022-08-12] MEDS ORDERED: EPINEPHrine 10 ML SYRINGE (0.1 MG/ML) ONE (04:45)
[2022-08-12] MEDS ORDERED: DEXTROSE 50% SYRINGE 50 ML IVP ONE (04:45)
[2022-08-12] MEDS ORDERED: ATROPINE SULFATE 0.1 MG/ML 10ML SYRINGE ONE ×2 (04:45)
[2022-08-12] MEDS ORDERED: SODIUM BICARB 8.4% 50 ML SYR (1 MEQ/ML) ONE (04:45)
[2022-08-12 04:50] LABS: Glucose,Whole Blood 67 mg/dL (70-110)
[2022-08-12] MEDS ORDERED: SODIUM CHLORIDE 0.9% 50 ML with VASOPRESSIN 20 UNIT IVPB SCH ×2 (05:00)
[2022-08-12 05:06] LABS: Glucose,Whole Blood 88 mg/dL (70-110)
[2022-08-12 05:21] LABS: Glucose,Whole Blood 108 mg/dL (70-110)
[2022-08-12] MEDS: NYSTATIN 100,000 UNIT/GM POWD 15 GM TOPICAL SCH (05:27)
--- NOTE | 2022-08-12 05:33 | XR ---
EXAMINATION TYPE: XR chest 1V portable DATE OF EXAM: 08/12/2022 COMPARISON: 08/11/2022 HISTORY: Weakness TECHNIQUE: FINDINGS: Endotracheal tube is 4 cm from the luca. There is some diffuse airspace infiltrate in th e right lung. The left lung is clear. There are chest leads. IMPRESSION: There is new airspace extensive infiltrate in the right lung compared to yesterday and co nsistent with developing RDS.
--- NOTE | 2022-08-12 05:40 | P.EN ---
CODE BLUE note Activated at 0445. Arrived at the scene shortly after. Reviewed the chart and discussed the case with the RN. The patient with a complex PMH was admitted for A. fib with RVR as well as CHF exacerbation and acute renal failure. The patient was noted to be septic severely septic and was transferred to medical ICU where the patient developed PEA. ACLS protocol was immediately initiated. Upon arrival at the scene, the patient was undergoing CPR with PEA on the monitor. The patient then developed asystole. He was given epinephrine IV push bolus 2 and sodium bicarbonate IV push 1. ROSC subsequently achieved at 0455. He was noted to be hypotensive and Levophed was initiated. Case was discussed with the patient's daughter via phone who noted that her father's wishes were to receive all possible medical treatments including continued resuscitation if needed. The case was also discussed with the patient's son who was subsequently at the bedside. Please refer to the code sheet for further details. Primary team and eligibility counselor were notified by the RN. Repeat lab work was ordered. The patient was intubated by the SLOT SHIFT SUPERVISOR. Total time spent providing critical care for this patient: 45 minutes
[2022-08-12] MEDS ORDERED: SODIUM CHLORIDE 0.9% 2,000 ML IV ONE (05:51)
[2022-08-12 05:54] LABS: Albumin 2.9 g/dL (3.5-5.0); Calcium 7.4 mg/dL (8.4-10.2); Magnesium 1.9 mg/dL (1.6-2.3); Potassium 5.8 mmol/L (3.5-5.1); Total Bilirubin 2.5 mg/dL (0.2-1.3); Total Protein 5.2 g/dL (6.3-8.2)
[2022-08-12 06:03] LABS: ABG Base Excess -21.2 mmol/L; ABG Hematocrit 30 % (34.0-46.0); ABG Oxygen Saturation 92.9 % (94-97); ABG PCO2 37 mmHg (35-45); ABG PO2 100 mmHg (83-108); ABG TCO2 11 mmol/L (19-24); Allen Test Performed? Yes
[2022-08-12 06:09] LABS: Glucose,Whole Blood 86 mg/dL (70-110)
[2022-08-12 06:12] LABS: ABG HCO3 10 mmol/L (21-25); ABG PH 7.03 (7.35-7.45)
[2022-08-12 06:29] LABS: Anisocytosis Slight; HCT 38.9 % (39.0-53.0); HGB 10.9 gm/dL (13.0-17.5); Hypochromasia Marked; MCH 28.8 pg (25.0-35.0); MCHC 27.9 g/dL (31.0-37.0); Macrocytosis Moderate; Mean Platelet Volume 11.4; Platelet Count 225 k/uL (150-450); RBC 3.77 m/uL (4.30-5.90); RDW 18.2 % (11.5-15.5)
[2022-08-12] MEDS ORDERED: CISATRACURIUM 2 MG/ML 5 ML VIAL IV ONE ×2 (06:29→06:31)
[2022-08-12 06:35] LABS: MCV 103.2 fL (80.0-100.0)
[2022-08-12 07:23] LABS: Glucose,Whole Blood 62 mg/dL (70-110)
[2022-08-12] MEDS ORDERED: CISATRACURIUM 200 MG in SODIUM CHLORIDE 0.9% 180 ML IV SCH (07:30)
[2022-08-12] MEDS ORDERED: MIDODRINE 5 MG TAB PO SCH (07:30)
[2022-08-12] MEDS ORDERED: DEXTROSE 5% IN WATER 1,000 ML with SODIUM BICARB (1 MEQ/ML) 150 ML IV SCH (07:30)
[2022-08-12] MEDS ORDERED: NOREPINEPHRIN 4 MG-0.9% NS PMX 4 MG/250 ML ML IV ONE (07:39)
[2022-08-12] MEDS ORDERED: IPRATROPIUM-ALBUTEROL 3 ML NEB INHALATION SCH (08:00)
[2022-08-12] MEDS ORDERED: NOREPINEPHRINE 32 MG in SODIUM CHLORIDE 0.9% 218 ML IV SCH (08:00)
--- NOTE | 2022-08-12 08:09 | P.PN ---
Subjective Progress Note Date: 08/12/22 Principal diagnosis: Permanent atrial fibrillation This is a 72-year-old gentleman with a past medical history significant for permanent atrial fibrillation on oral anticoagulation as well as heart failure was preserved ejection fraction as well as chronic kidney disease and also multiple comorbid conditions was admitted to the hospital initially with A. fib with RVR and also a component of heart failure. He also was diagnosed with sepsis. Initially he was admitted to [address] where yesterday we did some adjustment on his medications and we started the patient on amiodarone are on because of the A. fib. He was started on amiodarone IV. Also he was started on metoprolol at a small dose. We stopped the Cardizem because of the cardiomyopathy. August [id number] The patient was seen at this morning at the intensive care unit. Unfortunately yesterday he developed pulseless electrical activity where the critical care team was called and the patient was intubated and transferred to the intensive care unit. He is currently in the ICU requiring high doses of norepinephrine and critical care team is in process of placing a central line. Overall the prognosis is very poor. The chest x-ray showed almost complete opacification of the right lung. Beside that he continues to be in atrial fibrillation with overall controlled heart rate. He is on amiodarone IV. He is also on oral anticoagulation. From the cardiovascular standpoint of view, I would continue t he current medical regimen and continue following up with the patient. Overall the prognosis is poor. Objective - Vital Signs Vital signs: Vital Signs Temp 97.4 F L 08/12/22 04:00 Pulse 96 08/12/22 08:04 Resp 24 08/12/22 07:55 BP 87/21 08/12/22 06:15 Pulse Ox 89 L 08/12/22 06:15 FiO2 100 08/12/22 07:30 Intake & Output 08/11/22 08/12/22 08/12/22 18:59 06:59 18:59 Intake Total 10 554.000 Output Total 100 30 Balance -90 524.000 Weight 141 kg Intake: IV 10 Invasive Line 1 10 Intake, IV Titration 554.000 Amount Norepinephrine 4 mg In 254.000 Sodium Chloride 0.9% 250 ml @ 0.05 MCG/KG/MIN 25. 145 mls/hr IV .[id number] [facility] Rx#:[id number] Sodium Chloride 0.9% 1, 300 000 ml @ 75 mls/hr IV . [id number] [facility] Rx#:[id number] Output: Urine 100 30 Other: Voiding Method Indwelling Catheter Indwelling Catheter ABP, PAP, CO, CI - Last Documented Arterial Blood Pressure 67/46 - Constitutional General appearance: Present: no acute distress - Respiratory Respiratory: bilateral: diminished - Cardiovascular Rhythm: irregularly irregular - Labs CBC & Chem 7: 08/12/22 05:21 08/12/22 05:21 Labs: Abnormal Lab Results - Last 24 Hours (Table) 08/11/22 08/11/22 08/11/22 Range/Units 07:52 07:52 11:51 WBC (3.8-10.6) k/uL RBC (4.30-5.90) m/uL Hgb (13.0-17.5) gm/dL Hct (39.0-53.0) % MCV (80.0-100.0) fL MCHC (31.0-37.0) g/dL RDW (11.5-15.5) % ABG pH (7.35-7.45) ABG HCO3 (21-25) mmol/L ABG Total CO2 (19-24) mmol/L ABG O2 Saturation (94-97) % ABG Hematocrit (34.0-46.0) % Hemoglobin (13.0-17.5) gm/dL Sodium 135 L (137-145) mmol/L Potassium (3.5-5.1) mmol/L Chloride 96 L (98-107) mmol/L Carbon Dioxide 20 L (22-30) mmol/L BUN 55 H (9-20) mg/dL Creatinine 1.84 H (0.66-1.25) mg/dL Glucose 106 H (74-99) mg/dL POC Glucose (mg/dL) 135 H (70-110) mg/dL Hemoglobin A1c (0.0-6.0) % Plasma Lactic Acid Karthikeyan 4.7 H* (0.7-2.0) mmol/L Calcium (8.4-10.2) mg/dL Total Bilirubin (0.2-1.3) mg/dL ALT (4-49) U/L C-Reactive Protein (<1.0) mg/dL Total Protein (6.3-8.2) g/dL Albumin (3.5-5.0) g/dL Procalcitonin (0.02-0.09) ng/mL Urine Protein (Negative) Urine Glucose (UA) (Negative) Urine Blood (Negative) Ur Leukocyte Esterase (Negative) Urine RBC (0-5) /hpf Urine WBC (0-5) /hpf Urine WBC Clumps (None) /hpf Ur Squamous Epith Cells (0-4) /hpf Urine Bacteria (None) /hpf Urine Mucus (None) /hpf 08/11/22 08/11/22 08/11/22 Range/Units 12:17 12:17 15:09 WBC (3.8-10.6) k/uL RBC (4.30-5.90) m/uL Hgb (13.0-17.5) gm/dL Hct (39.0-53.0) % MCV (80.0-100.0) fL MCHC (31.0-37.0) g/dL RDW (11.5-15.5) % ABG pH (7.35-7.45) ABG HCO3 (21-25) mmol/L ABG Total CO2 (19-24) mmol/L ABG O2 Saturation (94-97) % ABG Hematocrit (34.0-46.0) % Hemoglobin (13.0-17.5) gm/dL Sodium (137-145) mmol/L Potassium (3.5-5.1) mmol/L Chloride (98-107) mmol/L Carbon Dioxide (22-30) mmol/L BUN (9-20) mg/dL Creatinine (0.66-1.25) mg/dL Glucose (74-99) mg/dL POC Glucose (mg/dL) (70-110) mg/dL Hemoglobin A1c 6.1 H (0.0-6.0) % Plasma Lactic Acid Karthikeyan 4.2 H* 10.0 H* (0.7-2.0) mmol/L Calcium (8.4-10.2) mg/dL Total Bilirubin (0.2-1.3) mg/dL ALT (4-49) U/L C-Reactive Protein (<1.0) mg/dL Total Protein (6.3-8.2) g/dL Albumin (3.5-5.0) g/dL Procalcitonin (0.02-0.09) ng/mL Urine Protein (Negative) Urine Glucose (UA) (Negative) Urine Blood (Negative) Ur Leukocyte Esterase (Negative) Urine RBC (0-5) /hpf Urine WBC (0-5) /hpf Urine WBC Clumps (None) /hpf Ur Squamous Epith Cells (0-4) /hpf Urine Bacteria (None) /hpf Urine Mucus (None) /hpf 08/11/22 08/11/22 08/11/22 Range/Units 15:58 16:50 16:56 WBC (3.8-10.6) k/uL RBC (4.30-5.90) m/uL Hgb (13.0-17.5) gm/dL Hct (39.0-53.0) % MCV (80.0-100.0) fL MCHC (31.0-37.0) g/dL RDW (11.5-15.5) % ABG pH (7.35-7.45) ABG HCO3 (21-25) mmol/L ABG Total CO2 (19-24) mmol/L ABG O2 Saturation (94-97) % ABG Hematocrit (34.0-46.0) % Hemoglobin (13.0-17.5) gm/dL Sodium (137-145) mmol/L Potassium (3.5-5.1) mmol/L Chloride (98-107) mmol/L Carbon Dioxide (22-30) mmol/L BUN (9-20) mg/dL Creatinine (0.66-1.25) mg/dL Glucose (74-99) mg/dL POC Glucose (mg/dL) 111 H (70-110) mg/dL Hemoglobin A1c (0.0-6.0) % Plasma Lactic Acid Karthikeyan (0.7-2.0) mmol/L Calcium (8.4-10.2) mg/dL Total Bilirubin (0.2-1.3) mg/dL ALT (4-49) U/L C-Reactive Protein 6.6 H (<1.0) mg/dL Total Protein (6.3-8.2) g/dL Albumin (3.5-5.0) g/dL Procalcitonin (0.02-0.09) ng/mL Urine Protein 2+ H (Negative) Urine Glucose (UA) Trace H (Negative) Urine Blood Large H (Negative) Ur Leukocyte Esterase Large H (Negative) Urine RBC >182 H (0-5) /hpf Urine WBC >182 H (0-5) /hpf Urine WBC Clumps Rare H (None) /hpf Ur Squamous Epith Cells 14 H (0-4) /hpf Urine Bacteria Occasional H (None) /hpf Urine Mucus Few H (None) /hpf 08/11/22 08/11/22 08/11/22 Range/Units 16:56 17:37 20:38 WBC (3.8-10.6) k/uL RBC (4.30-5.90) m/uL Hgb (13.0-17.5) gm/dL Hct (39.0-53.0) % MCV (80.0-100.0) fL MCHC (31.0-37.0) g/dL RDW (11.5-15.5) % ABG pH (7.35-7.45) ABG HCO3 (21-25) mmol/L ABG Total CO2 (19-24) mmol/L ABG O2 Saturation (94-97) % ABG Hematocrit (34.0-46.0) % Hemoglobin (13.0-17.5) gm/dL Sodium 132 L (137-145) mmol/L Potassium 5.8 H (3.5-5.1) mmol/L Chloride 96 L (98-107) mmol/L Carbon Dioxide 10 L (22-30) mmol/L BUN 55 H (9-20) mg/dL Creatinine 2.36 H (0.66-1.25) mg/dL Glucose 66 L (74-99) mg/dL POC Glucose (mg/dL) (70-110) mg/dL Hemoglobin A1c (0.0-6.0) % Plasma Lactic Acid Karthikeyan 10.4 H* (0.7-2.0) mmol/L Calcium 8.3 L (8.4-10.2) mg/dL Total Bilirubin (0.2-1.3) mg/dL ALT (4-49) U/L C-Reactive Protein (<1.0) mg/dL Total Protein (6.3-8.2) g/dL Albumin (3.5-5.0) g/dL Procalcitonin 0.55 H (0.02-0.09) ng/mL Urine Protein (Negative) Urine Glucose (UA) (Negative) Urine Blood (Negative) Ur Leukocyte Esterase (Negative) Urine RBC (0-5) /hpf Urine WBC (0-5) /hpf Urine WBC Clumps (None) /hpf Ur Squamous Epith Cells (0-4) /hpf Urine Bacteria (None) /hpf Urine Mucus (None) /hpf 08/11/22 08/11/22 08/11/22 Range/Units 20:47 21:20 22:05 WBC (3.8-10.6) k/uL RBC (4.30-5.90) m/uL Hgb (13.0-17.5) gm/dL Hct (39.0-53.0) % MCV (80.0-100.0) fL MCHC (31.0-37.0) g/dL RDW (11.5-15.5) % ABG pH (7.35-7.45) ABG HCO3 (21-25) mmol/L ABG Total CO2 (19-24) mmol/L ABG O2 Saturation (94-97) % ABG Hematocrit (34.0-46.0) % Hemoglobin (13.0-17.5) gm/dL Sodium 132 L (137-145) mmol/L Potassium (3.5-5.1) mmol/L Chloride 93 L (98-107) mmol/L Carbon Dioxide 13 L (22-30) mmol/L BUN 56 H (9-20) mg/dL Creatinine 2.33 H (0.66-1.25) mg/dL Glucose (74-99) mg/dL POC Glucose (mg/dL) 68 L (70-110) mg/dL Hemoglobin A1c (0.0-6.0) % Plasma Lactic Acid Karthikeyan 11.8 H* (0.7-2.0) mmol/L Calcium 8.1 L (8.4-10.2) mg/dL Total Bilirubin (0.2-1.3) mg/dL ALT (4-49) U/L C-Reactive Protein (<1.0) mg/dL Total Protein (6.3-8.2) g/dL Albumin (3.5-5.0) g/dL Procalcitonin (0.02-0.09) ng/mL Urine Protein (Negative) Urine Glucose (UA) (Negative) Urine Blood (Negative) Ur Leukocyte Esterase (Negative) Urine RBC (0-5) /hpf Urine WBC (0-5) /hpf Urine WBC Clumps (None) /hpf Ur Squamous Epith Cells (0-4) /hpf Urine Bacteria (None) /hpf Urine Mucus (None) /hpf 08/12/22 08/12/22 08/12/22 Range/Units 01:51 04:48 05:21 WBC (3.8-10.6) k/uL RBC (4.30-5.90) m/uL Hgb (13.0-17.5) gm/dL Hct (39.0-53.0) % MCV (80.0-100.0) fL MCHC (31.0-37.0) g/dL RDW (11.5-15.5) % ABG pH (7.35-7.45) ABG HCO3 (21-25) mmol/L ABG Total CO2 (19-24) mmol/L ABG O2 Saturation (94-97) % ABG Hematocrit (34.0-46.0) % Hemoglobin (13.0-17.5) gm/dL Sodium 134 L (137-145) mmol/L Potassium 5.8 H (3.5-5.1) mmol/L Chloride 97 L (98-107) mmol/L Carbon Dioxide 14 L (22-30) mmol/L BUN 56 H (9-20) mg/dL Creatinine 2.80 H (0.66-1.25) mg/dL Glucose 127 H (74-99) mg/dL POC Glucose (mg/dL) 67 L (70-110) mg/dL Hemoglobin A1c (0.0-6.0) % Plasma Lactic Acid Karthikeyan 9.6 H* (0.7-2.0) mmol/L Calcium 7.4 L (8.4-10.2) mg/dL Total Bilirubin 2.5 H (0.2-1.3) mg/dL ALT 699 H (4-49) U/L C-Reactive Protein (<1.0) mg/dL Total Protein 5.2 L (6.3-8.2) g/dL Albumin 2.9 L (3.5-5.0) g/dL Procalcitonin (0.02-0.09) ng/mL Urine Protein (Negative) Urine Glucose (UA) (Negative) Urine Blood (Negative) Ur Leukocyte Esterase (Negative) Urine RBC (0-5) /hpf Urine WBC (0-5) /hpf Urine WBC Clumps (None) /hpf Ur Squamous Epith Cells (0-4) /hpf Urine Bacteria (None) /hpf Urine Mucus (None) /hpf 08/12/22 08/12/22 08/12/22 Range/Units 05:21 05:21 06:00 WBC 28.4 H (3.8-10.6) k/uL RBC 3.77 L (4.30-5.90) m/uL Hgb 10.9 L (13.0-17.5) gm/dL Hct 38.9 L (39.0-53.0) % MCV 103.2 H D (80.0-100.0) fL MCHC 27.9 L (31.0-37.0) g/dL RDW 18.2 H (11.5-15.5) % ABG pH 7.03 L* (7.35-7.45) ABG HCO3 10 L* (21-25) mmol/L ABG Total CO2 11 L (19-24) mmol/L ABG O2 Saturation 92.9 L (94-97) % ABG Hematocrit 30 L (34.0-46.0) % Hemoglobin 9.9 L (13.0-17.5) gm/dL Sodium (137-145) mmol/L Potassium (3.5-5.1) mmol/L Chloride (98-107) mmol/L Carbon Dioxide (22-30) mmol/L BUN (9-20) mg/dL Creatinine (0.66-1.25) mg/dL Glucose (74-99) mg/dL POC Glucose (mg/dL) (70-110) mg/dL Hemoglobin A1c (0.0-6.0) % Plasma Lactic Acid Karthikeyan 13.1 H* (0.7-2.0) mmol/L Calcium (8.4-10.2) mg/dL Total Bilirubin (0.2-1.3) mg/dL ALT (4-49) U/L C-Reactive Protein (<1.0) mg/dL Total Protein (6.3-8.2) g/dL Albumin (3.5-5.0) g/dL Procalcitonin (0.02-0.09) ng/mL Urine Protein (Negative) Urine Glucose (UA) (Negative) Urine Blood (Negative) Ur Leukocyte Esterase (Negative) Urine RBC (0-5) /hpf Urine WBC (0-5) /hpf Urine WBC Clumps (None) /hpf Ur Squamous Epith Cells (0-4) /hpf Urine Bacteria (None) /hpf Urine Mucus (None) /hpf 08/12/22 Range/Units 07:21 WBC (3.8-10.6) k/uL RBC (4.30-5.90) m/uL Hgb (13.0-17.5) gm/dL Hct (39.0-53.0) % MCV (80.0-100.0) fL MCHC (31.0-37.0) g/dL RDW (11.5-15.5) % ABG pH (7.35-7.45) ABG HCO3 (21-25) mmol/L ABG Total CO2 (19-24) mmol/L ABG O2 Saturation (94-97) % ABG Hematocrit (34.0-46.0) % Hemoglobin (13.0-17.5) gm/dL Sodium (137-145) mmol/L Potassium (3.5-5.1) mmol/L Chloride (98-107) mmol/L Carbon Dioxide (22-30) mmol/L BUN (9-20) mg/dL Creatinine (0.66-1.25) mg/dL Glucose (74-99) mg/dL POC Glucose (mg/dL) 62 L (70-110) mg/dL Hemoglobin A1c (0.0-6.0) % Plasma Lactic Acid Karthikeyan (0.7-2.0) mmol/L Calcium (8.4-10.2) mg/dL Total Bilirubin (0.2-1.3) mg/dL ALT (4-49) U/L C-Reactive Protein (<1.0) mg/dL Total Protein (6.3-8.2) g/dL Albumin (3.5-5.0) g/dL Procalcitonin (0.02-0.09) ng/mL Urine Protein (Negative) Urine Glucose (UA) (Negative) Urine Blood (Negative) Ur Leukocyte Esterase (Negative) Urine RBC (0-5) /hpf Urine WBC (0-5) /hpf Urine WBC Clumps (None) /hpf Ur Squamous Epith Cells (0-4) /hpf Urine Bacteria (None) /hpf Urine Mucus (None) /hpf Assessment and Plan Assessment: Assessment #1 pneumonia/sepsis #2 hypotension secondary to the above #3 permanent atrial fibrillation #4 acute on chronic renal failure #5 cardiomyopathy was EF between 45-50% #6 multiple comorbid conditions Plan #1 DC metoprolol in the light of low blood pressure #2 continue supporting the pressure with vasopressors #3 pulmonary/critical care team is on the case #4 continue oral anticoagulation #5 continue amiodarone #6 follow up with the patient
[2022-08-12] MEDS ORDERED: propofoL 100 ML IV ONE (08:11)
[2022-08-12] MEDS: LEVOTHYROXINE 100 MCG TAB PO SCH (08:14)
--- NOTE | 2022-08-12 08:14 | XR ---
EXAMINATION TYPE: XR chest 1V DATE OF EXAM: 08/12/2022 COMPARISON: 08/12/2022 HISTORY: Central line placement TECHNIQUE: Single frontal view of the chest is obtained. FINDINGS: ET tube approximately 4 cm above luca. Left-sided central line the tip overlying the SVC . Central line seen. Bilateral pleural effusions with cardiomegaly and diffuse bilateral airspace dis ease greater on the right. No sizable pneumothorax. Arthropathy of the shoulder. There is widening of the mediastinum. IMPRESSION: 1. Diffuse bilateral airspace disease stable 2. Cardiomegaly with prominent mediastinum suspect underlying mass or adenopathy.
[2022-08-12] MEDS: INSULIN ASPART (NovoLOG) 100 UNIT/ML VIAL SQ SCH (08:15)
[2022-08-12 08:16] VITALS: BP 93/25
--- NOTE | 2022-08-12 08:20 | P.CNPUL ---
History of Present Illness Consult date: 08/12/22 Requesting physician: Aftab Nicholas Reason for consult: other Chief complaint: Atrial fibrillation, cardiopulmonary arrest, severe hypotension. History of present illness: Pulmonary/critical care consultation dated 08/12/2022. This is a 72-year-old obese male, admitted on August 10, for atrial fibrillation/rapid ventricular response, and a fall. Initially was transferred to 3 S. floor. He came to the ICU on August 11, because of worsening blood pressures, and the need for norepinephrine. The patient had a cardiopulmonary arrest on August 12, at 4:45 AM. It was a brief cardiac arrest, lasting about 2 minutes or so. He was also intubated at that time, on August 12, and an arterial line was placed by [facility]. The patient is currently on the ventilator and I see him this morning. He is on volume assist control, rate 24, tidal volume 500, FiO2 100%, and PEEP of 5. Blood gases show pO2 100, pCO2 37, and a pH is 7.03. The patient is on norepinephrine at 141 mcg/m, vasopressin at 0.04 units per minute, a saline bolus, and amiodarone has been turned off. The patient is going to have a sodium bicarbonate drip started, as well as Nimbex, and, CODE STATUS is discussed with family members. The patient apparently would not want to be on life support, and the patient will be made DO NOT RESUSCITATE, until other family members can arrive. White count 28.4, hemoglobin 10.9, hematocrit 38.9, platelet count 225,000. Sodium 134, potassium 5.8, chlorides 97, CO2 14, anion gap 23, BUN 56, and creatinine 2.80. Lactic acid is 13.1. Albumin is 2.9. Cortisol is pending. Chest x-ray shows a properly placed central line, as well as a endotracheal tube about 4 cm above the tracheal luca. In addition, the patient has diffuse bilateral right greater than left infiltrates. The patient may have aspirated. Review of Systems REVIEW OF SYSTEMS: CONSTITUTIONAL: [Negative.] NEUROLOGIC: [ Negative.] HEENT: [ Negative.] CARDIAC: Atrial fibrillation with rapid ventricular response. Cardiopulmonary arrest. Severe hypotension. PULMONARY: [Negative.] GI: Questionable GI bleeding. : [Negative.] RHEUMATOLOGIC: [ Negative.] IMMUNOLOGIC: [ Negative.] ENDOCRINE: [Negative. ] DERMATOLOGIC: [Negative.] Past Medical History Past Medical History: Cancer, Diabetes Mellitus, Hyperlipidemia, Hypertension, Prostate Disorder, Rheumatoid Arthritis (RA), Thyroid Disorder Additional Past Medical History / Comment(s): Thyroid cancer with a previous thyroidectomy, prostate cancer, morbid obesity, obstructive sleep apnea, hypertension, hyperlipidemia, diabetes mellitus, History of Any Multi-Drug Resistant Organisms: None Reported Past Surgical History: Orthopedic Surgery Additional Past Surgical History / Comment(s): betty knee partial replacement, thyroidectomy Past Anesthesia/Blood Transfusion Reactions: No Reported Reaction Past Psychological History: Panic Disorder Additional Psychological History / Comment(s): Pt resides with his yuriIveth. His son lives next door. He has home oxygen and a walker and wheel chair. Smoking Status: Former smoker Past Alcohol Use History: None Reported Past Drug Use History: None Reported - Past Family History Father Family Medical History: Hyperlipidemia Additional Family Medical History / Comment(s): parkinsons Mother Family Medical History: Dementia Medications and Allergies Home Medications Medication Instructions Recorded Confirmed Type Ferrous Sulfate [Feosol] 325 mg PO DAILY 07/31/19 08/10/22 History PARoxetine [Paxil] 20 mg PO DAILY 07/31/19 08/10/22 History Simvastatin [Zocor] 40 mg PO HS 07/31/19 08/10/22 History allopurinoL [Zyloprim] 300 mg PO DAILY 07/31/19 08/10/22 History Apixaban [Eliquis] 5 mg PO BID #60 tab 08/05/19 08/10/22 Rx Carbidopa-Levodopa 10-100 mg 1 tab PO TID@0900,1600,2100 03/11/21 08/10/22 History [Sinemet 10-100 mg] Liraglutide [Victoza 2-Kodak] 1.2 mg SQ DAILY 03/11/21 08/10/22 History metFORMIN HCL [Glucophage] 500 mg PO BID@0900,1900 03/11/21 08/10/22 History Ascorbic Acid [Vitamin C] 500 mg PO DAILY 07/27/22 08/10/22 History Cranberry Supplement 8,400 mg PO DAILY 07/27/22 08/10/22 History Enzalutamide [Xtandi] 160 mg PO HS 07/27/22 08/10/22 History Levothyroxine Sodium [Synthroid] 300 mcg PO DAILY 07/27/22 08/10/22 History Famotidine [Pepcid] 20 mg PO DAILY #30 tablet 07/31/22 08/10/22 Rx Potassium Chloride ER [K-Dur 20] 20 meq PO DAILY #0 07/31/22 08/10/22 Rx Ergocalciferol [Vitamin D2 (1250 1,250 mcg PO GALARZA 08/10/22 08/10/22 History Mcg = 09100 Iu)] Furosemide [Lasix] See Taper PO BID@1400,1900 08/10/22 08/10/22 History Midodrine [ProAmatine] 5 mg PO AC-BID@0900,1900 08/10/22 08/10/22 History Nystatin 100,000 Unit/gm Powd 1 applic TOPICAL TID@0900,1600,2100 08/10/22 08/10/22 History [Mycostatin Powder] Allergies Allergy/AdvReac Type Severity Reaction Status Date / Time No Known Allergies Allergy Verified 08/10/22 17:10 Physical Exam Osteopathic Statement: *. No significant issues noted on an osteopathic structural exam other than those noted in the History and Physical/Consult. Vitals: Vital Signs Temp Pulse Pulse Resp BP BP Pulse Ox 08/12/22 08:04 96 08/12/22 07:55 98 24 08/12/22 07:30 08/12/22 06:15 94 27 H 87/21 89 L 08/12/22 06:00 97 26 H 104/67 87 L 08/12/22 05:45 106 H 24 89 L 08/12/22 05:30 102 H 18 82/62 86 L 08/12/22 05:21 08/12/22 05:20 08/12/22 05:15 103 H 21 78/54 86 L 08/12/22 05:00 100 24 65/54 79 L 08/12/22 04:55 08/12/22 04:45 34 L 28 H 87/72 08/12/22 04:30 93 27 H 88/68 08/12/22 04:15 92 27 H 112/96 95 08/12/22 04:00 97.4 F L 90 28 H 101/82 08/12/22 03:45 94 23 77/62 08/12/22 03:30 102 H 19 131/107 08/12/22 03:15 94 20 109/37 08/12/22 03:00 97 22 82/68 08/12/22 02:45 96 20 08/12/22 02:30 98 40 H 110/85 08/12/22 02:15 90 23 78/52 93 L 08/12/22 02:00 94 17 74/58 08/12/22 01:45 93 15 80/61 99 08/12/22 01:30 96 19 92/58 89 L 08/12/22 01:15 89 23 88/66 08/12/22 01:00 97 20 93/58 08/12/22 00:45 98 21 87/43 08/12/22 00:30 97 32 H 127/72 08/12/22 00:15 30 H 93/59 08/12/22 00:00 96 32 H 92/71 100 08/11/22 23:45 90 21 93/60 96 08/11/22 23:30 20 88/66 08/11/22 23:15 98 22 88/75 08/11/22 23:00 24 82/54 08/11/22 22:45 95 21 98/64 08/11/22 22:30 31 H 108/64 95 08/11/22 22:15 20 92/73 08/11/22 22:00 90 28 H 100/53 08/11/22 21:45 80 23 94 L 08/11/22 21:30 31 H 90/66 08/11/22 21:15 72 29 H 76/30 08/11/22 21:00 73 29 H 08/11/22 20:48 29 H 08/11/22 16:25 97.5 F L 83 24 92/50 100 08/11/22 13:18 95 20 95/64 08/11/22 12:41 87 91/62 08/11/22 12:34 91 91/63 08/11/22 12:23 64 93/63 08/11/22 12:16 83 20 93/59 08/11/22 08:45 98.1 F 104 H 18 105/64 98 FiO2 08/12/22 08:04 08/12/22 07:55 08/12/22 07:30 100 08/12/22 06:15 08/12/22 06:00 100 08/12/22 05:45 08/12/22 05:30 08/12/22 05:21 08/12/22 05:20 08/12/22 05:15 08/12/22 05:00 08/12/22 04:55 08/12/22 04:45 08/12/22 04:30 08/12/22 04:15 08/12/22 04:00 08/12/22 03:45 08/12/22 03:30 08/12/22 03:15 08/12/22 03:00 08/12/22 02:45 08/12/22 02:30 08/12/22 02:15 08/12/22 02:00 08/12/22 01:45 08/12/22 01:30 08/12/22 01:15 08/12/22 01:00 08/12/22 00:45 08/12/22 00:30 08/12/22 00:15 08/12/22 00:00 08/11/22 23:45 08/11/22 23:30 08/11/22 23:15 08/11/22 23:00 08/11/22 22:45 08/11/22 22:30 08/11/22 22:15 08/11/22 22:00 08/11/22 21:45 08/11/22 21:30 08/11/22 21:15 08/11/22 21:00 08/11/22 20:48 08/11/22 16:25 08/11/22 13:18 08/11/22 12:41 08/11/22 12:34 08/11/22 12:23 08/11/22 12:16 08/11/22 08:45 Intake and Output 08/11/22 08/12/22 08/12/22 22:59 06:59 14:59 Intake Total 35.145 528.855 Output Total 100 30 Balance -64.855 498.855 Intake: IV 10 Invasive Line 1 10 Intake, IV Titration 25.145 528.855 Amount Norepinephrine 4 mg In 25.145 228.855 Sodium Chloride 0.9% 250 ml @ 0.05 MCG/KG/MIN 25. 145 mls/hr IV .[id number] [facility] Rx#:[id number] Sodium Chloride 0.9% 1, 300 000 ml @ 75 mls/hr IV . [id number] [facility] Rx#:[id number] Output: Urine 100 30 Other: Voiding Method Indwelling Catheter Weight 141 kg ABP, PAP, CO, CI - Last 8 Hours Arterial Blood Pressure 67/46 Arterial Blood Pressure 65/43 Arterial Blood Pressure 63/44 No acute distress, sedated, and now paralyzed. There is an orally placed endotracheal tube and NG tube. The patient is quite obese. HEENT examination is grossly unremarkable. Neck supple. Full range of motion. No adenopathy thyromegaly or neck vein distention. Cardiovascular examination reveals an iregular rhythm and rate. S1-S2 normal. No S3 or S4. No discernible murmur noted. Heart sounds are distant. Heart rate 96 bpm. Lungs reveal bilateral scattered rhonchi. No wheezes. No crackles. Breath sounds are equal bilaterally. Saturations are between 88 and 90%. Abdomen obese, without bowel sounds. No masses. Extremities reveal significant edema. There is acrocyanosis. Chronic venous stasis changes are noted in the lower extremities. Skin is without rash or lesion. Neurologic examination cannot be adequately assessed at this time. Results - Laboratory Findings CBC and BMP: 08/12/22 05:21 08/12/22 05:21 ABG ABG pH 7.03 (7.35-7.45) L* 08/12/22 06:00 ABG pCO2 37 mmHg (35-45) 08/12/22 06:00 ABG pO2 100 mmHg (83-108) 08/12/22 06:00 ABG O2 Saturation 92.9 % (94-97) L 08/12/22 06:00 PT/INR, D-dimer PT 24.8 sec (9.0-12.0) H 08/10/22 17:06 INR 2.5 (<1.2) H 08/10/22 17:06 Abnormal lab findings: Abnormal Labs 08/10/22 08/10/22 08/10/22 16:45 16:49 16:49 WBC 11.0 H RBC 4.10 L Hgb 11.2 L Hct 38.8 L MCV MCHC 28.9 L RDW 18.1 H Neutrophils # 9.1 H Lymphocytes # 0.9 L PT INR APTT ABG pH ABG HCO3 ABG Total CO2 ABG O2 Saturation ABG Hematocrit Hemoglobin Sodium 135 L Potassium Chloride 94 L Carbon Dioxide 20 L BUN 49 H Creatinine 1.53 H Glucose 118 H POC Glucose (mg/dL) Hemoglobin A1c Plasma Lactic Acid Karthikeyan 4.8 H* Calcium Total Bilirubin 1.9 H AST 301 H ALT 132 H Troponin I C-Reactive Protein Total Protein Albumin Procalcitonin Urine Protein Urine Glucose (UA) Urine Blood Ur Leukocyte Esterase Urine RBC Urine WBC Urine WBC Clumps Ur Squamous Epith Cells Amorphous Sediment Urine Bacteria Hyaline Casts Urine Mucus 08/10/22 08/10/22 08/10/22 16:49 17:06 18:55 WBC RBC Hgb Hct MCV MCHC RDW Neutrophils # Lymphocytes # PT 24.8 H INR 2.5 H APTT 34.1 H ABG pH ABG HCO3 ABG Total CO2 ABG O2 Saturation ABG Hematocrit Hemoglobin Sodium Potassium Chloride Carbon Dioxide BUN Creatinine Glucose POC Glucose (mg/dL) Hemoglobin A1c Plasma Lactic Acid Karthikeyan Calcium Total Bilirubin AST ALT Troponin I 0.157 H* C-Reactive Protein Total Protein Albumin Procalcitonin Urine Protein 1+ H Urine Glucose (UA) Urine Blood Ur Leukocyte Esterase Trace H Urine RBC Urine WBC 18 H Urine WBC Clumps Ur Squamous Epith Cells Amorphous Sediment Rare H Urine Bacteria Rare H Hyaline Casts 227 H Urine Mucus Rare H 08/10/22 08/10/22 08/10/22 20:30 22:47 23:26 WBC RBC Hgb Hct MCV MCHC RDW Neutrophils # Lymphocytes # PT INR APTT ABG pH ABG HCO3 ABG Total CO2 ABG O2 Saturation ABG Hematocrit Hemoglobin Sodium Potassium Chloride Carbon Dioxide BUN Creatinine Glucose POC Glucose (mg/dL) 121 H Hemoglobin A1c Plasma Lactic Acid Karthikeyan 3.7 H* 4.7 H* Calcium Total Bilirubin AST ALT Troponin I C-Reactive Protein Total Protein Albumin Procalcitonin Urine Protein Urine Glucose (UA) Urine Blood Ur Leukocyte Esterase Urine RBC Urine WBC Urine WBC Clumps Ur Squamous Epith Cells Amorphous Sediment Urine Bacteria Hyaline Casts Urine Mucus 08/11/22 08/11/22 08/11/22 04:10 05:57 07:52 WBC RBC Hgb Hct MCV MCHC RDW Neutrophils # Lymphocytes # PT INR APTT ABG pH ABG HCO3 ABG Total CO2 ABG O2 Saturation ABG Hematocrit Hemoglobin Sodium 135 L Potassium Chloride 96 L Carbon Dioxide 20 L BUN 55 H Creatinine 1.84 H Glucose 106 H POC Glucose (mg/dL) 115 H Hemoglobin A1c Plasma Lactic Acid Karthikeyan 4.6 H* Calcium Total Bilirubin AST ALT Troponin I C-Reactive Protein Total Protein Albumin Procalcitonin Urine Protein Urine Glucose (UA) Urine Blood Ur Leukocyte Esterase Urine RBC Urine WBC Urine WBC Clumps Ur Squamous Epith Cells Amorphous Sediment Urine Bacteria Hyaline Casts Urine Mucus 08/11/22 08/11/22 08/11/22 07:52 11:51 12:17 WBC RBC Hgb Hct MCV MCHC RDW Neutrophils # Lymphocytes # PT INR APTT ABG pH ABG HCO3 ABG Total CO2 ABG O2 Saturation ABG Hematocrit Hemoglobin Sodium Potassium Chloride Carbon Dioxide BUN Creatinine Glucose POC Glucose (mg/dL) 135 H Hemoglobin A1c Plasma Lactic Acid Karthikeyan 4.7 H* 4.2 H* Calcium Total Bilirubin AST ALT Troponin I C-Reactive Protein Total Protein Albumin Procalcitonin Urine Protein Urine Glucose (UA) Urine Blood Ur Leukocyte Esterase Urine RBC Urine WBC Urine WBC Clumps Ur Squamous Epith Cells Amorphous Sediment Urine Bacteria Hyaline Casts Urine Mucus 08/11/22 08/11/22 08/11/22 12:17 15:09 15:58 WBC RBC Hgb Hct MCV MCHC RDW Neutrophils # Lymphocytes # PT INR APTT ABG pH ABG HCO3 ABG Total CO2 ABG O2 Saturation ABG Hematocrit Hemoglobin Sodium Potassium Chloride Carbon Dioxide BUN Creatinine Glucose POC Glucose (mg/dL) Hemoglobin A1c 6.1 H Plasma Lactic Acid Karthikeyan 10.0 H* Calcium Total Bilirubin AST ALT Troponin I C-Reactive Protein Total Protein Albumin Procalcitonin Urine Protein 2+ H Urine Glucose (UA) Trace H Urine Blood Large H Ur Leukocyte Esterase Large H Urine RBC >182 H Urine WBC >182 H Urine WBC Clumps Rare H Ur Squamous Epith Cells 14 H Amorphous Sediment Urine Bacteria Occasional H Hyaline Casts Urine Mucus Few H 08/11/22 08/11/22 08/11/22 16:50 16:56 16:56 WBC RBC Hgb Hct MCV MCHC RDW Neutrophils # Lymphocytes # PT INR APTT ABG pH ABG HCO3 ABG Total CO2 ABG O2 Saturation ABG Hematocrit Hemoglobin Sodium Potassium Chloride Carbon Dioxide BUN Creatinine Glucose POC Glucose (mg/dL) 111 H Hemoglobin A1c Plasma Lactic Acid Karthikeyan Calcium Total Bilirubin AST ALT Troponin I C-Reactive Protein 6.6 H Total Protein Albumin Procalcitonin 0.55 H Urine Protein Urine Glucose (UA) Urine Blood Ur Leukocyte Esterase Urine RBC Urine WBC Urine WBC Clumps Ur Squamous Epith Cells Amorphous Sediment Urine Bacteria Hyaline Casts Urine Mucus 08/11/22 08/11/22 08/11/22 17:37 20:38 20:47 WBC RBC Hgb Hct MCV MCHC RDW Neutrophils # Lymphocytes # PT INR APTT ABG pH ABG HCO3 ABG Total CO2 ABG O2 Saturation ABG Hematocrit Hemoglobin Sodium 132 L Potassium 5.8 H Chloride 96 L Carbon Dioxide 10 L BUN 55 H Creatinine 2.36 H Glucose 66 L POC Glucose (mg/dL) 68 L Hemoglobin A1c Plasma Lactic Acid Karthikeyan 10.4 H* Calcium 8.3 L Total Bilirubin AST ALT Troponin I C-Reactive Protein Total Protein Albumin Procalcitonin Urine Protein Urine Glucose (UA) Urine Blood Ur Leukocyte Esterase Urine RBC Urine WBC Urine WBC Clumps Ur Squamous Epith Cells Amorphous Sediment Urine Bacteria Hyaline Casts Urine Mucus 08/11/22 08/11/22 08/12/22 21:20 22:05 01:51 WBC RBC Hgb Hct MCV MCHC RDW Neutrophils # Lymphocytes # PT INR APTT ABG pH ABG HCO3 ABG Total CO2 ABG O2 Saturation ABG Hematocrit Hemoglobin Sodium 132 L Potassium Chloride 93 L Carbon Dioxide 13 L BUN 56 H Creatinine 2.33 H Glucose POC Glucose (mg/dL) Hemoglobin A1c Plasma Lactic Acid Karthikeyan 11.8 H* 9.6 H* Calcium 8.1 L Total Bilirubin AST ALT Troponin I C-Reactive Protein Total Protein Albumin Procalcitonin Urine Protein Urine Glucose (UA) Urine Blood Ur Leukocyte Esterase Urine RBC Urine WBC Urine WBC Clumps Ur Squamous Epith Cells Amorphous Sediment Urine Bacteria Hyaline Casts Urine Mucus 08/12/22 08/12/22 08/12/22 04:48 05:21 05:21 WBC 28.4 H RBC 3.77 L Hgb 10.9 L Hct 38.9 L MCV 103.2 H D MCHC 27.9 L RDW 18.2 H Neutrophils # Lymphocytes # PT INR APTT ABG pH ABG HCO3 ABG Total CO2 ABG O2 Saturation ABG Hematocrit Hemoglobin Sodium 134 L Potassium 5.8 H Chloride 97 L Carbon Dioxide 14 L BUN 56 H Creatinine 2.80 H Glucose 127 H POC Glucose (mg/dL) 67 L Hemoglobin A1c Plasma Lactic Acid Karthikeyan Calcium 7.4 L Total Bilirubin 2.5 H AST ALT 699 H Troponin I C-Reactive Protein Total Protein 5.2 L Albumin 2.9 L Procalcitonin Urine Protein Urine Glucose (UA) Urine Blood Ur Leukocyte Esterase Urine RBC Urine WBC Urine WBC Clumps Ur Squamous Epith Cells Amorphous Sediment Urine Bacteria Hyaline Casts Urine Mucus 08/12/22 08/12/22 08/12/22 05:21 06:00 07:21 WBC RBC Hgb Hct MCV MCHC RDW Neutrophils # Lymphocytes # PT INR APTT ABG pH 7.03 L* ABG HCO3 10 L* ABG Total CO2 11 L ABG O2 Saturation 92.9 L ABG Hematocrit 30 L Hemoglobin 9.9 L Sodium Potassium Chloride Carbon Dioxide BUN Creatinine Glucose POC Glucose (mg/dL) 62 L Hemoglobin A1c Plasma Lactic Acid Karthikeyan 13.1 H* Calcium Total Bilirubin AST ALT Troponin I C-Reactive Protein Total Protein Albumin Procalcitonin Urine Protein Urine Glucose (UA) Urine Blood Ur Leukocyte Esterase Urine RBC Urine WBC Urine WBC Clumps Ur Squamous Epith Cells Amorphous Sediment Urine Bacteria Hyaline Casts Urine Mucus - Diagnostic Findings Chest x-ray: image reviewed CT scan - chest: image reviewed Assessment and Plan Assessment: Status post cardiopulmonary arrest, with cardiopulmonary resuscitation and return of spontaneous circulation, with subsequent intubation and mechanical ventilation. Atrial fibrillation with rapid ventricular response. Severe hypotension, currently on both norepinephrine and vasopressin. Anion gap metabolic acidosis, secondary to lactic acidemia. Acute kidney injury. History of diabetes mellitus. History of hyperlipidemia. History of hypertension. History of thyroid cancer. History of rheumatoid arthritis. History of prostate cancer. History of obstructive sleep apnea syndrome. Morbid obesity. Plan: Plan dated 08/12/2022. The family is in the room with the patient. They are on the phone with other family members. They do decide to make the patient a DO NOT RESUSCITATE. They're thinking about comfort measures as well. I placed a left subclavian triple-lumen catheter. The patient remains on maximal doses of both norepinephrine and vasopressin. The patient's overall prognosis is very poor. The patient is paralyzed with Nimbex, 10 mg IV push, and then a drip at 2 mcg/kg/m. Also, for her severe metabolic acidosis, we started a bicarbonate drip with 3 ampules of sodium bicarbonate and D5W at 100 mL an hour. Additional recommendations suggestions are forthcoming. Labs, x-rays, medications are reviewed. Prognosis is very poor. Time with Patient: Greater than 30
[2022-08-12] MEDS ORDERED: ASCORBIC ACID 500 MG TAB PO SCH (09:00)
[2022-08-12 09:06] LABS: Glucose,Whole Blood 106 mg/dL (70-110)
[2022-08-12] MEDS ORDERED: MORPHINE SULFATE 4 MG/ML SYRINGE IV PRN (09:15)
[2022-08-12] MEDS ORDERED: MORPHINE SULFATE 2 MG/ML SYRINGE IV PRN (09:15)
[2022-08-12] MEDS ORDERED: SCOPOLAMINE 1 MG/72 HR PATCH TRANSDERM SCH (09:30)
[2022-08-12] MEDS ORDERED: MORPHINE SULFATE (100 MG/2 ML) 100 MG in SODIUM CHLORIDE 0.9% 100 ML IV SCH (09:30)
[2022-08-12] MEDS ORDERED: SODIUM ZIRCONIUM CYCLOSILICATE 10 GM PACKET PO ONE (09:30)
[2022-08-12] MEDS: AMIODARONE 450 MG in DEXTROSE 5% IN WATER 250 ML IV SCH ×2 (09:35)
[2022-08-12 09:44] VITALS: RESP 24
--- NOTE | 2022-08-12 09:45 | P.PN ---
Subjective Patient is seen in follow-up for acute kidney injury on chronic kidney disease. Renal function continues to worsen. Oliguric. Received IV fluids as well as fluid boluses overnight due to high lactic acid level. Patient had cardiac arrest early this morning and is currently intubated. He is on high-dose Levophed and vasopressin. IV fluids have been changed to bicarb drip due to acidosis. Vital signs - on high-dose vasopressor support. General: Intubated. HEENT: Intubated. OG tube noted. LUNGS: Breath sounds decreased. HEART: Rate and Rhythm are regular. ABDOMEN: Soft, obese. EXTREMITITES: 2+ edema. Objective - Vital Signs Vital signs: Vital Signs Temp 97.4 F L 08/12/22 04:00 Pulse 98 08/12/22 08:15 Resp 27 H 08/12/22 08:15 BP 93/25 08/12/22 08:15 Pulse Ox 89 L 08/12/22 06:30 FiO2 100 08/12/22 07:30 Intake & Output 08/11/22 08/12/22 08/12/22 18:59 06:59 18:59 Intake Total 10 6232.599 9406.567 Output Total 100 30 Balance -90 7355.839 6325.567 Weight 141 kg Intake: IV 10 Invasive Line 1 10 Intake, IV Titration 0098.308 6268.567 Amount Norepinephrine 32 mg In 11.567 Sodium Chloride 0.9% 218 ml @ 0.05 MCG/KG/MIN 3. 305 mls/hr IV .Q24H [facility] Rx#:[id number] Norepinephrine 4 mg In 254.000 Sodium Chloride 0.9% 250 ml @ 0.05 MCG/KG/MIN 25. 145 mls/hr IV .Q10H7M [facility] Rx#:[id number] Sodium Chloride 0.9% 1, 375 1000 000 ml @ 75 mls/hr IV . [id number] [facility] Rx#:[id number] Sodium Chloride 0.9% 2, 1000 000 ml @ 999 mls/hr IV . Q2H1M ONE Rx#:[id number] Output: Urine 100 30 Other: Voiding Method Indwelling Catheter Indwelling Catheter ABP, PAP, CO, CI - Last Documented Arterial Blood Pressure 70/48 - Labs CBC & Chem 7: 08/12/22 05:21 08/12/22 05:21 Labs: Abnormal Lab Results - Last 24 Hours (Table) 08/11/22 08/11/22 08/11/22 Range/Units 11:51 12:17 12:17 WBC (3.8-10.6) k/uL RBC (4.30-5.90) m/uL Hgb (13.0-17.5) gm/dL Hct (39.0-53.0) % MCV (80.0-100.0) fL MCHC (31.0-37.0) g/dL RDW (11.5-15.5) % ABG pH (7.35-7.45) ABG HCO3 (21-25) mmol/L ABG Total CO2 (19-24) mmol/L ABG O2 Saturation (94-97) % ABG Hematocrit (34.0-46.0) % Hemoglobin (13.0-17.5) gm/dL Sodium (137-145) mmol/L Potassium (3.5-5.1) mmol/L Chloride (98-107) mmol/L Carbon Dioxide (22-30) mmol/L BUN (9-20) mg/dL Creatinine (0.66-1.25) mg/dL Glucose (74-99) mg/dL POC Glucose (mg/dL) 135 H (70-110) mg/dL Hemoglobin A1c 6.1 H (0.0-6.0) % Plasma Lactic Acid Karthikeyan 4.2 H* (0.7-2.0) mmol/L Calcium (8.4-10.2) mg/dL Total Bilirubin (0.2-1.3) mg/dL ALT (4-49) U/L C-Reactive Protein (<1.0) mg/dL Total Protein (6.3-8.2) g/dL Albumin (3.5-5.0) g/dL Procalcitonin (0.02-0.09) ng/mL Urine Protein (Negative) Urine Glucose (UA) (Negative) Urine Blood (Negative) Ur Leukocyte Esterase (Negative) Urine RBC (0-5) /hpf Urine WBC (0-5) /hpf Urine WBC Clumps (None) /hpf Ur Squamous Epith Cells (0-4) /hpf Urine Bacteria (None) /hpf Urine Mucus (None) /hpf 09/08/11/22 08/11/22 Range/Units 15:09 15:58 16:50 WBC (3.8-10.6) k/uL RBC (4.30-5.90) m/uL Hgb (13.0-17.5) gm/dL Hct (39.0-53.0) % MCV (80.0-100.0) fL MCHC (31.0-37.0) g/dL RDW (11.5-15.5) % ABG pH (7.35-7.45) ABG HCO3 (21-25) mmol/L ABG Total CO2 (19-24) mmol/L ABG O2 Saturation (94-97) % ABG Hematocrit (34.0-46.0) % Hemoglobin (13.0-17.5) gm/dL Sodium (137-145) mmol/L Potassium (3.5-5.1) mmol/L Chloride (98-107) mmol/L Carbon Dioxide (22-30) mmol/L BUN (9-20) mg/dL Creatinine (0.66-1.25) mg/dL Glucose (74-99) mg/dL POC Glucose (mg/dL) 111 H (70-110) mg/dL Hemoglobin A1c (0.0-6.0) % Plasma Lactic Acid Karthikeyan 10.0 H* (0.7-2.0) mmol/L Calcium (8.4-10.2) mg/dL Total Bilirubin (0.2-1.3) mg/dL ALT (4-49) U/L C-Reactive Protein (<1.0) mg/dL Total Protein (6.3-8.2) g/dL Albumin (3.5-5.0) g/dL Procalcitonin (0.02-0.09) ng/mL Urine Protein 2+ H (Negative) Urine Glucose (UA) Trace H (Negative) Urine Blood Large H (Negative) Ur Leukocyte Esterase Large H (Negative) Urine RBC >182 H (0-5) /hpf Urine WBC >182 H (0-5) /hpf Urine WBC Clumps Rare H (None) /hpf Ur Squamous Epith Cells 14 H (0-4) /hpf Urine Bacteria Occasional H (None) /hpf Urine Mucus Few H (None) /hpf 08/11/22 08/11/2208/11/22 Range/Units 16:56 16:56 17:37 WBC (3.8-10.6) k/uL RBC (4.30-5.90) m/uL Hgb (13.0-17.5) gm/dL Hct (39.0-53.0) % MCV (80.0-100.0) fL MCHC (31.0-37.0) g/dL RDW (11.5-15.5) % ABG pH (7.35-7.45) ABG HCO3 (21-25) mmol/L ABG Total CO2 (19-24) mmol/L ABG O2 Saturation (94-97) % ABG Hematocrit (34.0-46.0) % Hemoglobin (13.0-17.5) gm/dL Sodium (137-145) mmol/L Potassium (3.5-5.1) mmol/L Chloride (98-107) mmol/L Carbon Dioxide (22-30) mmol/L BUN (9-20) mg/dL Creatinine (0.66-1.25) mg/dL Glucose (74-99) mg/dL POC Glucose (mg/dL) (70-110) mg/dL Hemoglobin A1c (0.0-6.0) % Plasma Lactic Acid Karthikeyan 10.4 H* (0.7-2.0) mmol/L Calcium (8.4-10.2) mg/dL Total Bilirubin (0.2-1.3) mg/dL ALT (4-49) U/L C-Reactive Protein 6.6 H (<1.0) mg/dL Total Protein (6.3-8.2) g/dL Albumin (3.5-5.0) g/dL Procalcitonin 0.55 H (0.02-0.09) ng/mL Urine Protein (Negative) Urine Glucose (UA) (Negative) Urine Blood (Negative) Ur Leukocyte Esterase (Negative) Urine RBC (0-5) /hpf Urine WBC (0-5) /hpf Urine WBC Clumps (None) /hpf Ur Squamous Epith Cells (0-4) /hpf Urine Bacteria (None) /hpf Urine Mucus (None) /hpf 08/11/22 08/11/22 08/11/22 Range/Units 20:38 20:47 21:20 WBC (3.8-10.6) k/uL RBC (4.30-5.90) m/uL Hgb (13.0-17.5) gm/dL Hct (39.0-53.0) % MCV (80.0-100.0) fL MCHC (31.0-37.0) g/dL RDW (11.5-15.5) % ABG pH (7.35-7.45) ABG HCO3 (21-25) mmol/L ABG Total CO2 (19-24) mmol/L ABG O2 Saturation (94-97) % ABG Hematocrit (34.0-46.0) % Hemoglobin (13.0-17.5) gm/dL Sodium 132 L (137-145) mmol/L Potassium 5.8 H (3.5-5.1) mmol/L Chloride 96 L (98-107) mmol/L Carbon Dioxide 10 L (22-30) mmol/L BUN 55 H (9-20) mg/dL Creatinine 2.36 H (0.66-1.25) mg/dL Glucose 66 L (74-99) mg/dL POC Glucose (mg/dL) 68 L (70-110) mg/dL Hemoglobin A1c (0.0-6.0) % Plasma Lactic Acid Karthikeyan 11.8 H* (0.7-2.0) mmol/L Calcium 8.3 L (8.4-10.2) mg/dL Total Bilirubin (0.2-1.3) mg/dL ALT (4-49) U/L C-Reactive Protein (<1.0) mg/dL Total Protein (6.3-8.2) g/dL Albumin (3.5-5.0) g/dL Procalcitonin (0.02-0.09) ng/mL Urine Protein (Negative) Urine Glucose (UA) (Negative) Urine Blood (Negative) Ur Leukocyte Esterase (Negative) Urine RBC (0-5) /hpf Urine WBC (0-5) /hpf Urine WBC Clumps (None) /hpf Ur Squamous Epith Cells (0-4) /hpf Urine Bacteria (None) /hpf Urine Mucus (None) /hpf 08/11/22 08/12/22 08/12/22 Range/Units 22:05 01:51 04:48 WBC (3.8-10.6) k/uL RBC (4.30-5.90) m/uL Hgb (13.0-17.5) gm/dL Hct (39.0-53.0) % MCV (80.0-100.0) fL MCHC (31.0-37.0) g/dL RDW (11.5-15.5) % ABG pH (7.35-7.45) ABG HCO3 (21-25) mmol/L ABG Total CO2 (19-24) mmol/L ABG O2 Saturation (94-97) % ABG Hematocrit (34.0-46.0) % Hemoglobin (13.0-17.5) gm/dL Sodium 132 L (137-145) mmol/L Potassium (3.5-5.1) mmol/L Chloride 93 L (98-107) mmol/L Carbon Dioxide 13 L (22-30) mmol/L BUN 56 H (9-20) mg/dL Creatinine 2.33 H (0.66-1.25) mg/dL Glucose (74-99) mg/dL POC Glucose (mg/dL) 67 L (70-110) mg/dL Hemoglobin A1c (0.0-6.0) % Plasma Lactic Acid Karthikeyan 9.6 H* (0.7-2.0) mmol/L Calcium 8.1 L (8.4-10.2) mg/dL Total Bilirubin (0.2-1.3) mg/dL ALT (4-49) U/L C-Reactive Protein (<1.0) mg/dL Total Protein (6.3-8.2) g/dL Albumin (3.5-5.0) g/dL Procalcitonin (0.02-0.09) ng/mL Urine Protein (Negative) Urine Glucose (UA) (Negative) Urine Blood (Negative) Ur Leukocyte Esterase (Negative) Urine RBC (0-5) /hpf Urine WBC (0-5) /hpf Urine WBC Clumps (None) /hpf Ur Squamous Epith Cells (0-4) /hpf Urine Bacteria (None) /hpf Urine Mucus (None) /hpf 08/12/22 08/12/22 08/12/22 Range/Units 05:21 05:21 05:21 WBC 28.4 H (3.8-10.6) k/uL RBC 3.77 L (4.30-5.90) m/uL Hgb 10.9 L (13.0-17.5) gm/dL Hct 38.9 L (39.0-53.0) % MCV 103.2 H D (80.0-100.0) fL MCHC 27.9 L (31.0-37.0) g/dL RDW 18.2 H (11.5-15.5) % ABG pH (7.35-7.45) ABG HCO3 (21-25) mmol/L ABG Total CO2 (19-24) mmol/L ABG O2 Saturation (94-97) % ABG Hematocrit (34.0-46.0) % Hemoglobin (13.0-17.5) gm/dL Sodium 134 L (137-145) mmol/L Potassium 5.8 H (3.5-5.1) mmol/L Chloride 97 L (98-107) mmol/L Carbon Dioxide 14 L (22-30) mmol/L BUN 56 H (9-20) mg/dL Creatinine 2.80 H (0.66-1.25) mg/dL Glucose 127 H (74-99) mg/dL POC Glucose (mg/dL) (70-110) mg/dL Hemoglobin A1c (0.0-6.0) % Plasma Lactic Acid Karthikeyan 13.1 H* (0.7-2.0) mmol/L Calcium 7.4 L (8.4-10.2) mg/dL Total Bilirubin 2.5 H (0.2-1.3) mg/dL ALT 699 H (4-49) U/L C-Reactive Protein (<1.0) mg/dL Total Protein 5.2 L (6.3-8.2) g/dL Albumin 2.9 L (3.5-5.0) g/dL Procalcitonin (0.02-0.09) ng/mL Urine Protein (Negative) Urine Glucose (UA) (Negative) Urine Blood (Negative) Ur Leukocyte Esterase (Negative) Urine RBC (0-5) /hpf Urine WBC (0-5) /hpf Urine WBC Clumps (None) /hpf Ur Squamous Epith Cells (0-4) /hpf Urine Bacteria (None) /hpf Urine Mucus (None) /hpf 09/16/22 09/16/22 Range/Units 06:00 07:21 WBC (3.8-10.6) k/uL RBC (4.30-5.90) m/uL Hgb (13.0-17.5) gm/dL Hct (39.0-53.0) % MCV (80.0-100.0) fL MCHC (31.0-37.0) g/dL RDW (11.5-15.5) % ABG pH 7.03 L* (7.35-7.45) ABG HCO3 10 L* (21-25) mmol/L ABG Total CO2 11 L (19-24) mmol/L ABG O2 Saturation 92.9 L (94-97) % ABG Hematocrit 30 L (34.0-46.0) % Hemoglobin 9.9 L (13.0-17.5) gm/dL Sodium (137-145) mmol/L Potassium (3.5-5.1) mmol/L Chloride (98-107) mmol/L Carbon Dioxide (22-30) mmol/L BUN (9-20) mg/dL Creatinine (0.66-1.25) mg/dL Glucose (74-99) mg/dL POC Glucose (mg/dL) 62 L (70-110) mg/dL Hemoglobin A1c (0.0-6.0) % Plasma Lactic Acid Karthikeyan (0.7-2.0) mmol/L Calcium (8.4-10.2) mg/dL Total Bilirubin (0.2-1.3) mg/dL ALT (4-49) U/L C-Reactive Protein (<1.0) mg/dL Total Protein (6.3-8.2) g/dL Albumin (3.5-5.0) g/dL Procalcitonin (0.02-0.09) ng/mL Urine Protein (Negative) Urine Glucose (UA) (Negative) Urine Blood (Negative) Ur Leukocyte Esterase (Negative) Urine RBC (0-5) /hpf Urine WBC (0-5) /hpf Urine WBC Clumps (None) /hpf Ur Squamous Epith Cells (0-4) /hpf Urine Bacteria (None) /hpf Urine Mucus (None) /hpf Microbiology - Last 24 Hours (Table) 08/10/22 18:55 Urine Culture - Final Urine,Voided Assessment and Plan Plan: Assessment: 1. Acute kidney injury secondary to hemodynamic ATN. Creatinine was 1.53 on admission and is 2.8 today. No hydronephrosis noted on kidney ultrasound done A ugust 2021. 2. 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 3. A. fib with RVR s/p amiodarone drip. Cardiology following. 4. Metabolic acidosis secondary to acute kidney injury and lactic acidosis. 5. Chronic systolic CHF with ejection fraction of 45-50% with moderate tricuspid regurgitation. 6. Diabetes mellitus. 7. Volume overload. 8. Hyperkalemia secondary to acute kidney injury and acidosis. Plan: Maintain bicarb drip. Maintain Antunez. Strict is and os. Avoid nephrotoxins. Continue to monitor renal function and urine output. Wean FiO2 and vasopressors. 10 g lokelma now. 2 A of sodium bicarb IV push now. 10 units IV insulin with amp D50 now. Repeat potassium level this afternoon. Patient is hemodynamically too unstable to tolerate renal replacement therapy at this time. Prognosis guarded.
[2022-08-12 09:48] LABS: Band Neutrophils % 2 %; Neutrophils % (M) 78 %; Nucleated Red Blood Cells 25 /100 WBC (0-0); Total Cells Counted 200
[2022-08-12 09:49] LABS: Lymphocytes # (M) 3.41 k/uL (1.0-4.8); Monocytes # (M) 1.36 k/uL (0-1.0); WBC 22.7 k/uL (3.8-10.6)
[2022-08-12 09:51] LABS: Ovalocytes Present; Polychromasia Present
[2022-08-12 10:02] VITALS: PULSE 98
--- NOTE | 2022-08-12 10:56 | US ---
EXAMINATION TYPE: US abdomen limited DATE OF EXAM: 08/12/2022 COMPARISON: NONE Exam done portable in ICU CLINICAL HISTORY: Sepsis, elevated liver enzymes. TECHNIQUE: Multiple sonographic images of the right upper quadrant are obtained. FINDINGS: EXAM MEASUREMENTS: Liver Length: 22.6 cm Gallbladder Wall: 0.4 cm CBD: n/a Right Kidney: 11.7 x 5.6 x 6.1 cm Difficult and limited study due to morbidly obese patient Pancreas: obscured by overlying midline bowel gas Liver: enlarged Gallbladder: 0.4cm wall Evidence for sonographic Sam's sign: n/a CBD: not seen Right Kidney: visualized portions wnl Fluid in RUQ Right pleural effusion IMPRESSION: 1. Mild ascites and small pleural effusion. 2. Thickened gallbladder wall. Clinical consideration for cholecystitis.
--- NOTE | 2022-08-12 11:22 | PCN ---
PROCEDURE NOTE PROCEDURE PERFORMED: Left subclavian triple-lumen catheter. PREOPERATIVE DIAGNOSES: Administration of fluids and pressors, hypotension, sepsis. POSTOPERATIVE DIAGNOSES: Administration of fluids and pressors, hypotension, sepsis. There was informed consent and universal timeout. We used the left subclavian site. TRIPLE LUMEN CATHETER PLACEMENT: Indication: Hemodynamic monitoring/Intravenous access. A time-out was completed verifying correct patient, procedure, site, positioning, and implant(s) or special equipment if applicable. The patient was placed in a dependent position appropriate for triple lumen catheter placement based on the vein to be cannulated. The patient's left shoulder or left neck or left groin was prepped and draped in sterile fashion. 1% Lidocaine was used to anesthetize the surrounding skin area. A triple lumen 9F Cordis catheter was introduced into the left subclavian using Seldinger technique. The catheter was threaded smoothly over the guide wire and appropriate blood return was obtained. Each lumen of the catheter was evacuated of air and flushed with sterile saline. The catheter was then sutured in place to the skin and a sterile dressing applied. Perfusion to the extremity distal to the point of catheter insertion was checked and found to be adequate. There was no immediate complication. There was good blood return from all 3 ports. The catheter was sutured in place and sterile dressing was applied by the nurse. The tip of the catheter was seen in the junction of the right atrium and superior vena cava. MMODL / IJN: [id number] /
[2022-08-12 12:23] LABS: AST 9103 U/L (17-59)
--- NOTE | 2022-08-12 13:19 | P.PN ---
Subjective Progress Note Date: 08/12/22 H&P Date: 08/11/22 This is a 72-year-old gentleman past medical history of CHF, obstructive sleep apnea -uses BiPAP, thyroid cancer with thyroidectomy, prostate cancer, morbid obesity-has lost 70 pounds over 1 year, diabetes mellitus, hyperlipidemia, hypertension, rheumatoid arthritis, thyroid cancer with prior thyroidectomy, prostate disorder, former nicotine dependence, panic disorder and multiple other medical issues presented to the ER with complaints of worsening shortness of breath, increased weakness and subsequent fall, hurting his right ankle. Denies head trauma. Denies syncope. Denies fever or chills or cough. Denies nausea vomiting or abdominal pain denies urinary frequency, dysuria or hematuria in a patient with history of recurrent UTIs. Denies chest pain, palpitations. Echocardiogram 07/28/2022 reported EF 45-50%, mild LVH, RV mild to moderately dil atered RVSP 38, moderate biaterial enlargement mild mitral regurgitation, moderate tricuspid regurgitation. Troponin 0.157. EKG reported atrial fibrillation with RVR, heart rates up into the 130s, Cardizem drip initiated, converted to amiodarone. ProBNP 20,200 .Chest x-ray reporting biting of the m ediastinum, mediastinal mass or adenopathy similar to recent exam, increasing bilateral pleural effusions. Ankle x-ray reported advanced osteoarthritis no fracture. Lactic acid 4.8 on admission, maintained on gentle IV fluid hydration at 75 MLS per hour currently down to 4.7. Afebrile, WBC 11. Hemoglobin 11.2, platelets 168, neutrophils 9.1, INR 2.5, sodium 135, potassium 4.9, magnesium 1.7. BUN/creatinine on admission 49, 1.53, mildly worsened today; 55, 1.84. Total bili 1.9, AST 301, ALT 132. UA reporting rare bacteria 18 WBCs, trace leukocytes, 227 hyaline casts, negative nitrates. Requiring 3 L nasal cannula to maintain O2 sats in the 90, normally wears 2 L at home. Borderline h ypotension with systolic blood pressures currently in the 90s. 08/12/2022 Cardio arrested, see CPR, intubated and transferred to ICU. Continues on 100% FiO2/+5 of PEEP .Maxed out on both vasopressin and Levophed. Paralyzed with Nimbex. Continues on bicarb drip. High lactic acid, received IV fluid resuscitation. No urine output. Chest x-ray reporting new airspace disease, extensive infiltrate in the right lung compared to yesterday consistent with developing RDS, possible aspiration. CT noted.abdominal ultrasound pending. CODE STATUS has been changed to no code and family is discussing terminal wean. Objective - Vital Signs Vital signs: Vital Signs Temp 97.4 F L 08/12/22 04:00 Pulse 98 08/12/22 10:00 Resp 24 08/12/22 10:00 BP 93/25 08/12/22 08:15 Pulse Ox 83 L 08/12/22 10:00 FiO2 100 08/12/22 08:00 Intake & Output 08/11/22 08/12/22 08/12/22 18:59 06:59 18:59 Intake Total 10 8395.707 1290.094 Output Total 100 30 0 Balance -90 7624.219 9725.094 Weight 141 kg Intake: IV 10 200 Dextrose 5% in Water 1, 200 000 ml @ 100 mls/hr IV . [id number] NASRIN with Sodium Bicarb (1 Meq/ml) 150 ml Rx#:[id number] Invasive Line 1 10 Intake, IV Titration 2295.277 4692.094 Amount Morphine Sulfate (100 mg/ 0.527 2 ml) 100 mg In Sodium Chloride 0.9% 100 ml @ 1 MG/HR 1.02 mls/hr IV . Q24H NASRIN Rx#:[id number] Norepinephrine 32 mg In 11.567 Sodium Chloride 0.9% 218 ml @ 0.05 MCG/KG/MIN 3. 305 mls/hr IV .Q24H NASRIN Rx#:[id number] Norepinephrine 4 mg In 254.000 Sodium Chloride 0.9% 250 ml @ 0.05 MCG/KG/MIN 25. 145 mls/hr IV .Q10H7M NASRIN Rx#:[id number] Sodium Chloride 0.9% 1, 375 1000 000 ml @ 75 mls/hr IV . [id number] NASRIN Rx#:[id number] Sodium Chloride 0.9% 2, 1000 000 ml @ 999 mls/hr IV . Q2H1M ONE Rx#:[id number] Output: Urine 100 30 0 Other: Voiding Method Indwelling Catheter Indwelling Catheter Indwelling Catheter ABP, PAP, CO, CI - Last Documented Arterial Blood Pressure 70/45 - Exam HYSICAL EXAM: VITAL SIGNS: As above GENERAL: Sedated, intubated, on paralytics HEENT: Normocephalic ,Conjunctivae normal. eyes normal. NECK: Supple, short neck-unable to assess for JVD. CARDIOVASCULAR: S1, S2, irregular. No murmur RESPIRATION: Breath sounds diminished in the bases. Scattered rhonchi, ABDOMEN: Obese, no bowel sounds heard. LEGS: Bilateral lower extremity pedal edema, chronic venous stasis changes PSYCHIATRY: Alert and oriented X3, mood and affect normal. NERVOUS SYSTEM: Cranial N 2-12 grossly normal. Generalized weakness, No focal deficits. Strength and sensation grossly intact. Skin: chronic suprapubic wound, dressing clean dry and intact - Labs CBC & Chem 7: 08/12/22 05:21 08/12/22 05:21 Labs: Abnormal Lab Results - Last 24 Hours (Table) 08/11/22 08/11/22 08/11/22 Range/Units 11:51 12:17 12:17 WBC (3.8-10.6) k/uL RBC (4.30-5.90) m/uL Hgb (13.0-17.5) gm/dL Hct (39.0-53.0) % MCV (80.0-100.0) fL MCHC (31.0-37.0) g/dL RDW (11.5-15.5) % Neutrophils # (Manual) (1.3-7.7) k/uL Monocytes # (Manual) (0-1.0) k/uL Nucleated RBCs (0-0) /100 WBC ABG pH (7.35-7.45) ABG HCO3 (21-25) mmol/L ABG Total CO2 (19-24) mmol/L ABG O2 Saturation (94-97) % ABG Hematocrit (34.0-46.0) % Hemoglobin (13.0-17.5) gm/dL Sodium (137-145) mmol/L Potassium (3.5-5.1) mmol/L Chloride (98-107) mmol/L Carbon Dioxide (22-30) mmol/L BUN (9-20) mg/dL Creatinine (0.66-1.25) mg/dL Glucose (74-99) mg/dL POC Glucose (mg/dL) 135 H (70-110) mg/dL Hemoglobin A1c 6.1 H (0.0-6.0) % Plasma Lactic Acid Karthikeyan 4.2 H* (0.7-2.0) mmol/L Calcium (8.4-10.2) mg/dL Total Bilirubin (0.2-1.3) mg/dL ALT (4-49) U/L C-Reactive Protein (<1.0) mg/dL Total Protein (6.3-8.2) g/dL Albumin (3.5-5.0) g/dL Procalcitonin (0.02-0.09) ng/mL Urine Protein (Negative) Urine Glucose (UA) (Negative) Urine Blood (Negative) Ur Leukocyte Esterase (Negative) Urine RBC (0-5) /hpf Urine WBC (0-5) /hpf Urine WBC Clumps (None) /hpf Ur Squamous Epith Cells (0-4) /hpf Urine Bacteria (None) /hpf Urine Mucus (None) /hpf 08/11/22 08/11/22 08/11/22 Range/Units 15:09 15:58 16:50 WBC (3.8-10.6) k/uL RBC (4.30-5.90) m/uL Hgb (13.0-17.5) gm/dL Hct (39.0-53.0) % MCV (80.0-100.0) fL MCHC (31.0-37.0) g/dL RDW (11.5-15.5) % Neutrophils # (Manual) (1.3-7.7) k/uL Monocytes # (Manual) (0-1.0) k/uL Nucleated RBCs (0-0) /100 WBC ABG pH (7.35-7.45) ABG HCO3 (21-25) mmol/L ABG Total CO2 (19-24) mmol/L ABG O2 Saturation (94-97) % ABG Hematocrit (34.0-46.0) % Hemoglobin (13.0-17.5) gm/dL Sodium (137-145) mmol/L Potassium (3.5-5.1) mmol/L Chloride (98-107) mmol/L Carbon Dioxide (22-30) mmol/L BUN (9-20) mg/dL Creatinine (0.66-1.25) mg/dL Glucose (74-99) mg/dL POC Glucose (mg/dL) 111 H (70-110) mg/dL Hemoglobin A1c (0.0-6.0) % Plasma Lactic Acid Karthikeyan 10.0 H* (0.7-2.0) mmol/L Calcium (8.4-10.2) mg/dL Total Bilirubin (0.2-1.3) mg/dL ALT (4-49) U/L C-Reactive Protein (<1.0) mg/dL Total Protein (6.3-8.2) g/dL Albumin (3.5-5.0) g/dL Procalcitonin (0.02-0.09) ng/mL Urine Protein 2+ H (Negative) Urine Glucose (UA) Trace H (Negative) Urine Blood Large H (Negative) Ur Leukocyte Esterase Large H (Negative) Urine RBC >182 H (0-5) /hpf Urine WBC >182 H (0-5) /hpf Urine WBC Clumps Rare H (None) /hpf Ur Squamous Epith Cells 14 H (0-4) /hpf Urine Bacteria Occasional H (None) /hpf Urine Mucus Few H (None) /hpf 08/11/22 08/11/22 08/11/22 Range/Units 16:56 16:56 17:37 WBC (3.8-10.6) k/uL RBC (4.30-5.90) m/uL Hgb (13.0-17.5) gm/dL Hct (39.0-53.0) % MCV (80.0-100.0) fL MCHC (31.0-37.0) g/dL RDW (11.5-15.5) % Neutrophils # (Manual) (1.3-7.7) k/uL Monocytes # (Manual) (0-1.0) k/uL Nucleated RBCs (0-0) /100 WBC ABG pH (7.35-7.45) ABG HCO3 (21-25) mmol/L ABG Total CO2 (19-24) mmol/L ABG O2 Saturation (94-97) % ABG Hematocrit (34.0-46.0) % Hemoglobin (13.0-17.5) gm/dL Sodium (137-145) mmol/L Potassium (3.5-5.1) mmol/L Chloride (98-107) mmol/L Carbon Dioxide (22-30) mmol/L BUN (9-20) mg/dL Creatinine (0.66-1.25) mg/dL Glucose (74-99) mg/dL POC Glucose (mg/dL) (70-110) mg/dL Hemoglobin A1c (0.0-6.0) % Plasma Lactic Acid Karthikeyan 10.4 H* (0.7-2.0) mmol/L Calcium (8.4-10.2) mg/dL Total Bilirubin (0.2-1.3) mg/dL ALT (4-49) U/L C-Reactive Protein 6.6 H (<1.0) mg/dL Total Protein (6.3-8.2) g/dL Albumin (3.5-5.0) g/dL Procalcitonin 0.55 H (0.02-0.09) ng/mL Urine Protein (Negative) Urine Glucose (UA) (Negative) Urine Blood (Negative) Ur Leukocyte Esterase (Negative) Urine RBC (0-5) /hpf Urine WBC (0-5) /hpf Urine WBC Clumps (None) /hpf Ur Squamous Epith Cells (0-4) /hpf Urine Bacteria (None) /hpf Urine Mucus (None) /hpf 08/11/22 08/11/22 08/11/22 Range/Units 20:38 20:47 21:20 WBC (3.8-10.6) k/uL RBC (4.30-5.90) m/uL Hgb (13.0-17.5) gm/dL Hct (39.0-53.0) % MCV (80.0-100.0) fL MCHC (31.0-37.0) g/dL RDW (11.5-15.5) % Neutrophils # (Manual) (1.3-7.7) k/uL Monocytes # (Manual) (0-1.0) k/uL Nucleated RBCs (0-0) /100 WBC ABG pH (7.35-7.45) ABG HCO3 (21-25) mmol/L ABG Total CO2 (19-24) mmol/L ABG O2 Saturation (94-97) % ABG Hematocrit (34.0-46.0) % Hemoglobin (13.0-17.5) gm/dL Sodium 132 L (137-145) mmol/L Potassium 5.8 H (3.5-5.1) mmol/L Chloride 96 L (98-107) mmol/L Carbon Dioxide 10 L (22-30) mmol/L BUN 55 H (9-20) mg/dL Creatinine 2.36 H (0.66-1.25) mg/dL Glucose 66 L (74-99) mg/dL POC Glucose (mg/dL) 68 L (70-110) mg/dL Hemoglobin A1c (0.0-6.0) % Plasma Lactic Acid Karthikeyan 11.8 H* (0.7-2.0) mmol/L Calcium 8.3 L (8.4-10.2) mg/dL Total Bilirubin (0.2-1.3) mg/dL ALT (4-49) U/L C-Reactive Protein (<1.0) mg/dL Total Protein (6.3-8.2) g/dL Albumin (3.5-5.0) g/dL Procalcitonin (0.02-0.09) ng/mL Urine Protein (Negative) Urine Glucose (UA) (Negative) Urine Blood (Negative) Ur Leukocyte Esterase (Negative) Urine RBC (0-5) /hpf Urine WBC (0-5) /hpf Urine WBC Clumps (None) /hpf Ur Squamous Epith Cells (0-4) /hpf Urine Bacteria (None) /hpf Urine Mucus (None) /hpf 08/11/22 08/12/22 08/12/22 Range/Units 22:05 01:51 04:48 WBC (3.8-10.6) k/uL RBC (4.30-5.90) m/uL Hgb (13.0-17.5) gm/dL Hct (39.0-53.0) % MCV (80.0-100.0) fL MCHC (31.0-37.0) g/dL RDW (11.5-15.5) % Neutrophils # (Manual) (1.3-7.7) k/uL Monocytes # (Manual) (0-1.0) k/uL Nucleated RBCs (0-0) /100 WBC ABG pH (7.35-7.45) ABG HCO3 (21-25) mmol/L ABG Total CO2 (19-24) mmol/L ABG O2 Saturation (94-97) % ABG Hematocrit (34.0-46.0) % Hemoglobin (13.0-17.5) gm/dL Sodium 132 L (137-145) mmol/L Potassium (3.5-5.1) mmol/L Chloride 93 L (98-107) mmol/L Carbon Dioxide 13 L (22-30) mmol/L BUN 56 H (9-20) mg/dL Creatinine 2.33 H (0.66-1.25) mg/dL Glucose (74-99) mg/dL POC Glucose (mg/dL) 67 L (70-110) mg/dL Hemoglobin A1c (0.0-6.0) % Plasma Lactic Acid Karthikeyan 9.6 H* (0.7-2.0) mmol/L Calcium 8.1 L (8.4-10.2) mg/dL Total Bilirubin (0.2-1.3) mg/dL ALT (4-49) U/L C-Reactive Protein (<1.0) mg/dL Total Protein (6.3-8.2) g/dL Albumin (3.5-5.0) g/dL Procalcitonin (0.02-0.09) ng/mL Urine Protein (Negative) Urine Glucose (UA) (Negative) Urine Blood (Negative) Ur Leukocyte Esterase (Negative) Urine RBC (0-5) /hpf Urine WBC (0-5) /hpf Urine WBC Clumps (None) /hpf Ur Squamous Epith Cells (0-4) /hpf Urine Bacteria (None) /hpf Urine Mucus (None) /hpf 08/12/22 08/12/22 08/12/22 Range/Units 05:21 05:21 05:21 WBC 22.7 H (3.8-10.6) k/uL RBC 3.77 L (4.30-5.90) m/uL Hgb 10.9 L (13.0-17.5) gm/dL Hct 38.9 L (39.0-53.0) % MCV 103.2 H D (80.0-100.0) fL MCHC 27.9 L (31.0-37.0) g/dL RDW 18.2 H (11.5-15.5) % Neutrophils # (Manual) 18.10 H (1.3-7.7) k/uL Monocytes # (Manual) 1.36 H (0-1.0) k/uL Nucleated RBCs 25 H (0-0) /100 WBC ABG pH (7.35-7.45) ABG HCO3 (21-25) mmol/L ABG Total CO2 (19-24) mmol/L ABG O2 Saturation (94-97) % ABG Hematocrit (34.0-46.0) % Hemoglobin (13.0-17.5) gm/dL Sodium 134 L (137-145) mmol/L Potassium 5.8 H (3.5-5.1) mmol/L Chloride 97 L (98-107) mmol/L Carbon Dioxide 14 L (22-30) mmol/L BUN 56 H (9-20) mg/dL Creatinine 2.80 H (0.66-1.25) mg/dL Glucose 127 H (74-99) mg/dL POC Glucose (mg/dL) (70-110) mg/dL Hemoglobin A1c (0.0-6.0) % Plasma Lactic Acid Karthikeyan 13.1 H* (0.7-2.0) mmol/L Calcium 7.4 L (8.4-10.2) mg/dL Total Bilirubin 2.5 H (0.2-1.3) mg/dL ALT 699 H (4-49) U/L C-Reactive Protein (<1.0) mg/dL Total Protein 5.2 L (6.3-8.2) g/dL Albumin 2.9 L (3.5-5.0) g/dL Procalcitonin (0.02-0.09) ng/mL Urine Protein (Negative) Urine Glucose (UA) (Negative) Urine Blood (Negative) Ur Leukocyte Esterase (Negative) Urine RBC (0-5) /hpf Urine WBC (0-5) /hpf Urine WBC Clumps (None) /hpf Ur Squamous Epith Cells (0-4) /hpf Urine Bacteria (None) /hpf Urine Mucus (None) /hpf 08/12/22 08/12/22 08/12/22 Range/Units 06:00 07:21 09:00 WBC (3.8-10.6) k/uL RBC (4.30-5.90) m/uL Hgb (13.0-17.5) gm/dL Hct (39.0-53.0) % MCV (80.0-100.0) fL MCHC (31.0-37.0) g/dL RDW (11.5-15.5) % Neutrophils # (Manual) (1.3-7.7) k/uL Monocytes # (Manual) (0-1.0) k/uL Nucleated RBCs (0-0) /100 WBC ABG pH 7.03 L* (7.35-7.45) ABG HCO3 10 L* (21-25) mmol/L ABG Total CO2 11 L (19-24) mmol/L ABG O2 Saturation 92.9 L (94-97) % ABG Hematocrit 30 L (34.0-46.0) % Hemoglobin 9.9 L (13.0-17.5) gm/dL Sodium (137-145) mmol/L Potassium (3.5-5.1) mmol/L Chloride (98-107) mmol/L Carbon Dioxide (22-30) mmol/L BUN (9-20) mg/dL Creatinine (0.66-1.25) mg/dL Glucose (74-99) mg/dL POC Glucose (mg/dL) 62 L (70-110) mg/dL Hemoglobin A1c (0.0-6.0) % Plasma Lactic Acid Karthikeyan 13.0 H* (0.7-2.0) mmol/L Calcium (8.4-10.2) mg/dL Total Bilirubin (0.2-1.3) mg/dL ALT (4-49) U/L C-Reactive Protein (<1.0) mg/dL Total Protein (6.3-8.2) g/dL Albumin (3.5-5.0) g/dL Procalcitonin (0.02-0.09) ng/mL Urine Protein (Negative) Urine Glucose (UA) (Negative) Urine Blood (Negative) Ur Leukocyte Esterase (Negative) Urine RBC (0-5) /hpf Urine WBC (0-5) /hpf Urine WBC Clumps (None) /hpf Ur Squamous Epith Cells (0-4) /hpf Urine Bacteria (None) /hpf Urine Mucus (None) /hpf Microbiology - Last 24 Hours (Table) 08/12/22 05:10 Sputum Culture - Preliminary Sputum 08/10/22 18:55 Urine Culture - Final Urine,Voided Assessment and Plan Assessment: -Status post cardiopulmonary arrest, with CPR and intubation -Sepsis, septic shock with multisystem organ failure, -Hypotension, severe, secondary to the above, on pressor support. -Acute respiratory failure multifactorial, possible aspiration pneumonia .Chest x-ray reporting mediastinal mass, unchanged from prior with increased bilateral pleural effusions. Sputum culture pending. -Chronic hypoxic respiratory failure, wears 2 L at home -Lactic acidosis, in a patient with history of chronic wound, possible acute UTI, though current UA does not reflect. -Chronic atrial fibrillation with RVR, anticoagulated on eliquis -Acute on chronic diastolic CHF exacerbation, EF 45-50% -Obstructive sleep apnea wears BiPAP at home -Acute renal failure, ATN secondary to cardiorenal syndrome. No hydronephrosis reported per recent renal ultrasound 07/18 -Hyperkalemia -Chronic renal failure stage IIIA, secondary to diabetic renal disease, baseline 1.5 -Metabolic acidosis secondary to acute renal injury and lactic acidosis -Elevated LFTs -Abdominal cellulitis with chronic suprapubic wound, E. coli reported per wound culture 07/27/2022, refer to nursing documentation for measurements -Anemia of chronic disease -Diabetes mellitus, A1c 5.8 -Diabetic neuropathy, bilateral feet -Hypertension -Hyperlipidemia -History of panic disorder -History of thyroid cancer, thyroidectomy -Prostate cancer, currently on immunotherapy -Morbid Obesity, BMI 47 -Gait dysfunction, chronic right ankle injury years ago, uses walker for any lengthy distance, status post recent fall prior to this admission. -No code, no CPR, no reintubation Plan: Continue on current medication regime ,monitoring and symptomatic treatment. ICU management as per firearms expert.bicarb drip/IV fluids /pressor support, paralytics antiarrhythmics. Multiple consults .Hyperkalemic cocktail. Prognosis poor given multiple complex medical issues. Daughter and son and updated, discussing terminal wean measures. The impression and plan of care has been dictated as directed. : I performed a history and examination of this patient, discussed the same with the dictator. I agree with the dictator's note ,documented as a scribe. Any additional findings or plans will be noted.
--- NOTE | 2022-08-12 16:44 | P.CONS ---
History of Present Illness - Reason for Consult Consult date: 08/12/22 History of metastatic prostate cancer - Chief Complaint Atrial fibrillation with RVR - History of Present Illness Mr. Drummond is a 72 year old gentleman with a PMHx significant for metastatic prostate cancer on enzalutamide and ADT, CHF, atrial fibrillation who presented with increased weakness and shortness of breath. He was found to be tachycardiac with HRs in the 110s-130s and found to be in atrial fibrillation with RVR. CXR on 08/10/22 revealed bilateral pleural effusions, but no evidence of pneumonia. He was started on diltiazem drip and then transitioned to amiodarone with controlled HRs < 110, but persistent intermittent hypotension. On the morning of 08/12/22, he developed PEA requiring epinephrine x 2, sodium bicarbonate x 1 with ROSC. Unfortunately, he had cardiogenic shock requiring 3 pressors. At the time of my assessment, his son and daughter had decided to pursue comfort care measures. Past Medical History Past Medical History: Cancer, Diabetes Mellitus, Hyperlipidemia, Hypertension, Prostate Disorder, Rheumatoid Arthritis (RA), Thyroid Disorder Additional Past Medical History / Comment(s): Thyroid cancer with a previous thyroidectomy, prostate cancer, morbid obesity, obstructive sleep apnea, hypertension, hyperlipidemia, diabetes mellitus, History of Any Multi-Drug Resistant Organisms: None Reported Past Surgical History: Orthopedic Surgery Additional Past Surgical History / Comment(s): betty knee partial replacement, thyroidectomy Past Anesthesia/Blood Transfusion Reactions: No Reported Reaction Past Psychological History: Panic Disorder Additional Psychological History / Comment(s): Pt resides with his yuriIveth. His son lives next door. He has home oxygen and a walker and wheelchair. Smoking Status: Former smoker Past Alcohol Use History: None Reported Past Drug Use History: None Reported - Past Family History Father Family Medical History: Hyperlipidemia Additional Family Medical History / Comment(s): parkinsons Mother Family Medical History: Dementia Medications and Allergies Home Medications Medication Instructions Recorded Confirmed Type Ferrous Sulfate [Feosol] 325 mg PO DAILY 07/31/19 08/10/22 History PARoxetine [Paxil] 20 mg PO DAILY 07/31/19 08/10/22 History Simvastatin [Zocor] 40 mg PO HS 07/31/19 08/10/22 History allopurinoL [Zyloprim] 300 mg PO DAILY 07/31/19 08/10/22 History Apixaban [Eliquis] 5 mg PO BID #60 tab 08/05/19 08/10/22 Rx Carbidopa-Levodopa 10-100 mg 1 tab PO TID@0900,1600,209903/11/21 08/10/22 History [Sinemet 10-100 mg] Liraglutide [Victoza 2-Kodak] 1.2 mg SQ DAILY 03/11/21 08/10/22 History metFORMIN HCL [Glucophage] 500 mg PO BID@0900,1900 03/11/21 08/10/22 History Ascorbic Acid [Vitamin C] 500 mg PO DAILY 07/27/22 08/10/22 History Cranberry Supplement 8,400 mg PO DAILY 07/27/22 08/10/22 History Enzalutamide [Xtandi] 160 mg PO HS 07/27/22 08/10/22 History Levothyroxine Sodium [Synthroid] 300 mcg PO DAILY 07/27/22 08/10/22 History Famotidine [Pepcid] 20 mg PO DAILY #30 tablet 07/31/22 08/10/22 Rx Potassium Chloride ER [K-Dur 20] 20 meq PO DAILY #0 07/31/22 08/10/22 Rx Ergocalciferol [Vitamin D2 (1250 1,250 mcg PO GALARZA 08/10/22 08/10/22 History Mcg = 09662 Iu)] Furosemide [Lasix] See Taper PO BID@1400,1900 08/10/22 08/10/22 History Midodrine [ProAmatine] 5 mg PO AC-BID@0900,1900 08/10/22 08/10/22 History Nystatin 100,000 Unit/gm Powd 1 applic TOPICAL TID@0900,1600,2100 08/10/22 08/10/22 History [Mycostatin Powder] Allergies Allergy/AdvReac Type Severity Reaction Status Date / Time No Known Allergies Allergy Verified 08/10/22 17:10 Physical Exam Vitals: Vital Signs Temp Pulse Pulse Resp BP BP Pulse Ox 08/12/22 10:00 98 24 83 L 08/12/22 09:45 103 H 24 08/12/22 09:30 93 24 08/12/22 09:15 101 H 24 08/12/22 09:00 98 24 84 L 08/12/22 08:45 103 H 24 08/12/22 08:30 101 H 24 08/12/22 08:15 98 27 H 93/25 08/12/22 08:04 96 08/12/22 08:00 101 H 14 79/50 08/12/22 07:55 98 24 08/12/22 07:45 89 3 L 90/60 08/12/22 07:30 93 0 L 75/47 08/12/22 07:15 89 0 L 78/44 08/12/22 07:00 93 0 L 78/46 08/12/22 06:45 92 18 85/67 08/12/22 06:30 98 21 78/55 89 L 08/12/22 06:15 94 27 H 87/21 89 L 08/12/22 06:00 97 26 H 104/67 87 L 08/12/22 05:45 106 H 24 89 L 08/12/22 05:30 102 H 18 82/62 86 L 08/12/22 05:21 08/12/22 05:15 103 H 21 78/54 86 L 08/12/22 05:00 100 24 65/54 79 L 08/12/22 04:55 08/12/22 04:45 34 L 28 H 87/72 08/12/22 04:30 93 27 H 88/68 08/12/22 04:15 92 27 H 112/96 95 08/12/22 04:00 97.4 F L 90 28 H 101/82 08/12/22 03:45 94 23 77/62 08/12/22 03:30 102 H 19 131/107 08/12/22 03:15 94 20 109/37 08/12/22 03:00 97 22 82/68 08/12/22 02:45 96 20 08/12/22 02:30 98 40 H 110/85 08/12/22 02:15 90 23 78/52 93 L 08/12/22 02:00 94 17 74/58 08/12/22 01:45 93 15 80/61 99 08/12/22 01:30 96 19 92/58 89 L 08/12/22 01:15 89 23 88/66 08/12/22 01:00 97 20 93/58 08/12/22 00:45 98 21 87/43 08/12/22 00:30 97 32 H 127/72 08/12/22 00:15 30 H 93/59 08/12/22 00:00 96 32 H 92/71 100 08/11/22 23:45 90 21 93/60 96 08/11/22 23:30 20 88/66 08/11/22 23:15 98 22 88/75 08/11/22 23:00 24 82/54 08/11/22 22:45 95 21 98/64 08/11/22 22:30 31 H 108/64 95 08/11/22 22:15 20 92/73 08/11/22 22:00 90 28 H 100/53 08/11/22 21:45 80 23 94 L 08/11/22 21:30 31 H 90/66 08/11/22 21:15 72 29 H 76/30 08/11/22 21:00 73 29 H 08/11/22 20:48 29 H 08/11/22 16:25 97.5 F L 83 24 92/50 100 08/11/22 13:18 95 20 95/64 FiO2 08/12/22 10:00 08/12/22 09:45 08/12/22 09:30 08/12/22 09:15 08/12/22 09:00 08/12/22 08:45 08/12/22 08:30 08/12/22 08:15 08/12/22 08:04 08/12/22 08:00 100 08/12/22 07:55 08/12/22 07:45 08/12/22 07:30 100 08/12/22 07:15 08/12/22 07:00 100 08/12/22 06:45 08/12/22 06:30 08/12/22 06:15 08/12/22 06:00 100 08/12/22 05:45 08/12/22 05:30 100 08/12/22 05:21 100 08/12/22 05:15 08/12/22 05:00 08/12/22 04:55 08/12/22 04:45 08/12/22 04:30 08/12/22 04:15 08/12/22 04:00 08/12/22 03:45 08/12/22 03:30 08/12/22 03:15 08/12/22 03:00 08/12/22 02:45 08/12/22 02:30 08/12/22 02:15 08/12/22 02:00 08/12/22 01:45 08/12/22 01:30 08/12/22 01:15 08/12/22 01:00 08/12/22 00:45 08/12/22 00:30 08/12/22 00:15 08/12/22 00:00 08/11/22 23:45 08/11/22 23:30 08/11/22 23:15 08/11/22 23:00 08/11/22 22:45 08/11/22 22:30 08/11/22 22:15 08/11/22 22:00 08/11/22 21:45 08/11/22 21:30 08/11/22 21:15 08/11/22 21:00 08/11/22 20:48 08/11/22 16:25 08/11/22 13:18 Intake and Output 08/11/22 08/12/22 08/12/22 22:59 06:59 14:59 Intake Total 35.145 9450.462 9013.094 Output Total 100 30 0 Balance -64.855 5681.917 0903.094 Intake: IV 10 200 Dextrose 5% in Water 1, 200 000 ml @ 100 mls/hr IV . [id number] NASRIN with Sodium Bicarb (1 Meq/ml) 150 ml Rx#:[id number] Invasive Line 1 10 Intake, IV Titration 25.145 2196.307 9775.094 Amount Morphine Sulfate (100 mg/ 0.527 2 ml) 100 mg In Sodium Chloride 0.9% 100 ml @ 1 MG/HR 1.02 mls/hr IV . Q24H NASRIN Rx#:[id number] Norepinephrine 32 mg In 11.567 Sodium Chloride 0.9% 218 ml @ 0.05 MCG/KG/MIN 3. 305 mls/hr IV .Q24H NASRIN Rx#:[id number] Norepinephrine 4 mg In 25.145 228.855 Sodium Chloride 0.9% 250 ml @ 0.05 MCG/KG/MIN 25. 145 mls/hr IV .Q10H7M NASRIN Rx#:[id number] Sodium Chloride 0.9% 1, 375 1000 000 ml @ 75 mls/hr IV . [id number] [facility] Rx#:[id number] Sodium Chloride 0.9% 2, 1000 000 ml @ 999 mls/hr IV . Q2H1M ONE Rx#:[id number] Output: Urine 100 30 0 Other: Voiding Method Indwelling Catheter Indwelling Catheter Weight 141 kg 141 kg ABP, PAP, CO, CI - Last 8 Hours Arterial Blood Pressure 70/45 Arterial Blood Pressure 73/44 Arterial Blood Pressure 76/45 Arterial Blood Pressure 75/44 Arterial Blood Pressure 77/48 Arterial Blood Pressure 84/51 Arterial Blood Pressure 70/48 Arterial Blood Pressure 73/46 Arterial Blood Pressure 62/40 Arterial Blood Pressure 66/45 Arterial Blood Pressure 65/44 Arterial Blood Pressure 61/36 Arterial Blood Pressure 64/45 Arterial Blood Pressure 58/42 Arterial Blood Pressure 67/46 Arterial Blood Pressure 65/43 Arterial Blood Pressure 63/44 Intubated and sedated - Constitutional General appearance: obese - EENT Eyes: abnormal pupil - Respiratory Mechanical breath sounds - Neurologic Not responsive to commands Remaining physical exam deferred due to pursuing comfort measures Results CBC & Chem 7: 08/12/22 05:21 08/12/22 05:21 Labs: Abnormal Lab Results - Last 24 Hours (Table) 08/11/22 08/11/22 08/11/22 Range/Units 12:17 15:09 15:58 WBC (3.8-10.6) k/uL RBC (4.30-5.90) m/uL Hgb (13.0-17.5) gm/dL Hct (39.0-53.0) % MCV (80.0-100.0) fL MCHC (31.0-37.0) g/dL RDW (11.5-15.5) % Neutrophils # (Manual) (1.3-7.7) k/uL Monocytes # (Manual) (0-1.0) k/uL Nucleated RBCs (0-0) /100 WBC ABG pH (7.35-7.45) ABG HCO3 (21-25) mmol/L ABG Total CO2 (19-24) mmol/L ABG O2 Saturation (94-97) % ABG Hematocrit (34.0-46.0) % Hemoglobin (13.0-17.5) gm/dL Sodium (137-145) mmol/L Potassium (3.5-5.1) mmol/L Chloride (98-107) mmol/L Carbon Dioxide (22-30) mmol/L BUN (9-20) mg/dL Creatinine (0.66-1.25) mg/dL Glucose (74-99) mg/dL POC Glucose (mg/dL) (70-110) mg/dL Hemoglobin A1c 6.1 H (0.0-6.0) % Plasma Lactic Acid Karthikeyan 10.0 H* (0.7-2.0) mmol/L Calcium (8.4-10.2) mg/dL Total Bilirubin (0.2-1.3) mg/dL AST (17-59) U/L ALT (4-49) U/L C-Reactive Protein (<1.0) mg/dL Total Protein (6.3-8.2) g/dL Albumin (3.5-5.0) g/dL Procalcitonin (0.02-0.09) ng/mL Urine Protein 2+ H (Negative) Urine Glucose (UA) Trace H (Negative) Urine Blood Large H (Negative) Ur Leukocyte Esterase Large H (Negative) Urine RBC >182 H (0-5) /hpf Urine WBC >182 H (0-5) /hpf Urine WBC Clumps Rare H (None) /hpf Ur Squamous Epith Cells 14 H (0-4) /hpf Urine Bacteria Occasional H (None) /hpf Urine Mucus Few H (None) /hpf 08/11/22 08/11/22 08/11/22 Range/Units 16:50 16:56 16:56 WBC (3.8-10.6) k/uL RBC (4.30-5.90) m/uL Hgb (13.0-17.5) gm/dL Hct (39.0-53.0) % MCV (80.0-100.0) fL MCHC (31.0-37.0) g/dL RDW (11.5-15.5) % Neutrophils # (Manual) (1.3-7.7) k/uL Monocytes # (Manual) (0-1.0) k/uL Nucleated RBCs (0-0) /100 WBC ABG pH (7.35-7.45) ABG HCO3 (21-25) mmol/L ABG Total CO2 (19-24) mmol/L ABG O2 Saturation (94-97) % ABG Hematocrit (34.0-46.0) % Hemoglobin (13.0-17.5) gm/dL Sodium (137-145) mmol/L Potassium (3.5-5.1) mmol/L Chloride (98-107) mmol/L Carbon Dioxide (22-30) mmol/L BUN (9-20) mg/dL Creatinine (0.66-1.25) mg/dL Glucose (74-99) mg/dL POC Glucose (mg/dL) 111 H (70-110) mg/dL Hemoglobin A1c (0.0-6.0) % Plasma Lactic Acid Karthikeyan (0.7-2.0) mmol/L Calcium (8.4-10.2) mg/dL Total Bilirubin (0.2-1.3) mg/dL AST (17-59) U/L ALT (4-49) U/L C-Reactive Protein 6.6 H (<1.0) mg/dL Total Protein (6.3-8.2) g/dL Albumin (3.5-5.0) g/dL Procalcitonin 0.55 H (0.02-0.09) ng/mL Urine Protein (Negative) Urine Glucose (UA) (Negative) Urine Blood (Negative) Ur Leukocyte Esterase (Negative) Urine RBC (0-5) /hpf Urine WBC (0-5) /hpf Urine WBC Clumps (None) /hpf Ur Squamous Epith Cells (0-4) /hpf Urine Bacteria (None) /hpf Urine Mucus (None) /hpf 08/11/22 08/11/22 08/11/22 Range/Units 17:37 20:38 20:47 WBC (3.8-10.6) k/uL RBC (4.30-5.90) m/uL Hgb (13.0-17.5) gm/dL Hct (39.0-53.0) % MCV (80.0-100.0) fL MCHC (31.0-37.0) g/dL RDW (11.5-15.5) % Neutrophils # (Manual) (1.3-7.7) k/uL Monocytes # (Manual) (0-1.0) k/uL Nucleated RBCs (0-0) /100 WBC ABG pH (7.35-7.45) ABG HCO3 (21-25) mmol/L ABG Total CO2 (19-24) mmol/L ABG O2 Saturation (94-97) % ABG Hematocrit (34.0-46.0) % Hemoglobin (13.0-17.5) gm/dL Sodium 132 L (137-145) mmol/L Potassium 5.8 H (3.5-5.1) mmol/L Chloride 96 L (98-107) mmol/L Carbon Dioxide 10 L (22-30) mmol/L BUN 55 H (9-20) mg/dL Creatinine 2.36 H (0.66-1.25) mg/dL Glucose 66 L (74-99) mg/dL POC Glucose (mg/dL) 68 L (70-110) mg/dL Hemoglobin A1c (0.0-6.0) % Plasma Lactic Acid Karthikeyan 10.4 H* (0.7-2.0) mmol/L Calcium 8.3 L (8.4-10.2) mg/dL Total Bilirubin (0.2-1.3) mg/dL AST (17-59) U/L ALT (4-49) U/L C-Reactive Protein (<1.0) mg/dL Total Protein (6.3-8.2) g/dL Albumin (3.5-5.0) g/dL Procalcitonin (0.02-0.09) ng/mL Urine Protein (Negative) Urine Glucose (UA) (Negative) Urine Blood (Negative) Ur Leukocyte Esterase (Negative) Urine RBC (0-5) /hpf Urine WBC (0-5) /hpf Urine WBC Clumps (None) /hpf Ur Squamous Epith Cells (0-4) /hpf Urine Bacteria (None) /hpf Urine Mucus (None) /hpf 08/11/22 08/11/22 08/12/22 Range/Units 21:20 22:05 01:51 WBC (3.8-10.6) k/uL RBC (4.30-5.90) m/uL Hgb (13.0-17.5) gm/dL Hct (39.0-53.0) % MCV (80.0-100.0) fL MCHC (31.0-37.0) g/dL RDW (11.5-15.5) % Neutrophils # (Manual) (1.3-7.7) k/uL Monocytes # (Manual) (0-1.0) k/uL Nucleated RBCs (0-0) /100 WBC ABG pH (7.35-7.45) ABG HCO3 (21-25) mmol/L ABG Total CO2 (19-24) mmol/L ABG O2 Saturation (94-97) % ABG Hematocrit (34.0-46.0) % Hemoglobin (13.0-17.5) gm/dL Sodium 132 L (137-145) mmol/L Potassium (3.5-5.1) mmol/L Chloride 93 L (98-107) mmol/L Carbon Dioxide 13 L (22-30) mmol/L BUN 56 H (9-20) mg/dL Creatinine 2.33 H (0.66-1.25) mg/dL Glucose (74-99) mg/dL POC Glucose (mg/dL) (70-110) mg/dL Hemoglobin A1c (0.0-6.0) % Plasma Lactic Acid Karthikeyan 11.8 H* 9.6 H* (0.7-2.0) mmol/L Calcium 8.1 L (8.4-10.2) mg/dL Total Bilirubin (0.2-1.3) mg/dL AST (17-59) U/L ALT (4-49) U/L C-Reactive Protein (<1.0) mg/dL Total Protein (6.3-8.2) g/dL Albumin (3.5-5.0) g/dL Procalcitonin (0.02-0.09) ng/mL Urine Protein (Negative) Urine Glucose (UA) (Negative) Urine Blood (Negative) Ur Leukocyte Esterase (Negative) Urine RBC (0-5) /hpf Urine WBC (0-5) /hpf Urine WBC Clumps (None) /hpf Ur Squamous Epith Cells (0-4) /hpf Urine Bacteria (None) /hpf Urine Mucus (None) /hpf 08/12/22 08/12/22 08/12/22 Range/Units 04:48 05:21 05:21 WBC 22.7 H (3.8-10.6) k/uL RBC 3.77 L (4.30-5.90) m/uL Hgb 10.9 L (13.0-17.5) gm/dL Hct 38.9 L (39.0-53.0) % MCV 103.2 H D (80.0-100.0) fL MCHC 27.9 L (31.0-37.0) g/dL RDW 18.2 H (11.5-15.5) % Neutrophils # (Manual) 18.10 H (1.3-7.7) k/uL Monocytes # (Manual) 1.36 H (0-1.0) k/uL Nucleated RBCs 25 H (0-0) /100 WBC ABG pH (7.35-7.45) ABG HCO3 (21-25) mmol/L ABG Total CO2 (19-24) mmol/L ABG O2 Saturation (94-97) % ABG Hematocrit (34.0-46.0) % Hemoglobin (13.0-17.5) gm/dL Sodium 134 L (137-145) mmol/L Potassium 5.8 H (3.5-5.1) mmol/L Chloride 97 L (98-107) mmol/L Carbon Dioxide 14 L (22-30) mmol/L BUN 56 H (9-20) mg/dL Creatinine 2.80 H (0.66-1.25) mg/dL Glucose 127 H (74-99) mg/dL POC Glucose (mg/dL) 67 L (70-110) mg/dL Hemoglobin A1c (0.0-6.0) % Plasma Lactic Acid Karthikeyan (0.7-2.0) mmol/L Calcium 7.4 L (8.4-10.2) mg/dL Total Bilirubin 2.5 H (0.2-1.3) mg/dL AST (17-59) U/L ALT 699 H (4-49) U/L C-Reactive Protein (<1.0) mg/dL Total Protein 5.2 L (6.3-8.2) g/dL Albumin 2.9 L (3.5-5.0) g/dL Procalcitonin (0.02-0.09) ng/mL Urine Protein (Negative) Urine Glucose (UA) (Negative) Urine Blood (Negative) Ur Leukocyte Esterase (Negative) Urine RBC (0-5) /hpf Urine WBC (0-5) /hpf Urine WBC Clumps (None) /hpf Ur Squamous Epith Cells (0-4) /hpf Urine Bacteria (None) /hpf Urine Mucus (None) /hpf 08/12/22 08/12/22 08/12/22 Range/Units 05:21 06:00 07:21 WBC (3.8-10.6) k/uL RBC (4.30-5.90) m/uL Hgb (13.0-17.5) gm/dL Hct (39.0-53.0) % MCV (80.0-100.0) fL MCHC (31.0-37.0) g/dL RDW (11.5-15.5) % Neutrophils # (Manual) (1.3-7.7) k/uL Monocytes # (Manual) (0-1.0) k/uL Nucleated RBCs (0-0) /100 WBC ABG pH 7.03 L* (7.35-7.45) ABG HCO3 10 L* (21-25) mmol/L ABG Total CO2 11 L (19-24) mmol/L ABG O2 Saturation 92.9 L (94-97) % ABG Hematocrit 30 L (34.0-46.0) % Hemoglobin 9.9 L (13.0-17.5) gm/dL Sodium (137-145) mmol/L Potassium (3.5-5.1) mmol/L Chloride (98-107) mmol/L Carbon Dioxide (22-30) mmol/L BUN (9-20) mg/dL Creatinine (0.66-1.25) mg/dL Glucose (74-99) mg/dL POC Glucose (mg/dL) 62 L (70-110) mg/dL Hemoglobin A1c (0.0-6.0) % Plasma Lactic Acid Karthikeyan 13.1 H* (0.7-2.0) mmol/L Calcium (8.4-10.2) mg/dL Total Bilirubin (0.2-1.3) mg/dL AST (17-59) U/L ALT (4-49) U/L C-Reactive Protein (<1.0) mg/dL Total Protein (6.3-8.2) g/dL Albumin (3.5-5.0) g/dL Procalcitonin (0.02-0.09) ng/mL Urine Protein (Negative) Urine Glucose (UA) (Negative) Urine Blood (Negative) Ur Leukocyte Esterase (Negative) Urine RBC (0-5) /hpf Urine WBC (0-5) /hpf Urine WBC Clumps (None) /hpf Ur Squamous Epith Cells (0-4) /hpf Urine Bacteria (None) /hpf Urine Mucus (None) /hpf 08/12/22 08/12/22 Range/Units 09:00 09:00 WBC (3.8-10.6) k/uL RBC (4.30-5.90) m/uL Hgb (13.0-17.5) gm/dL Hct (39.0-53.0) % MCV (80.0-100.0) fL MCHC (31.0-37.0) g/dL RDW (11.5-15.5) % Neutrophils # (Manual) (1.3-7.7) k/uL Monocytes # (Manual) (0-1.0) k/uL Nucleated RBCs (0-0) /100 WBC ABG pH (7.35-7.45) ABG HCO3 (21-25) mmol/L ABG Total CO2 (19-24) mmol/L ABG O2 Saturation (94-97) % ABG Hematocrit (34.0-46.0) % Hemoglobin (13.0-17.5) gm/dL Sodium (137-145) mmol/L Potassium (3.5-5.1) mmol/L Chloride (98-107) mmol/L Carbon Dioxide (22-30) mmol/L BUN (9-20) mg/dL Creatinine (0.66-1.25) mg/dL Glucose (74-99) mg/dL POC Glucose (mg/dL) (70-110) mg/dL Hemoglobin A1c (0.0-6.0) % Plasma Lactic Acid Karthikeyan 13.0 H* (0.7-2.0) mmol/L Calcium (8.4-10.2) mg/dL Total Bilirubin (0.2-1.3) mg/dL AST 9103 H (17-59) U/L ALT (4-49) U/L C-Reactive Protein (<1.0) mg/dL Total Protein (6.3-8.2) g/dL Albumin (3.5-5.0) g/dL Procalcitonin (0.02-0.09) ng/mL Urine Protein (Negative) Urine Glucose (UA) (Negative) Urine Blood (Negative) Ur Leukocyte Esterase (Negative) Urine RBC (0-5) /hpf Urine WBC (0-5) /hpf Urine WBC Clumps (None) /hpf Ur Squamous Epith Cells (0-4) /hpf Urine Bacteria (None) /hpf Urine Mucus (None) /hpf Microbiology - Last 24 Hours (Table) 08/12/22 05:10 Sputum Culture - Preliminary Sputum 08/10/22 18:55 Urine Culture - Final Urine,Voided Chest x-ray: report reviewed Assessment and Plan Assessment: Mr. Drummond is a 72 year old gentleman with a PMHx significant for metastatic prostate cancer, CHF, and atrial fibrillation who developed PEA with subsequent cardiogenic shock requiring 3 pressors. Family has decided to pursue comfort m easures, which is appropriate. Plan: -Comfort measures per palliative care/ICU team
[2022-08-14] MEDS ORDERED: ERGOCALCIFEROL 1,250 MCG (50,000 IU) CAPSULE PO SCH (09:00)
--- NOTE | 2022-08-15 10:57 | CDI ---
Documentation Clarification Form Date: 08/12/22 From: Lashell Harrison Phone: Admit Date: 08/10/2022 08:20:00 PM Patient Name: Fabian Drummond Visit Number: [id number] Discharge Date: 08/12/2022 12:15:00 PM ATTENTION: The Clinical Documentation Specialists (CDI) and [facility] Coding Staff appreciate your assistance in clarifying documentation. Please respond to the clarification below the line at the bottom and electronically sign. The CDI & [facility] Coding staff will review the response and follow-up if needed. Please note: Queries are made part of the Legal Health Record. If you have any questions, please contact the author of this message via ITS. Dr. Aftab Nicholas, Sepsis and septic shock are documented in the 08/12 progress note. For each diagnosis, documentation must be clear to determine if the condition was present at the time of the patients inpatient admission or developed during the hospital stay. Additional clarification regarding the sepsis and septic shock is requested. 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 H&P documents acute on chronic diastolic CHF, acute on chronic hypoxic respiratory failure, metabolic acidosis secondary to acute renal injury, and abdominal cellulitis. 08/12 progress note: Status post cardiopulmonary arrest, with CPR and intubation -Sepsis, septic shock with multisystem organ failure, -Hypotension, severe, secondary to the above, on pressor support. Treatment: Definition of Present on Admission (POA): A diagnosis present at the time the order for admission to inpatient status was written. 1. Please clarify if the sepsis was POA: [X] Y = Yes, the condition was present at the time of the order for inpatient admission. [ ] N = No, the condition was not present at the time of the order for inpatient admission. [ ] W = Clinically undetermined if the condition was present at the time of the order for inpatient admission. 2. Please clarify if the septic shock was POA: [ X] Y = Yes, the condition was present at the time of the order for inpatient admission. [ ] N = No, the condition was not present at the time of the order for inpatient admission. [ ] W = Clinically undetermined if the condition was present at the time of the order for inpatient admission. MTDD
== END 2022-08-12 12:15 | disposition expired | DRG 871 ==
LOC: EC 15:34 → SUPCPDRO 15:34 → 3SCARD 20:20 → 2SICU 08-11 20:38
PROVIDERS: ADMIT Family Medicine; ATTEND Family Medicine
PROC: 3E033XZ Introduction of Vasopressor into Peripheral Vein, Percutaneous Approach (ICD-10-PCS; 2022-08-11)
PROC: 5A09457 Assistance with Respiratory Ventilation, 24-96 Consecutive Hours, Continuous Positive Airway Pressure (ICD-10-PCS; 2022-08-11)
PROC: 5A1935Z Respiratory Ventilation, Less than 24 Consecutive Hours (ICD-10-PCS; principal; 2022-08-12)
PROC: 0D9670Z Drainage of Stomach with Drainage Device, Via Natural or Artificial Opening (ICD-10-PCS; principal; 2022-08-12)
PROC: 0BH17EZ Insertion of Endotracheal Airway into Trachea, Via Natural or Artificial Opening (ICD-10-PCS; principal; 2022-08-12)
PROC: 05H633Z Insertion of Infusion Device into Left Subclavian Vein, Percutaneous Approach (ICD-10-PCS; principal; 2022-08-12)
PROC: 5A12012 Performance of Cardiac Output, Single, Manual (ICD-10-PCS; 2022-08-12)
DX: A41.9 Sepsis, unspecified organism (principal); I46.2 Cardiac arrest due to underlying cardiac condition; R65.21 Severe sepsis with septic shock; I50.33 Acute on chronic diastolic (congestive) heart failure; J96.21 Acute and chronic respiratory failure with hypoxia; N17.0 Acute kidney failure with tubular necrosis; J98.59 Other diseases of mediastinum, not elsewhere classified; I13.0 Hypertensive heart and chronic kidney disease with heart failure and stage 1 through stage 4 chronic kidney disease, or unspecified chronic kidney disease; E87.2 Acidosis; Z68.43 Body mass index [BMI] 50.0-59.9, adult; L03.311 Cellulitis of abdominal wall; C79.9 Secondary malignant neoplasm of unspecified site; I48.21 Permanent atrial fibrillation; I42.9 Cardiomyopathy, unspecified; D63.1 Anemia in chronic kidney disease; C61 Malignant neoplasm of prostate; E11.622 Type 2 diabetes mellitus with other skin ulcer; E11.22 Type 2 diabetes mellitus with diabetic chronic kidney disease; E11.40 Type 2 diabetes mellitus with diabetic neuropathy, unspecified; N18.31 Chronic kidney disease, stage 3a; Z66 Do not resuscitate; E66.01 Morbid (severe) obesity due to excess calories; Z51.5 Encounter for palliative care; L98.492 Non-pressure chronic ulcer of skin of other sites with fat layer exposed; M06.9 Rheumatoid arthritis, unspecified; E86.0 Dehydration; Z79.01 Long term (current) use of anticoagulants; E87.5 Hyperkalemia; E78.5 Hyperlipidemia, unspecified; I08.1 Rheumatic disorders of both mitral and tricuspid valves; M19.079 Primary osteoarthritis, unspecified ankle and foot; G47.33 Obstructive sleep apnea (adult) (pediatric); E89.0 Postprocedural hypothyroidism; R33.9 Retention of urine, unspecified; K42.9 Umbilical hernia without obstruction or gangrene; R29.6 Repeated falls; H91.90 Unspecified hearing loss, unspecified ear; F41.0 Panic disorder [episodic paroxysmal anxiety]; S99.929A Unspecified injury of unspecified foot, initial encounter; R77.8 Other specified abnormalities of plasma proteins; R26.9 Unspecified abnormalities of gait and mobility; W01.0XXA Fall on same level from slipping, tripping and stumbling without subsequent striking against object, initial encounter; Z87.440 Personal history of urinary (tract) infections; Z79.890 Hormone replacement therapy; Z79.84 Long term (current) use of oral hypoglycemic drugs; Z79.899 Other long term (current) drug therapy; Z85.850 Personal history of malignant neoplasm of thyroid; Z96.653 Presence of artificial knee joint, bilateral; Z87.891 Personal history of nicotine dependence; Z71.3 Dietary counseling and surveillance; Y92.811 Bus as the place of occurrence of the external cause
CPT/HCPCS: 36415; 71045; 71046; 71250; 76705; 80048; 80053; 81001; 82533; 82805; 83036; 83605; 83735; 83880; 84132; 84145; 84450; 84484; 85025; 85610; 85730; 86140; 87040; 87070; 87086; 87205; 93005; 94002; 94640; 96365; 96366; 99291